=== PATIENT | female | born 1940 | race Caucasian/White ===

== ENCOUNTER 2017-08-14 10:15 | Inpatient (IN) | payer MEDICARE, OTHER, SELFPAY ==
[2017-08-14] VITALS (13 sets, daily range): BP systolic 101–130; BP diastolic 41–92; PULSE 70–120; RESP 16–20; TEMP 36.5–37.7; O2SAT 95–100; BMI 46.8; BMI 37.4
--- NOTE | 2017-08-14 10:25 | HMH.EDGENADL ---
ED Disposition Clinical Impression: Trimalleolar fracture of ankle, closed Qualifiers: Encounter type: initial encounter Laterality: right Qualified Code(s): S82.851A - Displaced trimalleolar fracture of right lower leg, initial encounter for closed fracture Dislocation of right ankle joint Qualifiers: Encounter type: initial encounter Qualified Code(s): S93.04XA - Dislocation of right ankle joint, initial encounter Disposition: Admitted As Inpatient Condition on Discharge: Good - Critical Care Critical Care Time: No Attestation: On 08/14/17, the high probability of a clinically significant, sudden or life threatening deterioration of the following system(s) required my full and direct attention, intervention and personal management. The time I documented below is in addition to time spent performing reported procedures but includes the following listed in this critical care notation. Medical Decision Making - Bandar Inquiry Pt receiving controlled substance: Yes Bandar was queried for this patient: No Reason not queried -: Emergent pt cond-no time Risks and benefits of using a controlled substance: were not discussed with pt by me Vital Signs: 08/14/17 10:17 08/14/17 11:17 08/14/17 11:20 Temperature 98.3 F Temperature Source Oral Pulse Rate Pulse Rate [Right Brachial] 94 H 80 78 Respiratory Rate 20 16 18 Blood Pressure Blood Pressure [Right Arm] 120/92 124/65 112/76 Blood Pressure Mean [Right Arm] 101 84 88 Blood Pressure Source Blood Pressure Source [Right Arm] Manual Cuff/ Doppler Automatic Cuff Blood Pressure Position Blood Pressure Position [Right Arm] Sitting Supine 02 Sat by Pulse Oximetry 98 Oxygen Delivery Method Room Air 08/14/17 11:30 08/14/17 11:58 08/14/17 14:01 Temperature 97.7 F Temperature Source Oral Pulse Rate 108 H Pulse Rate [Right Brachial] 88 Respiratory Rate 18 18 Blood Pressure 130/71 Blood Pressure [Right Arm] 112/76 Blood Pressure Mean [Right Arm] 88 Blood Pressure Source Automatic Cuff Blood Pressure Source [Right Arm] Automatic Cuff Blood Pressure Position Supine Blood Pressure Position [Right Arm] 02 Sat by Pulse Oximetry Oxygen Delivery Method Room Air - Lab Data Lab Results 08/14/17 12:00: WBC 9.5, RBC 4.75, Hgb 12.9, Hct 41.6, MCV 87.6, MCH 27.1, MCHC 31.0 L, RDW 14.1, Plt Count 264, MPV 9.1, Neut % (Auto) 81.8 H, Lymph % (Auto) 12.5, [place] % (Auto) 4.8, Eos % (Auto) 0.6, Baso % (Auto) 0.3, Neut # (Auto) 7.8, Lymph # (Auto) 1.2, [place] # (Auto) 0.5, Eos # (Auto) 0.1, Baso # (Auto) 0.0 08/14/17 12:00: Sodium 139, Potassium 4.3, Chloride 102, Carbon Dioxide 29, Anion Gap 12.3, BUN 24 H, Creatinine 1.14 H, Estimated Creat Clear 30, Estimated GFR 46 L, Est GFR ( Amer) 56 L, Glucose 163 H, Calcium 8.4 L, Total Bilirubin 0.4, AST 20, ALT 26, Alkaline Phosphatase 101, Total Protein 6.8, Albumin 3.3 L, Globulin 3.5 H, Albumin/Globulin Ratio 0.9 L Result diagrams: 08/14/17 12:00 08/14/17 12:00 Orders (Tests/Meds): ED MEDICATIONS Generic Name Dose Route Start Last Admin Trade Name Freq PRN Reason Stop Dose Admin Aspirin 81 mg 08/15/17 09:00 Aspirin 81mg Enteric Coated Tablet PO 09/14/17 08:59 DAILY [facility] Atorvastatin Calcium 40 mg 08/14/17 21:00 Lipitor 40mg Tablet PO 09/13/17 20:59 HS [facility] Blood Glucose Test Strips 1 each 08/14/17 16:30 08/14/17 17:13 Fsbs (Bedside Glucose), Results Only !! FS 09/13/17 16:29 1 each [facility] Administration Citalopram Hydrobromide 20 mg 08/15/17 09:00 Celexa 20mg Tablet PO 09/14/17 08:59 DAILY JENNIFER Diazepam 2 mg 08/14/17 17:20 Valium 2mg Tablet PO 09/13/17 17:19 Q6HP PRN muscle spasm or anxiety Enoxaparin Sodium 30 mg 08/14/17 17:30 08/14/17 17:57 Lovenox 30mg/0.3ml Syringe SQ 09/13/17 17:29 30 mg Q12H JENNIFER Administration Insulin Human Lispro 0 unit 08/14/17 16:30 08/14/17 17:14
--- NOTE | 2017-08-14 10:26 | XR_ITS ---
XR ankle RT min 3V HISTORY: Pain following injury ITS.REASON: fall ORDERING PHYSICIAN: Jeffry Norton MD PATIENT AGE: 76 years COMPARISON: None FINDINGS: Trauma malleolus fracture dislocation noted of the right ankle. Comminuted fracture involves the distal shaft of the fibula with lateral angulation of the distal fracture fragment. The ankle mortise is widened by nearly 2 cm. Displaced transverse fracture noted of the medial malleolus. Fracture fragment is displaced medially x 19 mm. There is also a displaced fracture involving the lateral aspect of the distal tibia and may actually be the posterior distal tibia. There is valgus angulation of the talus. IMPRESSION: Comminuted right ankle fracture/ dislocation with widening of the ankle mortise
--- NOTE | 2017-08-14 10:26 | XR_ITS ---
XR chest AP HISTORY: Fall with pain ITS.REASON: fx ankle, fall ORDERING PHYSICIAN: Jeffry Norton MD PATIENT AGE: 76 years COMPARISON: None available FINDINGS: Cardiomegaly without failure. Mediastinum is somewhat prominent but may be related to the AP portable supine technique. No lobar consolidation or collapse. No acute bony findings. IMPRESSION: Cardiomegaly with mild prominence of the mediastinum possibly related technique and may be confirmed with follow-up upright PA and lateral chest when the patient can tolerate.
--- NOTE | 2017-08-14 11:03 | XR_ITS ---
XR hip RT 2-3V w/pelvis HISTORY: ITS.REASON: HIP PAIN ORDERING PHYSICIAN: Jeffry Norton MD PATIENT AGE: 76 years COMPARISON: None FINDINGS: There are minimal osteoarthritic changes of the right hip. No fracture or dislocation. No lytic or blastic change. Coarse calcification is present in the right paracentral region of the pelvis measuring 2.7 cm consistent with a fibroid. Mathis catheter is present. IMPRESSION: Minimal osteoarthritic changes of the right hip
[2017-08-14 12:27] LABS: Basophils % 0.3 % (0.1-2.0); Eosinophils # 0.1 K/mm3 (0.0-0.4); Eosinophils % 0.6 % (0.1-12.0); Hematocrit 41.6 % (37.0-47.0); Hemoglobin 12.9 g/dL (12.2-16.2); Lymphocytes # 1.2 K/mm3 (0.7-4.5); Lymphocytes % 12.5 K/mm3 (10-50); Mean Corpuscular Hemoglobin 27.1 pg (27.0-31.2); Mean Corpuscular Volume 87.6 fl (81-99); Mean Platelet Volume 9.1 fl (7.4-10.4); Monocytes # 0.5 K/mm3 (0.1-1.0); Monocytes % 4.8 % (1.7-9.3); Neutrophils # 7.8 K/mm3 (1.8-7.8); Neutrophils % 81.8 % (37.0-80.0); Platelet Count 264 K/mm3 (142-424); Red Blood Count 4.75 M/mm3 (4.20-5.40); Red Cell Distribution Width 14.1 % (11.5-17.5); White Blood Count 9.5 K/mm3 (4.8-10.8)
--- NOTE | 2017-08-14 12:32 | XR_ITS ---
XR ankle RT 2V HISTORY: Closed Reduction trial malleolus fracture ITS.REASON: post reduction ORDERING PHYSICIAN: Jeffry Norton MD PATIENT AGE: 76 years COMPARISON: Prereduction exam FINDINGS: Study is obtained through a splint showing moderate improvement in the alignment of the ankle fracture. Comminuted distal fibular fracture once again noted with mild lateral angulation of the distal fracture fragment. The ankle mortise is still widened but is moderately improved from the previous exam displaced medial malleolus fracture once again noted displaced laterally x 7 mm compared to 19 mm. IMPRESSION: Status post closed reduction of the ankle fracture dislocation with moderate improvement in the lateral displacement of the talus and widened ankle mortise as described above
[2017-08-14 12:36] LABS: Alanine Aminotransferase 26 U/L (12-78); Albumin Level 3.3 gm/dL (3.4-5.0); Albumin/Globulin Ratio 0.9 (1.1-1.8); Alkaline Phosphatase 101 U/L (46-116); Aspartate Amino Transferase 20 U/L (15-37); Bilirubin,Total 0.4 mg/dL (0.2-1.0); Blood Urea Nitrogen 24 mg/dL (7-18); Calcium 8.4 mg/dL (8.5-10.1); Creatinine Clearance Estimated 30 mL/min (0-300); Creatinine,Serum 1.14 mg/dL (0.55-1.02); Estimated Glomerular Filt Rate 46 ml/min (>60); GFR (African American) 56 ML/MIN (>60); Globulin 3.5 gm/dl (1.3-3.2); Glucose 163 mg/dL (74-106); Total Protein,Serum 6.8 gm/dL (6.4-8.2)
--- NOTE | 2017-08-14 12:37 | PC.NURSE ---
DR STEARNS CONSULTED BY DR LAMAS
--- NOTE | 2017-08-14 12:53 | PC.NURSE ---
Pt prepped for reduction of Rt ankle. QUINTON Lima and Dr Norton at BS. 50mg of Ketamine IVP given at 1118. Sxn and Respiratory supplies at BS. 1121 Leg Long splint placed by Dr Norton. 1125 Pt is following commands and is alert. Family at BS at 1130. VSS.
[2017-08-14 12:57] LABS: Anion Gap 12.3 mEq/L (5-15); Carbon Dioxide 29 mmol/L (21.0-32.0); Chloride 102 mmol/L (98-107); Potassium 4.3 mmoL/L (3.5-5.1); Sodium 139 mmol/L (136-145)
--- NOTE | 2017-08-14 13:06 | PC.NURSE ---
Pt doing well. Pain is under control and family is at BS. Rt foot is elevated and toes are PW&D.
--- NOTE | 2017-08-14 13:34 | PC.NURSE ---
DR MTZ COVERING FOR DR PADILLA CALLED AND ADMISSION TO HOSPITAL DISCUSSED.
--- NOTE | 2017-08-14 13:36 | PC.NURSE ---
DR LAMAS DISCUSSING CASE WITH DR STEARNS. TO BE ADMITTED TO HOSPITAL
--- NOTE | 2017-08-14 13:43 | PC.NURSE ---
TO BE ADMITTED TO ROOM [address] MTZ COVERING FOR VALERIE
--- NOTE | 2017-08-14 13:53 | CT_ITS ---
CT ankle RT wo con CLINICAL INDICATION: Pain following injury, evaluate stent fracture or dislocation status post closed reduction ITS.REASON: S/P FALL FX TIB/FIB ORDERING PHYSICIAN: Rell Clark MD PATIENT AGE: 76 years COMPARISON: Radiographs of the same day FINDINGS: There is a trial malleolus fracture present. Distal fibular fracture comminuted in nature with minimal lateral angulation of the distal fracture fragment with no significant displacement. The fracture is 6 cm proximal to the tip of the fibula and there is comminution. An avulsion fracture present at the tip of the distal fibula. There is mild widening of the ankle mortise. There is 7 mm lateral displacement of the talus. Increased soft tissue density is present in the inner osseous ligament region consistent with tear of the interosseous ligament. There are some avulsion fracture fragments along the distal aspect of the lateral aspect of the tibia. There is a displaced transverse fracture involving the before meals the medial malleolus. The medial malleolus fracture fragment is displaced laterally x 3 mm. A mildly displaced vertical fracture involves the posterior aspect of the distal tibia displaced dorsally x 3 mm and superiorly x 2 mm. The talus appears intact. No obvious tarsal fractures. Soft tissue swelling is present along the distal leg and ankle. IMPRESSION: Trimalleolar ankle fracture as described above with widening of the ankle mortise and lateral displacement of the talus as described above. IMPRESSION:
--- NOTE | 2017-08-14 14:07 | PC.NURSE ---
TO RADIOLOGY PER STRETCHER FOR CT RIGHT ANKLE
--- NOTE | 2017-08-14 17:27 | HMH.HP ---
*Admission Date: 08/14/17 *Chief complaint: Fall with right ankle fracture *History of present illness: 76-year-old white female in poor general health at home, afflicted with insulin requiring diabetes, some recent memory issues and confusion and morbid obesity, whose had multiple recent falls starting in the fall of last year, who came to the emergency department after falling at home and having severe ankle pain. Her son was with her this morning, reported that she had gotten up out of bed and he was making sure that she had eaten breakfast and was checking her sugar when she felt faint and said that she felt she was going to fall down. She did indeed fall and had a severe ankle injury. She has fallen multiple times in similar patterns over the past several months. In the emergency department ankle fracture was diagnosed by x-ray, it was externally reduced and cast/splint was applied. Orthopedic consultation was done, anticipate ORIF, admitted to hospital to evaluate falls, syncope episode and ongoing need for orthopedic intervention. Of note in the emergency department atrial fibrillation was noted on EKG. The family notes this is never been part of her history, but they do note that several weeks ago a staff member at the primary office noticed an irregular heartbeat that was not heard on re-auscultation. Patient and family specifically deny increasing problems with edema, palpitations or chest pain over the past months. [facility] History Medical History: Reports:: Cerebrovascular Accident, Diabetes Mellitus Type 2 Denies:: Diabetes Mellitus Type 1, Internal Pacemaker Comment: History of a cerebral blood clot during her many years ago Other Surgeries: No: Pacemaker - *Social History Alcohol Intake: never - Psychiatric History Expresses thoughts of harming self/others: None Suicide Plan Description: No Plan Review of Systems - Review of Systems Review of systems:: unable to obtain Patient is somewhat disoriented. Is unable to fixate on any other problems except the cramping sensation that she has in her ankle and foot. Denies cardiac symptoms as noted in HPI, but again, is really difficult to focus on a meaningful review of systems. - *Neurologic Denies fainting Meds Home Medications Medication Instructions Recorded Confirmed Type Aspirin [Aspir 81] 81 mg PO DAILY 08/14/17 08/14/17 History Atorvastatin Calcium [Atorvastatin 40 mg PO HS 08/14/17 08/14/17 History 40mg Tab] Citalopram Hydrobromide [Celexa 20 mg PO DAILY 08/14/17 08/14/17 History 20mg Tablet] Cyanocobalamin (Vitamin B-12) 1,000 mcg PO DAILY 08/14/17 08/14/17 History [Vitamin B-12] Folic Acid 0.4 mg PO DAILY 08/14/17 08/14/17 History Glyburide,Micronized [Glyburide 6 mg PO DAILY 08/14/17 08/14/17 History Micronized] Losartan/Hydrochlorothiazide 12.5 - 100 mg PO DAILY 08/14/17 08/14/17 History [Losartan-Hctz 100-12.5 mg Tab] Memantine HCl [Namenda Xr] 28 mg PO DAILY 08/14/17 08/14/17 History Omeprazole [Omeprazole 40mg 40 mg PO DAILY 08/14/17 08/14/17 History Capsule] Pioglitazone HCl [Pioglitazone HCl] 15 mg PO DAILY 08/14/17 08/14/17 History Pyridoxine HCl (Vitamin B6) 100 mg PO DAILY 08/14/17 08/14/17 History [Vitamin B-6] Allergies Allergy/AdvReac Type Severity Reaction Status Date / Time No Known Allergies Allergy Verified 08/14/17 10:35 Exam Vital signs and Labs for Last 24 Hours: Temp Pulse Resp BP Pulse Ox 98.2 F 117 H 20 129/56 97 08/14/17 14:34 08/14/17 16:00 08/14/17 14:34 08/14/17 14:34 08/14/17 15:12 I & O for Last 24 hours: Intake & Output 08/12/17 08/13/17 08/14/17 08/15/17 11:59 11:59 11:59 11:59 Weight 225 lb 2 oz Narrative: Patient examined in bed on second floor. Morbid obesity noted, this limits her exam accuracy and complicates all aspects of her care. She is oriented ?2. Again very distractible and focused on her leg pain. Or
--- NOTE | 2017-08-14 17:30 | P.HP_ITS ---
*Admission Date: 08/14/17 *Chief complaint: Fall with right ankle fracture *History of present illness: 76-year-old white female in poor general health at home, afflicted with insulin requiring diabetes, some recent memory issues and confusion and morbid obesity, whose had multiple recent falls starting in the fall of last year, who came to the emergency department after falling at home and having severe ankle pain. Her son was with her this morning, reported that she had gotten up out of bed and he was making sure that she had eaten breakfast and was checking her sugar when she felt faint and said that she felt she was going to fall down. She did indeed fall and had a severe ankle injury. She has fallen multiple times in similar patterns over the past several months. In the emergency department ankle fracture was diagnosed by x-ray, it was externally reduced and cast/splint was applied. Orthopedic consultation was done, anticipate ORIF, admitted to hospital to evaluate falls, syncope episode and ongoing need for orthopedic intervention. Of note in the emergency department atrial fibrillation was noted on EKG. The family notes this is never been part of her history, but they do note that several weeks ago a staff member at the primary office noticed an irregular heartbeat that was not heard on re-auscultation. Patient and family specifically deny increasing problems with edema, palpitations or chest pain over the past months. [facility] History Medical History: Reports:: Cerebrovascular Accident, Diabetes Mellitus Type 2 Denies:: Diabetes Mellitus Type 1, Internal Pacemaker Comment: History of a cerebral blood clot during her many years ago Other Surgeries: No: Pacemaker - *Social History Alcohol Intake: never - Psychiatric History Expresses thoughts of harming self/others: None Suicide Plan Description: No Plan Review of Systems - Review of Systems Review of systems:: unable to obtain Patient is somewhat disoriented. Is unable to fixate on any other problems except the cramping sensation that she has in her ankle and foot. Denies cardiac symptoms as noted in HPI, but again, is really difficult to focus on a meaningful review of systems. - *Neurologic Denies fainting Meds Home Medications Medication Instructions Recorded Confirmed Type Aspirin [Aspir 81] 81 mg PO DAILY 08/14/17 08/14/17 History Atorvastatin Calcium [Atorvastatin 40 mg PO HS 08/14/17 08/14/17 History 40mg Tab] Citalopram Hydrobromide [Celexa 20 mg PO DAILY 08/14/17 08/14/17 History 20mg Tablet] Cyanocobalamin (Vitamin B-12) 1,000 mcg PO DAILY 08/14/17 08/14/17 History [Vitamin B-12] Folic Acid 0.4 mg PO DAILY 08/14/17 08/14/17 History Glyburide,Micronized [Glyburide 6 mg PO DAILY 08/14/17 08/14/17 History Micronized] Losartan/Hydrochlorothiazide 12.5 - 100 mg PO DAILY 08/14/17 08/14/17 History [Losartan-Hctz 100-12.5 mg Tab] Memantine HCl [Namenda Xr] 28 mg PO DAILY 08/14/17 08/14/17 History Omeprazole [Omeprazole 40mg 40 mg PO DAILY 08/14/17 08/14/17 History Capsule] Pioglitazone HCl [Pioglitazone HCl] 15 mg PO DAILY 08/14/17 08/14/17 History Pyridoxine HCl (Vitamin B6) 100 mg PO DAILY 08/14/17 08/14/17 History [Vitamin B-6] Allergies Allergy/AdvReac Type Severity Reaction Status Date / Time No Known Allergies Allergy Verified 08/14/17 10:35 Exam Vital signs and Labs for Last 24 Hours:
--- NOTE | 2017-08-14 18:23 | PC.NURSE ---
71 YEAR OLD FEMALE PRESENTED TO THE HOSPITAL WITH A DIAGNOSIS OF RIGHT ANKLE FRACTURE. SHE FELL AT HOME THIS AM. DURING HER ER VISIT THE FRACTURE WAS EXTERNALLY REDUCED AND CAST/SPLINT WAS APPLIED. DR. ARAUJO CONSULTED AND THE PLAN IS TO TAKE HER TO SURGERY TOMORROW FOR A POSSIBLE ORIF. SHE HAS COMPLAINED OF ALOT OF PAIN AND MEDICATION WAS GIVEN PER ORDER. SHE IS A DIABETIC AND SHE IS ON A SLIDING SCALE INSULIN AT THIS TIME. BLOOD SUGAR AT 1700 WAS 117. FAMILY IS AT BEDSIDE AND HAS ENCOURAGED HER TO EAT. SHE STATES SHE IS NOT HUNGRY. REINFORCED THAT WE WILL MONITOR HER BLOOD SUGARS AND PAIN LEVEL. SHE HAS A SHETH CATH TO STRAIGHT DRAIN WITH YELLOW URINE NOTED. A HEART MONITOR WAS IMPLEMENTED AND SHE HAS BEEN IN ATRIAL FIB, NEW MEDICATION HAS BEEN ORDERED FOR TONIGHT. SHE IS UNABLE TO TOLERATE THE RICH HOSE, LOVENOX WAS ORDERED AND ADMINISTERED. WE WILL CONTINUE TO MONITOR. DONI CHAVEZ, MSN, RN
[2017-08-14 18:40] LABS: POC Glucose,Bedside 117 mg/dL (70-110)
--- NOTE | 2017-08-14 19:13 | PC.NURSE ---
REPORT GIVEN TO Tom REILLY
--- NOTE | 2017-08-14 19:49 | HMH.ORTHOCON ---
*Admission Date: 08/14/17 *Chief complaint: Right ankle pain *History of present illness: The patient is a 76-year-old female admitted after falling at home and incurring an ankle fracture dislocation. At time of examination, she is reasonably oriented and, in contrast to her admission history, states that she DID NOT take insulin for her diabetes. She denies blacking out but states that she does not remember any of her recent falls. PHYSICAL EXAMINATION-- Patient is awake but slightly confused. She is morbidly obese. Head/neck--no evident trauma. C-spine is nontender. No range of motion restrictions. T/L/S spine shows no evident tenderness or step-off Upper extremity exam shows no crepitus or trauma induced range of motion issues. Grossly intact neurologically. Peripheral pulses intact upper extremities. Pelvis is stable to compression and distraction. Mild tenderness left hip over the greater trochanter. Hip and knee range of motion cannot be assessed secondary to her known right ankle fracture dislocation Lower extremity examination shows the right ankle to be immobilized in a splint. Pedal pulses are intact. An ice pack is in place. Elevation is only about 4 inches. X-rays are reviewed and show a very well reduced ankle fracture dislocation which appears to be trimalleolar. A CT scan is been performed and this helped define the fracture pattern greatly, very important in this patient with morbid obesity. A trimalleolar fracture is indeed present. The posterior malleolar fracture appears of sufficient size that it will not itself require fixation most likely. This is a comminuted Busch C fracture with syndesmosis disruption and widening of the ankle mortise. PLAN--ORIF tommorrow.....R/B explained in detail to patient and her networking specialist. clear liquids until 714 then NPO Review of Systems - *Neurologic Denies fainting [facility] History Medical History: Reports:: Cerebrovascular Accident, Diabetes Mellitus Type 2 Denies:: Diabetes Mellitus Type 1, Internal Pacemaker Other Surgeries: No: Pacemaker - *Social History Alcohol Intake: never - Psychiatric History Expresses thoughts of harming self/others: None Suicide Plan Description: No Plan Meds Home Medications Medication Instructions Recorded Confirmed Type Aspirin [Aspir 81] 81 mg PO DAILY 08/14/17 08/14/17 History Atorvastatin Calcium [Atorvastatin 40 mg PO HS 08/14/17 08/14/17 History 40mg Tab] Citalopram Hydrobromide [Celexa 20 mg PO DAILY 08/14/17 08/14/17 History 20mg Tablet] Cyanocobalamin (Vitamin B-12) 1,000 mcg PO DAILY 08/14/17 08/14/17 History [Vitamin B-12] Folic Acid 0.4 mg PO DAILY 08/14/17 08/14/17 History Glyburide,Micronized [Glyburide 6 mg PO DAILY 08/14/17 08/14/17 History Micronized] Losartan/Hydrochlorothiazide 12.5 - 100 mg PO DAILY 08/14/17 08/14/17 History [Losartan-Hctz 100-12.5 mg Tab] Memantine HCl [Namenda Xr] 28 mg PO DAILY 08/14/17 08/14/17 History Omeprazole [Omeprazole 40mg 40 mg PO DAILY 08/14/17 08/14/17 History Capsule] Pioglitazone HCl [Pioglitazone HCl] 15 mg PO DAILY 08/14/17 08/14/17 History Pyridoxine HCl (Vitamin B6) 100 mg PO DAILY 08/14/17 08/14/17 History [Vitamin B-6] Allergies Allergy/AdvReac Type Severity Reaction Status Date / Time No Known Allergies Allergy Verified 08/14/17 10:35 Exam Vital signs and Labs for Last 24 Hours: Temp Pulse Resp BP Pulse Ox 98.2 F 117 H 20 129/56 97 08/14/17 14:34 08/14/17 16:00 08/14/17 14:34 08/14/17 14:34 08/14/17 15:12 Laboratory Results - last 24 hr 08/14/17 17:10: POC Glucose 117 I & O for Last 24 hours: Intake & Output 08/12/17 08/13/17 08/14/17 08/15/17 11:59 11:59 11:59 11:59 Intake Total 120 / 120 Output Total 100 / 100 Balance 20 / 20 Weight 225 lb 2 oz Results - Labs Result Diagrams: 08/14/17 12:00 08/14/17 12:00 Labs: All other labs normal. Assessment
--- NOTE | 2017-08-14 19:58 | P.CONS_ITS ---
*Admission Date: 08/14/17 *Chief complaint: Right ankle pain *History of present illness: The patient is a 76-year-old female admitted after falling at home and incurring an ankle fracture dislocation. At time of examination, she is reasonably oriented and, in contrast to her admission history, states that she DID NOT take insulin for her diabetes. She denies blacking out but states that she does not remember any of her recent falls. PHYSICAL EXAMINATION-- Patient is awake but slightly confused. She is morbidly obese. Head/neck--no evident trauma. C-spine is nontender. No range of motion restrictions. T/L/S spine shows no evident tenderness or step-off Upper extremity exam shows no crepitus or trauma induced range of motion issues. Grossly intact neurologically. Peripheral pulses intact upper extremities. Pelvis is stable to compression and distraction. Mild tenderness left hip over the greater trochanter. Hip and knee range of motion cannot be assessed secondary to her known right ankle fracture dislocation Lower extremity examination shows the right ankle to be immobilized in a splint. Pedal pulses are intact. An ice pack is in place. Elevation is only about 4 inches. X-rays are reviewed and show a very well reduced ankle fracture dislocation which appears to be trimalleolar. A CT scan is been performed and this helped define the fracture pattern greatly, very important in this patient with morbid obesity. A trimalleolar fracture is indeed present. The posterior malleolar fracture appears of sufficient size that it will not itself require fixation most likely. This is a comminuted Busch C fracture with syndesmosis disruption and widening of the ankle mortise. PLAN--ORIF tommorrow.....R/B explained in detail to patient and her tong carrier. clear liquids until 714 then NPO Review of Systems - *Neurologic Denies fainting [facility] History Medical History: Reports:: Cerebrovascular Accident, Diabetes Mellitus Type 2 Denies:: Diabetes Mellitus Type 1, Internal Pacemaker Other Surgeries: No: Pacemaker - *Social History Alcohol Intake: never - Psychiatric History Expresses thoughts of harming self/others: None Suicide Plan Description: No Plan Meds Home Medications Medication Instructions Recorded Confirmed Type Aspirin [Aspir 81] 81 mg PO DAILY 08/14/17 08/14/17 History Atorvastatin Calcium [Atorvastatin 40 mg PO HS 08/14/17 08/14/17 History 40mg Tab] Citalopram Hydrobromide [Celexa 20 mg PO DAILY 08/14/17 08/14/17 History 20mg Tablet] Cyanocobalamin (Vitamin B-12) 1,000 mcg PO DAILY 08/14/17 08/14/17 History [Vitamin B-12] Folic Acid 0.4 mg PO DAILY 08/14/17 08/14/17 History Glyburide,Micronized [Glyburide 6 mg PO DAILY 08/14/17 08/14/17 History Micronized] Losartan/Hydrochlorothiazide 12.5 - 100 mg PO DAILY 08/14/17 08/14/17 History [Losartan-Hctz 100-12.5 mg Tab] Memantine HCl [Namenda Xr] 28 mg PO DAILY 08/14/17 08/14/17 History Omeprazole [Omeprazole 40mg 40 mg PO DAILY 08/14/17 08/14/17 History Capsule] Pioglitazone HCl [Pioglitazone HCl] 15 mg PO DAILY 08/14/17 08/14/17 History Pyridoxine HCl (Vitamin B6) 100 mg PO DAILY 08/14/17 08/14/17 History [Vitamin B-6] Allergies Allergy/AdvReac Type Severity Reaction Status Date / Time No Known Allergies Allergy Verified 08/14/17 10:35 Exam Vital signs and Labs for Last 24 Hours: Temp Pulse Resp BP
[2017-08-15] VITALS (33 sets, daily range): BP systolic 68–142; BP diastolic 36–98; PULSE 61–118; RESP 12–22; TEMP 36.4–43; O2SAT 94–100
--- NOTE | 2017-08-15 | XR_ITS ---
XR ankle RT 2V HISTORY: ORIF trimalleolar ankle fracture ORDERING PHYSICIAN: Rell Clark MD PATIENT AGE: 76 years COMPARISON: 08/14/2017 Fluoroscopy time: 1 minute. FINDINGS: A bone plate is been placed over the distal fibular fracture with good alignment. 2 screws stabilize the medial malleolus fracture with good alignment. An additional transverse screws placed through the distal bone plate of the fibula into the distal tibia with stabilization of the ankle mortise. IMPRESSION: Status post ORIF trimalleolar fracture with good alignment as described above.
[2017-08-15 01:16] LABS: POC Glucose,Bedside 146 mg/dL (70-110)
--- NOTE | 2017-08-15 03:51 | PC.NURSE ---
no changes noted from previous assessment, pt has rested only brief periods this shift, pt c/o pain several times in the right leg, foot, and ankle, pt given PRN medications per MAR which provide temporary relief, foot remains elevated and ice packs are applied intermittently for 20 minutes, pt able to move extremities distal to the affected area, extremity is warm and pallor, popliteal pulse obtained, cast in place and unable to obtain pedal pulse breath sounds are clear throughout, bowel sounds are active, pt 2100 glucose was 146 insulin was held because pt family states pt has had nothing to eat or drink since approximately 1730 08/13/17, staff encourages sips of water throughout shift, despite efforts only approximately 90 ml of PO intake, adams is patent draining minimal amounts of clear yellow urine, no acute distress noted at this time, call light in reach, bed alarm activated, family at bedside, will continue to monitor.
--- NOTE | 2017-08-15 06:11 | CA_ITS ---
PROCEDURE: 2-D M-mode and color Doppler study INDICATIONS FOR THE TEST: Chest pain COPD Heart Murmur Tobacco Smoking Palpitations Fatigue Syncope Edema Hypertension Diabetes Mellitus+ Rheumatic Fever SOB VALDES Obesity Hyperlipidemia Family History HD Additional History 3 FXS IN ANKLE, FLAT ON BACK, TDE PATIENT INFORMATION HEIGHT: 60 WEIGHT: GENDER: Female B/P:120/56 2-D/M-MODE INTERPRETATION: 2-D MEASUREMENTS OBSERVED VALUES IN CMS Right Ventricular Dimension (RVDd) 2.3 Interventricular Septum (Thickness)(IVsd) 1.6 Left Ventricular Internal Dimensions(LVIDd) 3.8 Left Ventricular Posterior Wall (Thickness)(LVPWd) 1.1 Aortic Root 3.3 Aortic Cusp Separation 1.9 Left Atrial Dimensions (LAD) 4.6 2D 1. Technically difficult study because of the patient's factor and poor acoustic windows 2. Left atrium is mildly enlarged, left ventricle is normal size, there is preserved left ventricular systolic function, visually estimated ejection fraction 55% with no obvious regional wall motion abnormality. Endocardial surfaces are poorly visualized. 3. Mildly enlarged right atrium and right ventricle, contractility of the right ventricle is normal. 4. The aortic valve is minimally thickened and fibrosed. 5. The mitral and tricuspid valve leaflets are minimally thickened. 6. No significant pericardial effusion noted. DOPPLER INTERROGATION: Doppler interrogation of the aortic, mitral and tricuspid valvular presence of mild mitral and tricuspid regurgitation, tricuspid and jet velocity is insufficient for calculation of the right ventricular systolic pressure, diastolic parameters are inconclusive. CONCLUSION: 1. Technically difficult study because of the patient's factor and poor acoustic windows 2. Mild biatrial enlargement, normal left ventricular size, preserved left ventricular systolic function, visually estimated ejection fraction 55% with no obvious regional wall motion abnormality, diastolic parameters are inconclusive. 3. Mild mitral and tricuspid regurgitation 4. No significant pericardial effusion noted.
[2017-08-15 06:56] LABS: Alanine Aminotransferase 26 U/L (12-78); Albumin Level 3.2 gm/dL (3.4-5.0); Albumin/Globulin Ratio 0.9 (1.1-1.8); Alkaline Phosphatase 97 U/L (46-116); Anion Gap 10.8 mEq/L (5-15); Aspartate Amino Transferase 17 U/L (15-37); Bilirubin,Total 0.6 mg/dL (0.2-1.0); Blood Urea Nitrogen 34 mg/dL (7-18); Calcium 8.5 mg/dL (8.5-10.1); Carbon Dioxide 31 mmol/L (21.0-32.0); Chloride 102 mmol/L (98-107); Creatinine Clearance Estimated 41 mL/min (0-300); Creatinine,Serum 1.86 mg/dL (0.55-1.02); Estimated Glomerular Filt Rate 26 ml/min (>60); GFR (African American) 32 ML/MIN (>60); Globulin 3.6 gm/dl (1.3-3.2); Glucose 112 mg/dL (74-106); Potassium 4.8 mmoL/L (3.5-5.1); Sodium 139 mmol/L (136-145); Total Protein,Serum 6.8 gm/dL (6.4-8.2)
[2017-08-15 07:04] LABS: POC Glucose,Bedside 102 mg/dL (70-110)
[2017-08-15 07:09] LABS: Basophils % 0.4 % (0.1-2.0); Eosinophils % 0.4 % (0.1-12.0); Hematocrit 38.7 % (37.0-47.0); Hemoglobin 11.7 g/dL (12.2-16.2); Lymphocytes # 1.7 K/mm3 (0.7-4.5); Lymphocytes % 21.7 K/mm3 (10-50); Mean Corpuscular HGB Conc 30.3 g/dL (31.8-35.4); Mean Corpuscular Hemoglobin 27.1 pg (27.0-31.2); Mean Corpuscular Volume 89.4 fl (81-99); Monocytes # 0.6 K/mm3 (0.1-1.0); Monocytes % 8.2 % (1.7-9.3); Neutrophils # 5.4 K/mm3 (1.8-7.8); Neutrophils % 69.4 % (37.0-80.0); Platelet Count 258 K/mm3 (142-424); Red Blood Count 4.33 M/mm3 (4.20-5.40); White Blood Count 7.8 K/mm3 (4.8-10.8)
--- NOTE | 2017-08-15 07:16 | P.PN_ITS ---
Internal Medicine - PN: Subj *Date: 08/15/17 *Time: 07:14 Interval history: Patient is complaining of quite a bit of pain in the back and hip and a burning pain in the right ankle. Nursing staff reports regular administration of morphine and Valium overnight. Patient has not slept very well. Family is at bedside. Patient has forgotten that she is scheduled for surgery this afternoon Exam Vital signs and Labs for Last 24 Hours: Temp Pulse Resp BP Pulse Ox 99.3 F 68 16 101/45 97 08/15/17 04:00 08/15/17 04:00 08/15/17 06:48 08/15/17 04:00 08/15/17 04:00 Laboratory Results - last 24 hr 08/14/17 17:10: POC Glucose 117 08/14/17 20:03: POC Glucose 146 08/15/17 06:30: WBC 7.8, RBC 4.33, Hgb 11.7 L, Hct 38.7, MCV 89.4, MCH 27.1, MCHC 30.3 L, RDW 14.0, Plt Count 258, MPV 9.0, Neut % (Auto) 69.4, Lymph % (Auto ) 21.7, [place] % (Auto) 8.2, Eos % (Auto) 0.4, Baso % (Auto) 0.4, Neut # (Auto) 5.4, Lymph # (Auto) 1.7, [place] # (Auto) 0.6, Eos # (Auto) 0.0, Baso # (Auto) 0.0 08/15/17 06:30: Sodium 139, Potassium 4.8, Chloride 102, Carbon Dioxide 31, Anion Gap 10.8, BUN 34 H D, Creatinine 1.86 H D, Estimated Creat Clear 41, Estimated GFR 26 L, Est GFR ( Amer) 32 L D, Glucose 112 H D, Calcium 8.5 , Total Bilirubin 0.6, AST 17, ALT 26, Alkaline Phosphatase 97, Total Protein 6.8, Albumin 3.2 L, Globulin 3.6 H, Albumin/Globulin Ratio 0.9 L 08/15/17 06:53: POC Glucose 102 I & O for Last 24 hours: Intake & Output 08/12/17 08/13/17 08/14/17 08/15/17 11:59 11:59 11:59 11:59 Intake Total 120 / 120 Output Total 225 / 225 Balance -105 / -105 Weight 226 lb 5 oz Narrative: Patient appears to be in mild to moderate amount of pain. She appears uncomfortable and is constantly trying to move in the bed. Oropharynx is dry. Neck is without lymphadenopathy. Heart rate is irregular. Abdomen is soft. Lungs are clear. Assessment and Plan (1) New onset atrial fibrillation Current visit: Yes Status: Acute Category: Medical Code(s): I48.91 - Unspecified atrial fibrillation (2) Frequent falls Current visit: Yes Status: Acute Category: Medical Code(s): R29.6 - Repeated falls (3) Dislocation of right ankle joint Current visit: Yes Status: Acute Qualifiers: Encounter type: initial encounter Qualified Code(s): S93.04XA - Dislocation of right ankle joint, initial encounter Category: Medical Code(s): S93.04XA - Dislocation of right ankle joint, initial encounter (4) Trimalleolar fracture of ankle, closed Current visit: Yes Status: Acute Qualifiers: Encounter type: initial encounter Laterality: right Qualified Code(s): S82.851A - Displaced trimalleolar fracture of right lower leg, initial encounter for closed fracture Category: Medical Code(s): S82.853A - Displaced trimalleolar fracture of unspecified lower leg, initial encounter for closed fracture - Assessment and plan all Dx Assessment and Plan for all problems:: 1. Echocardiogram this morning due to new diagnosis of A. fib. 2. Continue beta-blockers 3. ORIF of right ankle fracture this afternoon 4. Care management consult as patient will likely need placement for intermediate
--- NOTE | 2017-08-15 07:24 | HMH.PHAVTE ---
[facility] Pharmacy VTE Monitoring - Patient Demographics Admission date: 08/14/17 Report Date: 08/15/17 Time: 07:24 Allergies/Adverse Reactions: Patient Allergies No Known Allergies Allergy (Verified 08/14/17 10:35) Height: 1.65 m Weight: 102.654 kg Patient Problems: Current Active Problems Trimalleolar fracture of ankle, closed (Acute) Dislocation of right ankle joint (Acute) New onset atrial fibrillation (Acute) Frequent falls (Acute) - VTE Risk Labs: VTE Related Lab Results Hgb 11.7 g/dL (12.2-16.2) L 08/15/17 06:30 Hct 38.7 % (37.0-47.0) 08/15/17 06:30 Plt Count 258 K/mm3 (142-424) 08/15/17 06:30 BUN 34 mg/dL (7-18) H D 08/15/17 06:30 Creatinine 1.86 mg/dL (0.55-1.02) H D 08/15/17 06:30 Estimated Creat Clear 41 mL/min (0-300) 08/15/17 06:30 Was VTE Risk Assessment Performed: Yes - Prophylaxis VTE Prophylaxis Ordered?: Yes Types of VTE Prophylaxis: TEDS Knee High, Pharmacological Location of Applied Device: Bilateral Lower Extremeties Pharmacologic Type: Enoxaparin - VTE Diagnosis Confirmed Treatment or plan recommended: Continue Current Treatment
--- NOTE | 2017-08-15 11:55 | SW/DCPLANNER ---
WENT IN TO SEE PATIENT THIS MORNING, FAMILY WAS AT BEDSIDE AND SHE WAS IN SUCH PAIN SHE COULDN'T EVEN TALK WITH ME.. SHE IS SCHEDULED FOR SURGERY LATER TODAY AND I WANTED TO TALK WITH HER ABOUT HER DISCHARGE PLAN POST HOSPITAL STAY...I WILL SEE HER POST HER SURGERY AND SEE IF SHE THINKS SHE NEEDS TO GO SOMEWHERE FOR REHAB SERVICES IN ORDER TO GET BACK TO HER HOME SETTING.
[2017-08-15 12:07] LABS: POC Glucose,Bedside 137 mg/dL (70-110)
--- NOTE | 2017-08-15 12:11 | HMH.ANESCL ---
[facility] Anesthesia Checklist - Patient Identification Patient Identification: Arm Band - Structural Data Admitted From: Inpatient Planned Operative Procedure/s: orif left ankle Consent for Planned Operative Procedure(s) Verified: Yes Verified Documents: Surgical Consent, History and Physical - NPO Status Verified Time NPO: 00:00 - Additional verifications Anesthesia Reactions: No - Airway Assessment C-Spine Mobility Assessed: Yes (mp2) TMJ Mobility Assessed: Yes Dentition: Partials - Neurological Assessment Level of Consciousness: Awake, Alert - Anesthesia Plan Anesthesia Risk discussed: Yes Anesthesia Plan: Verified ASA Class: III Anesthesia Type: General [facility] Anesthesia HX I have reviewed the patient's past medical history: Yes Medical History: Reports:: Atrial Fibrillation, Cerebrovascular Accident, Diabetes Mellitus Type 2, Gastroesophageal Reflux Disease(GERD) Denies:: Diabetes Mellitus Type 1, Internal Pacemaker Laterality Cases: Bilateral: Tonsillectomy Other Surgeries: No: Pacemaker
--- NOTE | 2017-08-15 15:25 | HMH.ANESI ---
[facility] Anesthesia Record Part I Intake, IV Amount: 3,700 Estimated blood loss (mL): 10 Urine output (mL): 100 Blood Pressure: 138/98 SaO2: 100 Pulse Rate: 86 Respiratory Rate: 12 Temperature: 99 F Patient is:: Awake, Stable Stable to PACU at:: 15:25
--- NOTE | 2017-08-15 15:27 | HMH.ANESII ---
[facility] Anesthesia Record Part II Discharge Time: 15:55 Destination: floor PACU nurse assessment reviewed?: Yes Patient Condition:: Good Anesthesia Complications:: None
--- NOTE | 2017-08-15 16:35 | PC.NURSE ---
pt's lung sounds sonorous ss,rn
--- NOTE | 2017-08-15 16:52 | PC.NURSE ---
pt able to tell me where she is, but is unable to recollect the surgery, just that she is so tired sgrn
--- NOTE | 2017-08-15 17:03 | PC.NURSE ---
pt into PACU with no O2 applied, minutes later her saturation decreased <86%, simple mask at 10L applied, pt saturated between 97%-100% at this time, simple mask removed and NC replaced at 4L, minutes later pt's saturation decreased <90%, simple mask placed again at 4L, pt saturates at 100%, pt very drowsy and falls asleep very easily which also causes her O2 saturation to decrease quickly sg,rn
--- NOTE | 2017-08-15 17:32 | SW/DCPLANNER ---
RECEIVED REFERRAL FOR THIS PATIENT FOR SNF OPTIONS: I HAVE VISITED THIS PATIENT A COUPLE DIFFERENT TIMES TODAY AND ONCE SHE WAS IN SO MUCH PAIN AND DISCOMFORT SHE COULDN'T CARRY A CONVERSATION WITH ME... I WENT BACK AFTER HER SURGERY AND SHE WAS RESTING BUT HER SON AND FAMILY WAS PRESENT.. HE STATED HE LIVES WITH HIS MOTHER AND FATHER AND SHE HAS SOME MILD DEMENTIA NOTED AND HAS CONCERNS SHE WILL JUST GO HOME AND SIT DOWN.. I EXPLAINED SKILLED CARE TO HIM AND TOLD HIM [facility] HAVE BEDS AND [facility] IS JUST SHORT TERM BUT [facility] CAN KEEP HER LONGER IF THE NEED BE....HE DOES NOT WANT A PERMANENT PLACEMENT FOR HER BUT STATED SHE WILL HAVE TO GO FOR A SHORT AMOUNT OF TIME...SHE WILL NEED SOME THERAPY FOR TEACHING AND STRENGTHENING...THEY ARE GOING TO GO TO [facility] AND VISIT THEM. SHE IS NOW IN AN ACUTE STATUS AND WILL NEED TO STAY 3 COMPLETED MIDNIGHTS BEFORE SHE CAN USE HER MEDICARE BENEFIT...WILL SPEAK WITH FAMILY AFTER THEY VISIT [facility] AND WORK TOWARD A SAFE DISCHARGE PLAN FOR HER....
[2017-08-15 17:40] LABS: POC Glucose,Bedside 107 mg/dL (70-110)
--- NOTE | 2017-08-15 18:06 | XR_ITS ---
XR ankle RT 2V HISTORY: Follow-up surgery/ORIF ITS.REASON: after surgery xray ORDERING PHYSICIAN: Rell Clark MD PATIENT AGE: 76 years COMPARISON: 08/14/2017 FINDINGS: Study is obtained through cast. Bone plate is been placed over the distal fibular fracture with good alignment with a transverse screw through the distal aspect of the bone plate in the tibia stabilizing the ankle mortise which is no longer widened. 2 screws are present stabilizing the medial malleolus fracture which is good alignment. IMPRESSION: Status post ORIF distal fibular fracture with good alignment. Ankle mortise no longer widened.
--- NOTE | 2017-08-15 19:46 | PC.NURSE ---
BLOOD PRESSURE TAKEN MANUAL AT 0700 R 89/50 L 75/42, NOTIFIED, NEW ORDERS GIVEN.
--- NOTE | 2017-08-15 19:48 | PC.NURSE ---
REPORT GIVEN TO BRONSON ALCANTARA
--- NOTE | 2017-08-15 23:04 | PC.NURSE ---
at 2114 RN was notified by Dr. Clark to transfer pt to step down unit for norepinephrine drip to maintain systolic BP at or above 110, current BP range is 76/47, order was read back and verified with everton MADRID entered. Report given to Sammie Thibodeaux RN.
[2017-08-15 23:05] LABS: POC Glucose,Bedside 84 mg/dL (70-110)
[2017-08-16] VITALS (35 sets, daily range): BP systolic 92–132; BP diastolic 39–68; PULSE 68–130; RESP 16–24; TEMP 36.5–37.7; O2SAT 90–100; BMI 38.4
--- NOTE | 2017-08-16 02:27 | PC.NURSE ---
PT WAS ADMITTED TO STEP DOWN PER MD PADILLA. PT WAS PLACED ON LEVOPHED GTT @ 0.5 MCG/MIN @ 2250. GTT WAS TITRATED UP TO 1 MCG/MIN @ 2300, 2 MCG/MIN @ 2330 AND 3 MCG/MIN @ 0045 WHERE PT CURRENTLY IS AT THIS TIME. B/P IS 114/70. 0.9% NS IS INFUSING AT 100 ML/HR PER MD. PT IS CURRENTLY ON 2L NC WITH SATS IN MID TO UPPER 90S. LUNGS ARE CTA. +2 EDEMA NOTED TO BUE. RLE IS ELEVATED AND ICE PACK APPLIED PER MD ORDER. DSG TO RLE IS C/D/I. NO DRAINAGE NOTED. CAP REFILL LESS THAN 3. PT IS ABLE TO MOVE TOES. PT HAS BEEN RESTLESS AND HAS C/O PAIN TO RLE AND BACK T/O NIGHT. PAIN MEDICATION ADMIN PER AUG. HR HAS BEEN ELEVATED AT TIMES. PT REMAINS AFIB ON TELEMETRY. NO OTHER CONCERNS AT THIS TIME. WILL CONTINUE TO MONITOR.
[2017-08-16 05:49] LABS: POC Glucose,Bedside 149 mg/dL (70-110)
[2017-08-16 06:06] LABS: Basophils % 0.2 % (0.1-2.0); Eosinophils % 0.1 % (0.1-12.0); Hematocrit 32.5 % (37.0-47.0); Lymphocytes % 8.8 K/mm3 (10-50); Mean Corpuscular HGB Conc 31.5 g/dL (31.8-35.4); Mean Corpuscular Hemoglobin 27.6 pg (27.0-31.2); Mean Corpuscular Volume 87.6 fl (81-99); Mean Platelet Volume 8.9 fl (7.4-10.4); Monocytes # 0.7 K/mm3 (0.1-1.0); Monocytes % 6.5 % (1.7-9.3); Neutrophils # 9.5 K/mm3 (1.8-7.8); Neutrophils % 84.4 % (37.0-80.0); Platelet Count 197 K/mm3 (142-424); Red Blood Count 3.71 M/mm3 (4.20-5.40); Red Cell Distribution Width 14.4 % (11.5-17.5); White Blood Count 11.2 K/mm3 (4.8-10.8)
[2017-08-16 06:10] LABS: Anion Gap 12.1 mEq/L (5-15); Blood Urea Nitrogen 26 mg/dL (7-18); Carbon Dioxide 25 mmol/L (21.0-32.0); Chloride 102 mmol/L (98-107); Creatinine Clearance Estimated 63 mL/min (0-300); Creatinine,Serum 1.23 mg/dL (0.55-1.02); Estimated Glomerular Filt Rate 42 ml/min (>60); GFR (African American) 51 ML/MIN (>60); Glucose 153 mg/dL (74-106); Potassium 4.1 mmoL/L (3.5-5.1); Sodium 135 mmol/L (136-145)
[2017-08-16 06:38] LABS: Hemoglobin 10.2 g/dL (12.2-16.2)
--- NOTE | 2017-08-16 07:36 | PC.NURSE ---
PT THIS AM IS AFLUTTER ON TELEMTERY. EKG OBTAINED. NOTIFIED AM NURSE. WILL HAVE MD REVIEW THIS AM.
--- NOTE | 2017-08-16 07:39 | PC.NURSE ---
REPORT HAND OFF TO MAY DAY
--- NOTE | 2017-08-16 08:00 | HMH.ACPN2 ---
Internal Medicine - PN: Subj *Date: 08/16/17 *Time: 08:00 Interval history: Patient underwent successful ORIF of trimalleolar fracture of the right ankle yesterday. When she returned to the floor patient's blood pressure dropped and despite fluid boluses and increase in maintenance fluids her blood pressure remained in the 70s systolic. Patient was transferred to the stepdown unit and placed on Levophed with the goal of keeping her blood pressure around 110 systolic. Levophed is keeping her blood pressure up. Patient did not sleep very well overnight. She awakens this morning and does recall that she is in the hospital and had some type of surgery because she broke something but does not recall specifics about her broken ankle. Son is at bedside. Denies hunger. She denies pain in the right ankle at this time. Exam Vital signs and Labs for Last 24 Hours: Temp Pulse Resp BP Pulse Ox 98.2 F 104 H 18 116/51 100 08/16/17 06:15 08/16/17 06:45 08/16/17 06:45 08/16/17 06:45 08/16/17 06:45 Laboratory Results - last 24 hr 08/15/17 11:45: POC Glucose 137 08/15/17 16:35: POC Glucose 107 08/15/17 21:50: POC Glucose 84 08/16/17 05:35: WBC 11.2 H D, RBC 3.71 L, Hgb 10.2 L D, Hct 32.5 L, MCV 87.6, MCH 27.6, MCHC 31.5 L, RDW 14.4, Plt Count 197, MPV 8.9, Neut % (Auto) 84.4 H, Lymph % (Auto) 8.8 L, [place] % (Auto) 6.5, Eos % (Auto) 0.1, Baso % (Auto) 0.2, Neut # (Auto) 9.5 H, Lymph # (Auto) 1.0, [place] # (Auto) 0.7, Eos # (Auto) 0.0, Baso # (Auto) 0.0 08/16/17 05:35: Sodium 135 L, Potassium 4.1, Chloride 102, Carbon Dioxide 25, Anion Gap 12.1, BUN 26 H, Creatinine 1.23 H D, Estimated Creat Clear 63, Estimated GFR 42 L, Est GFR ( Amer) 51 L D, Glucose 153 H D 08/16/17 05:39: POC Glucose 149 I & O for Last 24 hours: Intake & Output 08/13/17 08/14/17 08/15/17 08/16/17 11:59 11:59 11:59 11:59 Intake Total 120 / 120 4255 / 4255 Output Total 225 / 225 400 / 400 Balance -105 / -105 3855 / 3855 Weight 226 lb 5 oz 230 lb 10.785 oz Narrative: Patient is awake. She is conversant. Oropharynx is moist. Lungs have diminished breath sounds at the bases but are otherwise clear. Heart has an irregular rate and rhythm. Right leg is elevated on a pillow with ice pack overlying splint Telemetry monitoring shows atrial fibrillation that is rate controlled Assessment and Plan (1) Trimalleolar fracture of ankle, closed Current visit: Yes Status: Acute Qualifiers: Encounter type: initial encounter Laterality: right Qualified Code(s): S82.851A - Displaced trimalleolar fracture of right lower leg, initial encounter for closed fracture Category: Medical Code(s): S82.853A - Displaced trimalleolar fracture of unspecified lower leg, initial encounter for closed fracture (2) New onset atrial fibrillation Current visit: Yes Status: Acute Category: Medical Code(s): I48.91 - Unspecified atrial fibrillation (3) Frequent falls Current visit: Yes Status: Acute Category: Medical Code(s): R29.6 - Repeated falls (4) Dislocation of right ankle joint Current visit: Yes Status: Acute Qualifiers: Encounter type: initial encounter Qualified Code(s): S93.04XA - Dislocation of right ankle joint, initial encounter Category: Medical Code(s): S93.04XA - Dislocation of right ankle joint, initial encounter - Assessment and plan all Dx Assessment and Plan for all problems:: 1. Attempt to wean Levophed as renal function has improved. 2. Start a diabetic diet 3. She is touchdown weightbearing status but considering she is requiring IV pressors at this time will likely be bed ridden today. PT evaluation when able 4. Continue beta-blockers for her atrial fib and flutter.
--- NOTE | 2017-08-16 09:13 | HMH.OPNOTE ---
Date of procedure: 08/15/17 Pre-op Diagnosis:: Right ankle trimalleolar fracture dislocation Morbid obesity Diabetes Atrial fibrillation Post-op Diagnosis:: Same Procedure performed:: Open reduction internal fixation trimalleolar ankle fracture. The patient has a high Busch C fracture dislocation with syndesmotic disruption. A titanium plate was applied to the fibular fracture, to partially threaded cancellus screws were used to secure the medial malleolus fragment, and a syndesmosis screw used to secure the mortise and syndesmosis. The posterior malleolar fracture was not surgically addressed. Surgeon:: Juan Francisco Bledsoe MD KENNEL KEEPER:: Other Anesthesia: GETA, regional Estimated blood loss (mL): 10 Operative findings:: See operative note Operative note:: The patient taken the operating room and placed in the supine position. A regional block been administered and this was followed by general anesthetic. The site was prepped and draped in usual sterile fashion with additional measures taken to protect the surgical sites. The toes were covered with a sterile glove after prepping. The heel and toes are wrapped with Covan. A calf tourniquet was utilized secondary to the extreme obesity the patient's thigh. Limb was exsanguinated and tourniquet inflated to 250 torr. Tourniquet time was less than 2 hours. Please see nurse's note for exact time. dry skin was debrided during the prep to maximize cleanliness/stability of the skin. C arm was utilized to help demarcate appropriate incision placement and a lateral incision made over the fracture site. We dissected carefully down using strict AO technique. The fracture site was exposed and as noted on CT and x-ray, was found to be quite comminuted. This left is very little points to keep the fracture in. We evacuated hematoma carefully with irrigation solution and reduce the fracture. We stabilized it using a Tucker titanium plate. We checked on the AP and lateral views to ensure an optimal reduction had been obtained. Once confirmed, we directed attention medially. We attempted to reduce and stabilize the medial malleolus percutaneously however were unable to do so. We then opened it formally, irrigated, reduced it, held it in position with the tenaculum and 2 guidewires, overdrilled the most anterior guidewire and placed a 50 mm partially threaded 4 mm in diameter titanium screw. We again checked reduction and placed a second screw more posteriorly using a similar technique. This is a 45 mm in length which just engage the posterior cortex. This reduced the mortise nicely. With the surgeon applying forces to help stabilize the mortise using his hands, and expanded function dental assistant placed a 50 mm long, 4.0 mm diameter screw through the distal hole of the fibula plate to act as a syndesmosis screw. We performed this in this manner due to the very soft nature of the bone and concerned that a clamp would penetrate the bone inadvertently. We confirmed an appropriate reduction had been obtained both with the lateral medial malleolus and that the mortise is been secured. With the ankle held in approximately neutral position, the posterior malleolar fragment reduced acceptably. Given its relatively small size, we elected not to secure this independently. We then irrigated and closed using 3-0 Vicryl for the deep closure and subcutaneous tissues and mary for the skin. Dressings were applied and the patient was placed in a very well-padded Hernan Alejandro type dressing. The patient then transported to the postanesthesia care unit in good condition. IMPLANTS.. Aj titanium fibular plate and screws, Aj 4.0 mm diameter fully threaded syndesmosis screw and Tucker 4.0 mm partially threaded medial malleolar screws. All components are titanium Condition: stable Disposition: PACU Complications:: None
--- NOTE | 2017-08-16 09:16 | P.OP_ITS ---
Date of procedure: 08/15/17 Pre-op Diagnosis:: Right ankle trimalleolar fracture dislocation Morbid obesity Diabetes Atrial fibrillation Post-op Diagnosis:: Same Procedure performed:: Open reduction internal fixation trimalleolar ankle fracture. The patient has a high Busch C fracture dislocation with syndesmotic disruption. A titanium plate was applied to the fibular fracture, to partially threaded cancellus screws were used to secure the medial malleolus fragment, and a syndesmosis screw used to secure the mortise and syndesmosis. The posterior malleolar fracture was not surgically addressed. Surgeon:: Juan Francisco Bledsoe MD ASSESSMENT SPECIALIST:: Other Anesthesia: GETA, regional Estimated blood loss (mL): 10 Operative findings:: See operative note Operative note:: The patient taken the operating room and placed in the supine position. A regional block been administered and this was followed by general anesthetic. The site was prepped and draped in usual sterile fashion with additional measures taken to protect the surgical sites. The toes were covered with a sterile glove after prepping. The heel and toes are wrapped with Covan. A calf tourniquet was utilized secondary to the extreme obesity the patient's thigh. Limb was exsanguinated and tourniquet inflated to 250 torr. Tourniquet time was less than 2 hours. Please see nurse's note for exact time. dry skin was debrided during the prep to maximize cleanliness/stability of the skin. C arm was utilized to help demarcate appropriate incision placement and a lateral incision made over the fracture site. We dissected carefully down using strict AO technique. The fracture site was exposed and as noted on CT and x-ray, was found to be quite comminuted. This left is very little points to keep the fracture in. We evacuated hematoma carefully with irrigation solution and reduce the fracture. We stabilized it using a Quinton titanium plate. We checked on the AP and lateral views to ensure an optimal reduction had been obtained. Once confirmed , we directed attention medially. We attempted to reduce and stabilize the medial malleolus percutaneously however were unable to do so. We then opened it formally, irrigated, reduced it, held it in position with the tenaculum and 2 guidewires, overdrilled the most anterior guidewire and placed a 50 mm partially threaded 4 mm in diameter titanium screw. We again checked reduction and placed a second screw more posteriorly using a similar technique. This is a 45 mm in length which just engage the posterior cortex. This reduced the mortise nicely. With the surgeon applying forces to help stabilize the mortise using his hands, and events administrative assistant placed a 50 mm long, 4.0 mm diameter screw through the distal hole of the fibula plate to act as a syndesmosis screw. We performed this in this manner due to the very soft nature of the bone and concerned that a clamp would penetrate the bone inadvertently. We confirmed an appropriate reduction had been obtained both with the lateral medial malleolus and that the mortise is been secured. With the ankle held in approximately neutral position, the posterior malleolar fragment reduced acceptably. Given its relatively small size, we elected not to secure this independently. We then irrigated and closed using 3-0 Vicryl for the deep closure and subcutaneous tissues and mary for the skin. Dressings were applied and the patient was placed in a very well-padded Hernan Alejandro type dressing. The patient then transported to the postanesthesia care unit in good condition. IMPLANTS.. Quinton titanium fibular plate and screws, Aj 4.0 mm diameter fully threaded syndesmosis
--- NOTE | 2017-08-16 09:45 | PC.NURSE ---
Levophen decreased to 3mcg/min r/t BP of 115/57. BP has maintained systolic above 110 for 1.5 hours. Will continue to monitor and adjust as needed. All other VVS. Call light within reach.
--- NOTE | 2017-08-16 10:06 | P.PN_ITS ---
Subjective Date: 08/16/17 Time: 10:03 Interval history: Patient is status post open reduction internal fixation right ankle fracture. At a postop visit yesterday afternoon, the patient was doing well. It appears however that she began having episodes where she could not support her blood pressure and was moved to the stepdown unit. She has been on pressors and appears to be responding well and the pressors are being slowly decreased. Nursing staff reports episodes of dementia and confusion last night as well. The patient is sleeping and I have not awakened her. Her toes are warm and capillary refill appears adequate. Postoperative x-rays show the hardware to be in good position and the fracture reduction to be appropriate. The mortise is well restored. Ankle is elevated and I ask her in position. ASSESSMENT-orthopedically stable status post ORIF right ankle trimalleolar fracture, she appears to be responding to vasopressors. RECOMMENDATIONS--from an orthopaedic standpoint, she may be touchdown weightbearing with physical therapy as soon as her hemodynamic status and her mentation will allow. She could also be transferred to a group home facility from an orthopaedic standpoint, this will obviously be dependent on her medical status. If the patient's mentation will allow, it is certainly appropriate to sit her at the bedside and have her use an incentive spirometer. She can also elevate the limb intermittently as needed for comfort. This is also as needed at this point. Typically we would not need Lovenox or another anticoagulant following uncomplicated ankle surgery however the patient's other medical issues may complicate her postoperative course and result in her being more bedridden than would typically be seen. As such, I will leave the selection of and duration of any anticoagulation to her attending physician. PN: Obj Ex Vital signs: Temp Pulse Resp BP Pulse Ox 97.7 F 84 20 114/63 97 08/16/17 08:00 08/16/17 09:00 08/16/17 09:00 08/16/17 09:00 08/16/17 09:01 - Urinary Catheter Management Mathis Cath placed during this visit: no Progress Note: A&P (1) Trimalleolar fracture of ankle, closed Status: Acute Current Visit: Yes (2) New onset atrial fibrillation Status: Acute Current Visit: Yes (3) Frequent falls Status: Acute Current Visit: Yes (4) Dislocation of right ankle joint Status: Acute Current Visit: Yes
--- NOTE | 2017-08-16 11:09 | SW/DCPLANNER ---
CALLED [facility] AND SPOKE WITH KENTON AND TOLD HER I WAS SENDING A REFERRAL FOR THIS PATIENT AND SHE WILL BE READY SOMETIME NEXT WEEK..SON IS GOING TO GO OVER AND SEE THE FACILITY AND SPEAK WITH KENTON LATER THIS AFTERNOON..PATIENT WILL REMAIN HERE IN THE ACUTE HOSPITAL UNTIL STABLE ENOUGH TO MAKE A MOVE...
--- NOTE | 2017-08-16 11:29 | HMH.PTEV ---
Physical Therapy Evaluation Rehab PT IP Evaluation Start: 08/15/17 17:38 Freq: ONCE Status: Active Protocol: Document 08/16/17 11:25 PHORNE (Rec: 08/16/17 11:29 PHORNE [id number]) Subjective/History History History 76 yof adm to [facility] S/P fall with right ankle fx, now S/P ORIF. Subjective Subjective Pt c/o pain in right LE Rehab PT IP Eval Objective Appearance Patient Behavior Cooperative Confused Patient Orientation Person Place Difficulty following instructions none Speech Pattern Clear Ambulation Patient Able to Ambulate No Balance Ability to Arise Unable Sitting Balance Steady, safe Standing Balance Unsteady Dynamic Sitting Balance Ability Good Dynamic Standing Balance Ability Poor Transfers Bed Transfer Ability Moderate x 1 (50% assist) Sit to Stand Bed Transfer Ability Maximum x 1 (75% assist) ROM All Extremities PT ROM Status WFL Abnormal ROM Comment right ankle NT MMT All Extremities PT MMT ABN Abnormal MMT Grade grossly 3/5 throughout except right ankle NT Rehab PT IP prob,goals,plan Problems Date of Evaluation: 08/16/17 PT IP Problems Bed Mobility Transfers Gait Rehab Potential Rehab Potential Good Equipment Needs Assistive Devices Rolling / Wheeled Walker Plan PT Intervention Plan Bed Mobility Transfers Gait Therapeutic Exercise PT Plan Frequency BID Duration LOS Discharge Goals Bed Transfer Ability Minimal x 1 (25% assist) Sit to Stand Chair Transfer Ability Moderate x 2 (50% assist) Ambulation Assistive Device Rolling Walker Ambulation Distance (feet) 3 Discharge Plan PT Discharge Plan Pt is most appropriate for rehab placement at this time. G -code Required Yes Eval Complexity Eval Charge Codes 20994 - High Complexity G Codes PT Current Status Mobility PT Current Status Modifier CL-At least 60% but less than 80% impaired, limited or restricted PT Goal Status Mobility PT Goal Status Modifer CL-At least 60% but less than 80% impaired, limited or
--- NOTE | 2017-08-16 13:06 | SW/DCPLANNER ---
Addendum entered by Natalia Hernandez 08/16/17 14:32: Yanelis is replacing Aletha at [facility] her cell # is [phone] Original Note: Addendum entered by Natalia Hernandez 08/16/17 14:22: Son is undecided at this time between [facility] and [facility]....patient information has been faxed to both facilities and I will follow up with son this afternoon if I hear back from either facility. Original Note: Patient information has been faxed to [facility] upon family request. I have spoke with Umm at [facility] to confirm that patient information has been received...she will follow up with me once information is reviewed.
[2017-08-16 17:02] LABS: POC Glucose,Bedside 138 mg/dL (70-110)
[2017-08-16 17:02] LABS: POC Glucose,Bedside 173 mg/dL (70-110)
--- NOTE | 2017-08-16 19:01 | PC.NURSE ---
PATIENT IS RESTING IN BED AT THIS TIME. LUNGS ARE CTA BUT DIMINISHED. SHE DENIES PAIN AT THIS TIME. LEVOPHED GTT IS OFF AND PATIENT IS MAINTAINING SYSTOLIC BP OVER 100. DR PADILLA IS AWARE. WILL PASS IN REPORT TO RESTART IF SUSTAINS BELOW 100. PATIENT IS CONFUSED AT TIMES. SHE HAS HAD A GREAT DAY TODAY AND THIS EVENING SHE IS VERY ALERT AND ORIENTED. PATIENT ATE MOST OF HER DINNER AND STATES SHE IS FEELING BETTER. SHE WORKED WITH PT 3 TIMES TODAY AND SAT IN THE CHAIR FROM 0930 - 1500. SHETH IS PATENT AND DRAINING. PATIENT DOES HAVE A YEASTY SMELL WITH REDNESS IN HER ABDOMINAL FOLDS AND UNDER HER BREASTS. VAGINAL AREA ALSO HAS A YEASTY ODOR AND A WHITISH DISCHARGE WHICH HAS BEEN REPORTED TO DR PADILLA. CALL LIGHT WITHIN REACH WILL CONTINUE TO MONITOR
--- NOTE | 2017-08-16 19:36 | PC.NURSE ---
report given to nadia
[2017-08-16 23:39] LABS: POC Glucose,Bedside 179 mg/dL (70-110)
[2017-08-17] VITALS (14 sets, daily range): BP systolic 95–129; BP diastolic 47–76; PULSE 70–110; RESP 17–22; TEMP 36.3–37.3; O2SAT 89–100
--- NOTE | 2017-08-17 04:35 | PC.NURSE ---
PT IS ALERT WITH CONFUSION AT TIMES. SHE WAS ABLE TO ANSWER QUESTIONS CORRECTLY BUT AWAKENED IN THE MIDDLE OF THE NIGHT NOT KNOWING WHERE SHE WAS AND THINKING HER NOSE IS BLEEDING. SHE USED HER INCENTIVE SPIROMETER INSTRUCTED. AFIB ON TELEMETRY. RLE ELEVATED. F/C IN PLACE WITH YELLOW, CLEAR URINE. VSS. SAFETY SET AND CALL LIGHT WITHIN REACH.
[2017-08-17 05:56] LABS: Basophils % 0.1 % (0.1-2.0); Eosinophils % 0.5 % (0.1-12.0); Hemoglobin 9.8 g/dL (12.2-16.2); Lymphocytes # 1.6 K/mm3 (0.7-4.5); Lymphocytes % 17.8 K/mm3 (10-50); Mean Corpuscular HGB Conc 31.7 g/dL (31.8-35.4); Mean Corpuscular Hemoglobin 27.7 pg (27.0-31.2); Mean Corpuscular Volume 87.4 fl (81-99); Mean Platelet Volume 9.4 fl (7.4-10.4); Monocytes # 0.6 K/mm3 (0.1-1.0); Monocytes % 6.3 % (1.7-9.3); Neutrophils # 6.9 K/mm3 (1.8-7.8); Neutrophils % 75.4 % (37.0-80.0); Platelet Count 197 K/mm3 (142-424); Red Blood Count 3.54 M/mm3 (4.20-5.40); Red Cell Distribution Width 14.4 % (11.5-17.5); White Blood Count 9.2 K/mm3 (4.8-10.8)
[2017-08-17 06:07] LABS: Sodium 138 mmol/L (136-145)
[2017-08-17 06:08] LABS: Anion Gap 14.3 mEq/L (5-15); Blood Urea Nitrogen 25 mg/dL (7-18); Carbon Dioxide 24 mmol/L (21.0-32.0); Chloride 104 mmol/L (98-107); Creatinine Clearance Estimated 35 mL/min (0-300); Creatinine,Serum 1.17 mg/dL (0.55-1.02); Estimated Glomerular Filt Rate 45 ml/min (>60); GFR (African American) 54 ML/MIN (>60); Potassium 4.3 mmoL/L (3.5-5.1)
[2017-08-17 06:13] LABS: Glucose 106 mg/dL (74-106)
[2017-08-17 06:29] LABS: POC Glucose,Bedside 100 mg/dL (70-110)
--- NOTE | 2017-08-17 07:26 | P.PN_ITS ---
Internal Medicine - PN: Subj *Date: 08/17/17 *Time: 07:24 Interval history: Patient is awake and alert this morning. Nursing staff reports she had an episode of pain overnight that caused her to cry out in pain but this was treated successfully with narcotics. Patient recalls this event overnight. She is pain-free at the moment. She did get out of bed yesterday and sit in the chair. Levophed drip has been off now for over 12 hours patient's blood pressure is maintained in the 110s-120 systolic. Exam Vital signs and Labs for Last 24 Hours: Temp Pulse Resp BP Pulse Ox 98.0 F 109 H 17 129/74 93 L 08/17/17 04:00 08/17/17 06:00 08/17/17 04:00 08/17/17 06:00 08/17/17 06:00 Laboratory Results - last 24 hr 08/16/17 11:30: POC Glucose 138 08/16/17 16:51: POC Glucose 173 08/16/17 20:23: POC Glucose 179 08/17/17 05:30: WBC 9.2, RBC 3.54 L, Hgb 9.8 L, Hct 31.0 L, MCV 87.4, MCH 27.7, MCHC 31.7 L, RDW 14.4, Plt Count 197, MPV 9.4, Neut % (Auto) 75.4, Lymph % (Auto ) 17.8, [place] % (Auto) 6.3, Eos % (Auto) 0.5, Baso % (Auto) 0.1, Neut # (Auto) 6.9, Lymph # (Auto) 1.6, [place] # (Auto) 0.6, Eos # (Auto) 0.0, Baso # (Auto) 0.0 08/17/17 05:30: Sodium 138, Potassium 4.3, Chloride 104, Carbon Dioxide 24, Anion Gap 14.3, BUN 25 H, Creatinine 1.17 H, Estimated Creat Clear 35, Estimated GFR 45 L, Est GFR ( Amer) 54 L, Glucose 106 D 08/17/17 06:01: POC Glucose 100 I & O for Last 24 hours: Intake & Output 08/14/17 08/15/17 08/16/17 08/17/17 11:59 11:59 11:59 11:59 Intake Total 120 / 120 4308.017 / 4308.017 1700.874 / 1700.874 Output Total 225 / 225 400 / 400 1400 / 1400 Balance -105 / -105 3908.017 / 3908.017 300.874 / 300.874 Weight 226 lb 5 oz 230 lb 10.785 oz 248 lb Narrative: She is awake and alert. Lungs are clear. Heart rate is irregular. Abdomen is soft. Right ankle is splinted Assessment and Plan (1) Trimalleolar fracture of ankle, closed Current visit: Yes Status: Acute Qualifiers: Encounter type: initial encounter Laterality: right Qualified Code(s): S82.851A - Displaced trimalleolar fracture of right lower leg, initial encounter for closed fracture Category: Medical Code(s): S82.853A - Displaced trimalleolar fracture of unspecified lower leg, initial encounter for closed fracture (2) New onset atrial fibrillation Current visit: Yes Status: Acute Category: Medical Code(s): I48.91 - Unspecified atrial fibrillation (3) Frequent falls Current visit: Yes Status: Acute Category: Medical Code(s): R29.6 - Repeated falls (4) Dislocation of right ankle joint Current visit: Yes Status: Acute Qualifiers: Encounter type: initial encounter Qualified Code(s): S93.04XA - Dislocation of right ankle joint, initial encounter Category: Medical Code(s): S93.04XA - Dislocation of right ankle joint, initial encounter - Assessment and plan all Dx Assessment and Plan for all problems:: 1. Transfer patient out of stepdown to regular telemetry bed 2. Increase metoprolol to 50 twice daily 3. Out of bed to chair again today 4. Assess patient's mobility this morning and if she is doing well we will discontinue her Mathis catheter later this afternoon.
--- NOTE | 2017-08-17 07:36 | PC.NURSE ---
REPORT GIVEN TO Suad KUHN W/C
--- NOTE | 2017-08-17 07:48 | PC.NURSE ---
md took patient out of stepdown at this time. md placed this under a nursing order. will keep patient on telemetry and monitor vitals q4. will also assess mobility through out the day
[2017-08-17 17:06] LABS: POC Glucose,Bedside 107 mg/dL (70-110)
[2017-08-17 17:06] LABS: POC Glucose,Bedside 141 mg/dL (70-110)
--- NOTE | 2017-08-17 19:30 | PC.NURSE ---
PT FULL CODE, REPORT FROM JACINTO
--- NOTE | 2017-08-17 19:35 | HMH.ORTHPN ---
Subjective Date: 08/17/17 Time: 18:00 Principal diagnosis: Status post ORIF right ankle Interval history: 76-year-old female status post ORIF right ankle, postop day 2. Patient is lying down in bed and is sleepy. Nursing staff reports that she is doing better today; she is off pressors and is hemodynamically stable. She is on as needed oral pain medication. No history of any fevers, chills or rigors. PN: Obj Ex Vital signs: Temp Pulse Resp BP Pulse Ox 98.0 F 87 20 95/58 92 L 08/17/17 16:00 08/17/17 16:00 08/17/17 16:00 08/17/17 16:00 08/17/17 16:00 Narrative: Laboratory Results - last 24 hr 08/16/17 20:23: POC Glucose 179 08/17/17 05:30: WBC 9.2, RBC 3.54 L, Hgb 9.8 L, Hct 31.0 L, MCV 87.4, MCH 27.7, MCHC 31.7 L, RDW 14.4, Plt Count 197, MPV 9.4, Neut % (Auto) 75.4, Lymph % (Auto) 17.8, [place] % (Auto) 6.3, Eos % (Auto) 0.5, Baso % (Auto) 0.1, Neut # (Auto) 6.9, Lymph # (Auto) 1.6, [place] # (Auto) 0.6, Eos # (Auto) 0.0, Baso # (Auto) 0.0 08/17/17 05:30: Sodium 138, Potassium 4.3, Chloride 104, Carbon Dioxide 24, Anion Gap 14.3, BUN 25 H, Creatinine 1.17 H, Estimated Creat Clear 35, Estimated GFR 45 L, Est GFR ( Amer) 54 L, Glucose 106 D 08/17/17 06:01: POC Glucose 100 08/17/17 12:23: POC Glucose 107 08/17/17 16:48: POC Glucose 141 Intake & Output 08/17/17 08/17/17 08/17/17 03:59 11:59 19:59 Intake Total 1077 / 1077 1794 / 1794 Output Total 500 / 500 Balance 577 / 577 4 / 1794 Weight 248 lb Intake: Intake, Oral Amount 450 / 450 Intake, Other Amount 1077 / 1077 Intake, Total IV Amount 1344 / 1344 0.9 % Sodium Chloride 1,000 ml 1344 / 1344 @ 100 mls/hr IV .Q10H [facility] Rx#: [id number] Output: Output, Urine Amount (Catheter) 500 / 500 Mathis 500 / 500 Other: Intake, Other Source Saline Solution - Constitutional no acute distress - Routine Respiratory Exam Present: CTA bilaterally - Routine Cardiovascular Exam Present: Normal S1, Normal S2, irregular rhythm - Routine Abdominal Exam Present: soft - Routine Extremities Exam Comments: Right ankle is in a short leg splint. She is able to move the toes; capillary refill less than 2 seconds. No swelling noted and no signs of compartment syndrome noted. - Routine Skin Exam Present: intact - Routine Neurological Exam Present: alert - Urinary Catheter Management Mathis Cath placed during this visit: no Progress Note: A&P (1) Trimalleolar fracture of ankle, closed Status: Acute Assessment and plan: Continue elevation of right ankle and encourage active toe movements. Continue as needed pain medication. Mobilize touch down weightbearing if medically stable and appropriate. From an orthopedic standpoint patient can be discharged when appropriate from a medical point of view. Follow-up with Dr. Bledsoe in 12-14 days time. Medical management as per Dr. Clark. Current Visit: Yes (2) New onset atrial fibrillation Status: Acute Current Visit: Yes (3) Frequent falls Status: Acute Current Visit: Yes (4) Dislocation of right ankle joint Status: Acute Current Visit: Yes
--- NOTE | 2017-08-17 19:46 | P.PN_ITS ---
Subjective Date: 08/17/17 Time: 18:00 Principal diagnosis: Status post ORIF right ankle Interval history: 76-year-old female status post ORIF right ankle, postop day 2. Patient is lying down in bed and is sleepy. Nursing staff reports that she is doing better today; she is off pressors and is hemodynamically stable. She is on as needed oral pain medication. No history of any fevers, chills or rigors. PN: Obj Ex Vital signs: Temp Pulse Resp BP Pulse Ox 98.0 F 87 20 95/58 92 L 08/17/17 16:00 08/17/17 16:00 08/17/17 16:00 08/17/17 16:00 08/17/17 16:00 Narrative: Laboratory Results - last 24 hr 08/16/17 20:23: POC Glucose 179 08/17/17 05:30: WBC 9.2, RBC 3.54 L, Hgb 9.8 L, Hct 31.0 L, MCV 87.4, MCH 27.7, MCHC 31.7 L, RDW 14.4, Plt Count 197, MPV 9.4, Neut % (Auto) 75.4, Lymph % (Auto ) 17.8, [place] % (Auto) 6.3, Eos % (Auto) 0.5, Baso % (Auto) 0.1, Neut # (Auto) 6.9, Lymph # (Auto) 1.6, [place] # (Auto) 0.6, Eos # (Auto) 0.0, Baso # (Auto) 0.0 08/17/17 05:30: Sodium 138, Potassium 4.3, Chloride 104, Carbon Dioxide 24, Anion Gap 14.3, BUN 25 H, Creatinine 1.17 H, Estimated Creat Clear 35, Estimated GFR 45 L, Est GFR ( Amer) 54 L, Glucose 106 D 08/17/17 06:01: POC Glucose 100 08/17/17 12:23: POC Glucose 107 08/17/17 16:48: POC Glucose 141 Intake & Output 08/17/17 08/17/17 08/17/17 03:59 11:59 19:59 Intake Total 1077 / 1077 1794 / 1794 Output Total 500 / 500 Balance 577 / 577 4 / 1794 Weight 248 lb Intake: Intake, Oral Amount 450 / 450 Intake, Other Amount 1077 / 1077 Intake, Total IV Amount 1344 / 1344 0.9 % Sodium Chloride 1,000 ml 1344 / 1344 @ 100 mls/hr IV .Q10H [facility] Rx#: [id number] Output: Output, Urine Amount (Catheter) 500 / 500 Mathis 500 / 500 Other: Intake, Other Source Saline Solution - Constitutional no acute distress - Routine Respiratory Exam Present: CTA bilaterally - Routine Cardiovascular Exam Present: Normal S1, Normal S2, irregular rhythm - Routine Abdominal Exam Present: soft - Routine Extremities Exam Comments: Right ankle is in a short leg splint. She is able to move the toes; capillary refill less than 2 seconds. No swelling noted and no signs of compartment syndrome noted. - Routine Skin Exam Present: intact - Routine Neurological Exam Present: alert - Urinary Catheter Management Mathis Cath placed during this visit: no Progress Note: A&P (1) Trimalleolar fracture of ankle, closed Status: Acute Assessment and plan: Continue elevation of right ankle and encourage active toe movements. Continue as needed pain medication. Mobilize touch down weightbearing if medically stable and appropriate. From an orthopedic standpoint patient can be discharged when appropriate from a medical point of view. Follow-up with Dr. Bledsoe in 12-14 days time. Medical management as per Dr. Clark. Current Visit: Yes (2) New onset atrial fibrillation Status: Acute Current Visit: Yes (3) Frequent falls Status: Acute Current Visit: Yes (4) Dislocation of right ankle joint Status: Acute Current Visit: Yes
[2017-08-18] VITALS (9 sets, daily range): BP systolic 93–125; BP diastolic 50–70; PULSE 70–106; RESP 18–24; TEMP 36.3–38.1; O2SAT 94–97
[2017-08-18 02:13] LABS: POC Glucose,Bedside 74 mg/dL (70-110)
--- NOTE | 2017-08-18 06:09 | PC.NURSE ---
PT VERY SLEEPING FIRST FEW HOURS OF THE SHIFT, BUT WAS STILL EASY TO AWAKEN AND ANSWER QUESTIONS. ALERT AND ORIENTED X2. SLEPT COMFORTABLY THROUGHOUT THE NIGHT, MORE ALERT AND AWAKE WHEN I DID LICENSE CHECKS. NO C/O PAIN OR SOA. BREATH SOUNDS REMAIN CLEAR. NO COUGH HEARD. FINGER STICK @ HS WAS 74, JUICE GIVEN. FAMILY WAS AT BEDSIDE START OF SHIFT. VERY CONCERNED ABOUT PT I FEEL THOUGH I ANSWERED ALL THEIR QUESTIONS SATISFACTORILY THEY WENT HOME TO SLEEP. CONTINUES ON NS@100/HR. PT STABLE. WILL CONTINUE TO MONITOR. REPORT TO BE GIVEN TO ONCOMING NURSE.
[2017-08-18 06:27] LABS: Basophils % 0.4 % (0.1-2.0); Eosinophils # 0.2 K/mm3 (0.0-0.4); Eosinophils % 1.8 % (0.1-12.0); Hematocrit 33.3 % (37.0-47.0); Hemoglobin 10.3 g/dL (12.2-16.2); Lymphocytes # 2.2 K/mm3 (0.7-4.5); Lymphocytes % 23.5 K/mm3 (10-50); Mean Corpuscular HGB Conc 30.8 g/dL (31.8-35.4); Mean Corpuscular Hemoglobin 27.5 pg (27.0-31.2); Mean Corpuscular Volume 89.1 fl (81-99); Monocytes # 0.9 K/mm3 (0.1-1.0); Monocytes % 9.2 % (1.7-9.3); Neutrophils % 65.1 % (37.0-80.0); Platelet Count 221 K/mm3 (142-424); Red Blood Count 3.74 M/mm3 (4.20-5.40); Red Cell Distribution Width 14.5 % (11.5-17.5); White Blood Count 9.2 K/mm3 (4.8-10.8)
[2017-08-18 06:40] LABS: Anion Gap 13.5 mEq/L (5-15); Blood Urea Nitrogen 30 mg/dL (7-18); Carbon Dioxide 25 mmol/L (21.0-32.0); Chloride 105 mmol/L (98-107); Creatinine Clearance Estimated 36 mL/min (0-300); Creatinine,Serum 1.13 mg/dL (0.55-1.02); Estimated Glomerular Filt Rate 47 ml/min (>60); GFR (African American) 56 ML/MIN (>60); Glucose 77 mg/dL (74-106); Potassium 4.5 mmoL/L (3.5-5.1); Sodium 139 mmol/L (136-145)
[2017-08-18 07:08] LABS: POC Glucose,Bedside 62 mg/dL (70-110)
--- NOTE | 2017-08-18 07:21 | PC.NURSE ---
REPORT GIVEN TO Suad KUHN W/C
--- NOTE | 2017-08-18 08:51 | HMH.ACPN2 ---
Internal Medicine - PN: Subj *Date: 08/18/17 *Time: 08:51 Interval history: Patient does not recall much of the events of yesterday. Son is at bedside and reports patient did seem to be very low energy yesterday and at times seemed dazed. Blood pressure is remaining between 101 25 systolic. Patient's appetite remains poor. She did sit in the chair yesterday for 4 hours. Exam Vital signs and Labs for Last 24 Hours: Temp Pulse Resp BP Pulse Ox 98.8 F 80 24 125/65 97 08/18/17 04:00 08/18/17 04:00 08/18/17 04:00 08/18/17 04:00 08/18/17 04:00 Laboratory Results - last 24 hr 08/17/17 12:23: POC Glucose 107 08/17/17 16:48: POC Glucose 141 08/17/17 21:15: POC Glucose 74 08/18/17 05:40: WBC 9.2, RBC 3.74 L, Hgb 10.3 L, Hct 33.3 L, MCV 89.1, MCH 27.5, MCHC 30.8 L, RDW 14.5, Plt Count 221, MPV 10.0, Neut % (Auto) 65.1, Lymph % (Auto) 23.5, [place] % (Auto) 9.2, Eos % (Auto) 1.8, Baso % (Auto) 0.4, Neut # (Auto) 6.0, Lymph # (Auto) 2.2, [place] # (Auto) 0.9, Eos # (Auto) 0.2, Baso # (Auto) 0.0 08/18/17 05:40: Sodium 139, Potassium 4.5, Chloride 105, Carbon Dioxide 25, Anion Gap 13.5, BUN 30 H, Creatinine 1.13 H, Estimated Creat Clear 36, Estimated GFR 47 L, Est GFR ( Amer) 56 L, Glucose 77 08/18/17 06:41: POC Glucose 62 I & O for Last 24 hours: Intake & Output 08/15/17 08/16/17 08/17/17 08/18/17 11:59 11:59 11:59 11:59 Intake Total 120 / 120 4308.017 / 4308.017 1700.874 / 7594.532 4777 / 2874 Output Total 225 / 225 400 / 400 1400 / 1400 200 / 200 Balance -105 / -105 3908.017 / 3908.017 300.874 / 731.272 3427 / 2674 Weight 226 lb 5 oz 230 lb 10.785 oz 248 lb Narrative: Patient is awake and alert this morning. She admits she has no memory of yesterday. Oropharynx is moist. Neck is without lymphadenopathy. Lungs are clear. Heart is irregularly irregular. Abdomen is soft. Patient is neurovascularly intact in the right foot. Splint is intact on the right ankle and foot. Assessment and Plan (1) Trimalleolar fracture of ankle, closed Current visit: Yes Status: Acute Qualifiers: Encounter type: initial encounter Laterality: right Qualified Code(s): S82.851A - Displaced trimalleolar fracture of right lower leg, initial encounter for closed fracture Category: Medical Code(s): S82.853A - Displaced trimalleolar fracture of unspecified lower leg, initial encounter for closed fracture (2) New onset atrial fibrillation Current visit: Yes Status: Acute Category: Medical Code(s): I48.91 - Unspecified atrial fibrillation (3) Frequent falls Current visit: Yes Status: Acute Category: Medical Code(s): R29.6 - Repeated falls (4) Dislocation of right ankle joint Current visit: Yes Status: Acute Qualifiers: Encounter type: initial encounter Qualified Code(s): S93.04XA - Dislocation of right ankle joint, initial encounter Category: Medical Code(s): S93.04XA - Dislocation of right ankle joint, initial encounter (5) Memory loss Current visit: Yes Status: Chronic Category: Medical Code(s): R41.3 - Other amnesia (6) Diabetes mellitus with hypoglycemia Current visit: Yes Status: Acute Category: Medical Code(s): E11.649 - Type 2 diabetes mellitus with hypoglycemia without coma - Assessment and plan all Dx Assessment and Plan for all problems:: 1. DC telemetry, Mathis catheter, IV fluids today to allow the patient little bit more freedom. 2. Discussed with patient and family need for intermediate at discharge which will be within the next day or 2 should patient continue to recover at her current rate. 3. Hold losartan and HCTZ combination for hypertension. Patient is on metoprolol for her atrial arrhythmia. Start Xarelto
--- NOTE | 2017-08-18 08:54 | P.PN_ITS ---
Internal Medicine - PN: Subj *Date: 08/18/17 *Time: 08:51 Interval history: Patient does not recall much of the events of yesterday. Son is at bedside and reports patient did seem to be very low energy yesterday and at times seemed dazed. Blood pressure is remaining between 101 25 systolic. Patient's appetite remains poor. She did sit in the chair yesterday for 4 hours. Exam Vital signs and Labs for Last 24 Hours: Temp Pulse Resp BP Pulse Ox 98.8 F 80 24 125/65 97 08/18/17 04:00 08/18/17 04:00 08/18/17 04:00 08/18/17 04:00 08/18/17 04:00 Laboratory Results - last 24 hr 08/17/17 12:23: POC Glucose 107 08/17/17 16:48: POC Glucose 141 08/17/17 21:15: POC Glucose 74 08/18/17 05:40: WBC 9.2, RBC 3.74 L, Hgb 10.3 L, Hct 33.3 L, MCV 89.1, MCH 27.5 , MCHC 30.8 L, RDW 14.5, Plt Count 221, MPV 10.0, Neut % (Auto) 65.1, Lymph % ( Auto) 23.5, [place] % (Auto) 9.2, Eos % (Auto) 1.8, Baso % (Auto) 0.4, Neut # (Auto ) 6.0, Lymph # (Auto) 2.2, [place] # (Auto) 0.9, Eos # (Auto) 0.2, Baso # (Auto) 0.0 08/18/17 05:40: Sodium 139, Potassium 4.5, Chloride 105, Carbon Dioxide 25, Anion Gap 13.5, BUN 30 H, Creatinine 1.13 H, Estimated Creat Clear 36, Estimated GFR 47 L, Est GFR ( Amer) 56 L, Glucose 77 08/18/17 06:41: POC Glucose 62 I & O for Last 24 hours: Intake & Output 08/15/17 08/16/17 08/17/17 08/18/17 11:59 11:59 11:59 11:59 Intake Total 120 / 120 4308.017 / 4308.017 1700.874 / 6064.756 4477 / 2874 Output Total 225 / 225 400 / 400 1400 / 1400 200 / 200 Balance -105 / -105 3908.017 / 3908.017 300.874 / 712.442 3190 / 2674 Weight 226 lb 5 oz 230 lb 10.785 oz 248 lb Narrative: Patient is awake and alert this morning. She admits she has no memory of yesterday. Oropharynx is moist. Neck is without lymphadenopathy. Lungs are clear. Heart is irregularly irregular. Abdomen is soft. Patient is neurovascularly intact in the right foot. Splint is intact on the right ankle and foot. Assessment and Plan (1) Trimalleolar fracture of ankle, closed Current visit: Yes Status: Acute Qualifiers: Encounter type: initial encounter Laterality: right Qualified Code(s): S82.851A - Displaced trimalleolar fracture of right lower leg, initial encounter for closed fracture Category: Medical Code(s): S82.853A - Displaced trimalleolar fracture of unspecified lower leg, initial encounter for closed fracture (2) New onset atrial fibrillation Current visit: Yes Status: Acute Category: Medical Code(s): I48.91 - Unspecified atrial fibrillation (3) Frequent falls Current visit: Yes Status: Acute Category: Medical Code(s): R29.6 - Repeated falls (4) Dislocation of right ankle joint Current visit: Yes Status: Acute Qualifiers: Encounter type: initial encounter Qualified Code(s): S93.04XA - Dislocation of right ankle joint, initial encounter Category: Medical Code(s): S93.04XA - Dislocation of right ankle joint, initial encounter (5) Memory loss Current visit: Yes Status: Chronic Category: Medical Code(s): R41.3 - Other amnesia (6) Diabetes mellitus with hypoglycemia Current visit: Yes Status: Acute Category: Medical Code(s): E11.649 - Type 2 diabetes mellitus with hypoglycemia without coma - Assessment and plan all Dx Assessment and Plan for all problems:: 1. DC telemetry, Mathis catheter, IV fluids today to allow the patient little bit more freedom. 2. Discussed with patient and family need for senior care a
[2017-08-18 11:29] LABS: POC Glucose,Bedside 145 mg/dL (70-110)
[2017-08-18 17:25] LABS: POC Glucose,Bedside 135 mg/dL (70-110)
--- NOTE | 2017-08-18 17:42 | HMH.ORTHPN ---
Subjective Date: 08/18/17 Time: 17:42 Principal diagnosis: Status post ORIF right ankle Interval history: Awake alert NAD...denies pain. right foot sensate to LT with Cap refill WNL. instructed on IS use. Imp...stable Orthopaedically. Plan....OK to continue TDWB R LE. could be discharged to SNF when approved by Dr. Clark. Will see her back at around 14 day post op point. PN: Obj Ex Vital signs: Temp Pulse Resp BP Pulse Ox 97.3 F L 82 18 105/62 95 08/18/17 15:48 08/18/17 15:48 08/18/17 15:48 08/18/17 15:48 08/18/17 15:48 - Urinary Catheter Management Mathis Cath placed during this visit: no Progress Note: A&P (1) Trimalleolar fracture of ankle, closed Status: Acute Current Visit: Yes (2) New onset atrial fibrillation Status: Acute Current Visit: Yes (3) Frequent falls Status: Acute Current Visit: Yes (4) Dislocation of right ankle joint Status: Acute Current Visit: Yes (5) Memory loss Status: Chronic Current Visit: Yes (6) Diabetes mellitus with hypoglycemia Status: Acute Current Visit: Yes
--- NOTE | 2017-08-18 18:19 | PC.NURSE ---
pt lungs are clear. heart sounds s1s2, bowels are active. pt has been up to chair this shift. Mathis was d/c and still has not urinated since. pt has generalized edema. pt has stated pain in right ankle and prn med given per mar this shift with relief. incentive spirometer used this shift and reaches 750. call light in reach. will continue to monitor pt condition.
--- NOTE | 2017-08-18 19:30 | PC.NURSE ---
PT FULL CODE, REPORT FROM ROSE
--- NOTE | 2017-08-18 19:34 | PC.NURSE ---
report given to brittni chris rn. told about adams d/c and monitoring for pt to urinate. tech also reported a small void of approx 50 ml at this time
[2017-08-18 21:44] LABS: POC Glucose,Bedside 178 mg/dL (70-110)
--- NOTE | 2017-08-18 22:55 | PC.NURSE ---
WHILE NEXT DOOR IN ANOTHER PT'S ROOM, I HEARD THIS PT CALL OUT FOR HELP. I ENTERED ROOM. BED EMPTY, PT STANDING IN DOORWAY OF BATHROOM, ATTACHED TO SCUD ON L LEG, CORD FROM IT STRETCHED FAR IT WOULD REACH, PT VOIDED IN FLOOR, GOWN WET. PT STATES SHE HAD TURNED TV OFF AND FELL ASLEEP, WHEN SHE WOKE UP, SHE NEEDED TO GO TO BATHROOM SO SHE FORGOT WHERE SHE WAS AND THAT SHE HAD SURGERY ON RT ANKLE, SHE DIDN'T REMEMBER TO RING OUT FOR HELP, EVEN THOUGH CALL LIGHT WAS STILL WHERE I LEFT IT ATTACHED TO WHERE SHE COULD EASILY REACH IT. I HAD REMINDED HER TO CALL OUT FOR ASSIST. PT WAS VERY ALERT, ORIENTED AND TALKATIVE EARLIER. VERY APPROPRIATE. STATES SHE WAS CONFUSED WHEN SHE WOKE UP. PT ASSISTED TO BATHROOM, CLEANED UP. NEW GOWN ON PT AND ASSISTED BACK TO BED. BED ALARM TURNED ON. REMINDED PT ONCE AGAIN TO PLEASE CALL OUT FOR ASSISTANCE, CALL LIGHT ON TOP OF COVERS BESIDE PT'S HAND.
[2017-08-19 04:00] VITALS: BP 128/58; PULSE 84; RESP 22; TEMP 37.2; O2SAT 93
--- NOTE | 2017-08-19 04:59 | PC.NURSE ---
PT SLEPT LONG INTERVALS THIS SHIFT. CONTINUES TO DENY ANY PAIN OR DISCOMFORT OF THIS TIME. IV SECURE AND PATENT TO SALINE LOCK. X2. PT HAS A.M. LABS TODAY. BREATH SOUNDS EVEN AND UNLABORED AT THIS TIME, CONTINUES ON ROOM AIR. STILL VERY EXCORIATED UNDER BOTH BREAST. WASHED AND DRIED THEN NYSTATIN PLACED ON THEM ORDERED. PT STABLE. WILL CONTINUE TO MONITOR. REPORT TO BE GIVEN TO ONCOMING NURSE.
[2017-08-19 05:46] LABS: Anion Gap 13.2 mEq/L (5-15); Blood Urea Nitrogen 32 mg/dL (7-18); Carbon Dioxide 23 mmol/L (21.0-32.0); Chloride 106 mmol/L (98-107); Creatinine Clearance Estimated 35 mL/min (0-300); Creatinine,Serum 1.15 mg/dL (0.55-1.02); Estimated Glomerular Filt Rate 46 ml/min (>60); GFR (African American) 55 ML/MIN (>60); Potassium 4.2 mmoL/L (3.5-5.1); Sodium 138 mmol/L (136-145)
[2017-08-19 05:47] LABS: Glucose 103 mg/dL (74-106)
[2017-08-19 06:26] LABS: POC Glucose,Bedside 87 mg/dL (70-110)
--- NOTE | 2017-08-19 07:23 | PC.NURSE ---
REPORT GIVEN TO Vamsi CLEMENTS W/C
[2017-08-19 07:40] VITALS: BP 133/76; PULSE 105; RESP 20; TEMP 36.9; O2SAT 94
--- NOTE | 2017-08-19 08:01 | HMH.DCSUM ---
General - General Admission date: 08/14/17 Discharge date: 08/19/17 HPI HPI: The patient is a 76-year-old female admitted after falling at home and incurring an ankle fracture dislocation. At time of examination, she is reasonably oriented and, in contrast to her admission history, states that she DID NOT take insulin for her diabetes. She denies blacking out but states that she does not remember any of her recent falls. PHYSICAL EXAMINATION-- Patient is awake but slightly confused. She is morbidly obese. Head/neck--no evident trauma. C-spine is nontender. No range of motion restrictions. T/L/S spine shows no evident tenderness or step-off Upper extremity exam shows no crepitus or trauma induced range of motion issues. Grossly intact neurologically. Peripheral pulses intact upper extremities. Pelvis is stable to compression and distraction. Mild tenderness left hip over the greater trochanter. Hip and knee range of motion cannot be assessed secondary to her known right ankle fracture dislocation Lower extremity examination shows the right ankle to be immobilized in a splint. Pedal pulses are intact. An ice pack is in place. Elevation is only about 4 inches. X-rays are reviewed and show a very well reduced ankle fracture dislocation which appears to be trimalleolar. A CT scan is been performed and this helped define the fracture pattern greatly, very important in this patient with morbid obesity. A trimalleolar fracture is indeed present. The posterior malleolar fracture appears of sufficient size that it will not itself require fixation most likely. This is a comminuted Busch C fracture with syndesmosis disruption and widening of the ankle mortise. PLAN--ORIF tommorrow.....R/B explained in detail to patient and her receiver setter. clear liquids until 714 then NPO Hospital Course Hospital Course: She was admitted on the after syncopal event resulted in a trimalleolar flexure of the right ankle. On the after echocardiogram revealed normal ejection fraction patient underwent repair of her trimalleolar fracture by Dr. Salgado. Postoperatively there were no orthopedic problems. However postoperatively patient became hypotensive and despite large fluid boluses patient's blood pressure did not respond so she was placed on a Levophed drip which she required for approximately 24 hours to maintain her pressure above 100 systolic. After patient was weaned from the Levophed drip her blood pressure remained between 101 25 systolic the remainder of hospitalization. Once improvement in blood pressure card improvement in mentation occurred although patient's baseline memory problems persisted. Patient frequently forgot she was in the hospital as well as that she had had surgery on her right ankle. Patient was diagnosed with atrial fibrillation and flutter which was a new diagnosis. Echocardiogram revealed normal EF and no valvular disease. Patient was started on Lovenox initially and transitioned to Xarelto at discharge. Due to lack of 24 hour care at home and the patient's ambulatory problems from her broken ankle it was felt she would be best served with residential placement. Facility was contacted and the patient was accepted by [facility] Vital signs: Temp Pulse Resp BP Pulse Ox 98.4 F 105 H 20 133/76 94 L 08/19/17 07:40 08/19/17 07:40 08/19/17 07:40 08/19/17 07:40 08/19/17 07:40 Results Labs on day of discharge: Labs from last 24 hours 08/19/17 08/19/17 08/18/17 06:16 05:07 20:36 Sodium 138 Potassium 4.2 Chloride 106 Carbon Dioxide 23 Anion Gap 13.2 BUN 32 H Creatinine 1.15 H Estimated Creat Clear 35 Estimated GFR 46 L Est GFR ( Amer) 55 L Glucose 103 D POC Glucose 87 178 08/18/17 08/18/17 17:11 11:21 Sodium Potassium Chloride Carbon Dioxide Anion Gap BUN Creatinine Estimated Creat Clear Estimated GFR
--- NOTE | 2017-08-19 08:04 | P.DS_ITS ---
General - General Admission date: 08/14/17 Discharge date: 08/19/17 HPI HPI: The patient is a 76-year-old female admitted after falling at home and incurring an ankle fracture dislocation. At time of examination, she is reasonably oriented and, in contrast to her admission history, states that she DID NOT take insulin for her diabetes. She denies blacking out but states that she does not remember any of her recent falls. PHYSICAL EXAMINATION-- Patient is awake but slightly confused. She is morbidly obese. Head/neck--no evident trauma. C-spine is nontender. No range of motion restrictions. T/L/S spine shows no evident tenderness or step-off Upper extremity exam shows no crepitus or trauma induced range of motion issues. Grossly intact neurologically. Peripheral pulses intact upper extremities. Pelvis is stable to compression and distraction. Mild tenderness left hip over the greater trochanter. Hip and knee range of motion cannot be assessed secondary to her known right ankle fracture dislocation Lower extremity examination shows the right ankle to be immobilized in a splint. Pedal pulses are intact. An ice pack is in place. Elevation is only about 4 inches. X-rays are reviewed and show a very well reduced ankle fracture dislocation which appears to be trimalleolar. A CT scan is been performed and this helped define the fracture pattern greatly, very important in this patient with morbid obesity. A trimalleolar fracture is indeed present. The posterior malleolar fracture appears of sufficient size that it will not itself require fixation most likely. This is a comminuted Busch C fracture with syndesmosis disruption and widening of the ankle mortise. PLAN--ORIF tommorrow.....R/B explained in detail to patient and her network controller. clear liquids until 714 then NPO Hospital Course Hospital Course: She was admitted on the after syncopal event resulted in a trimalleolar flexure of the right ankle. On the after echocardiogram revealed normal ejection fraction patient underwent repair of her trimalleolar fracture by Dr. Salgado. Postoperatively there were no orthopedic problems. However postoperatively patient became hypotensive and despite large fluid boluses patient's blood pressure did not respond so she was placed on a Levophed drip which she required for approximately 24 hours to maintain her pressure above 100 systolic. After patient was weaned from the Levophed drip her blood pressure remained between 101 25 systolic the remainder of hospitalization. Once improvement in blood pressure card improvement in mentation occurred although patient's baseline memory problems persisted. Patient frequently forgot she was in the hospital as well as that she had had surgery on her right ankle. Patient was diagnosed with atrial fibrillation and flutter which was a new diagnosis. Echocardiogram revealed normal EF and no valvular disease. Patient was started on Lovenox initially and transitioned to Xarelto at discharge. Due to lack of 24 hour care at home and the patient's ambulatory problems from her broken ankle it was felt she would be best served with fpc placement. Facility was contacted and the patient was accepted by [facility] Vital signs: Temp Pulse Resp BP Pulse Ox 98.4 F 105 H 20 133/76 94 L 08/19/17 07:40 08/19/17 07:40 08/19/17 07:40 08/19/17 07:40 08/19/17 07:40 Results Labs on day of discharge: Labs from last 24 hours 08/19/17 08/19/17 08/18/17 06:16 05:07 20:36 Sodium 138 Pota
--- NOTE | 2017-08-19 10:11 | SW/DCPLANNER ---
PATIENTS SON DECIDED HE WOULD RATHER HIS MOTHER GO TO [facility]...I EXPLAINED TO THE BOTH OF THEM THEY CAN ONLY KEEP HER FOR 20 DAYS SINCE SHE IS GOING TO A SHORT TERM SKILLED BED...THEY BOTH AGREED OF THE THE PLAN TO GO THERE KNOWING SHE CAN ONLY STAY THAT AMOUNT OF TIME AND SHE IS DISCHARGING THERE TODAY...THE PLAN IS FOR HER TO RETURN BACK HOME AFTER HER STAY THERE IS MET...
== END 2017-08-19 10:25 | DRG 493 ==
LOC: ER 12:26 → 2ND 14:28
PROVIDERS: Orthopaedic Surgery; Admitting Provider Internal Medicine Adolescent Medicine; Emergency Provider Emergency Medicine; PCP Family Medicine; Visit Provider Family Medicine
PROC: 0QSJ04Z Reposition Right Fibula with Internal Fixation Device, Open Approach (ICD-10-PCS; CPT 27822; principal; 2017-08-15 11:45)
DX: S82.854A Nondisplaced trimalleolar fracture of right lower leg, initial encounter for closed fracture (principal); Z68.41 Body mass index [BMI] 40.0-44.9, adult; E11.649 Type 2 diabetes mellitus with hypoglycemia without coma; I48.91 Unspecified atrial fibrillation; I48.92 Unspecified atrial flutter; E66.01 Morbid (severe) obesity due to excess calories; R55 Syncope and collapse; Z71.3 Dietary counseling and surveillance; R41.3 Other amnesia; Z79.4 Long term (current) use of insulin; S82.851A Displaced trimalleolar fracture of right lower leg, initial encounter for closed fracture; W18.30XA Fall on same level, unspecified, initial encounter; Z91.81 History of falling; Y92.019 Unspecified place in single-family (private) house as the place of occurrence of the external cause; Z86.73 Personal history of transient ischemic attack (TIA), and cerebral infarction without residual deficits
CPT/HCPCS: 27822; 36415; 71045; 73502; 73600; 73700; 76000; 80048; 80053; 82962; 85025; 93005; 93041; 93306; 94761; 96365; 96375; 97116; 97163; 97530; 99285; C1713; C1776; J2405

== ENCOUNTER → 2017-08-29 13:54 | Outpatient (CLI) | payer MEDICARE, OTHER, SELFPAY ==
--- NOTE | 2017-08-29 14:01 | XR_ITS ---
XR ankle RT min 3V HISTORY: Follow-up ORIF ITS.REASON: Post op RT ankle fx ORDERING PHYSICIAN: Juan Francisco Bledsoe MD PATIENT AGE: 77 years COMPARISON: 08/15/2017 FINDINGS: Study is obtained through a splint. Bone plate is present over the distal fibula with multiple screws including 1's transverse screw which also goes to the medial aspect of the distal tibia. 2 screws are present in the medial malleolus. Good alignment. Fracture line of the distal fibula somewhat more prominent and could be due to bone resorption from early healing. IMPRESSION: Good alignment status post ORIF distal tibial fracture as described above
== END ==
PROVIDERS: PCP Family Medicine; Visit Provider Orthopaedic Surgery
DX: S82.851A Displaced trimalleolar fracture of right lower leg, initial encounter for closed fracture (principal)
CPT/HCPCS: 73610

== ENCOUNTER → 2017-09-26 09:59 | Outpatient (CLI) | payer MEDICARE, OTHER, SELFPAY ==
--- NOTE | 2017-09-26 10:01 | XR_ITS ---
XR ankle RT min 3V HISTORY: ITS.REASON: ORIF RT ankle XRAY IN SPLINT ORDERING PHYSICIAN: Juan Francisco Bledsoe MD PATIENT AGE: 77 years COMPARISON: 08/29/2017 FINDINGS: The study is obtained through a splint. Status post ORIF distal fibula and medial malleolus fractures with lateral fibular bone plate along with a long transverse screw through the distal fibula into the distal tibia and 2 screws within the medial malleolus region. Fracture lines are still visible with no significant callus formation apparent. There is good alignment. IMPRESSION: Overall no change in good alignment status post ORIF distal fibular and medial malleolus fracture.
== END ==
PROVIDERS: PCP Family Medicine; Visit Provider Orthopaedic Surgery
DX: S82.853A Displaced trimalleolar fracture of unspecified lower leg, initial encounter for closed fracture (principal)
CPT/HCPCS: 73610; 97760

== ENCOUNTER 2017-09-26 11:23 | Outpatient (RCR) | payer MEDICARE, OTHER, SELFPAY | END 2017-09-26 11:24 | disposition home or self-care (01) | LOC: PT 11:23 | PROVIDERS: PCP Family Medicine; Visit Provider Orthopaedic Surgery | DX: S82.853A Displaced trimalleolar fracture of unspecified lower leg, initial encounter for closed fracture (principal) | CPT/HCPCS: 97760 ==

== ENCOUNTER → 2017-10-24 09:27 | Outpatient (CLI) | payer MEDICARE, OTHER, SELFPAY ==
--- NOTE | 2017-10-24 09:33 | XR_ITS ---
XR ankle RT min 3V HISTORY: Follow-up fracture ITS.REASON: S/P ORIF RT ANKLE ORDERING PHYSICIAN: Juan Francisco Bledsoe MD PATIENT AGE: 77 years COMPARISON: 09/26/2017 FINDINGS: The cast is been removed. There remains good alignment of the oblique distal fibular fracture and medial malleolus fracture with decreased prominence of the fracture fragments consistent with healing. There is a mildly displaced fragment along major aspect of the distal tibia. IMPRESSION: Status post ORIF tibia and fibular fracture as described above with good alignment
== END ==
PROVIDERS: PCP Family Medicine; Visit Provider Orthopaedic Surgery
DX: Z96.7 Presence of other bone and tendon implants (principal); Z87.81 Personal history of (healed) traumatic fracture
CPT/HCPCS: 73610

== ENCOUNTER → 2017-12-12 09:24 | Outpatient (CLI) | payer MEDICARE, OTHER, SELFPAY ==
--- NOTE | 2017-12-12 09:27 | XR_ITS ---
XR ankle RT min 3V HISTORY: Follow-up fracture/ORIF ITS.REASON: S/P RT ANKLE ORIF ORDERING PHYSICIAN: Juan Francisco Bledsoe MD PATIENT AGE: 77 years Comparison: 10/24/2017 FINDINGS: No change status post ORIF of the distal tib-fib with a fibular bone plate present and 2 screws within the medial malleolus. Fracture line remains visible at the medial malleolus region. There is a subtle zone of lucency around the inferior screw within the lateral plate which also traverses into the distal tibia. This is of questionable clinical significance and probably not significantly changed. There is good alignment. IMPRESSION: Overall no change status post ORIF distal tib-fib fracture with good alignment as described above
--- NOTE | 2017-12-12 10:35 | CT_ITS ---
CT ankle RT wo con INDICATION: Right ankle pain, fracture follow-up, possible nonunion. Prior ORIF ITS.REASON: possible non union ORDERING PHYSICIAN: Juan Francisco Bledsoe MD PATIENT AGE: 77 years COMPARISON: 08/14/2017 TECHNIQUE: Axial images are obtained without contrast. Sagittal and coronal reformatted images are reviewed as well. All CT scans at the facility use one or more dose reduction, viz: automated exposure control; ma/kV adjustment per patient size (including targeted exams where dose is matched to indication; i.e. head); or iterative reconstruction technique. FINDINGS: Status post ORIF of the trimalleolar ankle fracture/ subluxation. There is a bone plate present over the distal fibula with multiple screws stabilizing the comminuted distal shaft fibular fracture. Is in good alignment. There is a healing fracture noted with the fracture line barely visible. One longer screw within the distal fibular bone plate also traverses into the distal tibia securing the tibial fibular syndesmosis. No evidence of widening of the tibiofibular joint space. On radiograph there is a question area of lucency around the screw which is reproduced on the CT scan but not as apparent and of questionable clinical significance There are 2 screws within the lateral malleolus fracture. There is a well-corticated fracture line noted at the base of the medial malleolus with sclerotic margins consistent with nonbony union. This is nondisplaced. A small fragment is present along the injury distal tibia as well which is not healed. There has been healing of the posterior distal tibial fracture. There is generalized osteopenia IMPRESSION: Status post ORIF trimalleolar fracture. There is good alignment. There is healing/healed fractures of the distal fibula and posterior distal tibia. The medial malleolus fracture line is still visible with osteosclerosis of bones at the fracture site consistent with nonbony union
== END ==
PROVIDERS: PCP Family Medicine; Visit Provider Orthopaedic Surgery
DX: S82.853A Displaced trimalleolar fracture of unspecified lower leg, initial encounter for closed fracture (principal); Z47.89 Encounter for other orthopedic aftercare; Z96.7 Presence of other bone and tendon implants; Z87.81 Personal history of (healed) traumatic fracture
CPT/HCPCS: 73610; 73700

== ENCOUNTER → 2018-02-13 09:47 | Outpatient (CLI) | payer MEDICARE, OTHER, SELFPAY ==
--- NOTE | 2018-02-13 09:51 | XR_ITS ---
XR ankle RT min 3V HISTORY: Follow-up fracture/ORIF ITS.REASON: S/P ORIF RIGHT ANKLE ORDERING PHYSICIAN: Juan Francisco Bledsoe MD PATIENT AGE: 77 years Comparison: 12/12/2017 FINDINGS: There is lateral bone plate present at the distal aspect of the fibula. The most distal screw traverses into the distal tibia. 2 screws are present stabilizing the medial malleolus fracture. Fracture lines are somewhat less apparent at the medial malleolus region. A subtle zone of lucency once again noted around the inferior screw not significant changed. IMPRESSION: Status post ORIF tib-fib with healing medial malleolus fracture. Zone of lucency around the most inferior fibular screw not significant changed
[2018-02-13 12:07] LABS: Basophils % 0.2 % (0.1-2.0); Eosinophils # 0.1 K/mm3 (0.0-0.4); Eosinophils % 0.9 % (0.1-12.0); Hematocrit 41.9 % (37.0-47.0); Hemoglobin 12.9 g/dL (12.2-16.2); Lymphocytes # 2.3 K/mm3 (0.7-4.5); Lymphocytes % 24.3 K/mm3 (10-50); Mean Corpuscular HGB Conc 30.8 g/dL (31.8-35.4); Mean Corpuscular Volume 84.3 fl (81-99); Mean Platelet Volume 8.6 fl (7.4-10.4); Monocytes # 0.4 K/mm3 (0.1-1.0); Monocytes % 4.5 % (1.7-9.3); Neutrophils # 6.7 K/mm3 (1.8-7.8); Neutrophils % 70.1 % (37.0-80.0); Platelet Count 271 K/mm3 (142-424); Red Blood Count 4.97 M/mm3 (4.20-5.40); Red Cell Distribution Width 16.1 % (11.5-17.5); White Blood Count 9.6 K/mm3 (4.8-10.8)
[2018-02-13 13:10] LABS: Erythrocyte Sedimentation Rate 10 mm/hr (0-30)
[2018-02-13 13:30] LABS: T4 (Thyroxine) 8.3 ug/dl (4.7-13.3); Thyroid Stimulating Hormone 1.23 uIU/ml (0.358-3.740); Triiodothryronine (T3) Uptake 36 % (31-39)
[2018-02-17 05:21] LABS: Vitamin D 25 Hydroxy 72.9 ng/mL (30.0-100.0)
== END ==
PROVIDERS: PCP Nurse Practitioner; Visit Provider Orthopaedic Surgery
DX: Z47.89 Encounter for other orthopedic aftercare (principal); E11.9 Type 2 diabetes mellitus without complications; S82.853A Displaced trimalleolar fracture of unspecified lower leg, initial encounter for closed fracture; S82.899K Other fracture of unspecified lower leg, subsequent encounter for closed fracture with nonunion
CPT/HCPCS: 36415; 73610; 82652; 84436; 84443; 84479; 85025; 85651; 86140

== ENCOUNTER → 2018-02-13 10:57 | Outpatient (CLI) | payer MEDICARE, OTHER, SELFPAY | PROVIDERS: PCP Nurse Practitioner; Visit Provider Orthopaedic Surgery | DX: S82.899K Other fracture of unspecified lower leg, subsequent encounter for closed fracture with nonunion (principal) ==

== ENCOUNTER → 2018-03-27 09:32 | Outpatient (CLI) | payer MEDICARE, OTHER, SELFPAY ==
--- NOTE | 2018-03-27 09:36 | XR_ITS ---
XR ankle RT min 3V HISTORY: Follow-up surgery/ORIF ITS.REASON: follow up. ORDERING PHYSICIAN: Wale Schultz MD PATIENT AGE: 77 years Comparison: 02/13/2018 FINDINGS: There is lateral bone plate present at the distal aspect of the fibula. The most distal screw traverses into the distal tibia. 2 screws are present stabilizing the medial malleolus fracture. Fracture line is somewhat less apparent at the medial malleolus region. A subtle zone of lucency once again noted around the inferior screw not significantly changed. IMPRESSION: Status post ORIF tib-fib with healing medial malleolus fracture. Zone of lucency around the most inferior fibular screw not significantly changed
== END ==
PROVIDERS: PCP Family Medicine; Visit Provider Orthopaedic Surgery
DX: S82.853A Displaced trimalleolar fracture of unspecified lower leg, initial encounter for closed fracture (principal)
CPT/HCPCS: 73610

== ENCOUNTER → 2018-05-02 13:33 | Outpatient (CLI) | payer MEDICARE, OTHER, SELFPAY ==
--- NOTE | 2018-05-02 13:37 | CT_ITS ---
CT head/brain wo con HISTORY: Headache, hand swelling base of skull following injury with bruising in the left temporal area ITS.REASON: FALL, MEMORY CHANGES ORDERING PHYSICIAN: Dominique Esteves PATIENT AGE: 77 years COMPARISON: None TECHNIQUE: Axial images obtained without contrast. Brain and bone windows reviewed. All CT scans at the facility use one or more dose reduction, viz: automated exposure control, ma/kV adjustment per patient size (including targeted exams where dose is matched to indication, i.e. head), or iterative reconstruction technique. FINDINGS: No midline shift, mass effect, intracranial hemorrhage, hydrocephalus, or extra-axial fluid collection is evident. There is mild generalized atrophy The calvarium has an unremarkable appearance. No mastoid effusion. No sinus air-fluid levels.. IMPRESSION: No acute intracranial findings
== END ==
PROVIDERS: PCP Nurse Practitioner; Visit Provider Nurse Practitioner
DX: R41.3 Other amnesia (principal); W19.XXXA Unspecified fall, initial encounter
CPT/HCPCS: 70450

== ENCOUNTER → 2018-07-09 10:44 | Outpatient (CLI) | payer MEDICARE, BC, SELFPAY | PROVIDERS: PCP Nurse Practitioner; Visit Provider Nurse Practitioner | DX: F99 Mental disorder, not otherwise specified (principal); R29.6 Repeated falls; R41.3 Other amnesia; I48.91 Unspecified atrial fibrillation | CPT/HCPCS: 93270 ==

== ENCOUNTER → 2018-08-11 07:08 | Outpatient (CLI) | payer MEDICARE, BC, SELFPAY ==
--- NOTE | 2018-08-11 07:09 | CA_ITS ---
PROCEDURE: 2-D M-mode and color Doppler study INDICATIONS FOR THE TEST: Chest pain COPD Heart Murmur Tobacco Smoking Palpitations Fatigue Syncope Edema Hypertension+Diabetes Mellitus+ Rheumatic Fever SOB VALDES Obesity Hyperlipidemia+ Family History HD Additional History a-fib,abn ekg TDS-pt body habitus PATIENT INFORMATION HEIGHT: 60 WEIGHT:205 GENDER: Female B/P:132/69 2-D/M-MODE INTERPRETATION: 2-D MEASUREMENTS OBSERVED VALUES IN CMS Right Ventricular Dimension (RVDd) 1.1 Interventricular Septum (Thickness)(IVsd) 1.2 Left Ventricular Internal Dimensions(LVIDd) 5.3 Left Ventricular Posterior Wall (Thickness)(LVPWd) 1.0 Aortic Root 3.2 Aortic Cusp Separation 1.9 Left Atrial Dimensions (LAD) 5.0 2D 1. Left atrium is moderately enlarged, left ventricle is normal size, mild concentric left ventricular hypertrophy, visually estimated ejection fraction of 50% with no regional wall motion abnormality. 2. The right atrium is moderately enlarged, right ventricle is mildly enlarged with normal contractility. 3. The aortic valve is thickened and gastritis leaflet continue to display good mobility. 4. The mitral valve leaflets are minimally thickened. 5. The tricuspid valve is grossly normal. 6. Pulmonic valve is poorly visualized. 7. No significant pericardial effusion noted. DOPPLER INTERROGATION: Doppler interrogation of the aortic, mitral and tricuspid valvular presence of mild mitral and tricuspid regurgitation, tricuspid regurgitation jet velocity is inadequate for calculation of the right ventricular systolic pressure, diastolic parameters are inconclusive. CONCLUSION: 1. Moderate biatrial enlargement, normal left ventricular size, mild concentric left ventricular hypertrophy, visually estimated ejection fraction of 50% with no regional wall motion abnormality, diastolic parameters are inconclusive. 2. Mildly enlarged right ventricle with normal contractility. 3. Mild mitral and tricuspid regurgitation 4. No significant pericardial effusion noted.
--- NOTE | 2018-08-11 07:09 | NM_ITS ---
History and Indications: Hypertension, diabetes, abnormal EKG, fatigue Procedure: Patient received a 0.4 mg of intravenous Lexiscan, resting heart rate was 85 bpm resting blood pressure 160/69, with Lexiscan maximum heart achieved was 1 35 bpm which is less than 85% of the maximum predicted heart rate and a blood pressure was 119/51. With Lexiscan no symptoms reported. Electrocardiogram: Resting electrocardiogram showed atrial fibrillation, controlled ventricular response, rightward axis, normal QRS complexes, with Lexiscan there is less than 1.[address] segment depression noted from the baseline EKG. The EKG portion of the Lexiscan Myoview is nondiagnostic. Cardiac stress and resting SPECT images: Cardiac stress and resting SPECT images were obtained using technetium 99 Myoview 31.9 mCi at stress and 10.6 mCi at rest. Gated SPECT further analysis of segmental wall motion and calculation of the ejection fraction also done. Cardiac stress and resting SPECT images show uniform myocardial activity without segmental perfusion abnormality, computer derived ejection fraction is over 65% with no regional wall motion abnormality, right ventricle is normal size and contractility. Conclusion: 1. The EKG portion of the Lexiscan Myoview is nondiagnostic. 2. No scintigraphic evidence of reversible ischemia seen, greater derived ejection fraction is over 65% with no regional wall motion abnormality, right ventricle is normal size and contractility. 3. Normal Lexiscan Myoview study.
--- NOTE | 2018-08-11 07:25 | HMH.ITSHM ---
Current Home Medications as stated by this patient Luisa Stanley or public health representative. []ASA CITALOPRAM B12 FOLIC ACID MEMANTINE OMEPRAZOLE PIOGLITAZONE XARELTO ATORVASTATIN METOPROLOL
== END ==
PROVIDERS: PCP Nurse Practitioner; Visit Provider Physician Assistant
DX: E11.8 Type 2 diabetes mellitus with unspecified complications (principal); E78.5 Hyperlipidemia, unspecified; I10 Essential (primary) hypertension; I48.91 Unspecified atrial fibrillation; K21.9 Gastro-esophageal reflux disease without esophagitis; R29.6 Repeated falls; R94.31 Abnormal electrocardiogram [ECG] [EKG]
CPT/HCPCS: 78452; 93017; 93306; A9502; J2785; Q9967

== ENCOUNTER 2020-06-26 11:23 | Emergency (ER) | payer MEDICARE, BC, SELFPAY ==
[2020-06-26 11:30] VITALS: BP 157/73; PULSE 78; RESP 18; TEMP 36.4; O2SAT 99; BMI 33.2
--- NOTE | 2020-06-26 11:41 | CT_ITS ---
PROCEDURE: CT HEAD/BRAIN WO CON CLINICAL INDICATION: fall, on blood thinners Head injury with headache/pain, contusion, abrasion or hematoma COMPARISON: CT HEADWO CT head/brain wo con from 05/02/2018 TECHNIQUE: Axial images obtained. All CT scans at the facility use one or more dose reduction, viz: automated exposure control, ma/kV adjustment per patient size (including targeted exams where dose is matched to indication, i.e. head), or iterative reconstruction technique. FINDINGS: No midline shift, mass effect, intracranial hemorrhage, hydrocephalus, or extra-axial fluid collection is evident. There is generalized atrophy with hypoattenuation of the periventricular white matter consistent with microangiopathic changes. 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 No mastoid effusion. No sinus air-fluid level. There is cerumen in the right external auditory canal with faint calcification within the cerumen and along the external auditory canal region. Please correlate with physical exam. Soft tissue swelling is present in the right periorbital region. IMPRESSION: 1. No acute intracranial findings. 2. Right periorbital hematoma 3. 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 Please correlate with direct visualization. Dictated by: Francisco Crockett MD 06/27/2020 11:01 Francisco Crockett MD in [facility] 06/27/2020 11:01
--- NOTE | 2020-06-26 11:53 | HMH.EDWNDL ---
ED Disposition Clinical Impression: Laceration Head injury due to trauma Qualifiers: Encounter type: initial encounter Qualified Code(s): S09.90XA - Unspecified injury of head, initial encounter Disposition: Home, Self-Care Condition on Discharge: Good Instructions: DI for Laceration Repair Referrals: Dominique Esteves APRN [Primary Care Provider] - - Critical Care Critical Care Time: No Attestation: On 06/26/20, the high probability of a clinically significant, sudden or life threatening deterioration of the following system(s) required my full and direct attention, intervention and personal management. The time I documented below is in addition to time spent performing reported procedures but includes the following listed in this critical care notation. Medical Decision Making - Medical Records Medical records reviewed: Yes: I reviewed the patient's medical records. - Bandar Inquiry Pt receiving controlled substance: No Vital Signs: 06/26/20 11:30 06/26/20 11:55 06/26/20 12:42 Temperature 97.6 F Temperature Source Oral Pulse Rate [Left Radial] 78 67 Respiratory Rate 18 Blood Pressure [Left Arm] 157/73 H 121/51 L 132/52 L Blood Pressure Mean [Left Arm] 101 74 78 Blood Pressure Source [Left Arm] Automatic Cuff Automatic Cuff Automatic Cuff Blood Pressure Position [Left Arm] Sitting Sitting Sitting 02 Sat by Pulse Oximetry 99 99 Oxygen Delivery Method Room Air Room Air Orders (Tests/Meds): ED MEDICATIONS Discontinued Medications Generic Name Dose Route Start Last Admin Trade Name Freq PRN Reason Stop Dose Admin Lidocaine HCl 15 ml 06/26/20 11:42 06/26/20 11:42 Lidocaine 1% 20ml Mdv SQ 06/26/20 11:43 15 ml ONCE ONE Administration ORDERS Category Date Time Status CT head/brain wo con Stat Cat Scan 06/26/20 11:41 Taken - CT Data CT Scan: Head Time Received: 13:[address] Reviewed: Yes: I have reviewed the patient's CT results, I have viewed the radiologist's interpretation Preliminary Findings: Normal/NAD Wound/Laceration HPI - General Chief Complaint: Wound/Laceration Stated Complaint: AO [id number] FELL,LAC TO HEAD Time Seen by Provider: 06/26/20 11:35 Mode of Arrival: Wheelchair Limitations: No Limitations Description of Symptoms (Recalled from ER Triage Doc. by RN): Laceration noted to pt R eyebrow area. Pt states she tripped causing her to fall earlier today. Pt denies LOC, states she hit her head on the floor. - History of Present Illness HPI narrative: This is 79-year-old female who presents by private auto after having mechanical fall at home and causing laceration to her right eyebrow/orbit. Bleeding controlled prior to arrival. No loss of consciousness. No nausea or vomiting. No trouble with ambulation or focal neurologic deficit. Patient does endorse use of novel anticoagulant. - Related Data Home Medications Medication Instructions Recorded Confirmed Aspirin [Aspir 81] 81 mg PO DAILY 08/14/17 04/27/19 Atorvastatin Calcium [Lipitor 40mg 40 mg PO HS 08/14/17 04/27/19 Tab] Citalopram Hydrobromide 20 mg PO DAILY 08/14/17 04/27/19 [Citalopram 20mg Tablet] Cyanocobalamin (Vitamin B-12) 1,000 mcg PO DAILY 08/14/17 04/27/19 [Vitamin B-12] Folic Acid 0.4 mg PO DAILY 08/14/17 04/27/19 Memantine HCl [Namenda XR 28MG] 28 mg PO DAILY 08/14/17 04/27/19 Omeprazole [Omeprazole 40mg 40 mg PO DAILY 08/14/17 04/27/19 Capsule] Pyridoxine HCl (Vitamin B6) 100 mg PO DAILY 08/14/17 04/27/19 [Vitamin B-6] Rivaroxaban [Xarelto] 20 mg PO DAILY 01/27/19 04/27/19 metoprolol tartrate 50 mg tablet 50 mg PO BID PRN 04/27/19 04/27/19 pioglitazone 15 mg tablet 15 mg PO DAILY 04/27/19 04/27/19 Previous Rx's Medication Instructions Recorded digoxin 125 mcg (0.125 mg) tablet 125 mcg PO DAILY #30 tab 11/26/19 Allergies Allergy/AdvReac Type Severity Reaction Status Date / Time No Known Allergies Allergy Verified
[2020-06-26 11:55] VITALS: BP 121/51; PULSE 67; O2SAT 99
--- NOTE | 2020-06-26 11:58 | PC.NURSE ---
Pt to rad
--- NOTE | 2020-06-26 12:13 | PC.NURSE ---
pt return from CT
[2020-06-26 12:42] VITALS: BP 132/52
[2020-06-26 14:36] VITALS: BP 142/55; PULSE 64; RESP 20; TEMP 36.4; O2SAT 99
== END 2020-06-26 14:38 | disposition home or self-care (01) ==
PROVIDERS: Emergency Provider Emergency Medicine; PCP Nurse Practitioner
DX: S01.111A Laceration without foreign body of right eyelid and periocular area, initial encounter (principal); W01.0XXA Fall on same level from slipping, tripping and stumbling without subsequent striking against object, initial encounter; Y92.019 Unspecified place in single-family (private) house as the place of occurrence of the external cause; E11.9 Type 2 diabetes mellitus without complications; K21.9 Gastro-esophageal reflux disease without esophagitis; I48.20 Chronic atrial fibrillation, unspecified; F03.90 Unspecified dementia, unspecified severity, without behavioral disturbance, psychotic disturbance, mood disturbance, and anxiety; I10 Essential (primary) hypertension; E78.5 Hyperlipidemia, unspecified; Z79.899 Other long term (current) drug therapy
CPT/HCPCS: 12013; 70450; 99282

== ENCOUNTER → 2021-04-10 14:08 | Outpatient (CLI) | payer MEDICARE, BC, SELFPAY ==
--- NOTE | 2021-04-10 14:12 | CA_ITS ---
APPROVED REPORT EXAM: Comprehensive 2D, Doppler, and color-flow Echocardiogram Forestry Engineer: Chasity Oliveira RVT Ht: 5 ft 0 in Wt: 185lbs BSA: 1.81 BP: 141/65 mmHg Indications: A-FIB,DM,HTN,HLD,GERD,DEMENTIA TDS 2D Dimensions LVOT 1.92 cm (M/F) 1.5-2.5 LA Volume 75.40 mL LA Volume Index 41.88 mL/m2 (M/F) 16-34 M-Mode Dimensions RVDd 2.68 cm (0.9-2.6) LA Diam 4.93 cm (1.9-4.0) LVDd 4.08 cm (3.5-5.7) Ao Diam 3.50 cm (2.0-3.7) LVDs 2.50 cm (3.5-5.7) IVSd 1.32 cm (0.6-1.1) PWd 0.72 cm (0.6-1.1) EF (Teich) 69.60% FS 38.70% EDV (Teich) 73.40 mL ESV (Teich) 22.30 mL Pulmonary Valve PV Peak Velocity 80.00 (50-150 cm/s) Left Ventricle Left atrium is moderately enlarged, left ventricle is normal size, mild concentric left ventricular hypertrophy, visually estimated ejection fraction 55% with no obvious regional wall motion abnormality, endocardial surfaces are poorly visualized. Diastolic parameters are inconclusive. Doppler evidence of raise left ventricular end-diastolic pressure. Right Ventricle Right atrium and right ventricle mildly enlarged with normal contractility. Aortic Valve Aortic valve is thickened and calcified without aortic stenosis or aortic insufficiency. Mitral Valve Mitral valve leaflets are minimally thickened, there is mild mitral regurgitation. Tricuspid Valve Tricuspid valve is poorly visualized, there is mild tricuspid regurgitation, tricuspid regurgitation jet velocity is inadequate for calculation of the right ventricular systolic pressure. Pulmonic Valve Pulmonic valve is poorly visualized. Great Vessels Aortic root is normal size. Inferior vena cava is mildly enlarged with normal inspiratory collapse. Pericardium No significant pericardial effusion noted. Conclusion 1. Technically difficult study, biatrial enlargement, normal left ventricular size, mild concentric left ventricular hypertrophy, visually estimated ejection fraction 55% with no regional wall motion abnormality, Doppler evidence of raise left ventricular end-diastolic pressure seen, diastolic parameters are inconclusive. 2. Mildly enlarged right ventricle with normal contractility. 3. Mild mitral and tricuspid regurgitation. 4. No significant pericardial effusion noted. 5. Inferior vena cava is mildly dilated with normal inspiratory collapse. Electronically signed by : Jhonny Hdz MD 04/11/2021 06:43:24
== END ==
PROVIDERS: PCP Family Medicine; Visit Provider Internal Medicine
DX: I48.91 Unspecified atrial fibrillation (principal); R94.31 Abnormal electrocardiogram [ECG] [EKG]
CPT/HCPCS: 93306

== ENCOUNTER 2022-02-20 22:13 | Emergency (ER) | payer MEDICARE, BC, SELFPAY ==
[2022-02-20 22:13] VITALS: BP 157/82; PULSE 87; RESP 18; TEMP 36.7; O2SAT 98; BMI 36.1
[2022-02-20 22:51] VITALS: BMI 36.1
--- NOTE | 2022-02-20 22:52 | XR_ITS ---
PROCEDURE INFORMATION: Exam: XR Pelvis Exam date and time: 02/20/2022 11:06 PM Age: 81 years old Clinical indication: Injury or trauma; Fall; Blunt trauma (contusions or hematomas); Does not apply; Pelvic region; Additional info: Fall, hit face, no loc TECHNIQUE: Imaging protocol: Radiologic exam of the pelvis. Views: 1 or 2 view. COMPARISON: CR HIPCMRT XR hip RT 2-3V w/pelvis 08/14/2017 11:04 AM FINDINGS: Bones/joints: Severe subjective bony demineralization limits sensitivity for nondisplaced fractures. Pelvic ring appears intact although the sacrum is barely visible. Proximal femora appear normal in contour. Advanced lower lumbar degenerative change noted. Soft tissues: Unremarkable. Organs: Central pelvic calcification may be involuted uterine fibroid. IMPRESSION: No displaced fracture. There is limited plain film sensitivity for nondisplaced fractures in the setting of bony demineralization. In particular, the sacrum is not well seen. If clinical scenario is unresolved, MR may be helpful.
--- NOTE | 2022-02-20 22:52 | CT_ITS ---
PROCEDURE INFORMATION: Exam: CT Maxillofacial Without Contrast Exam date and time: 02/20/2022 11:01 PM Age: 81 years old Clinical indication: Injury or trauma; Fall; Additional info: Fall, hit face, no loc TECHNIQUE: Imaging protocol: Computed tomography of the of the face without contrast. Total images: 556 Radiation optimization: All CT scans at this facility use at least one of these dose optimization techniques: automated exposure control; mA and/or kV adjustment per patient size (includes targeted exams where dose is matched to clinical indication); or iterative reconstruction. COMPARISON: CT HEAD/BRAIN WO CON 02/20/2022 10:58 PM FINDINGS: Orbital cavities: Orbits are normal. Globes are unremarkable. Bones/joints: Subtle lucency of the left nasal bone adjacent to its articulation with the frontal process of the left maxilla. This could be an acute nondisplaced fracture. Paranasal sinuses: Normal. No air-fluid levels. Soft tissues: Unremarkable. Dental: Odontogenic disease, including right mandibular periapical lucency, which could indicate infection-related periapical cyst or periapical abscess formation. Other findings: Benign appearing dural calcifications are present. IMPRESSION: 1. Subtle lucency of the left nasal bone adjacent to its articulation with the frontal process of the left maxilla. This could be an acute nondisplaced fracture. Recommend correlation for focal tenderness. 2. Odontogenic disease, including right mandibular periapical lucency, which could indicate infection-related periapical cyst or periapical abscess formation. Recommend referral for dentist evaluation.
--- NOTE | 2022-02-20 22:52 | CT_ITS ---
PROCEDURE INFORMATION: Exam: CT Cervical Spine Without Contrast Exam date and time: 02/20/2022 10:58 PM Age: 81 years old Clinical indication: Injury or trauma; Fall; Additional info: Fall, hit face, no loc TECHNIQUE: Imaging protocol: Computed tomography of the cervical spine without contrast. Total images: 283 Radiation optimization: All CT scans at this facility use at least one of these dose optimization techniques: automated exposure control; mA and/or kV adjustment per patient size (includes targeted exams where dose is matched to clinical indication); or iterative reconstruction. COMPARISON: CT HEAD/BRAIN WO CON 06/26/2020 12:02 PM FINDINGS: Bones/joints: Degeneration related grade 1 anterolisthesis is present at C3-C5. Facet joint degenerative changes are present. Multifocal neural foraminal stenosis, due to degeneration. Auditory system: External auditory canal density likely cerumen, presumably incidental. Lungs: Lung apices are normal. Thyroid: Diffusely enlarged thyroid, a nonspecific finding. Soft tissues: Unremarkable. Other findings: Head rotated to the left. IMPRESSION: 1. Degenerative changes are present without acute osseous injury. 2. Diffusely enlarged thyroid, a nonspecific finding. Recommend correlation with thyroid function tests.
--- NOTE | 2022-02-20 22:52 | CT_ITS ---
PROCEDURE INFORMATION: Exam: CT Head Without Contrast Exam date and time: 02/20/2022 10:58 PM Age: 81 years old Clinical indication: Injury or trauma; Fall; Blunt trauma (contusions or hematomas); Additional info: Fall, hit face, no loc TECHNIQUE: Imaging protocol: Computed tomography of the head without contrast. Total images: 1 Radiation optimization: All CT scans at this facility use at least one of these dose optimization techniques: automated exposure control; mA and/or kV adjustment per patient size (includes targeted exams where dose is matched to clinical indication); or iterative reconstruction. COMPARISON: CT HEAD/BRAIN WO CON 06/26/2020 12:02 PM FINDINGS: Brain: Global brain atrophy and chronic white matter ischemic changes are present. Cerebral ventricles: No ventriculomegaly. Paranasal sinuses: Visualized sinuses are unremarkable. No fluid levels. Mastoid air cells: Visualized mastoid air cells are well aerated. Bones/joints: Unremarkable. No acute fracture. Soft tissues: Unremarkable. Other findings: Benign appearing dural calcifications are present. IMPRESSION: Global brain atrophy and chronic white matter ischemic changes are present. No acute intracranial abnormality.
--- NOTE | 2022-02-20 22:52 | XR_ITS ---
PROCEDURE INFORMATION: Exam: XR Chest Exam date and time: 02/20/2022 11:07 PM Age: 81 years old Clinical indication: Injury or trauma; Fall; Blunt trauma (contusions or hematomas); Additional info: Fall, hit face, no loc TECHNIQUE: Imaging protocol: Radiologic exam of the chest. Views: 1 view. COMPARISON: CR CXR2 XR chest AP 08/14/2017 11:10 AM FINDINGS: Lungs: No pulmonary venous distension. Pleural spaces: Unremarkable. No pleural effusion. No pneumothorax. Heart/Mediastinum: Mild stable cardiomegaly. Bones/joints: Thoracolumbar junction dextroscoliosis. Right greater than left shoulder arthropathy. IMPRESSION: Mild stable cardiomegaly. No acute cardiopulmonary abnormality.
--- NOTE | 2022-02-20 23:39 | HMH.EDFALL ---
Discharge Plan Disposition Patient Disposition: Home, Self-Care Chief Complaint: Fall Prescriptions Prescriptions: No Action pioglitazone [Actos] 15 mg tablet 30 mg PO DAILY cholecalciferol (vitamin D3) 25 mcg (1,000 unit) capsule 25 mcg PO DAILY digoxin 125 mcg (0.125 mg) tablet 125 mcg PO DAILY Qty: 30 5RF atorvastatin 40 MG tablet 40 mg PO HS folic acid 0.4 MG tablet 0.4 mg PO DAILY aspirin 81 MG tablet,delayed release (DR/EC) 81 mg PO DAILY citalopram 20 MG tablet 20 mg PO DAILY Label Comments: pyridoxine (vitamin B6) 100 MG tablet 100 mg PO DAILY memantine 28 MG capsule,sprinkle,ER 24hr 28 mg PO DAILY Label Comments: cyanocobalamin (vitamin B-12) 1,000 MCG capsule 1,000 mcg PO DAILY omeprazole 40 mg capsule,delayed release(DR/EC) 20 mg PO DAILY Label Comments: rivaroxaban 20 MG tablet 20 mg PO DAILY Referrals Follow up/Referrals: Rell Clark MD [Primary Care Provider] - See instructions Clinical Impressions Clinical Impression: Fall, Laceration of lip Instructions Patient Instructions: How to Prevent Falls Discharge ED Provider: Augie Srinivasan Fall HPI General Chief Complaint: Fall Stated Complaint: fall Time Seen by Provider: 02/20/22 22:30 Mode of Arrival: EMS Source of Information: Patient, Relative and EMS Limitations: Altered Mental Status Description of Symptoms (Recalled from ER Triage Doc. by RN): Pt c/o falling this evening after tripping over my feet . Pt denies any LOC. Her was at home during this and reported the same to EMS. Pt has a lip laceration, slow bleed from this site, and large slots in mouth. Mouth cleaned and MD evaluated at bedside. Top & bottom partials removed & cleaned. Mouth cleaned and clots removed. Pt denies any injury to any other body part. Pt was able to stand and walk to EMS stretcher. History of Present Illness HPI Narrative: trip fall with facial injury with bleeding w/o loc - pt at baseline MD complaint: fall Onset (ago): hour(s) Fall from: walking Fall witnessed: no Place fall occurred: home Loss of consciousness: none Prolonged down time: no Symptoms prior to fall: none Context: tripped/slipped Location of injury: face and mouth Severity: moderate Associated symptoms (after fall): denies Related Data Home Medications Medication Instructions Recorded Confirmed aspirin 81 mg tablet,delayed 81 mg PO DAILY HEART/CIRCULATION 08/14/17 10/03/21 release atorvastatin 40 mg tablet 40 mg PO HS Cholesterol 08/14/17 10/03/21 citalopram 20 mg tablet 20 mg PO DAILY Depression 08/14/17 10/03/21 cyanocobalamin (vitamin B-12) 1,000 mcg PO DAILY Supplement 08/14/17 10/03/21 1,000 mcg capsule folic acid 400 mcg tablet 0.4 mg PO DAILY SUPLEMENT 08/14/17 10/03/21 memantine 28 mg capsule 28 mg PO DAILY DEMENTIA 08/14/17 10/03/21 sprinkle,extended release 24hr pyridoxine (vitamin B6) 100 mg 100 mg PO DAILY Supplement 08/14/17 10/03/21 tablet rivaroxaban 20 mg tablet 20 mg PO DAILY Blood thinner 01/27/19 10/03/21 cholecalciferol (vitamin D3) 25 25 mcg PO DAILY 08/23/20 10/03/21 mcg (1,000 unit) capsule pioglitazone 15 mg tablet (Actos) 30 mg PO DAILY 04/05/21 10/03/21 omeprazole 40 mg capsule,delayed 20 mg PO DAILY GERD 10/03/21 10/03/21 release Previous Rx's Medication Instructions Recorded digoxin 125 mcg (0.125 mg) tablet 125 mcg PO DAILY HEART #30 tabs 11/26/19 Allergies Allergy/AdvReac Type Severity Reaction Status Date / Time No Known Allergies Allergy Verified 10/03/21 11:15 PFSH PFSH Social History Smoking Status: Never smoker alcohol intake: never substance use type: denies use current occupational status: retired and disabled Travel in the last 8 weeks: Inside the [place] household members: spouse and children housing: house caffeine: Yes ROS Obtained: Yes All systems revi
[2022-02-20 23:54] LABS: Basophils # 0.4 K/mm3 (0-0.2); Basophils % 3.5 % (0.1-2.0); Eosinophils # 0.1 K/mm3 (0.0-0.4); Eosinophils % 0.5 % (0.1-12.0); Hematocrit 41.6 % (37.0-47.0); Hemoglobin 12.7 g/dL (12.2-16.2); Lymphocytes # 1.1 K/mm3 (0.7-4.5); Lymphocytes % 10.8 % (10-50); Mean Corpuscular HGB Conc 30.5 g/dL (31.8-35.4); Mean Corpuscular Hemoglobin 28.6 pg (27.0-31.2); Mean Corpuscular Volume 93.7 fl (81-99); Mean Platelet Volume 8.8 fl (7.4-10.4); Monocytes # 0.6 K/mm3 (0.1-1.0); Monocytes % 5.3 % (1.7-9.3); Neutrophils # 8.4 K/mm3 (1.8-7.8); Neutrophils % 79.7 % (37.0-80.0); Platelet Count 240 K/mm3 (142-424); Red Blood Count 4.44 M/mm3 (4.20-5.40); Red Cell Distribution Width 15.1 % (11.5-17.5); White Blood Count 10.5 K/mm3 (4.8-10.8)
[2022-02-21 00:31] LABS: Blood Urea Nitrogen 34 mg/dl (7-17); Calcium 8.6 mg/dl (8.4-10.2); Carbon Dioxide 27 mmol/L (22.0-30.0); Chloride 96 mmol/L (98-107); Creatinine Clearance Estimated 57 mL/min (50-200); Estimated Glomerular Filt Rate 53 ml/min (>60); GFR (African American) 64 ML/MIN (>60); Glucose 181 mg/dl (74-100); Sodium 136 mmol/L (136-145)
--- NOTE | 2022-02-21 01:31 | PC.NURSE ---
mouth and oral cavity cleaned of clots and some blood. New gauze placed under her lip and pressure applied.
[2022-02-21 02:05] VITALS: BP 147/84; PULSE 85; RESP 16; TEMP 36.6; O2SAT 97
== END 2022-02-21 02:05 | disposition home or self-care (01) ==
PROVIDERS: Emergency Provider Emergency Medicine; PCP Family Medicine
DX: S01.511A Laceration without foreign body of lip, initial encounter (principal); W19.XXXA Unspecified fall, initial encounter; Y92.009 Unspecified place in unspecified non-institutional (private) residence as the place of occurrence of the external cause; Z91.81 History of falling; I10 Essential (primary) hypertension; E78.5 Hyperlipidemia, unspecified
CPT/HCPCS: 12011; 70450; 70486; 71045; 72125; 72170; 80048; 80162; 85025; 99285

== ENCOUNTER 2022-02-21 14:01 | Emergency (ER) | payer MEDICARE, BC, SELFPAY ==
[2022-02-21 14:45] VITALS: BP 119/53; PULSE 88; RESP 18; TEMP 36.9; O2SAT 99; BMI 36.1
[2022-02-21 15:00] VITALS: BP 119/53; PULSE 88; RESP 18; TEMP 36.9; O2SAT 99; BMI 36.3
--- NOTE | 2022-02-21 15:20 | EXP.UTC ---
Discharge Plan Disposition Patient Disposition: Home, Self-Care Condition: Good Prescriptions Prescriptions: No Action pioglitazone [Actos] 15 mg tablet 30 mg PO DAILY cholecalciferol (vitamin D3) 25 mcg (1,000 unit) capsule 25 mcg PO DAILY digoxin 125 mcg (0.125 mg) tablet 125 mcg PO DAILY Qty: 30 5RF atorvastatin 40 MG tablet 40 mg PO HS folic acid 0.4 MG tablet 0.4 mg PO DAILY aspirin 81 MG tablet,delayed release (DR/EC) 81 mg PO DAILY citalopram 20 MG tablet 20 mg PO DAILY Label Comments: pyridoxine (vitamin B6) 100 MG tablet 100 mg PO DAILY memantine 28 MG capsule,sprinkle,ER 24hr 28 mg PO DAILY Label Comments: cyanocobalamin (vitamin B-12) 1,000 MCG capsule 1,000 mcg PO DAILY omeprazole 40 mg capsule,delayed release(DR/EC) 20 mg PO DAILY Label Comments: rivaroxaban 20 MG tablet 20 mg PO DAILY Referrals Follow up/Referrals: Shawn Gillespie MD [Physician] - 02/28/22 10:00 am Rell Clark MD [Primary Care Provider] - See instructions Activity Restrictions/Add. Instructions Additional Instructions/Restrictions: Ice to upper lip may help with bleeding, swelling and bruising make sure to put something between the ice pack and skin to prevent injury Soft foods like mashed potatoes baked potatoes soup jello pudding and broth may be easier and less painful to eat while lip is healing Shakes for diabetics like Glucerna may help with nutrition Return if needed Follow up with your Family Doctor if needed Follow up with ENT if bleeding continues Do not pick at the lip Straight to ER if any life threatening symptoms Clinical Impressions Clinical Impression: Injury of lip Instructions Patient Instructions: Soft Diet Discharge ED Provider: Charisma Ivy [facility] HPI General Stated complaint: cut in mouth, disoriented Mode of Arrival: Ambulatory Source of Information: Patient Limitations: No Limitations Time Seen by Provider: 02/21/22 15:20 Description of Symptoms (Recalled from Triage Doc. by RN): Pt son reports pt seen in ER lastnight r/t fall and recieved stitches on her top lip. Reports area of lip has still been having some bleeding but states pt keeps picking at her lip. Pt son also reports pt has not eating since 5pm yesterday, reports he is concerened about pt not eating r/t pt is diabetic, states pt is non-insulin dependent. Reports pt was supposed to follow up with PCP today but states pt was saying she didn't feel well enough to go. Pt son also reports pt has dementia. Pt is alert, able to answer all questions during triage. HEENT Symptoms (Recalled from RN notes): Yes Resp Symptoms (Recalled from RN notes): No Skin Symptoms (Recalled from RN notes): No MS Symptoms (Recalled from RN notes): No Functional Status (Recalled from RN notes): WNL History of Present Illness Provider Complaint: Patient son states that patient fell last night and busted her upper lip States that she was seen in the ED and got stitches States that she has had some bleeding on and off in the lip but she keeps licking/picking at it State that he is having a hard time getting her to eat anything due to her lip hurting and swollen States that she tried to eat a cheese burger but it made her lip hurt States that he was worried and wanted to get her FSBS done to make sure it hadnt dropped because she hasnt eat much States that also he wanted to try to figure out what to give her to eat where her lip is like that States that she was suppose to see PCP today but he couldnt get her to go so he brought her back here FBSB done in triage and 206 Related Data Home Medications Medication Instructions Recorded Confirmed aspirin 81 mg tablet,delayed 81 mg PO DAILY HEART/CIRCULATION 08/14/17 10/03/21 release atorvastatin 40 mg tablet 40 mg PO HS Cholesterol 08/14/17 10/03/21 citalopram 20 mg tablet 20 mg PO DAILY Depression 08/14/17
[2022-02-21 15:27] VITALS: BP 119/53; PULSE 88; RESP 18; TEMP 36.9; O2SAT 99
== END 2022-02-21 15:43 | disposition home or self-care (01) ==
PROVIDERS: Emergency Provider Nurse Practitioner; PCP Family Medicine
DX: S09.93XD Unspecified injury of face, subsequent encounter (principal); E11.9 Type 2 diabetes mellitus without complications
CPT/HCPCS: 99212; G0463

== ENCOUNTER → 2023-01-10 13:15 | Outpatient (CLI) | payer MEDICARE, BC, SELFPAY ==
--- NOTE | 2023-01-10 13:31 | XR_ITS ---
FINAL REPORT CLINICAL HISTORY: HIP PAIN, fall COMPARISON: None FINDINGS: LEFT HIP: Three views of the left hip demonstrate no acute fracture or dislocation. There is moderate degenerative change in the left hip. Vascular calcifications are present. There is a lobular calcification in the pelvis that may represent a calcified uterine fibroid. The visualized bony structures are well aligned. IMPRESSION: Moderate degenerative change left hip. Lobular calcification in the pelvis may represent a calcified uterine fibroid. Reviewed, Interpreted and Dictated by Grant Pham III, MD Transcribed by Audrey Maria Authenticated and . [facility]
--- NOTE | 2023-01-10 13:31 | XR_ITS ---
FINAL REPORT TECHNIQUE: 3 views CLINICAL HISTORY: HIP PAIN, fall, low back pain COMPARISON: None FINDINGS: There is no fracture present. There are severe degenerative changes present in the lumbar spine with dextroscoliosis and multilevel osteophytes. There is prominent vascular calcification identified. IMPRESSION: No acute process. Severe lumbar degenerative changes with dextroscoliosis and multilevel osteophytes. Reviewed, Interpreted and Dictated by Grant Pham III, MD Transcribed by Audrey Maria Authenticated and [facility]
== END ==
PROVIDERS: PCP Family Medicine; Visit Provider Family Medicine
DX: M54.50 Low back pain, unspecified (principal); M25.552 Pain in left hip
CPT/HCPCS: 72100; 73502

== ENCOUNTER → 2023-02-13 10:51 | Outpatient (POV) | payer MEDICARE, BC, SELFPAY ==
[2023-02-13 11:19] VITALS: BP 141/72; PULSE 77; RESP 18; O2SAT 97; BMI 35.2
--- NOTE | 2023-02-13 11:41 | EXP.PAIN.OV ---
HPI Data of Consult Patient: new to practice Consult date: 02/13/23 Requesting Physician: Janelle Crowder APRN Primary Care Provider: Rell Clark MD Consult Narrative Reason for consult: Low back pain, left hip pain History of present illness: Ms. Stanley is a 82 year old female who presents today as a new patient. She is a referral from [facility]. Today she rates her pain a 5 out of 10. Patient states her pain is all in her left hip but does have a history of low back pain as well. Patient states this has been going on the last 2 months and progressively worsened over time. Patient does describe this as a aching sensation with occasional sharp stabbing sensations that is worse with increased activity. Patient denies any specific trauma or injury that initially led to her symptoms. Patient has tried [id number] medications including extra strength Tylenol and heat and ice and topicals with no additional relief. Patient states that it does affect her ability perform activities of daily living such as cooking or cleaning or even simple ambulation. Patient does present today with a walker for help with ambulation. Patient is not currently on any scheduled medications. Her Bandar is [id number]. Its been reviewed and appropriate. CC: Janelle Crowder APRN [facility] Disclaimer: The information contained in this section may have been updated after the patient was seen, as this information can be updated by other users. Medical History (Updated 02/13/23 @ 11:44 by Janelle Crowder APRN) Arrhythmia Atrial fibrillation Depression Diabetes mellitus, type 2 GERD (gastroesophageal reflux disease) HLD (hyperlipidemia) Social History (Updated 02/13/23 @ 11:29 by Lexie Doll RN) Smoking Status: Never smoker alcohol intake: never substance use type: denies use current occupational status: retired Travel in the last 8 weeks: None household members: spouse and children housing: house caffeine: Yes Review of Systems Review of Systems Review of systems:: pertinent systems reviewed and negative unless documented below Review of systems (narrative): Review of Systems: General: No recent weight changes, no fever, no sleep disturbances Respiratory: No cough, no shortness of air, no recurring pulmonary infections Cardiovascular/peripheral vascular: No chest pain, no palpitations, no edema, no shortness of breath Gastrointestinal: No new onset incontinence, normal bowel movements reported Genitourinary: No new onset incontinence Musculoskeletal: Low back pain, left hip pain Psychiatric: [Normal mood/affect] Neurological: [Denies weakness in extremities], [denies balance issues] Meds Home Medications and Allergies Home Medications Medication Instructions Recorded Confirmed Type aspirin 81 mg tablet,delayed 81 mg PO DAILY HEART/CIRCULATION 08/14/17 12/31/22 History release atorvastatin 40 mg tablet 40 mg PO HS Cholesterol 08/14/17 12/31/22 History citalopram 20 mg tablet 20 mg PO DAILY Depression 08/14/17 12/31/22 History cyanocobalamin (vitamin B-12) 1,000 mcg PO DAILY Supplement 08/14/17 12/31/22 History 1,000 mcg capsule folic acid 400 mcg tablet 0.4 mg PO DAILY SUPLEMENT 08/14/17 12/31/22 History memantine 28 mg capsule 28 mg PO DAILY DEMENTIA 08/14/17 12/31/22 History sprinkle,extended release 24hr pyridoxine (vitamin B6) 100 mg 100 mg PO DAILY Supplement 08/14/17 12/31/22 History tablet cholecalciferol (vitamin D3) 25 25 mcg PO DAILY 08/23/20 12/31/22 History mcg (1,000 unit) capsule omeprazole 40 mg capsule,delayed 20 mg PO DAILY GERD 10/03/21 12/31/22 History release digoxin 125 mcg (0.125 mg) tablet 125 mcg PO DAILY HEART #90 tabs 04/13/22 12/31/22 Rx pioglitazone 15 mg tablet 15 mg PO DAILY 10/25/22 12/31/22 History sitagliptin phosphate 50 mg tablet 50 mg PO DAILY 10/25/22 12/31/22 History (Januvia) rivaroxaban 15 mg tablet (Xarelto) 15 mg PO DAILY Blood Thinn
== END ==
PROVIDERS: PCP Family Medicine; Visit Provider Nurse Practitioner Family
DX: M51.36 Other intervertebral disc degeneration, lumbar region (principal); M25.552 Pain in left hip; M54.50 Low back pain, unspecified; G89.29 Other chronic pain; M16.12 Unilateral primary osteoarthritis, left hip
CPT/HCPCS: 99202; G0463

== ENCOUNTER 2023-02-26 13:35 | Day surgery (SDC) | payer MEDICARE, BC, SELFPAY ==
[2023-02-26 14:08] VITALS: BP 155/69; PULSE 95; RESP 16; TEMP 36.3; O2SAT 96; BMI 35.2
[2023-02-26 14:13] VITALS: BP 125/72; PULSE 77; RESP 18; O2SAT 95
[2023-02-26 14:17] VITALS: BP 127/65; PULSE 78; RESP 16; O2SAT 96
--- NOTE | 2023-02-26 14:17 | EXP.PAIN.PRO ---
Procedure Date: 02/26/23 Time: 14:15 Anesthesiologist:: Eder Eason CRNA Complications:: None Pre-procedure Diagnosis:: Osteoarthritis left hip. Chronic left hip pain. Post-procedure Diagnosis:: Same. Indications for Procedure:: Patient is a very pleasant 82-year-old female comes our clinic today for left intra-articular hip injection. Prior to the injection I discussed in detail with her and her son regarding the risk versus benefits. Answered their questions. They wish to proceed. She rates her pain in the left hip 7/10. Procedure Details:: Details of the procedure were explained to the patient. The patient was taken to procedure room placed in the supine position. The area over the left hip was cleaned using chlorhexidine as a cleansing solution. Using fluoroscopy guidance a 3 and half inch 22-gauge spinal needle was used to access the left hip joint without difficulty. After negative aspiration 3 cc of 1% lidocaine +3 cc of 0.25% Marcaine and 40 mg of Depo-Medrol was injected. Needle was withdrawn. Band-Aid applied. Patient tolerated procedure without difficulty. There are no complications. Plan and Disposition:: Patient was discharged without incident.
[2023-02-26 14:22] VITALS: BP 125/72; PULSE 77; RESP 18; O2SAT 98
== END 2023-02-26 14:17 | disposition home or self-care (01) ==
PROVIDERS: PCP Family Medicine; Visit Provider Nurse Anesthetist, Certified Registered
DX: M16.12 Unilateral primary osteoarthritis, left hip (principal); M25.552 Pain in left hip; G89.29 Other chronic pain
CPT/HCPCS: 20610; 77002; J1040

== ENCOUNTER → 2023-03-20 11:22 | Outpatient (POV) | payer MEDICARE, BC, SELFPAY ==
--- NOTE | 2023-03-20 11:38 | EXP.PAIN.SOA ---
[facility] Pain Management SOAP Note Subjective:: Patient is a pleasant 82-year-old female who presents today for follow-up. We are currently treating the patient for low back pain, left hip pain. Today she rates her pain a 0 out of 10. Patient states that the injection that we did back in the end of February continues to provide relief. She states that she has been able to increase her activity with decreased pain sensations. Patient denies any new trauma or injury. She does state that she has some low back pain however she believes this is related to her posture and it is still very manageable at this point. Her Bandar is [id number]. Its been reviewed and appropriate. Review of Systems: General: No recent weight changes, no fever, no sleep disturbances Respiratory: No cough, no shortness of air, no recurring pulmonary infections Cardiovascular/peripheral vascular: No chest pain, no palpitations, no edema, no shortness of breath Gastrointestinal: No new onset incontinence, normal bowel movements reported Genitourinary: No new onset incontinence Musculoskeletal: Left hip pain Psychiatric: [Normal mood/affect] Neurological: [Denies weakness in extremities], [denies balance issues] Objective:: Physical Exam: General: Alert and oriented x3, no acute distress, pleasant and cooperative Lungs: Respirations even and unlabored, symmetrical chest expansion Eyes: PERRL Musculoskeletal: Flexion and extension of left hip somewhat guarded secondary to pain Neurological: Speech clear, no gross sensory deficit Assessment:: Low back pain, left hip pain, left hip osteoarthritis Plan:: Patient continues to do well following her hip injection and does not require any additional injective therapy. I have counseled the patient that we can always do injections for her low back pain however at this time she states it is manageable and does not need anything currently. Patient will return to clinic in 3 months for reevaluation of symptoms and plan of care. Patient has been instructed to contact the clinic with any concerns before the next appointment. Dr. García has reviewed this note and agrees with this plan of care. This note was dictated using voice recognition software and make contain errors or omissions. [facility] Disclaimer: The information contained in this section may have been updated after the patient was seen, as this information can be updated by other users. Medical History Arrhythmia Atrial fibrillation Depression Diabetes mellitus, type 2 GERD (gastroesophageal reflux disease) HLD (hyperlipidemia) Social History Smoking Status: Never smoker alcohol intake: never substance use type: denies use current occupational status: retired Travel in the last 8 weeks: None household members: spouse and children housing: house caffeine: Yes
[2023-03-20 12:57] VITALS: BP 151/79; PULSE 92; RESP 18; O2SAT 97; BMI 34.9
== END ==
PROVIDERS: PCP Family Medicine; Visit Provider Nurse Practitioner Family
DX: M54.50 Low back pain, unspecified (principal); M16.12 Unilateral primary osteoarthritis, left hip; M25.552 Pain in left hip
CPT/HCPCS: 99212; G0463

== ENCOUNTER → 2023-06-27 13:40 | Outpatient (POV) | payer MEDICARE, BC, SELFPAY ==
--- NOTE | 2023-06-27 14:05 | EXP.PAIN.SOA ---
[facility] Pain Management SOAP Note Subjective:: Patient is a pleasant 82-year-old female who presents today for 3-month follow-up. We are currently treating the patient for low back pain, left hip pain. Today she rates her pain a 0 out of 10. Patient states that she still is doing well overall. Patient did have a left hip injection back in February that did provide significant relief and is still currently helping. Patient does state from time to time she will feel like her back or her hip pain is that they are but it is not enough that she feels like she needs an injection. She states the pain will subside. Her Bandar has been reviewed and is appropriate. Review of Systems: General: No recent weight changes, no fever, no sleep disturbances Respiratory: No cough, no shortness of air, no recurring pulmonary infections Cardiovascular/peripheral vascular: No chest pain, no palpitations, no edema, no shortness of breath Gastrointestinal: No new onset incontinence, normal bowel movements reported Genitourinary: No new onset incontinence Musculoskeletal: Low back pain Psychiatric: [Normal mood/affect] Neurological: [Denies weakness in extremities], [denies balance issues] Objective:: Physical Exam: General: Alert and oriented x3, no acute distress, pleasant and cooperative Lungs: Respirations even and unlabored, symmetrical chest expansion Eyes: PERRL Musculoskeletal: Flexion and extension of lumbar [spine] somewhat guarded secondary to pain, [antalgic gait noted] Neurological: Speech clear, no gross sensory deficit Assessment:: Low back pain, left hip pain Plan:: Patient continues to do well following her left hip intra-articular injection back in February and does not require any additional injection therapy at this time. Patient will return to clinic in 3 months for reevaluation of symptoms and plan of care. Patient has been instructed to contact the clinic with any concerns before the next appointment. Dr. García has reviewed this note and agrees with this plan of care. This note was dictated using voice recognition software and make contain errors or omissions. [facility] Disclaimer: The information contained in this section may have been updated after the patient was seen, as this information can be updated by other users. Medical History (Updated 06/20/23 @ 10:07 by Marcella Sin RN) Arrhythmia Atrial fibrillation Deep vein thrombosis (DVT) Depression Diabetes mellitus, type 2 GERD (gastroesophageal reflux disease) History of transient ischemic attack (TIA) HLD (hyperlipidemia) Surgical History (Updated 06/20/23 @ 10:06 by Marcella Sin, RN) Hx of tonsillectomy S/P ankle ligament repair Family History (Updated 06/20/23 @ 10:06 by Marcella Sin, RN) Other Family history of diabetes mellitus type II Family history of myocardial infarction Social History Smoking Status: Never smoker alcohol intake: never substance use type: denies use current occupational status: retired Travel in the last 8 weeks: None household members: spouse and children housing: house caffeine: Yes
[2023-06-27 14:40] VITALS: BP 151/66; PULSE 79; RESP 19; O2SAT 94; BMI 29.2
== END ==
LOC: SC.PAIN 13:41
PROVIDERS: PCP Family Medicine; Visit Provider Nurse Practitioner Family
DX: M54.50 Low back pain, unspecified (principal); M25.552 Pain in left hip
CPT/HCPCS: 99212; G0463

== ENCOUNTER 2023-11-12 14:35 | Outpatient (CLI) | payer MEDICARE, BC, SELFPAY ==
[2023-11-12 15:15] LABS: Basophils # 0.1 K/mm3 (0-0.2); Basophils % 0.5 % (0.1-2.0); Eosinophils # 0.1 K/mm3 (0.0-0.4); Eosinophils % 0.7 % (0.1-12.0); Hematocrit 41.3 % (37.0-47.0); Hemoglobin 12.9 g/dL (12.2-16.2); Lymphocytes # 2.3 K/mm3 (0.7-4.5); Lymphocytes % 22.1 % (10-50); Mean Corpuscular HGB Conc 31.3 g/dL (31.8-35.4); Mean Corpuscular Hemoglobin 27.3 pg (27.0-31.2); Mean Platelet Volume 9.2 fl (7.4-10.4); Monocytes # 0.6 K/mm3 (0.1-1.0); Monocytes % 5.2 % (1.7-9.3); Neutrophils # 7.5 K/mm3 (1.8-7.8); Neutrophils % 71.5 % (37.0-80.0); Platelet Count 291 K/mm3 (142-424); Red Blood Count 4.74 M/mm3 (4.20-5.40); Red Cell Distribution Width 15.2 % (11.5-17.5); White Blood Count 10.5 K/mm3 (4.8-10.8)
[2023-11-12 16:20] LABS: Alanine Aminotransferase 28 U/L (12-78); Albumin Level 4.2 g/dl (3.5-5.0); Alkaline Phosphatase 91 U/L (38-126); Anion Gap 14.6 mEq/L (5-15); Aspartate Amino Transferase 34 U/L (14-36); Bilirubin,Indirect 0.8 mg/dL (0.0-0.9); Bilirubin,Total 0.8 mg/dl (0.2-1.3); Bilirubin,Unconjugated 0.8 mg/dL (0.0-1.1); Blood Urea Nitrogen 23 mg/dl (7-17); Calcium 9.5 mg/dl (8.4-10.2); Carbon Dioxide 29 mmol/L (22.0-30.0); Chloride 99 mmol/L (98-107); Chol/HDL Ratio 2.2 (1-3.5); Cholesterol 109 mg/dl (140-200); Estimated Glomerular Filt Rate 47 ml/min (>60); GFR (African American) 57 ML/MIN (>60); Glucose 204 mg/dl (74-100); HDL Cholesterol 50 mg/dl (40-60); Potassium 4.6 mmoL/L (3.5-5.1); Sodium 138 mmol/L (136-145); Total Protein,Serum 6.8 g/dl (6.3-8.2); Triglycerides 98 mg/dl (30-150); VLDL Cholesterol 20 mg/dL (0-40)
[2023-11-12 16:35] LABS: Direct LDL Cholesterol 42.11 mg/dL (100-129); Free T4 (Free Thyroxine) 1.07 ng/dl (0.78-2.19)
[2023-11-12 16:55] LABS: Thyroid Stimulating Hormone 2.71 uIU/mL (0.465-4.68)
== END 2023-11-12 23:59 | disposition home or self-care (01) ==
LOC: LAB 15:12
PROVIDERS: PCP Family Medicine; Visit Provider Nurse Practitioner
DX: I11.9 Hypertensive heart disease without heart failure (principal); I48.91 Unspecified atrial fibrillation; E78.2 Mixed hyperlipidemia; R06.00 Dyspnea, unspecified; K21.9 Gastro-esophageal reflux disease without esophagitis; E11.9 Type 2 diabetes mellitus without complications; Z79.84 Long term (current) use of oral hypoglycemic drugs; Z79.01 Long term (current) use of anticoagulants
CPT/HCPCS: 80048; 80061; 80076; 84439; 84443; 85025

== ENCOUNTER 2023-11-13 12:25 | Emergency (ER) | payer MEDICARE, BC, SELFPAY ==
[2023-11-13 12:30] VITALS: BP 145/84; PULSE 77; RESP 20; TEMP 36.8; O2SAT 97; BMI 35.5
--- NOTE | 2023-11-13 12:39 | ED_ITS ---
Discharge Plan Disposition Patient Disposition: Home, Self-Care Condition: Good Prescriptions Prescriptions: No Action pioglitazone 15 mg tablet 15 mg PO DAILY Patient Comments: TAKE 1 TABLET BY MOUTH DAILY cholecalciferol (vitamin D3) 25 mcg (1,000 unit) capsule 25 mcg PO DAILY Januvia 25 mg tablet 25 mg PO DAILY digoxin 125 mcg (0.125 mg) tablet 125 mcg PO DAILY Qty: 90 3RF atorvastatin 40 MG tablet 40 mg PO HS folic acid 0.4 MG tablet 0.4 mg PO DAILY aspirin 81 MG tablet,delayed release (DR/EC) 81 mg PO DAILY citalopram 20 MG tablet 20 mg PO DAILY Patient Comments: pyridoxine (vitamin B6) 100 MG tablet 100 mg PO DAILY memantine 28 MG capsule,sprinkle,ER 24hr 28 mg PO DAILY Patient Comments: cyanocobalamin (vitamin B-12) 1,000 MCG capsule 1,000 mcg PO DAILY omeprazole 40 mg capsule,delayed release(DR/EC) 20 mg PO DAILY Patient Comments: Xarelto 15 mg tablet 15 mg PO DAILY Rx Instructions: must administer with evening meal Referrals Follow up/Referrals: Rell Clark MD [Primary Care Provider] - See instructions Clinical Impressions Clinical Impression: Bilateral impacted cerumen Instructions Patient Instructions: DI for Cerumen Impaction Discharge ED Provider: [facility] General Stated complaint: Pain in R ear x 3 weeks Time Seen by Provider: 11/13/23 12:38 History of Present Illness Provider Complaint: Son reports that pt has been complaining of bilateral ear pain off and on for about 3 weeks. Related Data Home Medications Medication Instructions Recorded Confirmed aspirin 81 mg tablet,delayed 81 mg PO DAILY HEART/CIRCULATION 08/14/17 11/13/23 release atorvastatin 40 mg tablet 40 mg PO HS Cholesterol 08/14/17 11/13/23 citalopram 20 mg tablet 20 mg PO DAILY Depression 08/14/17 11/13/23 cyanocobalamin (vitamin B-12) 1,000 mcg PO DAILY Supplement 08/14/17 11/13/23 1,000 mcg capsule folic acid 400 mcg tablet 0.4 mg PO DAILY SUPLEMENT 08/14/17 11/13/23 memantine 28 mg capsule 28 mg PO DAILY DEMENTIA 08/14/17 11/13/23 sprinkle,extended release 24hr pyridoxine (vitamin B6) 100 mg 100 mg PO DAILY Supplement 08/14/17 11/13/23 tablet cholecalciferol (vitamin D3) 25 25 mcg PO DAILY SUPPLIMENT 08/23/20 11/13/23 mcg (1,000 unit) capsule omeprazole 40 mg capsule,delayed 20 mg PO DAILY GERD 10/03/21 11/13/23 release pioglitazone 15 mg tablet 15 mg PO DAILY Diabetes 10/25/22 11/13/23 rivaroxaban 15 mg tablet (Xarelto) 15 mg PO DAILY Blood Thinner 02/13/23 11/13/23 sitagliptin phosphate 25 mg tablet 25 mg PO DAILY 08/28/23 11/13/23 (Januvia) Previous Rx's Medication Instructions Recorded digoxin 125 mcg (0.125 mg) tablet 125 mcg PO DAILY HEART #90 tabs 04/13/22 Allergies Allergy/AdvReac Type Severity Reaction Status Date / Time Penicillins Allergy Verified 11/12/23 13:44 [facility] Disclaimer: The information contained in this section may have been updated after the patient was seen, as this information can be updated by other users. Medical History History of transient ischemic attack (TIA) Deep vein thrombosis (DVT) HLD (hyperlipidemia) Depression Arrhythmia GERD (gastroesophageal reflux disease) Diabetes mellitus, type 2 Atrial fibrillation Surgical History Hx of tonsillectomy S/P ankle ligament repair Family History Other Family history of diabetes mellitus type II Family history of myocardial infarction Social History Smoking Status: Never smoker alcohol intake: never substance use type: denies use current occupational status: retired Travel in the last 8 weeks: None household members: spouse and children housing: house caffeine: Yes ROS Obtained: Yes All systems reviewed & no additional complaints except as documented Constitutional Constitutional: Reports system reviewed and no additional complaints, except as documented Eyes Eyes: Reports system reviewed and no additional complaints, except as documented ENT Ears, Nose, Mouth, and Throat: Reports system reviewed and no additional complaints, except as documented and Reports otalgia Cardiovascular Cardiovascular: Reports system reviewed and no additional complaints, except as documented Respiratory Respiratory: Reports system reviewed and no additional complaints, except as documented Gastrointestinal Gastrointestingal: Reports system reviewed and no additional complaints, except as documented Genitourinary Female Genitourinary: Reports system reviewed and no additional complaints, except as documented Musculoskeletal Musculoskeletal: Reports system reviewed and no additional complaints, except as documented Integumentary/Breasts Skin/Breast: Reports system reviewed and no additional complaints, except as documented Neurologic Neurologic: Reports system reviewed and no additional complaints, except as documented Endocrine Endocrine: Reports system reviewed and no additional complaints, except as documented Hematologic/Lymphatic Henatologic/Lymphatic: Reports system reviewed and no additional complaints, except as documented Allergic/Immunologic Allergic/Immunologic: Reports system reviewed and no additional complaints, except as documented Physical Exam General General appearance: alert and in no apparent distress Head Head exam: atraumatic and normocephalic Eye Eye exam: Present normal appearance ENT ENT exam: Present other Expanded ENT Exam External ear exam: Present normal external inspection and pain with movement TM/Canal exam: Bilateral TM: cerumen impaction Nasal speculum exam: Bilateral: normal Mouth exam: Present normal external inspection Teeth exam: Present normal inspection Throat exam: Present normal inspection Neck Neck exam: Present normal inspection Chest Chest inspection: Present normal inspection and symmetric chest wall rise Respiratory Respiratory exam: Present normal lung sounds bilaterally Cardiovascular Cardiovascular exam: Present regular rate and normal rhythm Abdominal Exam Abdominal exam: Present soft and normal bowel sounds Extremities Exam Extremities exam: Present normal inspection Back Exam Back exam: Present normal inspection Neurological Exam Neurological exam: Present alert and oriented X3 Psychiatric Psychiatric exam: Present normal affect and normal mood Skin Skin exam: Present warm, dry and intact Lymphatic Lymphatic Findings: no adenopathy Medical Decision Making [place] Inquiry Pt receiving controlled substance: No Procedures Ear Wax Removal Both Ears: Cerumenolytic Used: other (warm water and baby shampoo) Results: Re-examined: cerumen removed completely TM Examination: TM(s) intact, normal appearance Ear Canal Exam: atraumatic Patient Tolerated Procedure: well and no complications Complications: no problems Technique: ear canal irrigated and ear canal curetted
[2023-11-13 13:19] VITALS: BP 145/84; PULSE 77; RESP 20; TEMP 36.8; O2SAT 97
== END 2023-11-13 13:21 | disposition home or self-care (01) ==
PROVIDERS: Emergency Provider Nurse Practitioner Family; PCP Family Medicine
DX: H92.03 Otalgia, bilateral (principal); H61.23 Impacted cerumen, bilateral
CPT/HCPCS: 69210; 69209; 99213; 99214; G0463

== ENCOUNTER 2024-07-06 13:07 | Outpatient (CLI) | payer MEDICARE, BC, SELFPAY ==
--- NOTE | 2024-07-06 13:11 | CA_ITS ---
FINAL REPORT TECHNIQUE: Ultrasound images of the deep venous system were obtained from the left groin to the calf veins. CLINICAL HISTORY: EDEMA LLE,REDNESS LT CALF,PT ON XARELTO FINDINGS: The deep venous system is normally compressible. Normal flow is identified. IMPRESSION: No evidence of left lower extremity DVT. Reviewed, Interpreted and Dictated by Sj Arellano MD Transcribed by Hannah Ortega Authenticated and [facility]
== END 2024-07-06 23:59 | disposition home or self-care (01) ==
LOC: RT 13:10
PROVIDERS: PCP Family Medicine; Visit Provider Physician Assistant
DX: R60.0 Localized edema (principal); I48.91 Unspecified atrial fibrillation; I11.9 Hypertensive heart disease without heart failure; E78.2 Mixed hyperlipidemia; Z79.01 Long term (current) use of anticoagulants
CPT/HCPCS: 93971

== ENCOUNTER 2024-07-13 11:43 | Outpatient (CLI) | payer MEDICARE, BC, SELFPAY ==
[2024-07-13 12:39] LABS: Chloride 96 mmol/L (98-107)
[2024-07-13 12:40] LABS: Potassium 4.4 mmoL/L (3.5-5.1); Sodium 136 mmol/L (136-145)
[2024-07-13 12:43] LABS: Anion Gap 11.4 mEq/L (5-15); Blood Urea Nitrogen 27 mg/dl (7-17); Calcium 8.9 mg/dl (8.4-10.2); Carbon Dioxide 33 mmol/L (22.0-30.0); Estimated Glomerular Filt Rate 68 ml/min (>60); GFR (African American) 83 ML/MIN (>60); Glucose 170 mg/dl (74-100)
[2024-07-13 15:34] LABS: Hemoglobin A1C 7.8 % (4.0-6.0)
== END 2024-07-13 23:59 | disposition home or self-care (01) ==
LOC: LAB 11:44
PROVIDERS: PCP Family Medicine; Visit Provider Physician Assistant
DX: E78.2 Mixed hyperlipidemia (principal); I11.9 Hypertensive heart disease without heart failure; E11.65 Type 2 diabetes mellitus with hyperglycemia
CPT/HCPCS: 36415; 80048; 83036

== ENCOUNTER 2024-08-08 15:12 | Emergency (ER) | payer MEDICARE, BC, SELFPAY ==
[2024-08-08] VITALS (8 sets, daily range): BP systolic 120–173; BP diastolic 52–150; PULSE 61–84; RESP 15–20; TEMP 36.9–37.2; O2SAT 94–98; BMI 27.4
--- NOTE | 2024-08-08 15:17 | PC.NURSE ---
Aric Alvarado APRN at bedside
--- NOTE | 2024-08-08 15:19 | XR_ITS ---
PROCEDURE INFORMATION: Exam: XR Chest Exam date and time: 08/08/2024 3:24 PM Age: 83 years old Clinical indication: Wheezing TECHNIQUE: Imaging protocol: Radiologic exam of the chest. Views: 2 views. COMPARISON: CR XR CHEST AP 02/20/2022 11:07 PM FINDINGS: Lungs: Unremarkable. No consolidation. Pleural spaces: Unremarkable. No pleural effusion. No pneumothorax. Heart/Mediastinum: Cardiomegaly Bones/joints: Degenerative changes in the glenohumeral joint IMPRESSION: No acute findings.
--- NOTE | 2024-08-08 15:21 | HMH.EDGENADL ---
Discharge Plan Disposition Patient Disposition: Home, Self-Care Condition: Good Prescriptions Prescriptions: New cephalexin 500 mg tablet 500 mg PO BID 10 Days Qty: 20 0RF No Action pioglitazone 15 mg tablet 15 mg PO DAILY Patient Comments: TAKE 1 TABLET BY MOUTH DAILY cholecalciferol (vitamin D3) 25 mcg (1,000 unit) capsule 25 mcg PO DAILY saxagliptin 2.5 mg tablet 2.5 mg PO DAILY Patient Comments: TAKE 1 TABLET BY MOUTH DAILY furosemide [Lasix] 40 mg tablet 40 mg PO DAILY PRN (Reason: edema) Qty: 30 2RF potassium chloride 20 mEq tablet extended release 20 meq PO DAILY Qty: 30 2RF Rx Instructions: take with lasix digoxin 125 mcg (0.125 mg) tablet 125 mcg PO DAILY Qty: 90 3RF atorvastatin 40 MG tablet 40 mg PO HS folic acid 0.4 MG tablet 0.4 mg PO DAILY aspirin 81 MG tablet,delayed release (DR/EC) 81 mg PO DAILY citalopram 20 MG tablet 20 mg PO DAILY Patient Comments: pyridoxine (vitamin B6) 100 MG tablet 100 mg PO DAILY memantine 28 MG capsule,sprinkle,ER 24hr 28 mg PO DAILY Patient Comments: cyanocobalamin (vitamin B-12) 1,000 MCG capsule 1,000 mcg PO DAILY omeprazole 40 mg capsule,delayed release(DR/EC) 20 mg PO DAILY Patient Comments: Xarelto 15 mg tablet 15 mg PO DAILY Rx Instructions: must administer with evening meal Referrals Follow up/Referrals: Rell Clark MD [Primary Care Provider] - See instructions Activity Restrictions/Add. Instructions Additional Instructions/Restrictions: Nasal saline and bulb syringe or nose Treasure to remove nasal drainage to help with nasal congestion. Hard to eat, drink, sleep with nasal congestion so important to keep this cleaned out. Monitor temp. Tylenol or Motrin as needed for pain or fever Encourage fluids, water, Gatorade, Powerade, Pedialyte if /toddler/child Warm salt water gargles Warm fluids Sore throat lozenges Sleep elevated Humidifier/vaporizer Follow-up immediately for new or worsening symptoms or no noticeable improvement over the next 48-72 hours. Clinical Impressions Clinical Impression: Acute UTI, Cellulitis, Influenza A Instructions Patient Instructions: Cellulitis, DI for Urinary Tract Infection (UTI), DI for Influenza -- Adult Print Language Print Language: Citizen Of [place] Discharge ED Provider: Prasad So General Adult HPI <Shonna Alvarado ([facility]), VACCINE CUSTOMER REPRESENTATIVE - Last Filed: 08/08/24 18:40> General Chief complaint: Weakness Stated complaint: weakness Time Seen by Provider: 08/08/24 15:15 Mode of Arrival: Ambulatory Source of Information: Patient Limitations: No Limitations History of Present Illness HPI narrative: 83-year-old female presents for overall not feeling well. Patient states multiple family members in her home with the flu. Related Data Home Medications ?Medication ?Instructions ?Recorded ?Confirmed aspirin 81 mg tablet,delayed 81 mg PO DAILY HEART/CIRCULATION 08/14/17 08/08/24 release atorvastatin 40 mg tablet 40 mg PO HS Cholesterol 08/14/17 08/08/24 citalopram 20 mg tablet 20 mg PO DAILY Depression 08/14/17 08/08/24 cyanocobalamin (vitamin B-12) 1,000 mcg PO DAILY Supplement 08/14/17 08/08/24 1,000 mcg capsule folic acid 400 mcg tablet 0.4 mg PO DAILY SUPLEMENT 08/14/17 08/08/24 memantine 28 mg capsule 28 mg PO DAILY DEMENTIA 08/14/17 08/08/24 sprinkle,extended release 24hr pyridoxine (vitamin B6) 100 mg 100 mg PO DAILY Supplement 08/14/17 08/08/24 tablet cholecalciferol (vitamin D3) 25 25 mcg PO DAILY SUPPLIMENT 08/23/20 08/08/24 mcg (1,000 unit) capsule omeprazole 40 mg capsule,delayed 20 mg PO DAILY GERD 10/03/21 08/08/24 release pioglitazone 15 mg tablet 15 mg PO DAILY Diabetes 10/25/22 08/08/24 rivaroxaban 15 mg tablet (Xarelto) 15 mg PO DAILY Blood Thinner 02/13/23 08/08/24 saxagliptin 2.5 mg tablet 2.5 mg PO DAILY 07/06/24 08/08/24 Previous Rx's ?Medication ?Instructions ?Recorded digoxin 125 mcg (0.125 mg) tablet 125 mcg PO DAILY HEART #90 tabs 04/13/22 furosemide 40 mg tablet (Lasix) 40 mg PO DAILY PRN edema #30 tabs 07/06/24 potassium chloride 20 mEq 20 meq PO DAILY #30 tabs 07/06/24 tablet,extended release cephalexin 500 mg tablet 500 mg PO BID 10 days #20 tabs 08/08/24 Allergies Allergy/AdvReac Type Severity Reaction Status Date / Time Penicillins Allergy Unknown Unknown Verified 08/08/24 15:21 allergy reaction PFS <Shonna Alvarado ([facility]), VACCINE CUSTOMER REPRESENTATIVE - Last Filed: 08/08/24 18:40> [facility] Disclaimer: The information contained in this section may have been updated after the patient was seen, as this information can be updated by other users. Medical History , VACCINE CUSTOMER REPRESENTATIVE) History of transient ischemic attack (TIA) Deep vein thrombosis (DVT) HLD (hyperlipidemia) Depression Arrhythmia GERD (gastroesophageal reflux disease) Diabetes mellitus, type 2 Atrial fibrillation Surgical History , VACCINE CUSTOMER REPRESENTATIVE) Hx of tonsillectomy S/P ankle ligament repair Family History , VACCINE CUSTOMER REPRESENTATIVE) Family history of diabetes mellitus type II Family history of myocardial infarction Social History , VACCINE CUSTOMER REPRESENTATIVE) Smoking Status: Never smoker alcohol intake: never substance use type: denies use current occupational status: retired Travel in the last 8 weeks: None household members: spouse and children housing: house caffeine: Yes Have you lived/traveled outside US in past 30 days?: No Contact w/someone who lives/traveled outside US past 30 days?: No Exposure to someone with infectious disease in past 14 days?: No Do you have a fever (greater than 100.4 F or 38 C)?: No Have you tested positive for COVID-19: No Exposed to someone with COVID-19 in past 14 days?: No Do you have a sore throat?: No Do you have a cough?: No Do you have any weakness?: Yes Do you have any diarrhea?: No Are you experiencing any unusual bleeding?: No Do you have any muscle aches/pain?: No Do you have any abdominal pain?: No Are you experiencing loss of taste or smell?: No Other Medical History Have you received the Flu Vaccine for this season: Yes Have you received the Pneumonia Vaccine: No <Shonna Alvarado ([facility]), VACCINE CUSTOMER REPRESENTATIVE - Last Filed: 08/08/24 18:40> ROS Obtained: Yes Systems reviewed as appropriate & no additional complaints except as documented Constitutional Constitutional: Reports system reviewed and no additional complaints, except as documented, Reports as per HPI, Reports body ache, Reports chills and Reports fatigue Endocrine Endocrine: Reports fatigue Physical Exam <Shonna Alvarado ([facility]), VACCINE CUSTOMER REPRESENTATIVE - Last Filed: 08/08/24 18:40> General General appearance: alert and in no apparent distress Eye Eye exam: Present normal appearance and PERRL ENT ENT exam: Present normal exam, normal oropharynx and mucous membranes moist Respiratory Respiratory exam: Present wheezes Cardiovascular Cardiovascular exam: Present irregular rhythm Abdominal Exam Abdominal exam: Present soft and normal bowel sounds; Absent tenderness Expanded Lower Extremity Exam Left: Leg image: 1. redness Neurological Exam Neurological exam: Present alert Skin Skin exam: Present warm, intact and other Medical Decision Making <Shonna Hernándezmayito ([facility]), VACCINE CUSTOMER REPRESENTATIVE - Last Filed: 08/08/24 18:40> Medical Records Medical records reviewed: Yes I reviewed the patient's medical records. Screening: Per USPSTF and CDC recommendations, given the prevalence of disease in our region, it is our hospital?s policy to screen for HIV and viral Hepatitis for all patients aged 18 and over and those with ongoing risk factors. [place]ar Inquiry Pt receiving controlled substance: No Vital Signs: 08/08/24 15:02 08/08/24 16:00 08/08/24 16:30 Temperature 98.5 F Temperature Source Oral Pulse Rate 69 79 Pulse Rate [Left] 72 Respiratory Rate 15 Blood Pressure 149/83 H 148/78 H Blood Pressure [Right Arm] 125/82 Blood Pressure Mean Blood Pressure Mean [Right Arm] 96 Blood Pressure Source [Right Arm] Automatic Cuff 02 Sat by Pulse Oximetry 96 98 97 Oxygen Delivery Method Room Air Room Air Room Air 08/08/24 17:00 08/08/24 17:30 08/08/24 18:01 Temperature Temperature Source Pulse Rate 61 84 79 Pulse Rate [Left] Respiratory Rate Blood Pressure 160/77 H 173/150 H 168/70 H Blood Pressure [Right Arm] Blood Pressure Mean 102 Blood Pressure Mean [Right Arm] Blood Pressure Source [Right Arm] 02 Sat by Pulse Oximetry 95 94 L 97 Oxygen Delivery Method Room Air Room Air Room Air Lab Data Lab results reviewed: Yes I reviewed the patient's lab results. Lab Results 08/08/24 14:51: WBC 4.2 L, RBC 4.39, Hgb 11.5 L, Hct 36.8 L, MCV 83.8, MCH 26.2 L, MCHC 31.3 L, RDW 15.4, Plt Count 227, MPV 11.1 H, Neut % (Auto) 59.4, Lymph % (Auto) 20.4, [place] % (Auto) 19.5 H, Eos % (Auto) 0.0 L, Baso % (Auto) 0.5, Neut # (Auto) 2.5, Lymph # (Auto) 0.9, [place] # (Auto) 0.8, Eos # (Auto) 0.0, Baso # (Auto) 0.0, Sodium 132 L, Potassium 4.2, Chloride 96 L, Carbon Dioxide 32 H, Anion Gap 8.2, BUN 31 H, Creatinine 0.90, Estimated Creat Clear 45, Estimated GFR 60, Est GFR ( Amer) 72, Glucose 84, Calcium 9.1, Total Bilirubin 0.5, AST 46 H, ALT 33, Alkaline Phosphatase 121, NT-Pro-B Natriuret Pep 2610 H, Total Protein 7.1, Albumin 4.1, Globulin 3.0, Albumin/Globulin Ratio 1.4 08/08/24 15:10: SARS-CoV-2 (PCR) Not detected, Influenza A Untype (PCR) Detected A, Influenza Type B (PCR) Not detected 08/08/24 15:50: Urine Color Yellow, Urine Appearance Clear, Urine pH 5.5, Ur Specific [place] >= 1.030, Urine Protein Trace, Urine Glucose (UA) Negative, Urine Ketones Trace, Urine Blood Trace-i, Urine Nitrate Negative, Urine Bilirubin 1+ A, Urine Urobilinogen 0.2, Ur Leukocyte Esterase Negative, Urine RBC Occasional, Urine WBC 5-10, Ur Squamous Epith Cells 3-5, Urine Bacteria 4+ 08/08/24 14:51 08/08/24 14:51 Orders (Tests/Meds): ED MEDICATIONS Generic Name Dose Route Start Last Admin Trade Name Freq PRN Reason Stop Dose Admin Acetaminophen 325 mg 08/08/24 18:37 08/08/24 18:40 Acetaminophen 325mg Tab PO 08/08/24 18:38 325 mg ONCE ONE Administration Cephalexin HCl 500 mg 08/08/24 18:36 08/08/24 18:40 Cephalexin 500mg Capsule PO 08/08/24 18:37 500 mg ONCE ONE Administration Discontinued Medications Generic Name Dose Route Start Last Admin Trade Name [place] PRN Reason Stop Dose Admin Furosemide 80 mg 08/08/24 16:06 08/08/24 16:19 Furosemide 40mg/4ml Vial IV 08/08/24 16:07 80 mg ONCE ONE Administration Ondansetron HCl 4 mg 08/08/24 16:12 08/08/24 16:19 Ondansetron 4mg/2ml Vial IV 08/08/24 16:13 4 mg ONCE ONE Administration ORDERS Category Date Time Status Chest XR 2 view (NOT portable) [XR chest 2V] Stat Exams 08/08/24 15:19 Completed BNP [NT Pro Brain Natriuretic Pep.] Stat Lab 08/08/24 14:51 Completed CBC [Complete Blood Count Auto Diff] Stat Lab 08/08/24 14:51 Completed CMP [Comprehensive Metabolic Panel] Stat Lab 08/08/24 14:51 Completed Rapid PCR Covid and Flu A/B Stat Lab 08/08/24 15:10 Completed Urinalysis and Microscopic Stat Lab 08/08/24 15:50 Completed Urine Culture Stat Micro 08/08/24 15:50 Received Medical Decision Narrative: In summary patient is a 83-year-old female who presents to the emergency department for evaluation of fatigue, wheezing, body aches, and overall not feeling well. Patient lives with her son and his . Patient is hemodynamically stable upon arrival, afebrile. Upon physical exam left lower extremity is red and swollen with multiple scabbed areas. Differential diagnosis includes congestive heart failure, flu, UTI, pneumonia and cellulitis. Initial workup will be conducted with labs, chest x-ray, UA, swab flu swab. Initial inventions include Lasix 80 mg IV x 1 was given a meal tray and ate 25% and drank around 220 mL. Initial workup reviewed by ar x-ray no acute findings, flu swab positive for flu A, urinalysis positive. Upon repeat evaluation patient was able to tolerate p.o. fluids and food. Given this patient appropriate for discharge will be discharged home with prescription for Keflex for the UTI and cellulitis. Patient has a prescription for Tamiflu at home just has not started it yet advised to start this. Follow-up with primary care this week. If symptoms worsen or do not improve return I informally interpreted patient's chest x-ray no acute findings <Prasad So MD - Last Filed: 08/08/24 18:49> Vital Signs: 08/08/24 15:02 08/08/24 16:00 08/08/24 16:30 Temperature 98.5 F Temperature Source Oral Pulse Rate 69 79 Pulse Rate [Left] 72 Respiratory Rate 15 Blood Pressure 149/83 H 148/78 H Blood Pressure [Right Arm] 125/82 Blood Pressure Mean Blood Pressure Mean [Right Arm] 96 Blood Pressure Source [Right Arm] Automatic Cuff 02 Sat by Pulse Oximetry 96 98 97 Oxygen Delivery Method Room Air Room Air Room Air 08/08/24 17:00 08/08/24 17:30 08/08/24 18:01 Temperature Temperature Source Pulse Rate 61 84 79 Pulse Rate [Left] Respiratory Rate Blood Pressure 160/77 H 173/150 H 168/70 H Blood Pressure [Right Arm] Blood Pressure Mean 102 Blood Pressure Mean [Right Arm] Blood Pressure Source [Right Arm] 02 Sat by Pulse Oximetry 95 94 L 97 Oxygen Delivery Method Room Air Room Air Room Air Lab Data Lab Results 08/08/24 14:51: WBC 4.2 L, RBC 4.39, Hgb 11.5 L, Hct 36.8 L, MCV 83.8, MCH 26.2 L, MCHC 31.3 L, RDW 15.4, Plt Count 227, MPV 11.1 H, Neut % (Auto) 59.4, Lymph % (Auto) 20.4, [place] % (Auto) 19.5 H, Eos % (Auto) 0.0 L, Baso % (Auto) 0.5, Neut # (Auto) 2.5, Lymph # (Auto) 0.9, [place] # (Auto) 0.8, Eos # (Auto) 0.0, Baso # (Auto) 0.0, Sodium 132 L, Potassium 4.2, Chloride 96 L, Carbon Dioxide 32 H, Anion Gap 8.2, BUN 31 H, Creatinine 0.90, Estimated Creat Clear 45, Estimated GFR 60, Est GFR ( Amer) 72, Glucose 84, Calcium 9.1, Total Bilirubin 0.5, AST 46 H, ALT 33, Alkaline Phosphatase 121, NT-Pro-B Natriuret Pep 2610 H, Total Protein 7.1, Albumin 4.1, Globulin 3.0, Albumin/Globulin Ratio 1.4 08/08/24 15:10: SARS-CoV-2 (PCR) Not detected, Influenza A Untype (PCR) Detected A, Influenza Type B (PCR) Not detected 08/08/24 15:50: Urine Color Yellow, Urine Appearance Clear, Urine pH 5.5, Ur Specific [place] >= 1.030, Urine Protein Trace, Urine Glucose (UA) Negative, Urine Ketones Trace, Urine Blood Trace-i, Urine Nitrate Negative, Urine Bilirubin 1+ A, Urine Urobilinogen 0.2, Ur Leukocyte Esterase Negative, Urine RBC Occasional, Urine WBC 5-10, Ur Squamous Epith Cells 3-5, Urine Bacteria 4+ Orders (Tests/Meds): ED MEDICATIONS Generic Name Dose Route Start Last Admin Trade Name Freq PRN Reason Stop Dose Admin Acetaminophen 325 mg 08/08/24 18:37 08/08/24 18:40 Acetaminophen 325mg Tab PO 08/08/24 18:38 325 mg ONCE ONE Administration Cephalexin HCl 500 mg 08/08/24 18:36 08/08/24 18:40 Cephalexin 500mg Capsule PO 08/08/24 18:37 500 mg ONCE ONE Administration Discontinued Medications Generic Name Dose Route Start Last Admin Trade Name Freq PRN Reason Stop Dose Admin Furosemide 80 mg 08/08/24 16:06 08/08/24 16:19 Furosemide 40mg/4ml Vial IV 08/08/24 16:07 80 mg ONCE ONE Administration Ondansetron HCl 4 mg 08/08/24 16:12 08/08/24 16:19 Ondansetron 4mg/2ml Vial IV 08/08/24 16:13 4 mg ONCE ONE Administration ORDERS Category Date Time Status Chest XR 2 view (NOT portable) [XR chest 2V] Stat Exams 08/08/24 15:19 Completed BNP [NT Pro Brain Natriuretic Pep.] Stat Lab 08/08/24 14:51 Completed CBC [Complete Blood Count Auto Diff] Stat Lab 08/08/24 14:51 Completed CMP [Comprehensive Metabolic Panel] Stat Lab 03/08/25 14:51 Completed Rapid PCR Covid and Flu A/B Stat Lab 08/08/24 15:10 Completed Urinalysis and Microscopic Stat Lab 08/08/24 15:50 Completed Urine Culture Stat Micro 08/08/24 15:50 Received Medical Decision Narrative: In summary patient is a 83-year-old female who presents to the emergency department for evaluation of fatigue, wheezing, body aches, and overall not feeling well. Patient lives with her son and his . Patient is hemodynamically stable upon arrival, afebrile. Upon physical exam left lower extremity is red and swollen with multiple scabbed areas. Differential diagnosis includes congestive heart failure, flu, UTI, pneumonia and cellulitis. Initial workup will be conducted with labs, chest x-ray, UA, swab flu swab. Initial inventions include Lasix 80 mg IV x 1 was given a meal tray and ate 25% and drank around 220 mL. Initial workup reviewed by ar x-ray no acute findings, flu swab positive for flu A, urinalysis positive. Upon repeat evaluation patient was able to tolerate p.o. fluids and food. Given this patient appropriate for discharge will be discharged home with prescription for Keflex for the UTI and cellulitis. Patient has a prescription for Tamiflu at home just has not started it yet advised to start this. Follow-up with primary care this week. If symptoms worsen or do not improve return I informally interpreted patient's chest x-ray no acute findings DANILO attestation I was consulted by the DANILO, and we discussed the complexity of problems being addressed. I approved the treatment and management plan for this patient's care in the emergency department, thus performing a substantial portion of the medical decision making. This was an 83-year-old female with a history of CHF who presented with generalized weakness, wheezing, myalgias in the setting of influenza. She had no history of COPD. Remote history of smoking. Suspected her wheezing with is not in the setting of CHF. BNP was significantly elevated and she was administered 80 mg of IV Lasix with improvement. She tested positive for influenza. High risk patient and already prescribed Tamiflu which she has not started yet. Instructed to take the Tamiflu which she was previously prescribed given her high risk status. Also had a cellulitis of her left lower extremity which she was sent with Keflex for. Will also cover for UTI which UA suggested. She was tolerating oral intake and in no acute distress with no oxygen requirement. No evidence of decompensated CHF or pneumonia. Appropriate for discharge at this time with close follow-up. Prasad So MD Critical Care <Shonna Alvarado ([facility]), VACCINE CUSTOMER REPRESENTATIVE - Last Filed: 08/08/24 18:40> Critical Care Time Critical Care Time: No
[2024-08-08 15:24] LABS: Coronavirus 19, PCR Not Detected (NotDetected); Influenza B, PCR Not Detected (NotDetected)
[2024-08-08 15:28] LABS: Basophils % 0.5 % (0.1-2.0); Hematocrit 36.8 % (37.0-47.0); Hemoglobin 11.5 g/dL (12.2-16.2); Lymphocytes # 0.9 K/mm3 (0.7-4.5); Lymphocytes % 20.4 % (10-50); Mean Corpuscular HGB Conc 31.3 g/dL (31.8-35.4); Mean Corpuscular Hemoglobin 26.2 pg (27.0-31.2); Mean Corpuscular Volume 83.8 fl (81-99); Mean Platelet Volume 11.1 fl (7.4-10.4); Monocytes # 0.8 K/mm3 (0.1-1.0); Monocytes % 19.5 % (1.7-9.3); Neutrophils # 2.5 K/mm3 (1.8-7.8); Neutrophils % 59.4 % (37.0-80.0); Platelet Count 227 K/mm3 (142-424); Red Blood Count 4.39 M/mm3 (4.20-5.40); Red Cell Distribution Width 15.4 % (11.5-17.5); White Blood Count 4.2 K/mm3 (4.8-10.8)
[2024-08-08 15:31] LABS: Albumin Level 4.1 g/dl (3.5-5.0); Chloride 96 mmol/L (98-107)
[2024-08-08 15:32] LABS: Potassium 4.2 mmoL/L (3.5-5.1); Sodium 132 mmol/L (136-145)
[2024-08-08 15:34] LABS: Blood Urea Nitrogen 31 mg/dl (7-17); Creatinine Clearance Estimated 45 mL/min (50-200); Estimated Glomerular Filt Rate 60 ml/min (>60); GFR (African American) 72 ML/MIN (>60)
[2024-08-08 15:35] LABS: Alanine Aminotransferase 33 U/L (12-78); Albumin/Globulin Ratio 1.4 (1.1-1.8); Alkaline Phosphatase 121 U/L (38-126); Anion Gap 8.2 mEq/L (5-15); Aspartate Amino Transferase 46 U/L (14-36); Bilirubin,Total 0.5 mg/dl (0.2-1.3); Calcium 9.1 mg/dl (8.4-10.2); Carbon Dioxide 32 mmol/L (22.0-30.0); Glucose 84 mg/dl (74-100); Total Protein,Serum 7.1 g/dl (6.3-8.2)
[2024-08-08 15:44] LABS: NT Pro Brain Natriuretic Pep. 2610 pg/mL (0-450)
[2024-08-08 15:58] LABS: Influenza A, PCR Detected (NotDetected)
[2024-08-08 16:03] LABS: Microscopic, Urine URINE MICROSCOPIC (MICROSCOPIC)
[2024-08-08] MEDS: FUROSEMIDE 40MG/4ML VIAL 80 MG IV (16:19)
[2024-08-08] MEDS: ONDANSETRON 4MG/2ML VIAL 4 MG IV (16:19)
--- NOTE | 2024-08-08 16:30 | PC.NURSE ---
Placed pt with Purwick device to collect urine as she received IV LAsix
[2024-08-08 16:38] LABS: Appearance,Urine CLEAR (Clear); Blood, Urine TRACE-I (Negative); Color,Urine YELLOW (Yellow); Glucose,Urine (UA) Negative (Negative); Ketones,Urine TRACE (Negative); Leukocyte Esterase,Urine Negative (Negative); Nitrate,Urine Negative (Negative); PH,Urine 5.5 (5.0-8.5); Protein,Urine TRACE (Negative); Specific Gravity, Urine >= 1.030 (1.005-1.030); Urobilinogen,Urine 0.2 EU/dl (0.2)
--- NOTE | 2024-08-08 16:49 | PC.NURSE ---
Called lab to check on status of UA results. Ermelinda states she is still testing it at this time. DANILO aware of delayed results.
[2024-08-08 17:00] LABS: Bilirubin,Urine 1+ (Negative)
--- NOTE | 2024-08-08 17:30 | PC.NURSE ---
pt given meal tray and set up in bed
[2024-08-08 18:02] LABS: Bacteria,Urine 4+ /lpf; RBC,Urine Occasional #/hpf (0-3)
[2024-08-08] MEDS: cephALEXin 500MG CAPSULE 500 MG PO (18:40)
[2024-08-08] MEDS: ACETAMINOPHEN 325MG TAB 325 MG PO (18:40)
== END 2024-08-08 19:02 | disposition home or self-care (01) ==
PROVIDERS: Nurse Practitioner Family; Emergency Provider Student in an Organized Health Care Education/Training Program; PCP Family Medicine
DX: J10.1 Influenza due to other identified influenza virus with other respiratory manifestations (principal); N39.0 Urinary tract infection, site not specified; L03.90 Cellulitis, unspecified; R53.1 Weakness; R53.83 Other fatigue; R06.2 Wheezing; M79.10 Myalgia, unspecified site; Z20.828 Contact with and (suspected) exposure to other viral communicable diseases
CPT/HCPCS: 71046; 80053; 81001; 83880; 85025; 87086; 87636; 96374; 96375; 99283; J1940; J2405

== ENCOUNTER 2024-08-12 19:10 | Observation (INO) | payer MEDICARE, BC, SELFPAY ==
[2024-08-12] VITALS (9 sets, daily range): BP systolic 137–165; BP diastolic 63–77; PULSE 59–87; RESP 13–20; TEMP 36.7–36.9; O2SAT 81–99; BMI 35.2; BMI 35.7
--- NOTE | 2024-08-12 19:29 | XR_ITS ---
FINAL REPORT CLINICAL HISTORY: Shortness of breath COMPARISON: 02/20/2022 FINDINGS: A single view of the chest was obtained. The patient is in lordotic positioning. Mild cardiomegaly is noted. The mediastinum is normal. The lungs are underinflated. There is no focal infiltrate or edema. There are no pleural effusions. There is no pneumothorax. There is no osseous abnormality. IMPRESSION: No acute cardiopulmonary process Reviewed, Interpreted and Dictated by Sj Arellano MD Transcribed by Sherri Sargent Authenticated and [facility]
--- NOTE | 2024-08-12 19:30 | CT_ITS ---
PROCEDURE INFORMATION: Exam: CT Head Without Contrast Exam date and time: 08/12/2024 7:50 PM Age: 83 years old Clinical indication: Altered mental status/memory loss; Additional info: AMS TECHNIQUE: Imaging protocol: Computed tomography of the head without contrast. Radiation optimization: All CT scans at this facility use at least one of these dose optimization techniques: automated exposure control; mA and/or kV adjustment per patient size (includes targeted exams where dose is matched to clinical indication); or iterative reconstruction. COMPARISON: CT HEAD/BRAIN WO CON 02/20/2022 10:58 PM FINDINGS: Brain: There is generalized cerebral atrophy. No intracranial mass, hemorrhage or evidence of acute ischemia. Cerebral ventricles: No ventriculomegaly. Paranasal sinuses: Visualized sinuses are unremarkable. No fluid levels. Mastoid air cells: Visualized mastoid air cells are well aerated. Bones: Unremarkable. No acute fracture. Soft tissues: Unremarkable. IMPRESSION: No acute intracranial abnormality
--- NOTE | 2024-08-12 19:31 | ED_ITS ---
<Statement entered by Janelle Cruz DO - 08/12/24 22:46> I was consulted by the DANILO, and we discussed the complexity of the problems being addressed. I approved the treatment and management plan for this patient's care in the emergency department, thus performing a substantive portion of the medical decision making. Janelle Cruz DO Discharge Plan Disposition Patient Disposition: Admitted Condition: Good Clinical Impressions Clinical Impression: Dyspnea, Influenza A, Altered mental status Cellulitis Qualifiers: Site of cellulitis: extremity Site of cellulitis of extremity: lower extremity Laterality: left Qualified Code(s): L03.116 - Cellulitis of left lower limb Discharge ED Provider: Janelle Cruz General Adult HPI General Chief complaint: Upper Respiratory Infection Stated complaint: flu+ SOA Time Seen by Provider: 08/12/24 19:17 Mode of Arrival: Wheelchair Source of Information: Patient Description of Symptoms (Recalled from ER Triage Doc. by RN): Pt states she has been unable to breath well at night History of Present Illness HPI narrative: 83-year-old female presents to the emergency department accompanied by her son for a 3-day history of shortness of air, worse at night and when laying flat, patient was recently seen in the emergency department for similar complaint on 08/08/2024, was diagnosed with influenza A, acute UTI and cellulitis of the left lower extremity, was sent home on Keflex, for both UTI and cellulitis. She has been taking this medication as prescribed, originally was supposed to get Tamiflu , but is unable to take this medication due to side effect and poor p.o. intake, son at the bedside also endorses generalized weakness, and some confusion that is somewhat worsened outside of her baseline, currently my exam she is GCS of 14, alert to person and place disoriented to time. She admits to subjective fever chills, productive cough, shortness of air, denies any real chest pain, denies abdominal pain constipation diarrhea, denies any nausea or vomiting, denies any urinary type symptomatology, denies any melena, hematochezia, or hemoptysis. Patient is a former smoker, denies any alcohol or drug use, history consistent with type 2 diabetes, hyperlipidemia, hypertension, atrial fibrillation on anticoagulation therapy with Xarelto, degenerative disc disease of lumbar spine, anxiety/depression, GERD. Initial triage vitals are unremarkable. Of note, patient tells me that I just do not feel right I feel like something is bad wrong . Onset (ago): day(s) Related Data Home Medications ?Medication ?Instructions ?Recorded ?Confirmed aspirin 81 mg tablet,delayed 81 mg PO DAILY HEART/CIRCULATION 08/14/17 08/12/24 release atorvastatin 40 mg tablet 40 mg PO HS Cholesterol 08/14/17 08/12/24 citalopram 20 mg tablet 20 mg PO DAILY Depression 08/14/17 08/12/24 cyanocobalamin (vitamin B-12) 1,000 mcg PO DAILY Supplement 08/14/17 08/12/24 1,000 mcg capsule folic acid 400 mcg tablet 0.4 mg PO DAILY SUPLEMENT 08/14/17 08/12/24 memantine 28 mg capsule 28 mg PO DAILY DEMENTIA 08/14/17 08/12/24 sprinkle,extended release 24hr pyridoxine (vitamin B6) 100 mg 100 mg PO DAILY Supplement 08/14/17 08/12/24 tablet cholecalciferol (vitamin D3) 25 25 mcg PO DAILY SUPPLIMENT 08/23/20 08/12/24 mcg (1,000 unit) capsule omeprazole 40 mg capsule,delayed 20 mg PO DAILY GERD 10/03/21 08/12/24 release pioglitazone 15 mg tablet 15 mg PO DAILY Diabetes 10/25/22 08/12/24 rivaroxaban 15 mg tablet (Xarelto) 15 mg PO DAILY Blood Thinner 02/13/23 08/12/24 saxagliptin 2.5 mg tablet 2.5 mg PO DAILY 07/06/24 08/12/24 Previous Rx's ?Medication ?Instructions ?Recorded digoxin 125 mcg (0.125 mg) tablet 125 mcg PO DAILY HEART #90 tabs 04/13/22 furosemide 40 mg tablet (Lasix) 40 mg PO DAILY PRN edema #30 tabs 07/06/24 potassium chloride 20 mEq 20 meq PO DAILY #30 tabs 07/06/24 tablet,extended release cephalexin 500 mg tablet 500 mg PO BID 10 days #20 tabs 08/08/24 Allergies Allergy/AdvReac Type Severity Reaction Status Date / Time Penicillins Allergy Unknown Unknown Verified 08/08/24 15:21 allergy reaction PFSH PFS Disclaimer: The information contained in this section may have been updated after the patient was seen, as this information can be updated by other users. Medical History , [employer]) History of transient ischemic attack (TIA) Deep vein thrombosis (DVT) HLD (hyperlipidemia) Depression Arrhythmia GERD (gastroesophageal reflux disease) Diabetes mellitus, type 2 Atrial fibrillation Surgical History , [employer]) Hx of tonsillectomy S/P ankle ligament repair Family History , [employer]) Family history of diabetes mellitus type II Family history of myocardial infarction Social History , [employer]) Smoking Status: Never smoker alcohol intake: never substance use type: denies use current occupational status: retired Travel in the last 8 weeks: None household members: spouse and children housing: house caffeine: Yes Have you lived/traveled outside [place] in past 30 days?: No Contact w/someone who lives/traveled outside [place] past 30 days?: No Exposure to someone with infectious disease in past 14 days?: No Do you have a fever (greater than 100.4 F or 38 C)?: No Have you tested positive for COVID-19: No Exposed to someone with COVID-19 in past 14 days?: No Do you have a sore throat?: No Do you have a cough?: No Do you have any weakness?: No Do you have any diarrhea?: No Are you experiencing any unusual bleeding?: No Do you have any muscle aches/pain?: No Do you have any abdominal pain?: No Are you experiencing loss of taste or smell?: No Other Medical History Have you received the Flu Vaccine for this season: Yes Have you received the Pneumonia Vaccine: No ROS Obtained: Yes All systems reviewed & no additional complaints except as documented Physical Exam General General appearance: alert and in no apparent distress Head Head exam: atraumatic and normocephalic Eye Eye exam: Present PERRL and EOMI ENT ENT exam: Present mucous membranes moist Neck Neck exam: Present normal inspection Chest Chest inspection: Present normal inspection and symmetric chest wall rise Respiratory Respiratory exam: Present wheezes and other (Mild to moderate wheezes noted throughout bilateral lung parra as well as mild to moderate crackles throughout bilateral lung parra, no tachypnea at this time, no increased oxygenation or increased effort,); Absent respiratory distress Cardiovascular Cardiovascular exam: Present regular rate and irregular rhythm Abdominal Exam Abdominal exam: Present soft; Absent tenderness, guarding, rebound, rigidity, hyperactive bowel sounds or hypoactive bowel sounds Extremities Exam Extremities exam: Present normal inspection Neurological Exam Neurological exam: Present alert and other (Patient is disoriented to time, oriented to person and place, unsure of baseline) Psychiatric Psychiatric exam: Present normal affect Skin Skin exam: Present warm, dry, erythema and other (Obvious area of erythema,/ongoing cellulitis of the left pretibial region, with some mild nonpitting edema bilateral lower extremities, left worse than right, some areas of chronic venous trophic skin changes/chronic venous stasis dermatitis are present) Medical Decision Making Medical Records Medical records reviewed: Yes I reviewed the patient's medical records. Screening: Per USPSTF and CDC recommendations, given the prevalence of disease in our region, it is our hospital?s policy to screen for HIV and viral Hepatitis for all patients aged 18 and over and those with ongoing risk factors. Bandar Inquiry Pt receiving controlled substance: No Bandar was queried for this patient: No Vital Signs: 08/12/24 19:21 08/12/24 21:00 08/12/24 21:30 Temperature 98.3 F Temperature Source Oral Pulse Rate 61 66 Pulse Rate [Right Brachial] 63 Respiratory Rate 20 13 15 Blood Pressure 154/63 H Blood Pressure Mean Blood Pressure Source [Right Arm] Automatic Cuff Blood Pressure Position [Right Arm] Supine 02 Sat by Pulse Oximetry 81 L 99 98 Oxygen Delivery Method Room Air Room Air 08/12/24 21:31 08/12/24 21:31 08/12/24 22:00 Temperature Temperature Source Pulse Rate 59 L 64 Pulse Rate [Right Brachial] Respiratory Rate 18 15 Blood Pressure 158/67 H Blood Pressure Mean 83 Blood Pressure Source [Right Arm] Blood Pressure Position [Right Arm] 02 Sat by Pulse Oximetry 99 97 Oxygen Delivery Method 08/12/24 22:02 08/12/24 22:02 Temperature Temperature Source Pulse Rate 87 Pulse Rate [Right Brachial] Respiratory Rate 16 Blood Pressure 165/71 H Blood Pressure Mean 86 Blood Pressure Source [Right Arm] Blood Pressure Position [Right Arm] 02 Sat by Pulse Oximetry 97 Oxygen Delivery Method Lab Data Lab Results 08/12/24 19:20: WBC 5.8, RBC 4.58, Hgb 12.0 L, Hct 38.4, MCV 83.8, MCH 26.2 L, M CHC 31.3 L, RDW 15.2, Plt Count 264, MPV 10.6 H, Neut % (Auto) 51.0, Lymph % (Auto) 37.4, [place] % (Auto) 9.4 H, Eos % (Auto) 1.2, Baso % (Auto) 0.7, Neut # (Auto) 2.9, Lymph # (Auto) 2.2, [place] # (Auto) 0.5, Eos # (Auto) 0.1, Baso # (Auto) 0.0, PT 13.7 H, INR 1.25 H, Sodium 134 L, Potassium 4.3, Chloride 98, C arbon Dioxide 32 H, Anion Gap 8.3, BUN 28 H, Creatinine 1.00, Estimated Creat Clear 54, Estimated GFR 53 L, Est GFR ( Amer) 64, Glucose 258 H, Calcium 9.3, Magnesium 1.8, Total Bilirubin 0.4, AST 41 H, ALT 29, Alkaline Phosphatase 103, Troponin I 0.01, NT-Pro-B Natriuret Pep 2150 H, Total Protein 6.8, Albumin 4.2, Globulin 2.6, Albumin/Globulin Ratio 1.6, Lipase 85, HCV Ab BERONICA w/Rflx PCR Qn Negative 08/12/24 19:33: VBG pH 7.40, VBG pCO2 50.3, VBG pO2 42.7 H, VBG HCO3 30.1 H, VBG Total CO2 31.7 H, VBG O2 Saturation 78.2 H, VBG Base Excess 5.2 H, VBG Lactic Acid 1.1 08/12/24 20:53: Lactate 1.2 08/12/24 19:20 08/12/24 19:20 Orders (Tests/Meds): ED MEDICATIONS Generic Name Dose Route Start Last Admin Trade Name Freq PRN Reason Stop Dose Admin Acetaminophen 650 mg 08/12/24 22:21 Acetaminophen 325mg Tab PO 09/11/24 22:20 Q4HP PRN Fever or Mild Pain (1-3) Hydrocodone Bitart/Acetaminophen 1 tab 08/12/24 22:21 Hydrocodone/Apap 5/325 Mg Tablet PO 09/11/24 22:20 Q4HP PRN Mild to Moderate Pain (1-6) Azithromycin 250 mg 08/13/24 09:00 Azithromycin 250mg Tablet PO 08/23/24 08:59 DAILY JENNIFER Enoxaparin Sodium 40 mg 08/13/24 09:00 Enoxaparin 40mg/0.4ml Syringe SUBCUT 09/12/24 08:59 DAILY JENNIFER Furosemide 60 mg 08/13/24 09:00 Furosemide 40mg/4ml Vial IV 08/13/24 09:01 ONCE ONE Azithromycin 500 mg/ Sodium 250 mls @ 250 mls/hr 08/12/24 20:00 08/12/24 20:49 Chloride IV 08/22/24 19:59 250 mls/hr Q24H JENNIFER Administration Ceftriaxone Sodium 1 gm/ 50 mls @ 100 mls/hr 08/13/24 09:00 Sodium Chloride IV 08/23/24 08:59 Q24H JENNIFER Insulin Human Lispro 0 unit 08/13/24 06:00 Humalog 100 Units/Ml 10ml Vial (Ssi) SUBCUT 09/12/24 05:59 ACHS JENNIFER Protocol Ondansetron HCl 4 mg 08/12/24 22:21 Ondansetron 4mg/2ml Vial IV 09/11/24 22:20 Q8HP PRN Nausea Sodium Chloride 10 ml 08/12/24 22:21 Sodium Chloride 0.9% 10ml Flush Syringe IV 09/11/24 22:20 NEEDED PRN Maintain IV Site Discontinued Medications Generic Name Dose Route Start Last Admin Trade Name Freq PRN Reason Stop Dose Admin Ceftriaxone Sodium 1 gm/ 50 mls @ 100 mls/hr 08/12/24 19:52 08/12/24 20:00 Sodium Chloride IV 08/12/24 20:21 100 mls/hr ONCE ONE Administration ORDERS Category Date Time Status CT head/brain wo con Stat Cat Scan 08/12/24 19:30 Completed XR chest portable Stat Exams 08/12/24 19:29 Taken Complete Blood Count Auto Diff Stat Lab 08/12/24 19:20 Completed Comprehensive Metabolic Panel Stat Lab 08/12/24 19:20 Completed HIV Combo Routine Lab 08/12/24 19:24 Received Hepatitis C Ab Qual. W/ RFX Routine Lab 08/12/24 19:20 Completed Lactic Acid Stat Lab 08/12/24 20:53 Completed Lipase Stat Lab 08/12/24 19:20 Completed Magnesium Stat Lab 08/12/24 19:20 Completed NT Pro Brain Natriuretic Pep. Stat Lab 08/12/24 19:20 Completed PT INR [Prothrombin Time INR] Stat Lab 08/12/24 19:20 Completed Troponin I Q3H Lab 08/12/24 22:45 Ordered Troponin I Q3H Lab 08/13/24 01:45 Ordered Troponin I Stat Lab 08/12/24 19:20 Completed Urinalysis and Microscopic Stat Lab 08/12/24 19:31 Ordered VBG [Venous Blood Gas] Stat RT 08/12/24 19:33 Completed Medical Decision Narrative: 83-year-old female presents emergency room with shortness of air, differential diagnose include but not limited to pneumonia, acute on chronic respiratory failure, acute URI, acute bronchitis, ACS, other acid-base disturbance, cardiac arrhythmia, electrolyte disturbance, CHF exacerbation, COPD exacerbation, encephalopathy, uremic encephalopathy, metabolic encephalopathy, cellulitis, pulmonary edema. Discussed patient case with attending physician Dr. Cruz Obtain basic laboratory studies, lactic acid level lipase, magnesium proBNP PT/INR troponin urinalysis, VBG, CT head without contrast, and chest x-ray for shortness of air. CBC is unremarkable PT is minimally elevated at 13.7, INR is 1.25 which minimally elevated. I personally along with the attending physician reviewed the patient's chest x- ray, there is some consolidation on the right lobe, concerning for pneumonia was not present on previous chest x-ray 6 days ago, will treat patient prophylactically due to lung sounds, with complaint of shortness of air, and history of influenza and chest x-ray interpretation with ceftriaxone IV 1 g as well as 500 mg IV azithromycin for community acquired pneumonia. CMP noted for minimal hyponatremia at 134, mild BUN elevation 28, AST is minimally elevated at 41, ProBNP is elevated at 2150 I reviewed the patient's EKG at 2010, atrial fibrillation at 58 bpm, QT interval is 436/433, there is no STEMI. VBG is notable for normal pH, PO2 is minimally elevated at 42.7, bicarb is minimally elevated at 30.1, CO2 levels minimally elevated at 31.7, I reviewed the patient's CT head without contrast on the corresponding radiologic report no acute intracranial abnormality. I discussed this patient's case with the on-call hospitalist Jose [employer] at approximately 8 PM, he is agreeable with the current admission plan/treatment for most likely pneumonia/and worsening consolidation with severe failure to thrive generalized weakness, CHF exacerbation/fluid retention curb-65 score of 3. Discussed need for admission with the patient family bedside both patient and family agree with current admission plan/treatment plan. Critical Care Critical Care Time Critical Care Time: No
[2024-08-12 19:35] LABS: Basophils % 0.7 % (0.1-2.0); Eosinophils # 0.1 K/mm3 (0.0-0.4); Eosinophils % 1.2 % (0.1-12.0); Hematocrit 38.4 % (37.0-47.0); Lymphocytes # 2.2 K/mm3 (0.7-4.5); Lymphocytes % 37.4 % (10-50); Mean Corpuscular HGB Conc 31.3 g/dL (31.8-35.4); Mean Corpuscular Hemoglobin 26.2 pg (27.0-31.2); Mean Corpuscular Volume 83.8 fl (81-99); Mean Platelet Volume 10.6 fl (7.4-10.4); Monocytes # 0.5 K/mm3 (0.1-1.0); Monocytes % 9.4 % (1.7-9.3); Neutrophils # 2.9 K/mm3 (1.8-7.8); Platelet Count 264 K/mm3 (142-424); Red Blood Count 4.58 M/mm3 (4.20-5.40); Red Cell Distribution Width 15.2 % (11.5-17.5); White Blood Count 5.8 K/mm3 (4.8-10.8)
[2024-08-12 19:40] LABS: Albumin Level 4.2 g/dl (3.5-5.0); Chloride 98 mmol/L (98-107); Potassium 4.3 mmoL/L (3.5-5.1); Sodium 134 mmol/L (136-145)
[2024-08-12 19:43] LABS: Alanine Aminotransferase 29 U/L (12-78); Albumin/Globulin Ratio 1.6 (1.1-1.8); Alkaline Phosphatase 103 U/L (38-126); Anion Gap 8.3 mEq/L (5-15); Aspartate Amino Transferase 41 U/L (14-36); Bilirubin,Total 0.4 mg/dl (0.2-1.3); Blood Urea Nitrogen 28 mg/dl (7-17); Calcium 9.3 mg/dl (8.4-10.2); Carbon Dioxide 32 mmol/L (22.0-30.0); Creatinine Clearance Estimated 54 mL/min (50-200); Estimated Glomerular Filt Rate 53 ml/min (>60); GFR (African American) 64 ML/MIN (>60); Globulin 2.6 g/dL (1.3-3.2); Glucose 258 mg/dl (74-100); INR 1.25 (0.9-1.1); Lipase 85 U/L (23-300); Prothrombin Time 13.7 seconds (10.1-12.5); Total Protein,Serum 6.8 g/dl (6.3-8.2)
[2024-08-12 19:44] LABS: Magnesium 1.8 mg/dl (1.6-2.3)
[2024-08-12 19:54] LABS: NT Pro Brain Natriuretic Pep. 2150 pg/mL (0-450)
[2024-08-12] MEDS: CEFTRIAXONE SODIUM 1 GM in 0.9 % SODIUM CHLORIDE 50 ML IV (20:00)
[2024-08-12 20:02] LABS: Troponin I 0.01 ng/ml (0.00-0.034)
[2024-08-12 20:07] LABS: Lactate Venous 1.1 mmol/L (0.4-2.0); VBG Base Excess 5.2 mmol/L (-2.4-2.3); VBG HCO3 30.1 mmol/L (23-30); VBG Oxygen Saturation 78.2 % (50-70); VBG PO2 42.7 mmol/L (28-40); VBG Total CO2 31.7 mmol/L (23-27)
[2024-08-12 20:10] LABS: VBG PCO2 50.3 mmol/L (35-51)
--- NOTE | 2024-08-12 20:10 | ECG_ITS ---
APPROVED REPORT Exam: Resting ECG HR:58 bpm ECG Measurements Heart Rate 58 AXES QRSd 92 QRS 47 QT 436 T -5 QTc 433 Conclusion ATRIAL FIBRILLATION WITH SLOW VENTRICULAR RESPONSE LOW QRS VOLTAGE IN PRECORDIAL LEADS [QRS DEFLECTION < 1.0 mV IN CHEST LEADS] INCOMPLETE RIGHT BUNDLE BRANCH BLOCK [90+ ms QRS DURATION, TERMINAL R IN V1/V2, 40+ ms S IN I/aVL/V4/V5/V6] ABNORMAL RHYTHM ECG Electronically signed by : PER HOWARD, 08/12/2024 23:12:33
[2024-08-12] MEDS: AZITHROMYCIN 500 MG in 0.9 % SODIUM CHLORIDE 250 ML 250 MG IV (20:49)
[2024-08-12 21:14] LABS: Lactic Acid 1.2 mmol/L (0.7-2.1)
[2024-08-12 22:20] LABS: Hepatitis C Ab Qual. W/ RFX NEGATIVE (Negative)
--- NOTE | 2024-08-12 22:27 | P.HP_ITS ---
<Statement entered by Wilbert Cosme MD - 08/17/24 19:49> Personally evaluated patient and agree with plan of care as outlined by the [employer]. History of Present Illness *Admission Date: 08/12/24 *Reason for visit:: Shortness of breath *History of present illness: This is an 83-year-old female who has a past medical history significant for TIA, DVT hyperlipidemia, depression, arrhythmia, diabetes, atrial fibrillation (currently prescribed Xarelto and digoxin), and dementia who presents with a chief complaint of shortness of breath. Due to patient's symptoms, she presented to the emergency room for evaluation. While in the emergency room, CT scan of the head was negative for any acute intracranial process. Chest x-ray per my read, shows some vascular congestion and probable left lower lobe pneumonia-is pending final read by the radiologist. Due to these findings, patient is being admitted for further management. During my evaluation of the patient, the majority of information was obtained from son due to patient's dementia. According to son, patient presented to the emergency room was Saturday due to not feeling well and was diagnosed with influenza A, urinary tract infection, and cellulitis to the left lower extremity. Son also reports increased confusion from baseline. She was prescribed Keflex and Tamiflu and management of her diagnosis. Patient was compliant with the Keflex however she was unable to take the Tamiflu due to decreased p.o. intake. Over the past 3 days, patient has had shortness of breath that was worse at night. Son states that mom would come and wake him and tell him that she was having difficulty breathing she felt as if she was smothering while she was laying down. He also endorses mom having a subjective fever, chills, and nonproductive cough. Review of patient's prior 2D echo obtained in 04/22/2021 shows an EF of 55% and left ventricular heart failure. When asked, son states he does not know if patient having any prior medical history of heart failure; however, patient is currently prescribed Lasix daily. Patient is currently denying any chest pain, lightheadedness, dizziness, fever, rigors, nausea, vomiting, or diarrhea. Additional pertinent vitals obtained include a hemoglobin of 12 INR 1.25,, sodium of 134, bicarb of 32, BUN of 28, GFR 53, blood glucose of 258, AST of 41, BNP of 2151, and review of urinalysis obtained on the eighth shows no growth on urine culture (patient has no UTI). [facility] Disclaimer: The information contained in this section may have been updated after the patient was seen, as this information can be updated by other users. Medical History , [employer]) History of transient ischemic attack (TIA) Deep vein thrombosis (DVT) HLD (hyperlipidemia) Depression Arrhythmia GERD (gastroesophageal reflux disease) Diabetes mellitus, type 2 Atrial fibrillation Surgical History , [employer]) Hx of tonsillectomy S/P ankle ligament repair Family History , [employer]ILD[employer]) Family history of diabetes mellitus type II Family history of myocardial infarction Social History , [employer]) Smoking Status: Never smoker alcohol intake: never substance use type: denies use current occupational status: retired Travel in the last 8 weeks: None household members: spouse and children housing: house caffeine: Yes Have you lived/traveled outside [place] in past 30 days?: No Contact w/someone who lives/traveled outside [place] past 30 days?: No Exposure to someone with infectious disease in past 14 days?: No Do you have a fever (greater than 100.4 F or 38 C)?: No Have you tested positive for COVID-19: No Exposed to someone with COVID-19 in past 14 days?: No Do you have a sore throat?: No Do you have a cough?: No Do you have any weakness?: No Do you have any diarrhea?: No Are you experiencing any unusual bleeding?: No Do you have any muscle aches/pain?: No Do you have any abdominal pain?: No Are you experiencing loss of taste or smell?: No Other Medical History Have you received the Flu Vaccine for this season: Yes Have you received the Pneumonia Vaccine: No Review of Systems Review of Systems Review of systems:: pertinent systems reviewed and negative unless documented below Constitutional Constitutional: Reports system reviewed and no additional complaints, except as documented Eyes Eyes: Reports system reviewed and no additional complaints, except as documented ENT Ears, Nose, Mouth, and Throat: Reports system reviewed and no additional complaints, except as documented *Cardiovascular Cardiovascular: Reports dyspnea, Reports dyspnea on exertion, Reports leg edema and Reports orthopnea *Respiratory Respiratory: Reports dyspnea and Reports dyspnea on exertion *Gastrointestinal Gastrointestinal: Reports system reviewed and no additional complaints, except as documented *Genitourinary Genitourinary: Reports system reviewed and no additional complaints, except as documented *Musculoskeletal Musculoskeletal: Reports system reviewed and no additional complaints, except as documented Integumentary/Breasts Skin/Breast: Reports change in pigmentation *Neurologic Comments: Has dementia Psychiatric Comments: Has dementia Endocrine Endocrine: Reports system reviewed and no additional complaints, except as documented Hematologic/Lymphatic Hematologic/Lymphatic: Reports system reviewed and no additional complaints, except as documented Allergic/Immunologic Allergic/Immunologic: Reports system reviewed and no additional complaints, except as documented Meds Home Medications and Allergies Home Medications ?Medication ?Instructions ?Recorded ?Confirmed ?Type aspirin 81 mg tablet,delayed 81 mg PO DAILY HEART/CIRCULATION 08/14/17 08/12/24 History release atorvastatin 40 mg tablet 40 mg PO HS Cholesterol 08/14/17 08/12/24 History citalopram 20 mg tablet 20 mg PO DAILY Depression 08/14/17 08/12/24 History cyanocobalamin (vitamin B-12) 1,000 mcg PO DAILY Supplement 08/14/17 08/12/24 History 1,000 mcg capsule folic acid 400 mcg tablet 0.4 mg PO DAILY SUPLEMENT 08/14/17 08/12/24 History memantine 28 mg capsule 28 mg PO DAILY DEMENTIA 08/14/17 08/12/24 History sprinkle,extended release 24hr pyridoxine (vitamin B6) 100 mg 100 mg PO DAILY Supplement 08/14/17 08/12/24 History tablet cholecalciferol (vitamin D3) 25 25 mcg PO DAILY SUPPLIMENT 08/23/20 08/12/24 History mcg (1,000 unit) capsule omeprazole 40 mg capsule,delayed 20 mg PO DAILY GERD 10/03/21 08/12/24 History release digoxin 125 mcg (0.125 mg) tablet 125 mcg PO DAILY HEART #90 tabs 04/13/22 08/12/24 Rx pioglitazone 15 mg tablet 15 mg PO DAILY Diabetes 10/25/22 08/12/24 History rivaroxaban 15 mg tablet (Xarelto) 15 mg PO DAILY Blood Thinner 02/13/23 08/12/24 History furosemide 40 mg tablet (Lasix) 40 mg PO DAILY PRN edema #30 tabs 07/06/24 08/12/24 Rx potassium chloride 20 mEq 20 meq PO DAILY #30 tabs 07/06/24 08/12/24 Rx tablet,extended release saxagliptin 2.5 mg tablet 2.5 mg PO DAILY 07/06/24 08/12/24 History cephalexin 500 mg tablet 500 mg PO BID 10 days #20 tabs 08/08/24 08/12/24 Rx New Prescriptions to Start Prescriptions: Allergies Allergy/AdvReac Type Severity Reaction Status Date / Time Penicillins Allergy Unknown Unknown Verified 08/08/24 15:21 allergy reaction Exam Data for Last 24 hours Vital signs and Labs for Last 24 Hours: Temp Pulse Resp BP Pulse Ox O2 Del Method 98.3 F 87 16 165/71 H 97 Room Air 08/12/24 19:21 08/12/24 22:02 08/12/24 22:02 08/12/24 22:02 08/12/24 22:02 08/12/24 21:00 Laboratory Results - last 24 hr 08/12/24 19:20: WBC 5.8, RBC 4.58, Hgb 12.0 L, Hct 38.4, MCV 83.8, MCH 26.2 L, MCHC 31.3 L, RDW 15.2, Plt Count 264, MPV 10.6 H, Neut % (Auto) 51.0, Lymph % (Auto) 37.4, [place] % (Auto) 9.4 H, Eos % (Auto) 1.2, Baso % (Auto) 0.7, Neut # (Auto) 2.9, Lymph # (Auto) 2.2, [place] # (Auto) 0.5, Eos # (Auto) 0.1, Baso # (Auto) 0.0, PT 13.7 H, INR 1.25 H, Sodium 134 L, Potassium 4.3, Chloride 98, Carbon Dioxide 32 H, Anion Gap 8.3, BUN 28 H, Creatinine 1.00, Estimated Creat Clear 54, Estimated GFR 53 L, Est GFR ( Amer) 64, Glucose 258 H, Calcium 9.3, Magnesium 1.8, Total Bilirubin 0.4, AST 41 H, ALT 29, Alkaline Phosphatase 103, Troponin I 0.01, NT-Pro-B Natriuret Pep 2150 H, Total Protein 6.8, Albumin 4.2, Globulin 2.6, Albumin/Globulin Ratio 1.6, Lipase 85, HCV Ab BERONICA w/Rflx PCR Qn Negative 08/12/24 19:33: VBG pH 7.40, VBG pCO2 50.3, VBG pO2 42.7 H, VBG HCO3 30.1 H, VBG Total CO2 31.7 H, VBG O2 Saturation 78.2 H, VBG Base Excess 5.2 H, VBG Lactic Acid 1.1 08/12/24 20:53: Lactate 1.2 I & O for Last 24 hours: Intake & Output 08/10/24 08/10/24 08/11/24 08/12/24 00:59 23:59 23:59 23:59 Weight 81.647 kg Constitutional Constitutional: no acute distress and obese *Routine HEENT Exam Head: Present normocephalic and atraumatic Eye: Present EOMI and PERRL ENT: Present mucous membranes moist *Routine Neck Exam Neck: Present supple, full ROM and trachea midline *Routine Respiratory Exam Respiratory: Present decreased breath sounds and rhonchi *Routine Cardiovascular Exam Cardiovascular: Present Normal S1, Normal S2 and irregular rhythm *Routine Abdominal Exam Abdominal: Present soft, normoactive bowel sounds and obese *Routine Rectal Exam Rectal:: deferred *Routine Genitalia Exam Genitalia:: deferred *Routine Extremities Exam Extremities: Present edema, full ROM, pulses intact and normal capillary refill Comments: 1+ pitting edema noted to bilateral lower extremities Routine Back/Spine/Pelvis Exam Back/Spine: Present full ROM *Routine Skin Exam Skin: Present erythema, dry and warm Comments: Erythema is noted to left lower extremity *Routine Neurological Exam Neurological: Present alert, CN II-XII intact, moving all extremities and normal speech Routine Psychiatric Exam Psychiatric: Present normal thought process and cooperative H&P: Result Impressions 83-year-old female who presents to the emergency room after being diagnosed with flu a and cellulitis on Saturday ring presents with worsening shortness of breath and probable left lower lobe pneumonia with pulmonary edema. Assessment and Plan *Assessment and plan (1) Altered mental status: Status: Acute Qualifiers: Altered mental status type: unspecified Qualified Code(s): R41.82 - Altered mental status, unspecified Category: Medical Code(s): R41.82 - Altered mental status, unspecified (2) Pneumonia: Status: Acute Qualifiers: Pneumonia type: due to unspecified organism Laterality: left Lung location: lower lobe of lung Qualified Code(s): J18.9 - Pneumonia, unspecified organism Category: Medical Code(s): J18.9 - Pneumonia, unspecified organism (3) Influenza A: Status: Acute Category: Medical Code(s): J10.1 - Influenza due to other identified influenza virus with other respiratory manifestations (4) Pulmonary edema: Status: Acute Qualifiers: Chronicity: acute Qualified Code(s): J81.0 - Acute pulmonary edema Category: Medical Code(s): J81.1 - Chronic pulmonary edema (5) Hyponatremia: Status: Acute Category: Medical Code(s): E87.1 - Hypo-osmolality and hyponatremia (6) Hyperglycemia: Status: Acute Category: Medical Code(s): R73.9 - Hyperglycemia, unspecified Plan Assessment: Altered mental status -Most likely in the setting of metabolic encephalopathy with underlying dementia -CT scan of the head was negative for any acute intracranial process -If patient does not return back to her baseline mental status will consider MRI of the brain without contrast -Patient currently has no focal deficits Pulmonary edema -Will give 60 mg of Lasix IV now -40 mg of Lasix IV twice daily -Will obtain 2D echo -Will monitor intake and output -Daily weight Recent influenza A diagnosis -Patient was unable to tolerate Tamiflu -Has been greater than 48 hours -Will hold Tamiflu Possible left lower lobe pneumonia -Awaiting final read from radiologist -Will consider vancomycin due to recent viral illness -1 g Rocephin IV daily -250 mg azithromycin p.o. daily -Patient's white blood cell count is currently normal -Will obtain blood cultures x 2 and procalcitonin Hyponatremia -Will monitor BMP daily -If worsening we will obtain urine sodium Hyperglycemia -Most likely in the setting of type 2 diabetes -Will start sliding scale insulin before meals and at bedtime with mild scale coverage Plan: Admit patient to the MedSurg unit on telemetry Up to chair Daily weight Saline lock Cardiac/1800 ADA diet CBC/BMP daily 40 mg Lovenox subcu daily for DVT prophylax 4 mg Zofran IV push to 8 hours. Nausea Full code I will discuss this case with attending physician Dr. Cosme and a look forwar d to more input
--- NOTE | 2024-08-12 22:30 | PC.NURSE ---
Report called to Razia ALCANTARA Pt transported to floor via wheelchair by GRAIN [employer]
[2024-08-12 22:50] LABS: Microscopic, Urine URINE MICROSCOPIC (MICROSCOPIC)
[2024-08-12 22:54] LABS: Appearance,Urine Clear (Clear); Blood, Urine Negative (Negative); Color,Urine Yellow (Yellow); Glucose,Urine (UA) 250 (Negative); Ketones,Urine Negative (Negative); Nitrate,Urine Negative (Negative); Protein,Urine Negative (Negative); Specific Gravity, Urine 1.025 (1.005-1.030)
[2024-08-12 22:55] LABS: Bilirubin,Urine Negative (Negative); Leukocyte Esterase,Urine Negative (Negative)
[2024-08-12 23:19] LABS: Bacteria,Urine 1+ /lpf; WBC,Urine Occasional #/hpf (0-3)
[2024-08-12 23:19] LABS: HIV Combo NEGATIVE (Negative)
--- NOTE | 2024-08-12 23:20 | PC.NURSE ---
med rec complete per patient list and external pharm
[2024-08-12 23:26] LABS: Troponin I 0.02 ng/ml (0.00-0.034)
[2024-08-13] VITALS (8 sets, daily range): BP systolic 121–168; BP diastolic 55–89; PULSE 56–110; RESP 15–16; TEMP 36.5–36.8; O2SAT 94–98; BMI 35.4
[2024-08-13 02:34] LABS: Troponin I 0.02 ng/ml (0.00-0.034)
--- NOTE | 2024-08-13 05:23 | PC.NURSE ---
pt pulled out IV - confused - new IV placed
[2024-08-13 05:30] LABS: POC Glucose,Bedside 133 (70-110)
[2024-08-13 06:46] LABS: Basophils % 0.3 % (0.1-2.0); Eosinophils # 0.1 K/mm3 (0.0-0.4); Eosinophils % 1.3 % (0.1-12.0); Hemoglobin 11.5 g/dL (12.2-16.2); Lymphocytes # 2.1 K/mm3 (0.7-4.5); Lymphocytes % 32.9 % (10-50); Mean Corpuscular HGB Conc 31.1 g/dL (31.8-35.4); Mean Corpuscular Hemoglobin 26.2 pg (27.0-31.2); Mean Corpuscular Volume 84.3 fl (81-99); Mean Platelet Volume 10.9 fl (7.4-10.4); Monocytes # 0.5 K/mm3 (0.1-1.0); Monocytes % 8.3 % (1.7-9.3); Neutrophils # 3.6 K/mm3 (1.8-7.8); Neutrophils % 56.9 % (37.0-80.0); Platelet Count 253 K/mm3 (142-424); Red Blood Count 4.39 M/mm3 (4.20-5.40); Red Cell Distribution Width 15.2 % (11.5-17.5); White Blood Count 6.4 K/mm3 (4.8-10.8)
[2024-08-13 07:40] LABS: Procalcitonin 0.048 ng/mL (0.0-2.0)
[2024-08-13 08:18] LABS: Anion Gap 7.8 mEq/L (5-15); Blood Urea Nitrogen 21 mg/dl (7-17); Calcium 8.5 mg/dl (8.4-10.2); Carbon Dioxide 32 mmol/L (22.0-30.0); Chloride 102 mmol/L (98-107); Creatinine Clearance Estimated 54 mL/min (50-200); Estimated Glomerular Filt Rate 68 ml/min (>60); GFR (African American) 83 ML/MIN (>60); Glucose 110 mg/dl (74-100); Potassium 3.8 mmoL/L (3.5-5.1); Sodium 138 mmol/L (136-145)
[2024-08-13] MEDS: CEFTRIAXONE SODIUM 1 GM in 0.9 % SODIUM CHLORIDE 50 ML IV (08:31)
[2024-08-13] MEDS: ENOXAPARIN 40MG/0.4ML SYRINGE 40 MG SUBCUT (08:31)
[2024-08-13] MEDS: FUROSEMIDE 40MG/4ML VIAL 60 MG IV (08:36)
--- NOTE | 2024-08-13 09:24 | HMH.PHAINT1 ---
Pharmacy Intervention Comments: HOME MEDICATION LIST VERIFIED USING LIST FROM OUTPATIENT PHARMACY AND PCP OFFICE
[2024-08-13] MEDS: humaLOG 100 UNITS/ML 10ML VIAL (SSI) SUBCUT ×3 (11:24→20:40)
[2024-08-13] MEDS: FUROSEMIDE 40MG/4ML VIAL 40 MG IV (11:25)
[2024-08-13 11:37] LABS: POC Glucose,Bedside 161 (70-110)
[2024-08-13] MEDS: AZITHROMYCIN 250MG TABLET 250 MG PO (12:39)
--- NOTE | 2024-08-13 13:00 | P.DS_ITS ---
General Admission date:: 08/12/24 HPI HPI HPI: This is an 83-year-old female who has a past medical history significant for TIA, DVT hyperlipidemia, depression, arrhythmia, diabetes, atrial fibrillation (currently prescribed Xarelto and digoxin), and dementia who presents with a chief complaint of shortness of breath. Due to patient's symptoms, she presented to the emergency room for evaluation. While in the emergency room, CT scan of the head was negative for any acute intracranial process. Chest x-ray per my read, shows some vascular congestion and probable left lower lobe pneumonia-is pending final read by the radiologist. Due to these findings, patient is being admitted for further management. During my evaluation of the patient, the majority of information was obtained from son due to patient's dementia. According to son, patient presented to the emergency room was Saturday due to not feeling well and was diagnosed with influenza A, urinary tract infection, and cellulitis to the left lower extremity. Son also reports increased confusion from baseline. She was prescribed Keflex and Tamiflu and management of her diagnosis. Patient was compliant with the Keflex however she was unable to take the Tamiflu due to decreased p.o. intake. Over the past 3 days, patient has had shortness of breath that was worse at night. Son states that mom would come and wake him and tell him that she was having difficulty breathing she felt as if she was smothering while she was laying down. He also endorses mom having a subjective fever, chills, and nonproductive cough. Review of patient's prior 2D echo ob tained in 04/22/2021 shows an EF of 55% and left ventricular heart failure. When asked, son states he does not know if patient having any prior medical history of heart failure; however, patient is currently prescribed Lasix daily. Patient is currently denying any chest pain, lightheadedness, dizziness, fever, rigors, nausea, vomiting, or diarrhea. Additional pertinent vitals obtained include a hemoglobin of 12 INR 1.25,, sodium of 134, bicarb of 32, BUN of 28, GFR 53, blood glucose of 258, AST of 41, BNP of 2151, and review of urinalysis obtained on the eighth shows no growth on urine culture (patient has no UTI). Hospital Course Hospital Course Hospital Course: Feeling much better today, no shortness of breath. Does have some wheezing, will be discharged on prednisone and Augmentin for cellulitis. Exam Data for Last 24 hours Vital signs and Labs for Last 24 Hours: Temp Pulse Resp BP Pulse Ox O2 Del Method 97.7 F 67 15 121/55 L 96 Room Air 08/13/24 11:24 08/13/24 11:24 08/13/24 11:24 08/13/24 11:24 08/13/24 11:24 08/13/24 11:24 Laboratory Results - last 24 hr 08/12/24 19:20: WBC 5.8, RBC 4.58, Hgb 12.0 L, Hct 38.4, MCV 83.8, MCH 26.2 L, MCHC 31.3 L, RDW 15.2, Plt Count 264, MPV 10.6 H, Neut % (Auto) 51.0, Lymph % (Auto) 37.4, [place] % (Auto) 9.4 H, Eos % (Auto) 1.2, Baso % (Auto) 0.7, Neut # (Auto) 2.9, Lymph # (Auto) 2.2, [place] # (Auto) 0.5, Eos # (Auto) 0.1, Baso # (Auto) 0.0, PT 13.7 H, INR 1.25 H, Sodium 134 L, Potassium 4.3, Chloride 98, Carbon Dioxide 32 H, Anion Gap 8.3, BUN 28 H, Creatinine 1.00, Estimated Creat Clear 54, Estimated GFR 53 L, Est GFR ( Amer) 64, Glucose 258 H, Calcium 9.3, Magnesium 1.8, Total Bilirubin 0.4, AST 41 H, ALT 29, Alkaline Phosphatase 103, Troponin I 0.01, NT-Pro-B Natriuret Pep 2150 H, Total Protein 6.8, Albumin 4.2, Globulin 2.6, Albumin/Globulin Ratio 1.6, Lipase 85, HCV Ab B[place]ICA w/Rflx PCR Qn Negative 08/12/24 19:24: HIV Ag/Ab Combo Qual Negative 08/12/24 19:33: VBG pH 7.40, VBG pCO2 50.3, VBG pO2 42.7 H, VBG HCO3 30.1 H, VBG Total CO2 31.7 H, VBG O2 Saturation 78.2 H, VBG Base Excess 5.2 H, VBG Lactic Acid 1.1 03/12/25 20:53: Lactate 1.2 08/12/24 22:15: Urine Color Yellow, Urine Appearance Clear, Urine pH 7.0, Ur Specific [place] 1.025, Urine Protein Negative, Urine Glucose (UA) 250, Urine Ketones Negative, Urine Blood Negative, Urine Nitrate Negative, Urine Bilirubin Negative, Urine Urobilinogen 1.0, Ur Leukocyte Esterase Negative, Urine RBC 5- 10, Urine WBC Occasional, Ur Squamous Epith Cells 10-20, Urine Bacteria 1+ 08/12/24 22:45: Troponin I 0.02 08/13/24 01:47: Troponin I 0.02 08/13/24 05:15: POC Glucose 133 H 08/13/24 05:45: WBC 6.4, RBC 4.39, Hgb 11.5 L, Hct 37.0, MCV 84.3, MCH 26.2 L, MCHC 31.1 L, RDW 15.2, Plt Count 253, MPV 10.9 H, Neut % (Auto) 56.9, Lymph % (Auto) 32.9, [place] % (Auto) 8.3, Eos % (Auto) 1.3, Baso % (Auto) 0.3, Neut # (Auto) 3.6, Lymph # (Auto) 2.1, [place] # (Auto) 0.5, Eos # (Auto) 0.1, Baso # (Auto) 0.0, Sodium 138, Potassium 3.8, Chloride 102, Carbon Dioxide 32 H, Anion Gap 7.8, BUN 21 H, Creatinine 0.80, Estimated Creat Clear 54, Estimated GFR 68, Est GFR ( Amer) 83 D, Glucose 110 H D, Calcium 8.5, Procalcitonin 0.048 08/13/24 11:21: POC Glucose 161 H I & O for Last 24 hours: Intake & Output 08/10/24 08/11/24 08/12/24 08/13/24 23:59 23:59 23:59 23:59 Intake Total 60 / 60 Output Total 1425 / 1425 Balance -1365 / -1365 Weight 82.554 kg 81.783 kg Results Data Completed and Pending Labs on day of discharge: Labs from last 24 hours 08/13/24 08/13/24 08/13/24 11:21 05:45 05:15 WBC 6.4 RBC 4.39 Hgb 11.5 L Hct 37.0 MCV 84.3 MCH 26.2 L MCHC 31.1 L RDW 15.2 Plt Count 253 MPV 10.9 H Neut % (Auto) 56.9 Lymph % (Auto) 32.9 [place] % (Auto) 8.3 Eos % (Auto) 1.3 Baso % (Auto) 0.3 Neut # (Auto) 3.6 Lymph # (Auto) 2.1 [place] # (Auto) 0.5 Eos # (Auto) 0.1 Baso # (Auto) 0.0 PT INR VBG pH VBG pCO2 VBG pO2 VBG HCO3 VBG Total CO2 VBG O2 Saturation VBG Base Excess VBG Lactic Acid Sodium 138 Potassium 3.8 Chloride 102 Carbon Dioxide 32 H Anion Gap 7.8 BUN 21 H Creatinine 0.80 Estimated Creat Clear 54 Estimated GFR 68 Est GFR ( Amer) 83 D Glucose 110 H D POC Glucose 161 H 133 H Lactate Calcium 8.5 Magnesium Total Bilirubin AST ALT Alkaline Phosphatase Troponin I NT-Pro-B Natriuret Pep Total Protein Albumin Globulin Albumin/Globulin Ratio Lipase Procalcitonin 0.048 Urine Color Urine Appearance Urine pH Ur Specific [place] Urine Protein Urine Glucose (UA) Urine Ketones Urine Blood Urine Nitrate Urine Bilirubin Urine Urobilinogen Ur Leukocyte Esterase Urine RBC Urine WBC Ur Squamous Epith Cells Urine Bacteria HCV Ab [place] w/Rflx PCR Qn HIV Ag/Ab Combo Qual 08/13/24 08/12/24 08/12/24 01:47 22:45 22:15 WBC RBC Hgb Hct MCV MCH MCHC RDW Plt Count MPV Neut % (Auto) Lymph % (Auto) [place] % (Auto) Eos % (Auto) Baso % (Auto) Neut # (Auto) Lymph # (Auto) [place] # (Auto) Eos # (Auto) Baso # (Auto) PT INR VBG pH VBG pCO2 VBG pO2 VBG HCO3 VBG Total CO2 VBG O2 Saturation VBG Base Excess VBG Lactic Acid Sodium Potassium Chloride Carbon Dioxide Anion Gap BUN Creatinine Estimated Creat Clear Estimated GFR Est GFR ( Amer) Glucose POC Glucose Lactate Calcium Magnesium Total Bilirubin AST ALT Alkaline Phosphatase Troponin I 0.02 0.02 NT-Pro-B Natriuret Pep Total Protein Albumin Globulin Albumin/Globulin Ratio Lipase Procalcitonin Urine Color Yellow Urine Appearance Clear Urine pH 7.0 Ur Specific [place] 1.025 Urine Protein Negative Urine Glucose (UA) 250 Urine Ketones Negative Urine Blood Negative Urine Nitrate Negative Urine Bilirubin Negative Urine Urobilinogen 1.0 Ur Leukocyte Esterase Negative Urine RBC 5-10 Urine WBC Occasional Ur Squamous Epith Cells 10-20 Urine Bacteria 1+ HCV Ab [place] w/Rflx PCR Qn HIV Ag/Ab Combo Qual 08/12/24 08/12/24 08/12/24 20:53 19:33 19:24 WBC RBC Hgb Hct MCV MCH MCHC RDW Plt Count MPV Neut % (Auto) Lymph % (Auto) [place] % (Auto) Eos % (Auto) Baso % (Auto) Neut # (Auto) Lymph # (Auto) [place] # (Auto) Eos # (Auto) Baso # (Auto) PT INR VBG pH 7.40 VBG pCO2 50.3 VBG pO2 42.7 H VBG HCO3 30.1 H VBG Total CO2 31.7 H VBG O2 Saturation 78.2 H VBG Base Excess 5.2 H VBG Lactic Acid 1.1 Sodium Potassium Chloride Carbon Dioxide Anion Gap BUN Creatinine Estimated Creat Clear Estimated GFR Est GFR ( Amer) Glucose POC Glucose Lactate 1.2 Calcium Magnesium Total Bilirubin AST ALT Alkaline Phosphatase Troponin I NT-Pro-B Natriuret Pep Total Protein Albumin Globulin Albumin/Globulin Ratio Lipase Procalcitonin Urine Color Urine Appearance Urine pH Ur Specific [place] Urine Protein Urine Glucose (UA) Urine Ketones Urine Blood Urine Nitrate Urine Bilirubin Urine Urobilinogen Ur Leukocyte Esterase Urine RBC Urine WBC Ur Squamous Epith Cells Urine Bacteria HCV Ab [place] w/Rflx PCR Qn HIV Ag/Ab Combo Qual Negative 08/12/24 19:20 WBC 5.8 RBC 4.58 Hgb 12.0 L Hct 38.4 MCV 83.8 MCH 26.2 L MCHC 31.3 L RDW 15.2 Plt Count 264 MPV 10.6 H Neut % (Auto) 51.0 Lymph % (Auto) 37.4 [place] % (Auto) 9.4 H Eos % (Auto) 1.2 Baso % (Auto) 0.7 Neut # (Auto) 2.9 Lymph # (Auto) 2.2 [place] # (Auto) 0.5 Eos # (Auto) 0.1 Baso # (Auto) 0.0 PT 13.7 H INR 1.25 H VBG pH VBG pCO2 VBG pO2 VBG HCO3 VBG Total CO2 VBG O2 Saturation VBG Base Excess VBG Lactic Acid Sodium 134 L Potassium 4.3 Chloride 98 Carbon Dioxide 32 H Anion Gap 8.3 BUN 28 H Creatinine 1.00 Estimated Creat Clear 54 Estimated GFR 53 L Est GFR ( Amer) 64 Glucose 258 H POC Glucose Lactate Calcium 9.3 Magnesium 1.8 Total Bilirubin 0.4 AST 41 H ALT 29 Alkaline Phosphatase 103 Troponin I 0.01 NT-Pro-B Natriuret Pep 2150 H Total Protein 6.8 Albumin 4.2 Globulin 2.6 Albumin/Globulin Ratio 1.6 Lipase 85 Procalcitonin Urine Color Urine Appearance Urine pH Ur Specific [place] Urine Protein Urine Glucose (UA) Urine Ketones Urine Blood Urine Nitrate Urine Bilirubin Urine Urobilinogen Ur Leukocyte Esterase Urine RBC Urine WBC Ur Squamous Epith Cells Urine Bacteria HCV Ab [place] w/Rflx PCR Qn Negative HIV Ag/Ab Combo Qual DS: Diagnosis Discharge Diagnosis (1) Altered mental status: Status: Acute Code(s): R41.82 - Altered mental status, unspecified Qualifiers: Altered mental status type: unspecified Qualified Code(s): R41.82 - Altered mental status, unspecified (2) Pneumonia: Status: Acute Code(s): J18.9 - Pneumonia, unspecified organism Qualifiers: Laterality: left Lung location: lower lobe of lung Pneumonia type: due to unspecified organism Qualified Code(s): J18.9 - Pneumonia, unspecified organism (3) Influenza A: Status: Acute Code(s): J10.1 - Influenza due to other identified influenza virus with other respiratory manifestations (4) Pulmonary edema: Status: Acute Code(s): J81.1 - Chronic pulmonary edema Qualifiers: Chronicity: acute Qualified Code(s): J81.0 - Acute pulmonary edema (5) Hyponatremia: Status: Acute Code(s): E87.1 - Hypo-osmolality and hyponatremia (6) Hyperglycemia: Status: Acute Code(s): R73.9 - Hyperglycemia, unspecified Meds Home Medications and Allergies Home Medications ?Medication ?Instructions ?Recorded ?Confirmed ?Type aspirin 81 mg tablet,delayed 81 mg PO DAILY 08/14/17 08/12/24 History release atorvastatin 40 mg tablet 40 mg PO HS Cholesterol 08/14/17 08/12/24 History citalopram 20 mg tablet 20 mg PO DAILY 08/14/17 08/12/24 History cyanocobalamin (vitamin B-12) 1,000 mcg PO DAILY Supplement 08/14/17 08/12/24 History 1,000 mcg capsule folic acid 400 mcg tablet 0.4 mg PO DAILY SUPLEMENT 08/14/17 08/12/24 History memantine 28 mg capsule 28 mg PO DAILY 08/14/17 08/12/24 History sprinkle,extended release 24hr pyridoxine (vitamin B6) 100 mg 100 mg PO DAILY Supplement 08/14/17 08/12/24 History tablet cholecalciferol (vitamin D3) 25 25 mcg PO DAILY SUPPLIMENT 08/23/20 08/12/24 History mcg (1,000 unit) capsule omeprazole 40 mg capsule,delayed 20 mg PO DAILY GERD 10/03/21 08/12/24 History release rivaroxaban 15 mg tablet (Xarelto) 15 mg PO QPMWITHMEAL 02/13/23 08/13/24 History furosemide 40 mg tablet (Lasix) 40 mg PO DAILY PRN edema #30 tabs 07/06/24 08/12/24 Rx saxagliptin 2.5 mg tablet (Onglyza) 2.5 mg PO DAILY 07/06/24 08/12/24 History glipizide 2.5 mg tablet, extended 2.5 mg PO DAILY 08/12/24 08/12/24 History release 24 hr amoxicillin 500 mg-potassium 1 tab PO TID 7 days #21 tabs 08/13/24 Rx clavulanate 125 mg tablet (Augmentin) digoxin 125 mcg (0.125 mg) tablet 125 mcg PO DAILY 08/13/24 08/12/24 History potassium chloride 20 mEq 20 meq PO DAILY 08/13/24 08/13/24 History tablet,extended release prednisone 20 mg tablet 20 mg PO DAILY 3 days #3 tabs 08/13/24 Rx New Prescriptions to Start Prescriptions: amoxicillin-pot clavulanate [Augmentin] Wilbert Cosme prednisone Wilbert Cosme Allergies Allergy/AdvReac Type Severity Reaction Status Date / Time Penicillins Allergy Unknown Unknown Verified 08/08/24 15:21 allergy reaction Discharge Plan Disposition Patient Disposition: Home, Self-Care Condition: Fair Follow up Plan Follow up with: Rell Clark MD [Primary Care Provider] - 08/18/24 11:15 am Prescriptions/Medication Reconciliation: New amoxicillin-pot clavulanate [Augmentin] 500-125 mg tablet 1 tab PO TID 7 Days Qty: 21 0RF prednisone 20 mg Tablet 20 mg PO DAILY 3 Days Qty: 3 0RF Continued cholecalciferol (vitamin D3) 25 mcg (1,000 unit) capsule 25 mcg PO DAILY saxagliptin [Onglyza] 2.5 mg tablet 2.5 mg PO DAILY Patient Comments: TAKE 1 TABLET BY MOUTH DAILY furosemide [Lasix] 40 mg tablet 40 mg PO DAILY PRN (Reason: edema) Qty: 30 2RF atorvastatin 40 MG tablet 40 mg PO HS folic acid 0.4 MG tablet 0.4 mg PO DAILY aspirin 81 MG tablet,delayed release (DR/EC) 81 mg PO DAILY citalopram 20 MG tablet 20 mg PO DAILY Patient Comments: pyridoxine (vitamin B6) 100 MG tablet 100 mg PO DAILY memantine 28 MG capsule,sprinkle,ER 24hr 28 mg PO DAILY Patient Comments: cyanocobalamin (vitamin B-12) 1,000 MCG capsule 1,000 mcg PO DAILY omeprazole 40 mg capsule,delayed release(DR/EC) 20 mg PO DAILY Patient Comments: glipizide 2.5 mg tablet extended release 24hr 2.5 mg PO DAILY Patient Comments: TAKE 1 TABLET BY MOUTH DAILY potassium chloride 20 mEq tablet extended release 20 meq PO DAILY digoxin 125 mcg (0.125 mg) tablet 125 mcg PO DAILY Xarelto 15 mg tablet 15 mg PO QPMWITHMEAL Rx Instructions: must administer with evening meal Discontinued cephalexin 500 mg tablet 500 mg PO BID 10 Days Qty: 20 0RF Problem Reconciliation Problems Reviewed?: Yes Patient Discharge Instructions Patient Instructions: DI for Pneumonia -- Adult, DI for Altered Mental Status Print Language: Citizen Of [place] Providers Primary Care Provider: Rell Clark Admit Provider: Wilbert Cosme Attending Provider: Wilbert Cosme
--- NOTE | 2024-08-13 13:22 | CA_ITS ---
APPROVED REPORT EXAM: Comprehensive 2D, Doppler, and color-flow Echocardiogram Detector Car Operator: BLANCA Mccollum, RVS Ht: 4 ft 11 in Wt: 180lbs BSA: 1.76 BP: 130/80 mmHg Rhythm: Atrial Fibrillation Indications: SOA, Pneumonia, UTI, Dementia, Ex-smoker Echo Enhancing Agent Comments: Scanned in chair upright 2D Dimensions Left Atrium 4.51 cm F: 2.7 - 3.8 LA Volume 105.10 mL LA Volume Index 59.025078 mL/m2 (M/F) 16-34 M-Mode Dimensions RVDd 2.78 cm (0.9-2.6) LA Diam 5.64 cm (1.9-4.0) LVDd 4.72 cm (3.5-5.7) LVDs 3.42 cm (3.5-5.7) IVSd 0.74 cm (0.6-1.1) PWd 0.70 cm (0.6-1.1) EF (Teich) 53.50% EPSs 0.30 cm FS 27.50% EDV (Teich) 103.40 mL TAPSE 1.87 (<1.7) ESV (Teich) 48.10 mL LV Diastology E Decel Time 267 (160-240 msec) E/A Ratio 5.05 MED A' 2.30 cm/s LAT A' 7.20 cm/s Aortic Valve JACI Index 0.99 cm2/m2 AoV Peak Chuy. 151.0 (50-130 cm/s) AO Peak GR. 9.20 mmHg AO Mean GR. 4.50 (<5 mmHg) AO VTI 25.4 (18-25 cm) JACI (VTI) 1.80 (2.5-4.5 cm2) Mitral Valve MV A Velocity 22.0 (40-130 cm/s) E/A Ratio 5.05 Pulmonary Valve PV Peak Velocity 79.0 (50-150 cm/s) Tricuspid Valve TR P. Velocity 200.00 cm/s RAP Estimate 10.00 mmHg RVSP 26.00 mmHg Left Ventricle The left ventricle is normal size. The left ventricular systolic function is normal. The left ventricular ejection fraction is within the normal range. There is increased LV wall thickness. There is normal LV segmental wall motion. Diastolic function is indeterminate. LVEF is 55%. Right Ventricle Right ventricle is mildly dilated. The right ventricular systolic function is normal. Atria The left atrium is severely dilated. The right atrium is severely dilated. Aortic Valve The aortic valve is mildly thickened. There is no aortic valvular stenosis. No aortic regurgitation is present. Mitral Valve The mitral valve is normal in structure. No evidence of mitral valve stenosis. Mild mitral regurgitation. Tricuspid Valve Tricuspid valve is grossly normal in structure and function. Mild tricuspid regurgitation. RVSP is 20/25 mmHg. Pulmonic Valve The pulmonary valve is normal in structure. Trace pulmonic regurgitation. Great Vessels The aortic root is normal in size. IVC is normal in size and collapses >50% with inspiration. Pericardium There is no pericardial effusion. Other Information Study Quality: Fair Conclusion Normal LV systolic function. Mild RV dilation with normal RV function. Biatrial dilation. Mild MR, mild TR. Electronically signed by : Margareth Roa MD 08/14/2024 10:45:24
[2024-08-13] MEDS: SODIUM CHLORIDE 3% 15ML NEB 3 ML IH (14:54)
[2024-08-13] MEDS: predniSONE 20MG TAB 20 MG PO (15:33)
--- NOTE | 2024-08-13 16:28 | CT_ITS ---
PROCEDURE INFORMATION: Exam: CT Chest Without Contrast; Diagnostic Exam date and time: 08/13/2024 5:03 PM Age: 83 years old Clinical indication: Shortness of breath; Additional info: Intermittent shortness of breath TECHNIQUE: Imaging protocol: Diagnostic computed tomography of the chest without contrast. Radiation optimization: All CT scans at this facility use at least one of these dose optimization techniques: automated exposure control; mA and/or kV adjustment per patient size (includes targeted exams where dose is matched to clinical indication); or iterative reconstruction. COMPARISON: CR XR CHEST PORTABLE 08/12/2024 7:45 PM FINDINGS: Lungs: No focal consolidation. . 6 mm nodule lateral left lower lobe series 3, image 144 -142. Pleural spaces: Unremarkable. No pneumothorax. No pleural effusion. Heart: Cardiomegaly. There is calcification of the aortic valve annulus. There is calcification of the mitral valve annulus. Coronary arteries: Coronary artery calcifications may indicate coronary artery disease. Lymph nodes: Unremarkable. No enlarged lymph nodes. Vasculature: Unremarkable. No aortic aneurysm. Pancreas: Pancreatic atrophy Bones/joints: Degenerative changes in the glenohumeral joints Soft tissues: Unremarkable. IMPRESSION: 1. No focal consolidation. . 2. 6 mm nodule lateral left lower lobe series 3, image 144 -142.For patients at low risk (minimal or absent history of smoking and of other known risk factors), recommend CT Chest at 6-12 months, then consider CT Chest at 18-24 months. For patients at high risk (history of smoking or of other known risk factors), recommend CT Chest at 6-12 months, then [address] Chest at 18-24 months. (Reference: Caesar) References: Caesar Cardona et al. Guidelines for Management of Incidental Pulmonary Nodules Detected on CT Images: From the Fleischner Society 2017. Radiology. 2017;284(1):228-243.
[2024-08-13 16:55] LABS: POC Glucose,Bedside 184 (70-110)
--- NOTE | 2024-08-13 17:06 | PC.NURSE ---
Addendum entered by Ermelinda Hunt RN 08/13/24 17:12: BED AND CHAIR SAFETY IN PLACE AT ALL TIMES. Original Note: PATIENT IS ALERT AND ORIENTED TO ALL QUESTIONS I HAVE ASKED HER TODAY, HOWEVER HAS ISSUES WITH SHORT TERM MEMORY. WILL REPEAT HERSELF, AND AT TIMES HER WORDS DO NOT MAKE SENSE. PATIENT HAS RESTED IN BED THIS SHIFT, AND HAS SPENT TIME UP IN THE CHAIR WELL. PURE WICK REMOVED, PATIENT DOING VERY WELL AMBULATING TO BATHROOM WITH WALKER AND STANDBY ASSIST TO VOID. HAS HAD NO NEEDS OR C/O. MORE THAN ADEQUATE URINE OUTPUT NOTED. FAMILY AT BEDSIDE MAJORITY OF THE SHIFT. VSS.
[2024-08-13 20:34] LABS: POC Glucose,Bedside 201 (70-110)
[2024-08-13] MEDS: ATORVASTATIN 40MG TABLET 40 MG PO (20:40)
--- NOTE | 2024-08-13 22:29 | P.PN_ITS ---
Subjective *Date: 08/13/24 *Time: 22:29 Interval history: Patient symptoms significantly improved today, no shortness of breath or orthopnea. No leg edema. Will continue diuresis, pending echo, cardiology consulted. Exam Data for Last 24 hours Vital signs and Labs for Last 24 Hours: Temp Pulse Resp BP Pulse Ox O2 Del Method 98.2 F 72 16 161/81 H 94 L Room Air 08/13/24 20:00 08/13/24 20:00 08/13/24 20:00 08/13/24 20:00 08/13/24 20:00 08/13/24 21:00 Laboratory Results - last 24 hr 08/12/24 19:24: HIV Ag/Ab Combo Qual Negative 08/12/24 22:15: Urine Color Yellow, Urine Appearance Clear, Urine pH 7.0, Ur Specific [place] 1.025, Urine Protein Negative, Urine Glucose (UA) 250, Urine K etones Negative, Urine Blood Negative, Urine Nitrate Negative, Urine Bilirubin Negative, Urine Urobilinogen 1.0, Ur Leukocyte Esterase Negative, Urine RBC 5- 10, Urine WBC Occasional, Ur Squamous Epith Cells 10-20, Urine Bacteria 1+ 08/12/24 22:45: Troponin I 0.02 08/13/24 01:47: Troponin I 0.02 08/13/24 05:15: POC Glucose 133 H 08/13/24 05:45: WBC 6.4, RBC 4.39, Hgb 11.5 L, Hct 37.0, MCV 84.3, MCH 26.2 L, MCHC 31.1 L, RDW 15.2, Plt Count 253, MPV 10.9 H, Neut % (Auto) 56.9, Lymph % (Auto) 32.9, [place] % (Auto) 8.3, Eos % (Auto) 1.3, Baso % (Auto) 0.3, Neut # (Auto) 3.6, Lymph # (Auto) 2.1, [place] # (Auto) 0.5, Eos # (Auto) 0.1, Baso # (Auto) 0.0, Sodium 138, Potassium 3.8, Chloride 102, Carbon Dioxide 32 H, Anion Gap 7.8, BUN 21 H, Creatinine 0.80, Estimated Creat Clear 54, Estimated GFR 68, Est GFR ( Amer) 83 D, Glucose 110 H D, Calcium 8.5, Procalcitonin 0.048 08/13/24 11:21: POC Glucose 161 H 08/13/24 16:29: POC Glucose 184 H 08/13/24 20:23: POC Glucose 201 H I & O for Last 24 hours: Intake & Output 08/10/24 08/11/24 08/12/24 08/13/24 23:59 23:59 23:59 23:59 Intake Total 540 / 540 Output Total 1425 / 1425 Balance -885 / -885 Weight 82.554 kg 81.783 kg Constitutional Constitutional: no acute distress *Routine HEENT Exam Head: Present normocephalic Eye: Present EOMI and PERRL ENT: Present mucous membranes moist *Routine Neck Exam Neck: Present supple; Absent lymphadenopathy *Routine Respiratory Exam Respiratory: Present CTA bilaterally *Routine Cardiovascular Exam Cardiovascular: Present RRR *Routine Abdominal Exam Abdominal: Present soft and normoactive bowel sounds; Absent tenderness *Routine Extremities Exam Extremities: Absent cyanosis, clubbing or edema *Routine Skin Exam Skin: Present warm; Absent rash *Routine Neurological Exam Neurological: Present alert Assessment and Plan *Assessment and plan (1) Shortness of breath: Status: Acute Category: Medical Code(s): R06.02 - Shortness of breath Plan Luisa Stanley is a 83-year-old female who presented for progressive shortness of breath, orthopnea and was admitted for suspected new onset heart failure. #Suspected heart failure, new onset, unknown type #Shortness of breath, orthopnea ? Presented with progressive shortness of breath and orthopnea, found to have elevated BNP. ? Symptoms improved after diuresis. ? ECHO pending. ? Continue IV Lasix 40 mg daily. Started spironolactone 25 mg. ? Cardiology consulted, pending further recommendations. #A-fib ? Currently rate controlled. ? Continue home digoxin, Xarelto. #Left lower extremity cellulitis ? Continue ceftriaxone. #Bronchitis ? Continue prednisone 20 mg daily for now. Full code DVT prophylaxis: Xarelto
[2024-08-14] VITALS: BP 148/93; PULSE 59; PULSE 70; RESP 18; TEMP 36.6; O2SAT 97
[2024-08-14 04:00] VITALS: BP 134/64; PULSE 68; PULSE 70; RESP 18; TEMP 36.7; O2SAT 97; BMI 34.5
--- NOTE | 2024-08-14 04:15 | PC.NURSE ---
Patient is pleasantly alert and oriented; however, impaired short-term memory + occasional confusion was noted from the patient. She was up to the chair yesterday evening and was assisted back into her bed at bedtime. Patient was observed to have eyes closed, respirations even and unlabored on room air, and no apparent distress for the majority of the night. Patient reported having a dry, nonproductive cough; a sputum sample remains uncollected due to ongoing lack of sputum production. Upon auscultation of her lungs, bilateral fine crackles could be heard; heart and bowel sounds were within normal findings. Patient stated that she was unsure of when her last bowel movement occurred (no BM this shift). Swelling was observed in each of her extremities. Redness and bruising was noted on her left anterior nick. Patient has been ambulating with a walker in her room/to the bathroom with standby assistance from staff (x1 assistance from sitting to standing) without any difficulties. Scheduled medications were administered as appropriately per MAR. ACHS glucose checks performed. Blood pressures have been elevated this shift. Patient has expressed a concern for her safety + falling this shift; education was provided to her about the implemented and ongoing safety precautions in place: using bed alarms and chair alarms, performing regular rounds/check-ins, providing nonskid-footwear, providing a walker to assist with ambulation, expressing the significance of call light usage). At this time, the patient is resting in bed without any further complaints. No acute changes noted thus far. Bed alarm on. Call light within reach. Home medications locked away in drawer.
[2024-08-14 05:49] LABS: POC Glucose,Bedside 133 (70-110)
[2024-08-14 06:31] LABS: Basophils % 0.3 % (0.1-2.0); Hemoglobin 11.5 g/dL (12.2-16.2); Lymphocytes # 1.7 K/mm3 (0.7-4.5); Lymphocytes % 23.8 % (10-50); Mean Corpuscular HGB Conc 31.1 g/dL (31.8-35.4); Mean Corpuscular Hemoglobin 25.5 pg (27.0-31.2); Mean Platelet Volume 11.1 fl (7.4-10.4); Monocytes # 0.5 K/mm3 (0.1-1.0); Monocytes % 6.6 % (1.7-9.3); Neutrophils # 4.9 K/mm3 (1.8-7.8); Platelet Count 298 K/mm3 (142-424); Red Blood Count 4.51 M/mm3 (4.20-5.40); White Blood Count 7.1 K/mm3 (4.8-10.8)
[2024-08-14 06:51] LABS: Anion Gap 9.9 mEq/L (5-15); Blood Urea Nitrogen 29 mg/dl (7-17); Calcium 8.6 mg/dl (8.4-10.2); Carbon Dioxide 32 mmol/L (22.0-30.0); Chloride 98 mmol/L (98-107); Creatinine Clearance Estimated 48 mL/min (50-200); Estimated Glomerular Filt Rate 47 ml/min (>60); GFR (African American) 57 ML/MIN (>60); Glucose 135 mg/dl (74-100); Potassium 3.9 mmoL/L (3.5-5.1); Sodium 136 mmol/L (136-145)
[2024-08-14 08:00] VITALS: BP 135/60; PULSE 50; PULSE 74; RESP 16; TEMP 36.6; O2SAT 96
[2024-08-14] MEDS: ASPIRIN EC 81MG TABLET 81 MG PO (08:51)
[2024-08-14] MEDS: MEMANTINE 10MG TABLET 10 MG PO (08:52)
[2024-08-14] MEDS: CITALOPRAM 20MG TABLET 20 MG PO (08:52)
[2024-08-14] MEDS: FUROSEMIDE 40MG/4ML VIAL 40 MG IV (08:52)
[2024-08-14] MEDS: CEFTRIAXONE SODIUM 1 GM in 0.9 % SODIUM CHLORIDE 50 ML IV (08:52)
[2024-08-14] MEDS: SPIRONOLACTONE 25MG TABLET 25 MG PO (08:52)
[2024-08-14 08:57] VITALS: PULSE 74
[2024-08-14] MEDS: DIGOXIN 0.125MG TABLET 125 MCG PO (08:57)
[2024-08-14] MEDS: predniSONE 20MG TAB 20 MG PO (08:57)
--- NOTE | 2024-08-14 10:31 | P.CONCA_ITS ---
History of Present Illness History of Present Illness Consult date: 08/14/24 Requesting physician: Wilbert Cosme Consult reason: shortness of breath Chief complaint: soa History of present illness: This is an 83-year-old white female with past medical history of TIA, DVT, hyperlipidemia, depression, atrial fibrillation on digoxin and Xarelto and diabetes who presented to emergency department with complaints of shortness of breath. Per son patient was diagnosed with influenza A, urinary tract infection and cellulitis to the left lower extremity on Saturday in the emergency room. Patient was prescribed Keflex and Tamiflu for management and had been compliant with keflex but unable to take the Tamiflu due to decreased p.o. intake. Son reports over the past 3 days patient developed shortness of breath and o rthopnea. Initial EKG upon presentation to emergency department shows atrial fibrillation at a rate of 58 with an incomplete right bundle branch block. Labs were as follow: WBC 7.1, hemoglobin 11.5, platelets 298, sodium 136, potassium 3.9, BUN 29, creatinine 1.1 and serial troponins negative. Chest x-ray shows no acute cardiopulmonary process. CT head shows no acute intracranial abnormality. Chest CT is pending. Patient was given IV Lasix 60 mg x 1 in the emergency department and started on Lasix 40 mg IV daily. This morning patient reports her symptoms are improving and denies shortness of breath orthopnea. No lower extremity edema is noted and patient is diuresing well. Echocardiogram is pending. [facility] Disclaimer: The information contained in this section may have been updated after the patient was seen, as this information can be updated by other users. 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) Family history of diabetes mellitus type II Family history of myocardial infarction Social History (Updated 08/12/24 @ 23:17 by Eulalia Cesar RN) Smoking Status: Former smoker alcohol intake: never substance use type: denies use current occupational status: retired Travel in the last 8 weeks: None household members: spouse and children housing: house caffeine: Yes Review of Systems Review of Systems Review of systems:: pertinent systems reviewed and negative unless documented below *Cardiovascular Cardiovascular: Denies chest pain and Reports dyspnea *Respiratory Respiratory: Reports dyspnea Exam Data for Last 24 hours Vital signs and Labs for Last 24 Hours: Temp Pulse Resp BP Pulse Ox O2 Del Method 98 F 74 16 135/60 96 Room Air 08/14/24 08:00 08/14/24 08:57 08/14/24 08:00 08/14/24 08:00 08/14/24 08:00 08/14/24 09:00 Laboratory Results - last 24 hr 08/13/24 11:21: POC Glucose 161 H 08/13/24 16:29: POC Glucose 184 H 08/13/24 20:23: POC Glucose 201 H 08/14/24 05:32: WBC 7.1, RBC 4.51, Hgb 11.5 L, Hct 37.0, MCV 82.0, MCH 25.5 L, MCHC 31.1 L, RDW 15.0, Plt Count 298, MPV 11.1 H, Neut % (Auto) 69.0, Lymph % (Auto) 23.8, [place] % (Auto) 6.6, Eos % (Auto) 0.0 L, Baso % (Auto) 0.3, Neut # (Auto) 4.9, Lymph # (Auto) 1.7, [place] # (Auto) 0.5, Eos # (Auto) 0.0, Baso # (Auto) 0.0, Sodium 136, Potassium 3.9, Chloride 98, Carbon Dioxide 32 H, Anion Gap 9.9, BUN 29 H D, Creatinine 1.10 H D, Estimated Creat Clear 48, Estimated GFR 47 L, Est GFR ( Amer) 57 L D, Glucose 135 H D, Calcium 8.6 08/14/24 05:42: POC Glucose 133 H I & O for Last 24 hours: Intake & Output 08/11/24 08/12/24 08/13/24 08/14/24 23:59 23:59 23:59 23:59 Intake Total 540 / 770 230 / 230 Output Total 1425 / 1425 0 / 0 Balance -885 / -655 230 / 230 Weight 182 lb 180 lb 4.8 oz 176 lb Constitutional Constitutional: no acute distress *Routine Respiratory Exam Respiratory: Present CTA bilaterally and symmetric chest movement *Routine Cardiovascular Exam Cardiovascular: Present RRR, Normal S1 and Normal S2 *Routine Abdominal Exam Abdominal: Present soft and normoactive bowel sounds; Absent tenderness *Routine Extremities Exam Extremities: Present full ROM and normal capillary refill; Absent edema *Routine Skin Exam Skin: Present intact, dry and warm Detailed Neck Exam: Thyroids Thyroid: Absent bruit Meds Home Medications and Allergies Home Medications ?Medication ?Instructions ?Recorded ?Confirmed ?Type aspirin 81 mg tablet,delayed 81 mg PO DAILY 08/14/17 08/12/24 History release atorvastatin 40 mg tablet 40 mg PO HS Cholesterol 08/14/17 08/12/24 History citalopram 20 mg tablet 20 mg PO DAILY 08/14/17 08/12/24 History cyanocobalamin (vitamin B-12) 1,000 mcg PO DAILY Supplement 08/14/17 08/12/24 History 1,000 mcg capsule folic acid 400 mcg tablet 0.4 mg PO DAILY SUPLEMENT 08/14/17 08/12/24 History memantine 28 mg capsule 28 mg PO DAILY 08/14/17 08/12/24 History sprinkle,extended release 24hr pyridoxine (vitamin B6) 100 mg 100 mg PO DAILY Supplement 08/14/17 08/12/24 History tablet cholecalciferol (vitamin D3) 25 25 mcg PO DAILY SUPPLIMENT 08/23/20 08/12/24 History mcg (1,000 unit) capsule omeprazole 40 mg capsule,delayed 20 mg PO DAILY GERD 10/03/21 08/12/24 History release rivaroxaban 15 mg tablet (Xarelto) 15 mg PO QPMWITHMEAL 02/13/23 08/13/24 History furosemide 40 mg tablet (Lasix) 40 mg PO DAILY PRN edema #30 tabs 07/06/24 08/12/24 Rx saxagliptin 2.5 mg tablet (Onglyza) 2.5 mg PO DAILY 07/06/24 08/12/24 History glipizide 2.5 mg tablet, extended 2.5 mg PO DAILY 08/12/24 08/12/24 History release 24 hr amoxicillin 500 mg-potassium 1 tab PO TID 7 days #21 tabs 08/13/24 Rx clavulanate 125 mg tablet (Augmentin) digoxin 125 mcg (0.125 mg) tablet 125 mcg PO DAILY 08/13/24 08/12/24 History potassium chloride 20 mEq 20 meq PO DAILY 08/13/24 08/13/24 History tablet,extended release prednisone 20 mg tablet 20 mg PO DAILY 3 days #3 tabs 08/13/24 Rx New Prescriptions to Start Prescriptions: amoxicillin-pot clavulanate [Augmentin] Wilbert Cosme prednisone Wilbert Cosme Allergies Allergy/AdvReac Type Severity Reaction Status Date / Time Penicillins Allergy Unknown Unknown Verified 08/08/24 15:21 allergy reaction Assessment and Plan *Assessment and plan (1) Shortness of breath: Status: Acute Category: Medical Code(s): R06.02 - Shortness of breath (2) Influenza A: Status: Acute Category: Medical Code(s): J10.1 - Influenza due to other identified influenza virus with other respiratory manifestations (3) Cellulitis: Status: Acute Qualifiers: Laterality: left Site of cellulitis: extremity Site of cellulitis of extremity: lower extremity Qualified Code(s): L03.116 - Cellulitis of left lower limb Category: Medical Code(s): L03.90 - Cellulitis, unspecified (4) Acute UTI: Status: Acute Category: Medical Code(s): N39.0 - Urinary tract infection, site not specified (5) Atrial fibrillation: Status: Chronic Qualifiers: Atrial fibrillation type: unspecified Qualified Code(s): I48.91 - Unspecified atrial fibrillation Category: Medical Code(s): I48.91 - Unspecified atrial fibrillation Plan Acute HFpEF Mild RV dilation with normal function CT chest pending Shortness of breath and orthopnea present on admission and resolving with diuretics Continue Lasix 40 mg IV daily Add Aldactone 25 mg p.o. daily Consider patient of Jardiance 10 mg p.o. daily once diuresed Troponin negative A-fib, Chadsvasc > 2 A-fib rate controlled Continue digoxin and Xarelto CV summary 08/14/2024: CT chest is pending. Echocardiogram shows a normal left ventricular systolic function with mild RV dilation. Continue to diurese patient with Lasix 40 mg IV daily and Aldactone 25 mg p.o. daily. Once patient is fully diuresed can transition to oral medications and add Jardiance 10 mg p.o. daily for HFpEF. CV meds: Lasix 40 mg IV daily Aldactone 25 mg p.o. daily Digoxin 0.125 mg p.o. daily Xarelto 15 mg p.o. daily
--- NOTE | 2024-08-14 10:41 | CA_ITS ---
FINAL REPORT TECHNIQUE: Ultrasound images of the deep venous system were obtained from the left groin to the calf veins. CLINICAL HISTORY: EDEMA,REDNESS LT CALF FINDINGS: The deep venous system is normally compressible. Normal flow is identified. IMPRESSION: No evidence of left lower extremity DVT. Reviewed, Interpreted and Dictated by Sj Arellano MD Transcribed by Priscilla De La Cruz Authenticated and [facility]
[2024-08-14] MEDS: DOXYCYCLINE HYCLATE 100 MG in 0.9 % SODIUM CHLORIDE 250 ML 166.667 MG IV (11:25)
[2024-08-14 11:34] LABS: POC Glucose,Bedside 116 (70-110)
[2024-08-14 12:00] VITALS: BP 129/55; PULSE 63; RESP 16; TEMP 36.7; O2SAT 96
--- NOTE | 2024-08-14 13:43 | SW/DCPLANNER ---
Addendum entered by Leslie Kearney 08/14/24 14:59: Humberto called and stated that patient is agreeable to do outpatient rehab. Dalton Christine Original Note: Spoke with patient's son on the phone about home health services for his mother. Patient's son stated that if it was left up to him he would have them come in. Patient's son is going to talk to his mom and call me back due to his mom does not like having people in her home. Dalton Christine
--- NOTE | 2024-08-14 13:50 | HMH.PTEV ---
Physical Therapy Evaluation Rehab PT IP Evaluation Start: 08/14/24 10:42 Freq: ONCE Status: Active Protocol: Document 08/14/24 13:43 MAGEN (Rec: 08/14/24 13:50 MAGEN [id number]) Subjective/History History History 83-year-old female who has a past medical history significant for TIA, DVT hyperlipidemia, depression, arrhythmia, diabetes, atrial fibrillation (currently prescribed Xarelto and digoxin ), and dementia who presents with a chief complaint of shortness of breath. Due to patient's symptoms, she presented to the emergency room for evaluation. While in the emergency room, CT scan of the head was negative for any acute intracranial process . Chest x-ray per my read, shows some vascular congestion and probable left lower lobe pneumonia-is pending final read by the radiologist. Due to these findings, patient is being admitted for further management. She reports she lives with her ( I believe it is actually her son ), no KYLE the home, and she is generally independent with all household mobility at baseline. Subjective Subjective Currently pt reports no c/o, she is pleasantly confused, but very agreeable to OOB mobility assessment. [facility] How much help from another person do you currently need... Turning from your back to your side None while in a flat bed without using bedrails? Moving from lying on back to sitting on None the side of a flat bed without using bedrails? Moving to and from a bed to a chair ( None including a wheelchair)? Standing up from a chair using your arms None ? (e.g., wheelchair, bedside chair) Walking in hospital room? None Climbing 3-5 steps with a railing? A little Mobility Score 23 Mobility Level [facility] Mobility Calculator Mobility 7 Walk 25 feet or more Rehab PT IP Eval Objective Appearance Patient Behavior Appropriate Patient Orientation Person,Place Difficulty following instructions none Speech Pattern Clear Ambulation Patient Able to Ambulate Yes Ambulation Observation IP General Gait Pattern Observation Antalgic Gait Ambulation Distance (feet) 30 Ambulation Assistive Device Rolling Walker Ambulation Ability Supervision/Stand by Balance Ability to Arise Able, uses arms to help Sitting Balance Steady, safe Standing Balance Steady, wide stance Dynamic Sitting Balance Ability Good Dynamic Standing Balance Ability Good Transfers Bed Transfer Ability Supervision/Stand by Chair Transfer Ability Supervision/Stand by Sit to Stand Bed Transfer Ability Supervision/Stand by Sit to Stand Chair Transfer Ability Supervision/Stand by Rehab PT IP prob,goals,plan Problems Date of Evaluation: 08/14/24 Discharge Plan PT Discharge Plan Pt currently has no inpatient acute rehab needs and is appropriate to return home once medically stable for d/c. Recommend home health therapy after d/c as needed. Eval Complexity Eval Charge Codes 39964 - High Complexity PHYSICIAN CERTIFICATION: I certify the specified therapy services for Luisa Stanley are required, authorized, and reviewed every 30 days.
--- NOTE | 2024-08-14 15:14 | EXP.DC.SUM ---
General Admission date:: 08/12/24 Hospital Course Hospital Course Hospital Course: Luisa Stanley is a 83-year-old female who presented for progressive shortness of breath, orthopnea and was admitted for suspected new onset heart failure. #HFpEF exacerbation, new onset #Shortness of breath, orthopnea ? Presented with progressive shortness of breath and orthopnea, found to have elevated BNP 2150. ? Normal biventricular function, biatrial dilation. ? Clinically improved with IV Lasix diuresis. Appropriate saturations on room air. ? Cardiology consulted, transitioned to oral Lasix 40 mg daily, spironolactone 25 mg, Jardiance 10 mg. ? Will follow-up with cardiology within 2 weeks. #A-fib ? Currently rate controlled. ? Continue home digoxin, Xarelto. #Left lower extremity cellulitis ?Discharged with cefdinir for 4 more days. #Bronchitis ? Improved with DuoNebs, prednisone. Total time spent on discharge: 31 minutes on chart review, counseling, documentation, and direct care with patient. Exam Data for Last 24 hours Vital signs and Labs for Last 24 Hours: Temp Pulse Resp BP Pulse Ox O2 Del Method 98.1 F 63 16 129/55 L 96 Room Air 08/14/24 12:00 08/14/24 12:00 08/14/24 12:00 08/14/24 12:00 08/14/24 12:00 08/14/24 13:00 Laboratory Results - last 24 hr 08/13/24 16:29: POC Glucose 184 H 08/13/24 20:23: POC Glucose 201 H 08/14/24 05:32: WBC 7.1, RBC 4.51, Hgb 11.5 L, Hct 37.0, MCV 82.0, MCH 25.5 L, MCHC 31.1 L, RDW 15.0, Plt Count 298, MPV 11.1 H, Neut % (Auto) 69.0, Lymph % (Auto) 23.8, [place] % (Auto) 6.6, Eos % (Auto) 0.0 L, Baso % (Auto) 0.3, Neut # (Auto) 4.9, Lymph # (Auto) 1.7, [place] # (Auto) 0.5, Eos # (Auto) 0.0, Baso # (Auto) 0.0, Sodium 136, Potassium 3.9, Chloride 98, Carbon Dioxide 32 H, Anion Gap 9.9, BUN 29 H D, Creatinine 1.10 H D, Estimated Creat Clear 48, Estimated GFR 47 L, Est GFR ( Amer) 57 L D, Glucose 135 H D, Calcium 8.6 08/14/24 05:42: POC Glucose 133 H 08/14/24 11:24: POC Glucose 116 H I & O for Last 24 hours: Intake & Output 08/11/24 08/12/24 08/13/24 08/14/24 23:59 23:59 23:59 23:59 Intake Total 540 / 770 710 / 710 Output Total 1425 / 1425 600 / 600 Balance -885 / -655 110 / 110 Weight 82.554 kg 81.783 kg 79.832 kg Constitutional Constitutional: no acute distress *Routine HEENT Exam Head: Present normocephalic Eye: Present EOMI and PERRL ENT: Present mucous membranes moist *Routine Neck Exam Neck: Present supple; Absent lymphadenopathy *Routine Respiratory Exam Respiratory: Present CTA bilaterally *Routine Cardiovascular Exam Cardiovascular: Present RRR *Routine Abdominal Exam Abdominal: Present soft and normoactive bowel sounds; Absent tenderness *Routine Extremities Exam Extremities: Absent cyanosis, clubbing or edema *Routine Skin Exam Skin: Present warm; Absent rash *Routine Neurological Exam Neurological: Present alert Results Data Completed and Pending Labs on day of discharge: Labs from last 24 hours 08/14/24 08/14/24 08/14/24 11:24 05:42 05:32 WBC 7.1 RBC 4.51 Hgb 11.5 L Hct 37.0 MCV 82.0 MCH 25.5 L MCHC 31.1 L RDW 15.0 Plt Count 298 MPV 11.1 H Neut % (Auto) 69.0 Lymph % (Auto) 23.8 [place] % (Auto) 6.6 Eos % (Auto) 0.0 L Baso % (Auto) 0.3 Neut # (Auto) 4.9 Lymph # (Auto) 1.7 [place] # (Auto) 0.5 Eos # (Auto) 0.0 Baso # (Auto) 0.0 Sodium 136 Potassium 3.9 Chloride 98 Carbon Dioxide 32 H Anion Gap 9.9 BUN 29 H D Creatinine 1.10 H D Estimated Creat Clear 48 Estimated GFR 47 L Est GFR ( Amer) 57 L D Glucose 135 H D POC Glucose 116 H 133 H Calcium 8.6 08/13/24 08/13/24 20:23 16:29 WBC RBC Hgb Hct MCV MCH MCHC RDW Plt Count MPV Neut % (Auto) Lymph % (Auto) [place] % (Auto) Eos % (Auto) Baso % (Auto) Neut # (Auto) Lymph # (Auto) [place] # (Auto) Eos # (Auto) Baso # (Auto) Sodium Potassium Chloride Carbon Dioxide Anion Gap BUN Creatinine Estimated Creat Clear Estimated GFR Est GFR ( Amer) Glucose POC Glucose 201 H 184 H Calcium DS: Diagnosis Discharge Diagnosis (1) Shortness of breath: Status: Acute Code(s): R06.02 - Shortness of breath (2) Influenza A: Status: Acute Code(s): J10.1 - Influenza due to other identified influenza virus with other respiratory manifestations (3) Cellulitis: Status: Acute Code(s): L03.90 - Cellulitis, unspecified Qualifiers: Laterality: left Site of cellulitis: extremity Site of cellulitis of extremity: lower extremity Qualified Code(s): L03.116 - Cellulitis of left lower limb (4) Acute UTI: Status: Acute Code(s): N39.0 - Urinary tract infection, site not specified (5) Atrial fibrillation: Status: Chronic Code(s): I48.91 - Unspecified atrial fibrillation Qualifiers: Atrial fibrillation type: unspecified Qualified Code(s): I48.91 - Unspecified atrial fibrillation Meds Home Medications and Allergies Home Medications ?Medication ?Instructions ?Recorded ?Confirmed ?Type aspirin 81 mg tablet,delayed 81 mg PO DAILY 08/14/17 08/31/24 History release atorvastatin 40 mg tablet 40 mg PO HS Cholesterol 08/14/17 08/31/24 History citalopram 20 mg tablet 20 mg PO DAILY 08/14/17 08/31/24 History cyanocobalamin (vitamin B-12) 1,000 mcg PO DAILY Supplement 08/14/17 08/31/24 History 1,000 mcg capsule folic acid 400 mcg tablet 0.4 mg PO DAILY SUPLEMENT 08/14/17 08/31/24 History memantine 28 mg capsule 28 mg PO DAILY 08/14/17 08/31/24 History sprinkle,extended release 24hr pyridoxine (vitamin B6) 100 mg 100 mg PO DAILY Supplement 08/14/17 08/31/24 History tablet cholecalciferol (vitamin D3) 25 25 mcg PO DAILY SUPPLIMENT 08/23/20 08/31/24 History mcg (1,000 unit) capsule omeprazole 40 mg capsule,delayed 20 mg PO DAILY GERD 10/03/21 08/31/24 History release rivaroxaban 15 mg tablet (Xarelto) 15 mg PO QPMWITHMEAL 02/13/23 08/31/24 History furosemide 40 mg tablet (Lasix) 40 mg PO DAILY PRN edema #30 tabs 07/06/24 08/31/24 Rx glipizide 2.5 mg tablet, extended 2.5 mg PO DAILY 08/12/24 08/31/24 History release 24 hr digoxin 125 mcg (0.125 mg) tablet 125 mcg PO DAILY 08/13/24 08/31/24 History empagliflozin 10 mg tablet 10 mg PO DAILY #30 tabs 08/14/24 08/31/24 Rx (Jardiance) furosemide 40 mg tablet (Lasix) 40 mg PO DAILY #30 tabs 08/14/24 08/31/24 Rx spironolactone 25 mg tablet 25 mg PO DAILY #30 tabs 08/14/24 08/31/24 Rx New Prescriptions to Start Prescriptions: empagliflozin [Jardiance] Wilbert Cosme furosemide [Lasix] Wilbert Cosme spironolactone Wilbert Cosme Allergies Allergy/AdvReac Type Severity Reaction Status Date / Time Penicillins Allergy Unknown Unknown Verified 08/31/24 10:49 allergy reaction Discharge Plan Disposition Patient Disposition: Home, Self-Care Condition: Fair Follow up Plan Follow up with: Sandra Sexton APRN [Nurse Practitioner] - 08/24/24 9:15 am (Please call office for follow up appointment in 1 week for results of your echo.) Rell Clark MD [Primary Care Provider] - 08/18/24 11:15 am Prescriptions/Medication Reconciliation: New furosemide [Lasix] 40 mg tablet 40 mg PO DAILY Qty: 30 0RF spironolactone 25 mg tablet 25 mg PO DAILY Qty: 30 0RF Jardiance 10 mg tablet 10 mg PO DAILY Qty: 30 0RF Continued cholecalciferol (vitamin D3) 25 mcg (1,000 unit) capsule 25 mcg PO DAILY furosemide [Lasix] 40 mg tablet 40 mg PO DAILY PRN (Reason: edema) Qty: 30 2RF atorvastatin 40 MG tablet 40 mg PO HS folic acid 0.4 MG tablet 0.4 mg PO DAILY aspirin 81 MG tablet,delayed release (DR/EC) 81 mg PO DAILY citalopram 20 MG tablet 20 mg PO DAILY Patient Comments: pyridoxine (vitamin B6) 100 MG tablet 100 mg PO DAILY memantine 28 MG capsule,sprinkle,ER 24hr 28 mg PO DAILY Patient Comments: cyanocobalamin (vitamin B-12) 1,000 MCG capsule 1,000 mcg PO DAILY omeprazole 40 mg capsule,delayed release(DR/EC) 20 mg PO DAILY Patient Comments: glipizide 2.5 mg tablet extended release 24hr 2.5 mg PO DAILY Patient Comments: TAKE 1 TABLET BY MOUTH DAILY digoxin 125 mcg (0.125 mg) tablet 125 mcg PO DAILY Xarelto 15 mg tablet 15 mg PO QPMWITHMEAL Rx Instructions: must administer with evening meal Discontinued cephalexin 500 mg tablet 500 mg PO BID 10 Days Qty: 20 0RF Other Ambulatory Orders: Rehab Eval, OP (Routine) Timeframe: 2 Weeks Facility: [facility] - Location: Physical Therapy Ordered By: Wilbert Cosme Problem Reconciliation Problems Reviewed?: Yes Patient Discharge Instructions Patient Instructions: DI for Pneumonia -- Adult, DI for Altered Mental Status Print Language: Welsh Providers Primary Care Provider: Rell Clark Admit Provider: Wilbert Cosme Attending Provider: Wilbert Cosme
--- NOTE | 2024-08-17 11:49 | SW/DCPLANNER ---
Spoke with patient's son on the phone. Patients son stated that his mom is still having some issues. Patients son seems to think his mothers issues is from her dementia and shortness of breath. Patients son stated that they are aware of his moms upcoming appointments. Patients son stated that they start out patient therapy September 01. Patients son stated that they were able to bulk picker her medicine from clinic pharmacy. Patients son stated that he has no concerns or questions at this time. Dalton Christine
== END 2024-08-14 16:04 | disposition home or self-care (01) ==
LOC: ER 21:59 → 2ND 08-13 06:24
PROVIDERS: Nurse Practitioner Family; Physician Assistant; Admitting Provider Student in an Organized Health Care Education/Training Program; Emergency Provider Emergency Medicine; PCP Family Medicine; Visit Provider Student in an Organized Health Care Education/Training Program
DX: I50.31 Acute diastolic (congestive) heart failure (principal); J10.00 Influenza due to other identified influenza virus with unspecified type of pneumonia; J18.9 Pneumonia, unspecified organism; R06.02 Shortness of breath; R53.81 Other malaise; L03.116 Cellulitis of left lower limb; N39.0 Urinary tract infection, site not specified; I48.91 Unspecified atrial fibrillation; R41.82 Altered mental status, unspecified; J81.0 Acute pulmonary edema; E87.1 Hypo-osmolality and hyponatremia; R73.9 Hyperglycemia, unspecified; Z87.891 Personal history of nicotine dependence; Z79.01 Long term (current) use of anticoagulants; Z79.84 Long term (current) use of oral hypoglycemic drugs; E11.9 Type 2 diabetes mellitus without complications; Z86.718 Personal history of other venous thrombosis and embolism; K21.9 Gastro-esophageal reflux disease without esophagitis; E78.5 Hyperlipidemia, unspecified; Z79.82 Long term (current) use of aspirin; Z88.0 Allergy status to penicillin
CPT/HCPCS: 36415; 70450; 71045; 71250; 80048; 80053; 81001; 82803; 82962; 83605; 83690; 83735; 83880; 84145; 84484; 85025; 85610; 86803; 87389; 93005; 93306; 93971; 97163; 99285; G0378; J0456; J0696; J1650; J1940; J7050

== ENCOUNTER 2024-08-31 11:26 | Outpatient (CLI) | payer MEDICARE, BC, SELFPAY ==
[2024-08-31 12:14] LABS: Basophils % 0.4 % (0.1-2.0); Eosinophils # 0.1 K/mm3 (0.0-0.4); Eosinophils % 0.8 % (0.1-12.0); Hematocrit 43.7 % (37.0-47.0); Lymphocytes # 1.4 K/mm3 (0.7-4.5); Mean Corpuscular Hemoglobin 26.9 pg (27.0-31.2); Mean Corpuscular Volume 83.9 fl (81-99); Mean Platelet Volume 11.8 fl (7.4-10.4); Monocytes # 0.9 K/mm3 (0.1-1.0); Monocytes % 9.8 % (1.7-9.3); Neutrophils # 6.7 K/mm3 (1.8-7.8); Platelet Count 279 K/mm3 (142-424); Red Blood Count 5.21 M/mm3 (4.20-5.40); Red Cell Distribution Width 16.4 % (11.5-17.5); White Blood Count 9.1 K/mm3 (4.8-10.8)
[2024-08-31 12:46] LABS: Albumin Level 4.5 g/dl (3.5-5.0); Chloride 95 mmol/L (98-107); Sodium 137 mmol/L (136-145)
[2024-08-31 12:47] LABS: Potassium 4.1 mmoL/L (3.5-5.1)
[2024-08-31 12:49] LABS: Alanine Aminotransferase 38 U/L (12-78); Alkaline Phosphatase 115 U/L (38-126); Anion Gap 15.1 mEq/L (5-15); Aspartate Amino Transferase 39 U/L (14-36); Bilirubin,Direct 0.1 mg/dl (0.0-0.4); Bilirubin,Total 1.1 mg/dl (0.2-1.3); Bilirubin,Unconjugated 0.9 mg/dL (0.0-1.1); Blood Urea Nitrogen 30 mg/dl (7-17); Carbon Dioxide 31 mmol/L (22.0-30.0); Estimated Glomerular Filt Rate 43 ml/min (>60); GFR (African American) 52 ML/MIN (>60); Total Protein,Serum 6.9 g/dl (6.3-8.2); Triglycerides 152 mg/dl (30-150); VLDL Cholesterol 30 mg/dL (0-40)
[2024-08-31 12:50] LABS: Calcium 9.5 mg/dl (8.4-10.2); Chol/HDL Ratio 2.3 (1-3.5); Cholesterol 115 mg/dl (140-200); Glucose 177 mg/dl (74-100); HDL Cholesterol 51 mg/dl (40-60)
[2024-08-31 13:01] LABS: Direct LDL Cholesterol 36.49 mg/dL (100-129)
[2024-08-31 13:50] LABS: Free T4 (Free Thyroxine) 1.41 ng/dl (0.78-2.19)
[2024-08-31 14:04] LABS: Thyroid Stimulating Hormone 3.28 uIU/mL (0.465-4.68)
== END 2024-08-31 23:59 | disposition home or self-care (01) ==
LOC: LAB 11:27
PROVIDERS: PCP Family Medicine; Visit Provider Nurse Practitioner
DX: E78.2 Mixed hyperlipidemia (principal); I11.9 Hypertensive heart disease without heart failure; E11.649 Type 2 diabetes mellitus with hypoglycemia without coma
CPT/HCPCS: 36415; 80048; 80061; 80076; 84439; 84443; 85025

== ENCOUNTER 2024-09-29 11:00 | Outpatient (RCR) | payer MEDICARE, BC, SELFPAY ==
--- NOTE | 2024-09-01 17:36 | HMH.PTOPEV ---
PT Outpatient Evaluation Rehab PT Outpatient Evaluation Start: 09/01/24 12:48 Freq: Status: Active Protocol: Document 09/01/24 16:51 DARA (Rec: 09/01/24 17:36 DARA [id number]) E-signed By Andres Rolle, PT Outpatient Therapy Subjective History Subjective History Pt is an 84 yof who is referred to [facility] outpatient PT to general deconditioning following a hospital stay. Pt suffers from dementia so she was unable to provide full history. Pt's son provided majority of subjective history . Pt was admitted to [facility] on due to SOB and stayed for 2 days. Pt lives at home with her and son. Son does all of the cooking/ cleaning. Reports that she uses a cane for most mobility but will also use a FWW when she has to go longer distances . Pt has had one fall in the past 6 months. Son reports that she spends almost all of her time that she is awake sitting in her recliner. Pt reports that she is not in any pain. PMH: History of transient ischemic attack (TIA) Deep vein thrombosis (DVT) HLD (hyperlipidemia) Depression Arrhythmia GERD (gastroesophageal reflux disease) Diabetes mellitus, type 2 Atrial fibrillation New diagnosis of cancer in past 12 No months? Chief Complaint Weakness Current Functional Limitations Standing,Walking,Stairs, Balance Level of pain today (0-10) 0 Pain scale - at its best (0-10) 0 Pain scale - at its worst (0-10) 0 Balance Eval Hx of Falls Hx Falls Yes Number in last 6 months 1 Gait/Posture Asssessment General Gait Observation Shuffling Step Assistive Devices Rolling / Wheeled Walker Level of Transfer Assist Standby Assistance Hip Observation in Gait Swing Decreased Flexion Ankle/Foot Observation in Gait Swing Decreased Foot Clearance Ankle/Foot Observation in Gait Stance No Deviation Body Alignment Posture Thoracic Kyphosis Timed Up and Go Test 1. Is the Timed Up and Go test result > yes or = to 12 seconds? Dynamic Gait Index Test Protocol Gait Level Surface Moderate Impairement Query Text: Instructions: Walk at your normal speed from here to the next becky (20'). Grading: Becky the lowest category that applies. Change in Gait Speed Moderate Impairment Query Text: Instructions: Begin walking at your normal pace (for 5'), when I tell you go , walk as fast as you can (for 5'). When I tell you slow , walk as slowly as you can (for 5'). Grading: Becky the lowest category that applies. Gait with Horizontal Head Turns Moderate Impairment Query Text: Instructions: Begin walking at your normal pace. When I tell you to look right , keep walking straight, but turn you head to the right. Keep looking to the right unit I tell you look left , then keep walking straight and turn your head to the left. Keep your head to the left until I tell you look straight , then keep walking straight, but return you head to the center. Grading: Becky the lowest category that applies. Gait with Vertical Head Turns Moderate Impairment Query Text: Instructions: Begin walking at your normal pace. When I tell you to look up , keep walking staight, but tip your head up. Keep looking up until I tell you to look down , then keep walking straight and tip your head down. Keep your head down until I tell you look straight , then keep walking straight, but return your head to the center. Grading: Becky the lowest category that applies. Gait and Pivot Turn Moderate Impairment Query Text: Instructions: Begin walking at your normal pace. When I tell you turn and stop , turn as quickly as you can to face the opposite direction and stop. Grading: Becky the lowest category that applies. Step Over Obstacle Moderate Impairment Query Text: Instructions: Begin walking at your normal speed. When you come to the shoebox, step over it, not around it and keep walking. Grading: Becky the lowest category that applies. Step Around Obstacles Moderate Impairment Query Text: Instructions: Begin walking at normal speed. When you come to the first cone (about 6' away), walk around the right side of it. When you come to the second cone (6' past first cone), walk around it to the left. Grading: Becky the lowest category that applies. Steps Severe Impairment Query Text: Instructions: Walk up these stairs as you would at home. At the top, turn around and walk down. Grading: Ebcky the lowest category that applies. Scoring Dynamic Gait Index Score 7 Miscellaneous Dx PT Eval Objective Objective LE Strength: - Hip Flexion: 2/5 B - Hip ABD: 2/5 B - Hip ADD: 2/5 B - Knee Ext: 2+/5 B - Knee Flexion: 3/5 B - Ankle PF: 3/5 TUs with Quad Cane Outpatient Therapy Assessment Impairments Problems/Impairmments Impaired Strength,Impaired Endurance,Impaired Gait Pattern,Impaired Walking, Impaired Standing,Impaired Household Care,Impaired Stair Climbing,Impaired Balance, Impaired DGI Score,Impaired TUG Time Prognosis Rehab Potential Fair Clinical Impression Consistent with Diagnosis Yes Consistent with General Weakness and Balance Short Term Goals Number of Weeks 4 Increase Strength Yes: 3/5 to B LEs Increase Ability to Stand Yes: 5' without a LOB Increase DGI Score Yes: to 10 Decrease TUG Time Yes: 25s with AAD Patient to be Ind w/ HEP Yes Skilled Nursing Goals Number of Weeks 8 Increase Strength Yes: 4/5 to B LEs Improve Gait Pattern with Assistive Yes: Increased step length and Device foot clearance with AAD Increase Ability to Stand Yes: 10' without LOB Improve Ability to Climb Stairs Yes: Navigate one stair to demonstrate independence with home mobility Improve Balance Yes: Tandem Stance 30s B Increase DGI Score Yes: to 15 Decrease TUG Time Yes: 21s with AAD Patient to be Ind w/ Advanced HEP Yes Outpatient Therapy Plan of Care Treatment Plan May Include Therapeutic Exercise Including Home Yes Exercise Program Manual Therapy Techniques Yes Neuromuscular Re-education Yes Therapeutic Activities to Return to Yes Previous Functional/Work Level Gait Training Yes ADL/Self Care Education Yes Thermal Modalities Yes Electrical Stimulation Yes Manual Lymphatic Drainage Yes Eval/Re-Eval Yes Frequency Times per week 1-2 Duration Number of Weeks 8 Addendums This patient is a candidate for social No or vocational rehab? Patient/Guardian verbally acknowledges Yes understanding of treatment program and consents to further treatment? Patient/Guardian verbally acknowledges Yes understanding of diagnosis, prognosis and goals for treatment? Eval Complexity PT Charges 00399 - High Complexity Shoulder/Elbow Eval Shoulder Objective Measurements Elbow Objective Measurements PHYSICIAN CERTIFICATION: I certify the specified therapy services for Luisa Stanley are required, authorized, and reviewed every 30 days.
== END 2024-09-29 23:59 | disposition home or self-care (01) ==
LOC: PT 11:00
PROVIDERS: PCP Family Medicine; Visit Provider Student in an Organized Health Care Education/Training Program
DX: R53.81 Other malaise (principal)
CPT/HCPCS: 97110; 97112; 97163; 97530

== ENCOUNTER 2024-10-13 13:00 | Outpatient (RCR) | payer MEDICARE, BC, SELFPAY ==
--- NOTE | 2024-10-06 12:41 | HMH.RHREAS ---
Rehab Reassessment Rehab OP Re-assessment Start: 10/06/24 11:08 Freq: Status: Active Protocol: Document 10/06/24 11:09 DARA (Rec: 10/06/24 12:41 DARA [id number]) E-signed By Andres Rolle PT Dynamic Gait Index Test Protocol Gait Level Surface Mild Impairment Query Text: Instructions: Walk at your normal speed from here to the next becky (20'). Grading: Becky the lowest category that applies. Change in Gait Speed Mild Impairment Query Text: Instructions: Begin walking at your normal pace (for 5'), when I tell you go , walk as fast as you can (for 5'). When I tell you slow , walk as slowly as you can (for 5'). Grading: Becky the lowest category that applies. Gait with Horizontal Head Turns Moderate Impairment Query Text: Instructions: Begin walking at your normal pace. When I tell you to look right , keep walking straight, but turn you head to the right. Keep looking to the right unit I tell you look left , then keep walking straight and turn your head to the left. Keep your head to the left until I tell you look straight , then keep walking straight, but return you head to the center. Grading: Becky the lowest category that applies. Gait with Vertical Head Turns Moderate Impairment Query Text: Instructions: Begin walking at your normal pace. When I tell you to look up , keep walking staight, but tip your head up. Keep looking up until I tell you to look down , then keep walking straight and tip your head down. Keep your head down until I tell you look straight , then keep walking straight, but return your head to the center. Grading: Becky the lowest category that applies. Gait and Pivot Turn Moderate Impairment Query Text: Instructions: Begin walking at your normal pace. When I tell you turn and stop , turn as quickly as you can to face the opposite direction and stop. Grading: Becky the lowest category that applies. Step Over Obstacle Moderate Impairment Query Text: Instructions: Begin walking at your normal speed. When you come to the shoebox, step over it, not around it and keep walking. Grading: Becky the lowest category that applies. Step Around Obstacles Mild Impairment Query Text: Instructions: Begin walking at normal speed. When you come to the first cone (about 6' away), walk around the right side of it. When you come to the second cone (6' past first cone), walk around it to the left. Grading: Becky the lowest category that applies. Steps Moderate Impairment Query Text: Instructions: Walk up these stairs as you would at home. At the top, turn around and walk down. Grading: Becky the lowest category that applies. Scoring Dynamic Gait Index Score 11 Rehab Re-assessment Subjective Subjective Pt's grandson provided majority of subjective history due pt's dementia. Reports that she has improved her walking significantly and reports that she seems to much steadier on her feet. Reports that she is more willing to do the exercises at home but it can still be difficult to convince her. He reports that she is using a cane when walking in the house much more . He reports that he thinks PT has been beneficial for her and would like to continue. He reports that she is able to go up/down the stair into the home independently. Objective Objective Notes TUs with FWW DGI: 11 (6 on IE) MMT: - Hip flexion 3/5 B - Hip ABD 3/5 B - Hip ADD 3/5 B - Knee Extension 3+/5 B - Knee flexion 4/5 B TS: 14s R 20s L on even surface Gait: Ambulated with quad cane for 100 ft with SBA. Pt demonstrated no apparent LOB during ambulation. Assessment Progress Assessment Progressing as Expected Assessment Notes Pt has undergone one month of Physical Therapy thus far, consisting of gait training, balance training and lower extremity strengthening. The pt has demonstrated improvements in these areas, thus far. She ambulates without apparent balance deficits and has demonstrated improved endurance. Skilled PT remains indicated for this pt at this time. Patient goals met ST/5 LT/8 Plan Plan Continue as per initial POC Frequency of Therapy 1/week Duration of therapy 4 weeks Time and Billing Re-Eval Time 8 Re-Eval Billing Units 0 Charge for PT reassessment? No PHYSICIAN CERTIFICATION: I certify the specified therapy services for Luisa Renaker Stanley are required, authorized, and reviewed every 30 days.
== END 2024-10-13 23:59 | disposition home or self-care (01) ==
LOC: PT 13:00
PROVIDERS: PCP Family Medicine; Visit Provider Student in an Organized Health Care Education/Training Program
DX: M25.552 Pain in left hip (principal); M54.50 Low back pain, unspecified; G89.29 Other chronic pain; R06.02 Shortness of breath; R53.81 Other malaise
CPT/HCPCS: 97110; 97530

== ENCOUNTER 2024-11-03 11:15 | Outpatient (RCR) | payer MEDICARE, BC, SELFPAY | END 2024-11-03 23:59 | disposition home or self-care (01) | LOC: PT 11:15 | PROVIDERS: PCP Family Medicine; Visit Provider Student in an Organized Health Care Education/Training Program | DX: R53.81 Other malaise (principal) | CPT/HCPCS: 97110; 97530 ==

== ENCOUNTER 2024-11-28 16:14 | Inpatient (IN) | payer MEDICARE, BC, SELFPAY ==
[2024-11-28] VITALS (12 sets, daily range): BP systolic 115–133; BP diastolic 50–64; PULSE 41–71; RESP 12–20; TEMP 36.4–36.8; O2SAT 96–100; BMI 33.3; BMI 25.1
--- NOTE | 2024-11-28 16:27 | ECG_ITS ---
APPROVED REPORT Exam: Resting ECG HR:58 bpm ECG Measurements Heart Rate 58 AXES QRSd 97 QRS 98 QT 420 T -6 QTc 417 Conclusion A-fib Slow response Right axis deviation Incomplete right bundle branch block ST depressions and T wave inversions stable from previous EKGs Electronically signed by : RUBINA BUCHANAN, 11/28/2024 22:40:27
--- NOTE | 2024-11-28 16:27 | XR_ITS ---
PROCEDURE INFORMATION: Exam: XR Chest Exam date and time: 11/28/2024 4:33 PM Age: 84 years old Clinical indication: Shortness of breath; Additional info: Shortness of air TECHNIQUE: Imaging protocol: Radiologic exam of the chest. Views: 1 view. COMPARISON: CT CHEST WO CON 08/13/2024 5:03 PM FINDINGS: Lungs: Unremarkable. No consolidation. Pleural spaces: Unremarkable. No pleural effusion. No pneumothorax. Heart/Mediastinum: Unremarkable. No cardiomegaly. Bones/joints: Unremarkable. IMPRESSION: No acute findings.
--- NOTE | 2024-11-28 16:30 | XR_ITS ---
PROCEDURE INFORMATION: Exam: XR Pelvis Exam date and time: 11/28/2024 4:36 PM Age: 84 years old Clinical indication: Hip pain; Right hip; Additional info: Right hip pain TECHNIQUE: Imaging protocol: Radiologic exam of the pelvis. Views: 1 or 2 view. COMPARISON: CR XR HIP LT 2-3V W/PELVIS 01/10/2023 1:34 PM FINDINGS: Bones/joints: No acute fracture. No dislocation. Severe degenerative changes of the left hip. Moderately severe degenerative changes of right hip. Osteopenia. Soft tissues: Unremarkable. IMPRESSION: No acute findings. Degenerative changes.
--- NOTE | 2024-11-28 16:30 | CT_ITS ---
PROCEDURE INFORMATION: Exam: CT Head Without Contrast Exam date and time: 11/28/2024 5:30 PM Age: 84 years old Clinical indication: Altered mental status/memory loss TECHNIQUE: Imaging protocol: Computed tomography of the head without contrast. Radiation optimization: All CT scans at this facility use at least one of these dose optimization techniques: automated exposure control; mA and/or kV adjustment per patient size (includes targeted exams where dose is matched to clinical indication); or iterative reconstruction. COMPARISON: CT HEAD/BRAIN WO CON 08/12/2024 7:50 PM FINDINGS: Brain: No hemorrhage. Underlying periventricular white matter changes and parenchymal cortical volume loss. No mass effect. Empty sella. Cerebral ventricles: No ventriculomegaly. Paranasal sinuses: Visualized sinuses are unremarkable. No fluid levels. Mastoid air cells: Visualized mastoid air cells are well aerated. Bones: Unremarkable. No acute fracture. Soft tissues: Unremarkable. IMPRESSION: No acute intracranial abnormality.
--- NOTE | 2024-11-28 16:31 | ED_ITS ---
Discharge Plan Disposition Patient Disposition: Admitted Condition: Fair Clinical Impressions Clinical Impression: Acute kidney injury, Failure to thrive, Generalized weakness Atrial fibrillation Qualifiers: Atrial fibrillation type: unspecified Qualified Code(s): I48.91 - Unspecified atrial fibrillation Discharge ED Provider: César Barragan General Adult HPI <TYLER Rowland - Last Filed: 11/28/24 20:51> General Chief complaint: Weakness Stated complaint: Heat Exhaustion Time Seen by Provider: 11/28/24 16:18 Mode of Arrival: EMS Source of Information: Patient Limitations: No Limitations History of Present Illness HPI narrative: 84-year-old female presents to the emergency department via EMS for concerns of heat exhaustion , patient is GCS of 14 pleasantly confused, unsure of baseline is there is no family present at the bedside, per EMS report/history, patient had been living at home alone, without air conditioning , for the last 5 days, and high temperature conditions, family today went to perform a well check on the patient, found that she was quite confused and had generalized weakness and difficulty ambulating, unknown time of symptomatology, as the patient was ambulating out of the house with family, she was unable to ambulate any further, thus EMS was called for transport/lift assist. Per my assessment at the bedside, patient is pleasantly confused, covered in feces and urine, denies any acute symptomatology to include fever chills chest pain shortness of breath pain, denies fall, denies abdominal pain nausea vomiting constipation diarrhea no urinary type symptomatology. Initial triage vitals are unremarkable, unknown history of substance use/abuse, however upon chart review past medical history consistent with degenerative disc disease, hyperlipidemia, hypertension, atrial fibrillation, on anticoagulant therapy with Xarelto, dementia, T2DM. Of note, patient did receive IV fluid bolus of normal saline and route via EMS. Onset (ago): day(s) Related Data Home Medications ?Medication ?Instructions ?Recorded ?Confirmed aspirin 81 mg tablet,delayed 81 mg PO DAILY 08/14/17 0 11/29/24 release atorvastatin 40 mg tablet 40 mg PO HS Cholesterol 08/0111/29/24 citalopram 20 mg tablet 20 mg PO DAILY 08/14/1711/02 folic acid 400 mcg tablet 0.4 mg PO DAILY 08/14/17 memantine 28 mg capsule 28 mg PO DAILY 08/14/1711/02 sprinkle,extended release 24hr pyridoxine (vitamin B6) 100 mg 100 mg PO DAILY Supplem ent 08/14/17 11/29/24 tablet rivaroxaban 15 mg tablet (Xarelto) 15 mg PO QPMWITHMEA L 02/13/23 11/29/24 digoxin 125 mcg (0.125 mg) tablet 125 mcg PO DAILY 11/29/24 glipizide 5 mg tablet, extended 5 mg PO DAILY 09/23/24 11/29/24 release 24 hr cholecalciferol (vitamin D3) 125 125 mcg PO DAILY 11/0211/29/24 mcg (5,000 unit) capsule cyanocobalamin (vitamin B-12) 1,000 mcg PO DAILY 11/2911/29/24 1,000 mcg tablet,extended release furosemide 40 mg tablet (Lasix) 40 mg PO DAILYP PRN Ed bouchra 11/29/24 11/29/24 omeprazole 20 mg tablet,delayed 20 mg PO DAILY 5 11/29/24 release Previous Rx's ?Medication ?Instructions ?Recorded empagliflozin 10 mg tablet 10 mg PO DAILY #30 tabs (Jardiance) spironolactone 25 mg tablet 25 mg PO DAILY #30 tabs Allergies Allergy/AdvReac Type Severity Reaction Status Date / Time Penicillins Allergy Unknown Unknown Verified 11/28/24 17:06 allergy reaction [facility] <TYLER Rowland - Last Filed: 11/28/24 20:51> [facility] Disclaimer: The information contained in this section may have been updated after the patient was seen, as this information can be updated by other users. Medical History Dementia Diabetes History of transient ischemic attack (TIA) Deep vein thrombosis (DVT) HLD (hyperlipidemia) Depression Arrhythmia GERD (gastroesophageal reflux disease) Diabetes mellitus, type 2 Atrial fibrillation Surgical History Hx of tonsillectomy S/P ankle ligament repair Family History Other Family history of diabetes mellitus type II Family history of myocardial infarction Social History (Updated 11/28/24 @ 21:03 by Mary Cavazos RN) Smoking Status: Never smoker alcohol intake: never substance use type: denies use current occupational status: retired Travel in the last 8 weeks?: None household members: spouse and children housing: house caffeine: Yes Have you lived/traveled outside [place] in past 30 days?: No Contact w/someone who lives/traveled outside US past 30 days?: No Exposure to someone with infectious disease in past 14 days?: No Do you have a fever (greater than 100.4 F or 38 C)?: No Have you tested positive for COVID-19?: No Exposed to someone with COVID-19 in past 14 days?: No Do you have a sore throat?: No Do you have a cough?: No Do you have any weakness?: No Are you experiencing any nausea/vomitting?: No Do you have any diarrhea?: No Are you experiencing any unusual bleeding?: No Do you have any muscle aches/pain?: No Do you have any abdominal pain?: No Are you experiencing loss of taste or smell?: No Other Medical History Have you received the Flu Vaccine for this season: No Have you received the Pneumonia Vaccine: No <TYLER Rowland - Last Filed: 11/28/24 20:51> ROS Obtained: Yes All systems reviewed & no additional complaints except as documented Physical Exam <TYLER Rowland - Last Filed: 11/28/24 20:51> General General appearance: alert and in no apparent distress Comment: Pleasantly confused with GCS of 14, oriented to person and place, disoriented to time and date Head Head exam: atraumatic and normocephalic Eye Eye exam: Present PERRL and EOMI ENT ENT exam: Present mucous membranes moist Neck Neck exam: Present normal inspection Chest Chest inspection: Present normal inspection and symmetric chest wall rise Respiratory Respiratory exam: Present normal lung sounds bilaterally; Absent respiratory distress Cardiovascular Cardiovascular exam: Present regular rate and normal rhythm Abdominal Exam Abdominal exam: Present soft; Absent tenderness, guarding or rebound Extremities Exam Extremities exam: Present normal inspection, tenderness and other (Mild tenderness to palpation of the right hip joint, no internal limb rotation or shortening, no obvious deformity, otherwise neurovascular intact.) Neurological Exam Neurological exam: Present alert and other (This is a 14, pleasantly confused, unsure of baseline, oriented to person and place, disoriented to time and date); Absent oriented X3 Psychiatric Psychiatric exam: Present normal affect Skin Skin exam: Present warm, dry and other (Some areas of skin breakdown noted on the bilateral legs, most notable on the heels,) Medical Decision Making <TYLER Rowland - Last Filed: 11/28/24 20:51> Medical Records Medical records reviewed: Yes I reviewed the patient's medical records. Screening: Per USPSTF and CDC recommendations, given the prevalence of disease in our region, it is our hospital?s policy to screen for HIV and viral Hepatitis for all patients aged 18 and over and those with ongoing risk factors. Bnadar Inquiry Pt receiving controlled substance: No Bandar was queried for this patient: No Vital Signs: 11/28/24 16:32 11/28/24 16:34 11/28/24 17:00 Temperature 98.2 F Temperature Source Oral Pulse Rate 61 56 L Pulse Rate [Left Radial] 71 Respiratory Rate 20 18 Blood Pressure 133/52 L 124/64 Blood Pressure [Right Arm] 133/52 L Blood Pressure Mean [Right Arm] 79 Blood Pressure Source Blood Pressure Source [Right Arm] Blood Pressure Position 02 Sat by Pulse Oximetry 96 99 96 Oxygen Delivery Method Room Air Room Air Room Air Oxygen Flow Rate (LPM) 11/28/24 17:53 11/28/24 18:00 11/28/24 18:30 Temperature Temperature Source Pulse Rate 50 L 49 L 47 L Pulse Rate [Left Radial] Respiratory Rate 17 15 17 Blood Pressure 123/55 L 115/61 122/56 L Blood Pressure [Right Arm] Blood Pressure Mean [Right Arm] Blood Pressure Source Blood Pressure Source [Right Arm] Blood Pressure Position 02 Sat by Pulse Oximetry 97 96 100 Oxygen Delivery Method Oxygen Flow Rate (LPM) 11/28/24 18:32 11/28/24 18:45 11/28/24 19:00 Temperature Temperature Source Pulse Rate 41 L 48 L 41 L Pulse Rate [Left Radial] Respiratory Rate 17 15 18 Blood Pressure 121/50 L 121/57 L Blood Pressure [Right Arm] Blood Pressure Mean [Right Arm] Blood Pressure Source Blood Pressure Source [Right Arm] Blood Pressure Position 02 Sat by Pulse Oximetry 99 100 100 Oxygen Delivery Method Oxygen Flow Rate (LPM) 11/28/24 19:30 11/28/24 19:57 11/28/24 19:59 Temperature 98.3 F Temperature Source Oral Pulse Rate 44 L 42 L Pulse Rate [Left Radial] Respiratory Rate 12 16 Blood Pressure 121/59 L 121/59 L Blood Pressure [Right Arm] Blood Pressure Mean [Right Arm] Blood Pressure Source Automatic Cuff Blood Pressure Source [Right Arm] Blood Pressure Position Supine 02 Sat by Pulse Oximetry 100 Oxygen Delivery Method Nasal Cannula Nasal Cannula Oxygen Flow Rate (LPM) 2 3 11/28/24 20:00 11/28/24 20:00 Temperature 97.6 F Temperature Source Oral Pulse Rate 50 L Pulse Rate [Left Radial] 46 L Respiratory Rate 18 Blood Pressure Blood Pressure [Right Arm] 121/64 Blood Pressure Mean [Right Arm] 83 Blood Pressure Source Blood Pressure Source [Right Arm] Automatic Cuff Blood Pressure Position 02 Sat by Pulse Oximetry 100 Oxygen Delivery Method Nasal Cannula Oxygen Flow Rate (LPM) 3 Lab Data Lab results reviewed: Yes I reviewed the patient's lab results. Lab Results 11/28/24 14:30: Urine Color Yellow, Urine Appearance Clear, Urine pH 6.0, Ur Specific Bliss 1.010, Urine Protein Negative, Urine Glucose (UA) Negative, Urine Ketones Trace, Urine Blood Negative, Urine Nitrate Negative, Urine Bilirubin Negative, Urine Urobilinogen 0.2, Ur Leukocyte Esterase Negative, Urine RBC 5-10, Urine WBC 3-5, Ur Squamous Epith Cells 5-10, Urine Bacteria 2+, Hyaline Casts 3-5, Urine Mucus 2+ 11/28/24 15:50: WBC 16.1 H, RBC 5.20, Hgb 14.4, Hct 43.2, MCV 83.1, MCH 27.7, MCHC 33.3, RDW 15.5, Plt Count 290, MPV 11.3 H, Neut % (Auto) 74.3, Lymph % (Auto) 14.8, [place] % (Auto) 9.2, Eos % (Auto) 0.9, Baso % (Auto) 0.3, Neut # (Auto) 11.9 H, Lymph # (Auto) 2.4, [place] # (Auto) 1.5 H, Eos # (Auto) 0.2, Baso # (Auto) 0.1, Sodium 128 L, Potassium 4.1, Chloride 91 L, Carbon Dioxide 24, Anion Gap 17.1 H, BUN 34 H, Creatinine 1.50 H, Estimated GFR 33 L, Est GFR ( Amer) 40 L, Glucose 174 H, Uric Acid 8.0 H, Calcium 9.4, Magnesium 2.1, Total Bilirubin 1.3, AST 47 H, ALT 23, Alkaline Phosphatase 93, Total Creatine Kinase 115, Troponin I 0.04 H, NT-Pro-B Natriuret Pep 2190 H, Total Protein 7.5, Albumin 4.3, Globulin 3.2, Albumin/Globulin Ratio 1.3, Lipase 98, Digoxin 2.20 H* 11/28/24 16:33: VBG pH 7.45 H, VBG pCO2 38.6, VBG pO2 86.0 H, VBG HCO3 26.4, VBG Total CO2 27.6 H, VBG O2 Saturation 96.8 H, VBG Base Excess 2.5 H, VBG Lactic Acid 1.6 11/28/24 19:52: Troponin I 0.04 H 11/29/24 05:55 11/29/24 05:55 Orders (Tests/Meds): ED MEDICATIONS Generic Name Dose Route Start Last Admin Trade Name Freq PRN Reason Stop Dose Admin Acetaminophen 650 mg 11/28/24 19:23 Acetaminophen 325mg Tab PO 12/28/24 19:22 Q4HP PRN Fever or Mild Pain (1-3) Al Hydrox/Mg Hydrox/Simethicone 30 ml 11/28/24 19:23 Aluminum/Magnesium/Simethicone 30ml Udc PO 12/28/24 19:22 QIDP PRN Dyspepsia Dextrose 50 ml 11/29/24 06:30 Dextrose 50% 50ml Syringe (Crash Cart) IVP 12/29/24 06:29 NEEDED PRN Blood Sugar <60 MCG/DL Lactated Ringer's 1,000 mls @ 100 mls/hr 11/28/24 19:30 11/29/24 09:16 Lactated Ringer's 1000 Ml Bag IV 12/28/24 19:29 100 mls/hr .Q10H JENNIFER Administration Insulin Human Lispro 0 unit 11/28/24 21:00 11/29/24 11:35 Humalog 100 Units/Ml 10ml Vial (Ssi) SUBCUT 12/28/24 20:59 2 unit ACHS JENNIFER Administration Protocol Pt Own Med * 1 each 11/29/24 10:45 11/29/24 11:35 Cyanocobalamin 1,000 PO 12/29/24 10:44 1 each Mcg Cap* DAILY JENNIFER Administration Pt Own Med * 1 each 11/29/24 10:45 11/29/24 11:35 Cholecalciferol 125 PO 12/29/24 10:44 1 each Mcg Cap* DAILY JENNIFER Administration Pt Own Med * 1 each 11/29/24 10:45 11/29/24 11:35 Pyridoxine 100 Mg PO 12/29/24 10:44 1 each Tab* DAILY JENNIFER Administration Pt Own Med *Aspirin 1 each 11/29/24 11:00 11/29/24 11:35 81 Mg Ec Tab* PO 12/29/24 10:59 1 each DAILY JENNIFER Administration Pt Own Med * 1 each 11/29/24 11:00 11/29/24 11:35 Citalopram 20 Mg Tab PO 12/29/24 10:59 1 each * DAILY JENNIFER Administration Pt Own Med * 1 each 11/29/24 11:00 11/29/24 11:33 Jardiance 10 Mg Tab* PO 12/29/24 10:59 1 each DAILY JENNIFER Administration Pt Own Med *Folic 1 each 11/29/24 11:00 11/29/24 11:33 Acid 400 Mcg Tab* PO 12/29/24 10:59 1 each DAILY JENNIFER Administration Pt Own Med * 1 each 11/29/24 21:00 Atorvastatin 40 Mg PO 12/29/24 20:59 Tab* HS JENNIFER Pt Own Med *Xarelto 1 each 11/29/24 17:30 15 Mg Tab* PO 12/29/24 17:29 QPMWITHMEAL JENNIFER Pt Own Med * 1 each 11/29/24 11:00 11/29/24 11:34 Memantine Er 28 Mg PO 12/29/24 10:59 1 each Cap* DAILY JENNIFER Administration Ondansetron HCl 4 mg 11/28/24 19:23 Ondansetron 4mg/2ml Vial IV 12/28/24 19:22 Q8HP PRN Nausea Pantoprazole Sodium 40 mg 11/29/24 21:00 Pantoprazole 40mg Tablet PO 12/29/24 20:59 HS JENNIFER Discontinued Medications Generic Name Dose Route Start Last Admin Trade Name Freq PRN Reason Stop Dose Admin Aspirin 81 mg 11/29/24 09:00 11/29/24 13:17 Aspirin Ec 81mg Tablet PO 12/29/24 08:59 Not Given DAILY JENNIFER Atorvastatin Calcium 40 mg 11/29/24 21:00 Atorvastatin 40mg Tablet PO 12/29/24 20:59 HS JENNIFER Citalopram Hydrobromide 20 mg 11/29/24 09:00 11/29/24 13:17 Citalopram 20mg Tablet PO 12/29/24 08:59 Not Given DAILY JENNIFER Dextrose 50 ml 11/29/24 06:15 11/29/24 06:21 Dextrose 50% 50ml Syringe (Crash Cart) IVP 11/29/24 06:16 50 ml ONCE ONE Administration Empagliflozin 10 mg 11/29/24 09:00 11/29/24 13:17 Empagliflozin 10mg Tablet PO 12/29/24 08:59 Not Given DAILY [facility] Folic Acid 0.5 mg 11/29/24 09:00 11/29/24 13:18 Folic Acid 1mg Tablet PO 12/29/24 08:59 Not Given DAILY [facility] Memantine 10 mg 11/29/24 09:00 11/29/24 13:18 Memantine 10mg Tablet PO 12/29/24 08:59 Not Given BID [facility] Pyridoxine HCl 100 mg 11/29/24 09:00 11/29/24 13:18 Pyridoxine (Vitamin B6) 50mg Tablet PO 12/29/24 08:59 Not Given DAILY [facility] Rivaroxaban 15 mg 11/29/24 17:30 Rivaroxaban 15mg Tablet PO 12/29/24 17:29 QPMWITHMEAL [facility] Vitamin D 25 mcg 11/29/24 09:00 11/29/24 13:17 Cholecalciferol 1,000 Units (25mcg) Tablet PO 12/29/24 08:59 Not Given DAILY [facility] ORDERS Category Date Time Status CT abdomen pelvis wo con Stat Cat Scan 11/28/24 16:[address] head/brain wo con Stat Cat Scan 11/28/24 16:30 Completed Pelvis XR 1-2 views [XR pelvis 1-2V] Stat Exams 11/28/24 16:30 Completed XR chest portable Stat Exams 11/28/24 16:27 Completed Basic Metabolic Panel AMLAB Lab 11/29/24 05:55 Completed CK [Creatine Kinase] Stat Lab 11/28/24 15:50 Completed Complete Blood Count Auto Diff AMLAB Lab 11/29/24 05:55 Completed Complete Blood Count Auto Diff Stat Lab 11/28/24 15:50 Completed Comprehensive Metabolic Panel Stat Lab 11/28/24 15:50 Completed Digoxin Stat Lab 11/28/24 15:50 Completed Lipase Stat Lab 11/28/24 15:50 Completed Magnesium Stat Lab 11/28/24 15:50 Completed NT Pro Brain Natriuretic Pep. Stat Lab 11/28/24 15:50 Completed Troponin I Q3H Lab 11/28/24 19:52 Completed Troponin I Q3H Lab 11/28/24 22:35 Completed Troponin I Stat Lab 11/28/24 15:50 Completed Uric Acid Stat Lab 11/28/24 15:50 Completed Urinalysis and Microscopic Stat Lab 11/28/24 14:30 Completed Urine Culture Stat Micro 11/28/24 14:30 Received VBG [Venous Blood Gas] Stat RT 11/28/24 16:33 Completed Medical Decision Narrative: 84-year-old female presents the emergency department with failure to thrive, generalized weakness and altered mental status, differential diagnose include but not limited to, rhabdomyolysis, cardiac arrhythmia, acute hypovolemia, electrolyte disturbance, sepsis, pneumonia, acute UTI, acute pyelonephritis, metabolic encephalopathy, uremic encephalopathy, encephalopathy among others. I discussed patient case with attending physician Dr. Barragan Will obtain basic laboratory studies, CT head without contrast, CXR, pelvic x- ray, CK level, lactic acid level lipase level magnesium level proBNP troponin uric acid, UA, CT abdomen pelvis with contrast, CBC notable for mild leukocytosis 16.1 UA is negative CMP is notable for mild hyponatremia at 128, anion gap of 17.1, BUN is elevated 34, creatinine is up at 1.5, GFR 33, gas level is 8, total CK level is within normal limits, AST is minimally elevated at 47, proBNP is elevated at 2190, I had a long discussion with the patient's son (Constantino) at the bedside, he is not the power of olericulturist, and they are still in the process of establishing power of olericulturist, patient lives with her son as stated previously as well as her who was not present at the bedside, patient's son tells me that failure to thrive and generalized weakness have been ongoing for the last several weeks, refusal to eat for the last 3 to 4 days, patient has been essentially chair bound , for the last week. Will change CT abdomen pelvis with contrast to CT abdomen pelvis noncontrast due to the patient's GFR and acute kidney injury. Troponin is mildly elevated at 0.04. VBG is notable for pH of 7.45, PO2 is minimally elevated at 86, otherwise unremarkable VBG I reviewed the patient's chest x-ray, and pelvic x-ray along with corresponding radiologic reports, there are no acute findings except for degenerative changes on the patient's bilateral hips. No acute findings in the chest x-ray. I reviewed the patient's CT and pelvis without contrast, the corresponding radiologic report, fluid-filled small bowel loops with mucosal prominence correlate for viral enteritis symptoms, cholelithiasis. I reviewed the patient's CT head without contrast on the corresponding radiologic report, no acute intracranial abnormality. I called the hospitalist physician at 7:15 PM, they will call me back as they are currently undergoing handoff at this time. Discussed this patient's case with the hospitalist provider Gena Simeon APRN at approximately 7:23 PM, she is agree with current admission plan/treatment plan. Discussed need for admission with the patient at the bedside patient family agreed with current treatment plan/admission plan. Patient had an episode of bradycardia in the emergency department, obtain repeat EKG, patient has sinus bradycardia with a first-degree AV block with occasional PVCs at 47 bpm, HI interval is mildly increased at 317, QT interval is 448/412, I along with the attending physician for this patient's EKG at 1930, patient is otherwise hemodynamically stable, currently on 2 L nasal cannula for comfort, will obtain digoxin level. Discussed this with hospitalist provider Gena Simeon APRN hospitalist provider at approximately 7:45 PM to close the loop. She voiced understanding and was made aware of bradycardic episode. <César Barragan MD - Last Filed: 11/29/24 15:14> Vital Signs: 11/28/24 16:32 11/28/24 16:34 11/28/24 17:00 Temperature 98.2 F Temperature Source Oral Pulse Rate 61 56 L Pulse Rate [Left Radial] 71 Respiratory Rate 20 18 Blood Pressure 133/52 L 124/64 Blood Pressure [Right Arm] 133/52 L Blood Pressure Mean [Right Arm] 79 Blood Pressure Source Blood Pressure Source [Right Arm] Blood Pressure Position 02 Sat by Pulse Oximetry 96 99 96 Oxygen Delivery Method Room Air Room Air Room Air Oxygen Flow Rate (LPM) 11/28/24 17:53 11/28/24 18:00 11/28/24 18:30 Temperature Temperature Source Pulse Rate 50 L 49 L 47 L Pulse Rate [Left Radial] Respiratory Rate 17 15 17 Blood Pressure 123/55 L 115/61 122/56 L Blood Pressure [Right Arm] Blood Pressure Mean [Right Arm] Blood Pressure Source Blood Pressure Source [Right Arm] Blood Pressure Position 02 Sat by Pulse Oximetry 97 96 100 Oxygen Delivery Method Oxygen Flow Rate (LPM) 11/28/24 18:32 11/28/24 18:45 11/28/24 19:00 Temperature Temperature Source Pulse Rate 41 L 48 L 41 L Pulse Rate [Left Radial] Respiratory Rate 17 15 18 Blood Pressure 121/50 L 121/57 L Blood Pressure [Right Arm] Blood Pressure Mean [Right Arm] Blood Pressure Source Blood Pressure Source [Right Arm] Blood Pressure Position 02 Sat by Pulse Oximetry 99 100 100 Oxygen Delivery Method Oxygen Flow Rate (LPM) 11/28/24 19:30 11/28/24 19:57 11/28/24 19:59 Temperature 98.3 F Temperature Source Oral Pulse Rate 44 L 42 L Pulse Rate [Left Radial] Respiratory Rate 12 16 Blood Pressure 121/59 L 121/59 L Blood Pressure [Right Arm] Blood Pressure Mean [Right Arm] Blood Pressure Source Automatic Cuff Blood Pressure Source [Right Arm] Blood Pressure Position Supine 02 Sat by Pulse Oximetry 100 Oxygen Delivery Method Nasal Cannula Nasal Cannula Oxygen Flow Rate (LPM) 2 3 11/28/24 20:00 11/28/24 20:00 Temperature 97.6 F Temperature Source Oral Pulse Rate 50 L Pulse Rate [Left Radial] 46 L Respiratory Rate 18 Blood Pressure Blood Pressure [Right Arm] 121/64 Blood Pressure Mean [Right Arm] 83 Blood Pressure Source Blood Pressure Source [Right Arm] Automatic Cuff Blood Pressure Position 02 Sat by Pulse Oximetry 100 Oxygen Delivery Method Nasal Cannula Oxygen Flow Rate (LPM) 3 Lab Data Lab Results 11/28/24 14:30: Urine Color Yellow, Urine Appearance Clear, Urine pH 6.0, Ur Specific Bliss 1.010, Urine Protein Negative, Urine Glucose (UA) Negative, Urine Ketones Trace, Urine Blood Negative, Urine Nitrate Negative, Urine Bilirubin Negative, Urine Urobilinogen 0.2, Ur Leukocyte Esterase Negative, Urine RBC 5-10, Urine WBC 3-5, Ur Squamous Epith Cells 5-10, Urine Bacteria 2+, Hyaline Casts 3-5, Urine Mucus 2+ 11/28/24 15:50: WBC 16.1 H, RBC 5.20, Hgb 14.4, Hct 43.2, MCV 83.1, MCH 27.7, MCHC 33.3, RDW 15.5, Plt Count 290, MPV 11.3 H, Neut % (Auto) 74.3, Lymph % (Auto) 14.8, [place] % (Auto) 9.2, Eos % (Auto) 0.9, Baso % (Auto) 0.3, Neut # (Auto) 11.9 H, Lymph # (Auto) 2.4, [place] # (Auto) 1.5 H, Eos # (Auto) 0.2, Baso # (Auto) 0.1, Sodium 128 L, Potassium 4.1, Chloride 91 L, Carbon Dioxide 24, Anion Gap 17.1 H, BUN 34 H, Creatinine 1.50 H, Estimated GFR 33 L, Est GFR ( Amer) 40 L, Glucose 174 H, Uric Acid 8.0 H, Calcium 9.4, Magnesium 2.1, Total Bilirubin 1.3, AST 47 H, ALT 23, Alkaline Phosphatase 93, Total Creatine Kinase 115, Troponin I 0.04 H, NT-Pro-B Natriuret Pep 2190 H, Total Protein 7.5, Albumin 4.3, Globulin 3.2, Albumin/Globulin Ratio 1.3, Lipase 98, Digoxin 2.20 H* 11/28/24 16:33: VBG pH 7.45 H, VBG pCO2 38.6, VBG pO2 86.0 H, VBG HCO3 26.4, VBG Total CO2 27.6 H, VBG O2 Saturation 96.8 H, VBG Base Excess 2.5 H, VBG Lactic Acid 1.6 11/28/24 19:52: Troponin I 0.04 H Orders (Tests/Meds): ED MEDICATIONS Generic Name Dose Route Start Last Admin Trade Name Freq PRN Reason Stop Dose Admin Acetaminophen 650 mg 11/28/24 19:23 Acetaminophen 325mg Tab PO 12/28/24 19:22 Q4HP PRN Fever or Mild Pain (1-3) Al Hydrox/Mg Hydrox/Simethicone 30 ml 11/28/24 19:23 Aluminum/Magnesium/Simethicone 30ml Udc PO 12/28/24 19:22 QIDP PRN Dyspepsia Dextrose 50 ml 11/29/24 06:30 Dextrose 50% 50ml Syringe (Crash Cart) IVP 12/29/24 06:29 NEEDED PRN Blood Sugar <60 MCG/DL Lactated Ringer's 1,000 mls @ 100 mls/hr 11/28/24 19:30 11/29/24 09:16 Lactated Ringer's 1000 Ml Bag IV 12/28/24 19:29 100 mls/hr .Q10H JENNIFER Administration Insulin Human Lispro 0 unit 11/28/24 21:00 11/29/24 11:35 Humalog 100 Units/Ml 10ml Vial (Ssi) SUBCUT 12/28/24 20:59 2 unit ACHS JENNIFER Administration Protocol Pt Own Med * 1 each 11/29/24 10:45 11/29/24 11:35 Cyanocobalamin 1,000 PO 12/29/24 10:44 1 each Mcg Cap* DAILY JENNIFER Administration Pt Own Med * 1 each 11/29/24 10:45 11/29/24 11:35 Cholecalciferol 125 PO 12/29/24 10:44 1 each Mcg Cap* DAILY JENNIFER Administration Pt Own Med * 1 each 11/29/24 10:45 11/29/24 11:35 Pyridoxine 100 Mg PO 12/29/24 10:44 1 each Tab* DAILY JENNIFER Administration Pt Own Med *Aspirin 1 each 11/29/24 11:00 11/29/24 11:35 81 Mg Ec Tab* PO 12/29/24 10:59 1 each DAILY JENNIFER Administration Pt Own Med * 1 each 11/29/24 11:00 11/29/24 11:35 Citalopram 20 Mg Tab PO 12/29/24 10:59 1 each * DAILY JENNIFER Administration Pt Own Med * 1 each 11/29/24 11:00 11/29/24 11:33 Jardiance 10 Mg Tab* PO 12/29/24 10:59 1 each DAILY JENNIFER Administration Pt Own Med *Folic 1 each 11/29/24 11:00 11/29/24 11:33 Acid 400 Mcg Tab* PO 12/29/24 10:59 1 each DAILY JENNIFER Administration Pt Own Med * 1 each 11/29/24 21:00 Atorvastatin 40 Mg PO 12/29/24 20:59 Tab* HS JENNIFER Pt Own Med *Xarelto 1 each 11/29/24 17:30 15 Mg Tab* PO 12/29/24 17:29 QPMWITHMEAL JENNIFER Pt Own Med * 1 each 11/29/24 11:00 11/29/24 11:34 Memantine Er 28 Mg PO 12/29/24 10:59 1 each Cap* DAILY JENNIFER Administration Ondansetron HCl 4 mg 11/28/24 19:23 Ondansetron 4mg/2ml Vial IV 12/28/24 19:22 Q8HP PRN Nausea Pantoprazole Sodium 40 mg 11/29/24 21:00 Pantoprazole 40mg Tablet PO 12/29/24 20:59 HS JENNIFER Discontinued Medications Generic Name Dose Route Start Last Admin Trade Name Freq PRN Reason Stop Dose Admin Aspirin 81 mg 11/29/24 09:00 11/29/24 13:17 Aspirin Ec 81mg Tablet PO 12/29/24 08:59 Not Given DAILY JENNIFER Atorvastatin Calcium 40 mg 11/29/24 21:00 Atorvastatin 40mg Tablet PO 12/29/24 20:59 HS JENNIFER Citalopram Hydrobromide 20 mg 11/29/24 09:00 11/29/24 13:17 Citalopram 20mg Tablet PO 12/29/24 08:59 Not Given DAILY JENNIFER Dextrose 50 ml 11/29/24 06:15 11/29/24 06:21 Dextrose 50% 50ml Syringe (Crash Cart) IVP 11/29/24 06:16 50 ml ONCE ONE Administration Empagliflozin 10 mg 11/29/24 09:00 11/29/24 13:17 Empagliflozin 10mg Tablet PO 12/29/24 08:59 Not Given DAILY JENNIFER Folic Acid 0.5 mg 11/29/24 09:00 11/29/24 13:18 Folic Acid 1mg Tablet PO 12/29/24 08:59 Not Given DAILY JENNIFER Memantine 10 mg 11/29/24 09:00 11/29/24 13:18 Memantine 10mg Tablet PO 12/29/24 08:59 Not Given BID JENNIFER Pyridoxine HCl 100 mg 11/29/24 09:00 11/29/24 13:18 Pyridoxine (Vitamin B6) 50mg Tablet PO 12/29/24 08:59 Not Given DAILY JENNIFER Rivaroxaban 15 mg 11/29/24 17:30 Rivaroxaban 15mg Tablet PO 12/29/24 17:29 QPMWITHMEAL JENNIFER Vitamin D 25 mcg 11/29/24 09:00 11/29/24 13:17 Cholecalciferol 1,000 Units (25mcg) Tablet PO 12/29/24 08:59 Not Given DAILY JENNIFER ORDERS Category Date Time Status CT abdomen pelvis wo con Stat Cat Scan 11/28/24 16:[address] head/brain wo con Stat Cat Scan 11/28/24 16:30 Completed Pelvis XR 1-2 views [XR pelvis 1-2V] Stat Exams 11/28/24 16:30 Completed XR chest portable Stat Exams 11/28/24 16:27 Completed Basic Metabolic Panel AMLAB Lab 11/29/24 05:55 Completed CK [Creatine Kinase] Stat Lab 11/28/24 15:50 Completed Complete Blood Count Auto Diff AMLAB Lab 11/29/24 05:55 Completed Complete Blood Count Auto Diff Stat Lab 11/28/24 15:50 Completed Comprehensive Metabolic Panel Stat Lab 11/28/24 15:50 Completed Digoxin Stat Lab 11/28/24 15:50 Completed Lipase Stat Lab 11/28/24 15:50 Completed Magnesium Stat Lab 11/28/24 15:50 Completed NT Pro Brain Natriuretic Pep. Stat Lab 11/28/24 15:50 Completed Troponin I Q3H Lab 11/28/24 19:52 Completed Troponin I Q3H Lab 11/28/24 22:35 Completed Troponin I Stat Lab 11/28/24 15:50 Completed Uric Acid Stat Lab 11/28/24 15:50 Completed Urinalysis and Microscopic Stat Lab 11/28/24 14:30 Completed Urine Culture Stat Micro 11/28/24 14:30 Received VBG [Venous Blood Gas] Stat RT 11/28/24 16:33 Completed ECG Data Tracing #1: I reviewed this ECG and interpreted as documented below: (Atrial fibrillation with controlled response of 58 bpm. No discernible P waves in general. T wave inversions in 3 and aVF with no reciprocal elevations. Incomplete right bundle branch block morphology QRS 97, QTc 417 with normal axis) Medical Decision Narrative: 84-year-old female presents the emergency department with failure to thrive, generalized weakness and altered mental status, differential diagnose include but not limited to, rhabdomyolysis, cardiac arrhythmia, acute hypovolemia, electrolyte disturbance, sepsis, pneumonia, acute UTI, acute pyelonephritis, metabolic encephalopathy, uremic encephalopathy, encephalopathy among others. I discussed patient case with attending physician Dr. Barragan Will obtain basic laboratory studies, CT head without contrast, CXR, pelvic x- ray, CK level, lactic acid level lipase level magnesium level proBNP troponin uric acid, UA, CT abdomen pelvis with contrast, CBC notable for mild leukocytosis 16.1 UA is negative CMP is notable for mild hyponatremia at 128, anion gap of 17.1, BUN is elevated 34, creatinine is up at 1.5, GFR 33, gas level is 8, total CK level is within normal limits, AST is minimally elevated at 47, proBNP is elevated at 2190, I had a long discussion with the patient's son (Constantino) at the bedside, he is not the power of olericulturist, and they are still in the process of establishing power of olericulturist, patient lives with her son as stated previously as well as her who was not present at the bedside, patient's son tells me that failure to thrive and generalized weakness have been ongoing for the last several weeks, refusal to eat for the last 3 to 4 days, patient has been essentially chair bound , for the last week. Will change CT abdomen pelvis with contrast to CT abdomen pelvis noncontrast due to the patient's GFR and acute kidney injury. Troponin is mildly elevated at 0.04. VBG is notable for pH of 7.45, PO2 is minimally elevated at 86, otherwise unremarkable VBG I reviewed the patient's chest x-ray, and pelvic x-ray along with corresponding radiologic reports, there are no acute findings except for degenerative changes on the patient's bilateral hips. No acute findings in the chest x-ray. I reviewed the patient's CT and pelvis without contrast, the corresponding radiologic report, fluid-filled small bowel loops with mucosal prominence correlate for viral enteritis symptoms, cholelithiasis. I reviewed the patient's CT head without contrast on the corresponding radiologic report, no acute intracranial abnormality. I called the hospitalist physician at 7:15 PM, they will call me back as they are currently undergoing handoff at this time. Discussed this patient's case with the hospitalist provider Gena Simeon APRN at approximately 7:23 PM, she is agree with current admission plan/treatment plan. Discussed need for admission with the patient at the bedside patient family agreed with current treatment plan/admission plan. Patient had an episode of bradycardia in the emergency department, obtain repeat EKG, patient has sinus bradycardia with a first-degree AV block with occasional PVCs at 47 bpm, HI interval is mildly increased at 317, QT interval is 448/412, I along with the attending physician for this patient's EKG at 1930, patient is otherwise hemodynamically stable, currently on 2 L nasal cannula for comfort, will obtain digoxin level. Discussed this with hospitalist provider Gena Simeon APRN hospitalist provider at approximately 7:45 PM to close the loop. She voiced understanding and was made aware of bradycardic episode. I was consulted by the DANILO, and we discussed the complexity of the problems being addressed. I approved the treatment and management plan for this patient's care in the Emergency Department, thus performing a substantive portion of the medical decision making. César Barragan MD Critical Care <TYLER Rowland - Last Filed: 11/28/24 20:51> Critical Care Time Critical Care Time: No
--- NOTE | 2024-11-28 16:32 | PC.NURSE ---
pt has been cleaned and placed in gown. purewick has also been placed.
--- NOTE | 2024-11-28 16:33 | CT_ITS ---
PROCEDURE INFORMATION: Exam: CT Abdomen And Pelvis Without Contrast Exam date and time: 11/28/2024 5:32 PM Age: 84 years old Clinical indication: Abdominal pain; Additional info: Abd pain/diarrhea TECHNIQUE: Imaging protocol: Computed tomography of the abdomen and pelvis without contrast. Radiation optimization: All CT scans at this facility use at least one of these dose optimization techniques: automated exposure control; mA and/or kV adjustment per patient size (includes targeted exams where dose is matched to clinical indication); or iterative reconstruction. COMPARISON: CR XR PELVIS 1-2V 11/28/2024 4:36 PM FINDINGS: Liver: Normal. No mass. Gallbladder and biliary ducts: Normal. No calcified stones. No ductal dilation. Pancreas: Normal. No ductal dilation. Spleen: Normal. No splenomegaly. Adrenal glands: Normal. No mass. Kidneys and ureters: No nephroureterolithiasis or hydroureter. Stomach and bowel: Nonobstructive fluid-filled loops of small bowel with mucosal prominence. Appendix: Not visualized. No pericecal fat stranding. Intraperitoneal space: Unremarkable. No free air. No significant fluid collection. Vasculature: Atherosclerotic calcification of aortoiliac arteries without aneurysm. Lymph nodes: Unremarkable. No enlarged lymph nodes. Urinary bladder: Unremarkable as visualized. Reproductive: Calcified uterine fibroid. Bones/joints: Unremarkable. No acute fracture. Soft tissues: Unremarkable. Other findings: Tiny calculi and debris without wall thickening. IMPRESSION: 1. Fluid-filled small bowel loops with mucosal prominence. Correlate for viral enteritis symptoms. 2. Cholelithiasis.
--- NOTE | 2024-11-28 16:33 | PC.NURSE ---
[facility] is at bedside for xrays at this time
[2024-11-28 16:40] LABS: Microscopic, Urine URINE MICROSCOPIC (MICROSCOPIC)
[2024-11-28 16:41] LABS: Hematocrit 43.2 % (37.0-47.0); Hemoglobin 14.4 g/dL (12.2-16.2); Immature Granulocytes % 0.5 %; Mean Corpuscular HGB Conc 33.3 g/dL (31.8-35.4); Mean Corpuscular Hemoglobin 27.7 pg (27.0-31.2); Mean Corpuscular Volume 83.1 fl (81-99); Nucleated Red Blood Cells % 0 %; Platelet Count 290 K/mm3 (142-424); Red Blood Count 5.20 M/mm3 (4.20-5.40); Red Cell Distribution Width-SD 46.3 fL; White Blood Count 16.1 K/mm3 (4.8-10.8)
[2024-11-28 16:44] LABS: Bilirubin,Urine Negative (Negative); Color,Urine YELLOW (Yellow); Glucose,Urine (UA) Negative (Negative); Ketones,Urine TRACE (Negative); Leukocyte Esterase,Urine Negative (Negative); PH,Urine 6.0 (5.0-8.5); Protein,Urine Negative (Negative); Specific Gravity, Urine 1.010 (1.005-1.030); Urobilinogen,Urine 0.2 EU/dl (0.2)
[2024-11-28 16:49] LABS: Uric Acid 8.0 mg/dl (2.5-6.2)
[2024-11-28 16:50] LABS: Alanine Aminotransferase 23 U/L (12-78); Albumin Level 4.3 g/dl (3.5-5.0); Albumin/Globulin Ratio 1.3 (1.1-1.8); Alkaline Phosphatase 93 U/L (38-126); Anion Gap 17.1 mEq/L (5-15); Aspartate Amino Transferase 47 U/L (14-36); Bilirubin,Total 1.3 mg/dl (0.2-1.3); Blood Urea Nitrogen 34 mg/dl (7-17); Calcium 9.4 mg/dl (8.4-10.2); Carbon Dioxide 24 mmol/L (22.0-30.0); Chloride 91 mmol/L (98-107); Creatine Kinase 115 U/L (30-135); Creatinine,Serum 1.50 mg/dl (0.52-1.04); Estimated Glomerular Filt Rate 33 ml/min (>60); GFR (African American) 40 ML/MIN (>60); Globulin 3.2 g/dL (1.3-3.2); Glucose 174 mg/dl (74-100); Lipase 98 U/L (23-300); Magnesium 2.1 mg/dl (1.6-2.3); Potassium 4.1 mmoL/L (3.5-5.1); Sodium 128 mmol/L (136-145); Total Protein,Serum 7.5 g/dl (6.3-8.2)
[2024-11-28 16:58] LABS: Bacteria,Urine 2+ /lpf
[2024-11-28 16:59] LABS: NT Pro Brain Natriuretic Pep. 2190 pg/mL (0-450)
[2024-11-28 16:59] LABS: Mucus,Urine 2+ /lpf
[2024-11-28 17:02] LABS: Troponin I 0.04 ng/ml (0.00-0.034)
[2024-11-28 17:20] LABS: Lactate Venous 1.6 mmol/L (0.4-2.0); VBG HCO3 26.4 mmol/L (23-30); VBG PCO2 38.6 mmol/L (35-51); VBG PH 7.45 mmol/L (7.31-7.41); VBG PO2 86.0 mmol/L (28-40)
--- NOTE | 2024-11-28 17:30 | ECG_ITS ---
APPROVED REPORT Exam: Resting ECG HR:47 bpm ECG Measurements Heart Rate 47 AXES AK 317 P 12 QRSd 98 QRS 104 QT 448 T 0 QTc 412 Conclusion SINUS BRADYCARDIA WITH FIRST DEGREE AV BLOCK WITH OCCASIONAL SUPRAVENTRICULAR PREMATURE COMPLEXES RIGHT AXIS DEVIATION [QRS AXIS > 100] LOW QRS VOLTAGE IN PRECORDIAL LEADS [QRS DEFLECTION < 1.0 mV IN CHEST LEADS] INCOMPLETE RIGHT BUNDLE BRANCH BLOCK [90+ ms QRS DURATION, TERMINAL R IN V1/V2, 40+ ms S IN I/aVL/V4/V5/V6] MINIMAL ST DEPRESSION [0.025+ mV ST DEPRESSION] No STEMI Electronically signed by : RONAK LYMAN, 11/29/2024 06:04:32
--- NOTE | 2024-11-28 19:56 | PC.NURSE ---
Report called to Razia on M/S
--- NOTE | 2024-11-28 20:26 | PC.NURSE ---
PT ARRIVED TO FLOOR AT THIS TIME
[2024-11-28 20:30] LABS: Troponin I 0.04 ng/ml (0.00-0.034)
[2024-11-28 20:35] LABS: Digoxin 2.20 ng/ml (0.2-2.00)
[2024-11-28] MEDS: LACTATED RINGERS 1000ML 1,000 ML 100 ML IV (20:49)
--- NOTE | 2024-11-28 20:54 | P.HP_ITS ---
<Statement entered by Juan Francisco Varma MD - 11/29/24 18:06> Rounded on patient after nurse practitioner. Personally examined and interviewed patient. Agree with exam findings and care plan as documented. History of Present Illness *Admission Date: 11/28/24 *Reason for visit:: Failure to thrive *History of present illness: Ms. Stanley is a 84-year-old female presents the ER for evaluation of heat exhaustion. Patient has past medical history of dementia, diabetes mellitus, TIA, DVT, hyperlipidemia, A-fib, and GERD. Patient's son is at the bedside and is primary historian. He states that patient mostly sits in a sofa like chair all day. He states for the last 3 to 4 days patient has not been eating and drinking. He states it has been a fight to get her to eat even a little bit. He states it takes a lot of prompting for her to continue to eat. He states for past week he has had to get her up out of bed at 11 30-12 o'clock. States she was ambulating in the house with walker prior to this. He states they do not have any air conditioning at their house and was going to bring her to his aunts house a mile away. He states they got there and he was trying to get her to go up the stairs and patient would not climb stairs. He states she kept saying that she was going to fall. He states she ended up falling back onto him and that is when he called EMS to transport to ER. He states last Saturday patient was able to ambulate with walker and go out to eat in [place] and patient has consistently declined after that. He states she also was able to go to physical therapy 3 weeks ago but has not been wanting to get up and out of the house. Patient denies fever/chills, cough, congestion, runny nose, dyspnea, chest pain, nausea, vomiting, diarrhea, constipation, headache, lightheadedness, dizziness, or syncope. [facility] Disclaimer: The information contained in this section may have been updated after the patient was seen, as this information can be updated by other users. Medical History Dementia Diabetes History of transient ischemic attack (TIA) Deep vein thrombosis (DVT) HLD (hyperlipidemia) Depression Arrhythmia GERD (gastroesophageal reflux disease) Diabetes mellitus, type 2 Atrial fibrillation Surgical History Hx of tonsillectomy S/P ankle ligament repair Family History Other Family history of diabetes mellitus type II Family history of myocardial infarction Social History (Updated 11/28/24 @ 21:03 by Mary Cavazos RN) Smoking Status: Never smoker alcohol intake: never substance use type: denies use current occupational status: retired Travel in the last 8 weeks?: None household members: spouse and children housing: house caffeine: Yes Have you lived/traveled outside US in past 30 days?: No Contact w/someone who lives/traveled outside US past 30 days?: No Exposure to someone with infectious disease in past 14 days?: No Do you have a fever (greater than 100.4 F or 38 C)?: No Have you tested positive for COVID-19?: No Exposed to someone with COVID-19 in past 14 days?: No Do you have a sore throat?: No Do you have a cough?: No Do you have any weakness?: No Are you experiencing any nausea/vomitting?: No Do you have any diarrhea?: No Are you experiencing any unusual bleeding?: No Do you have any muscle aches/pain?: No Do you have any abdominal pain?: No Are you experiencing loss of taste or smell?: No Other Medical History Have you received the Flu Vaccine for this season: No Have you received the Pneumonia Vaccine: No Review of Systems Constitutional Constitutional: Denies chills, Denies fever(s) and Denies headache(s) ENT Ears, Nose, Mouth, and Throat: Denies dizziness and Denies headache(s) *Cardiovascular Cardiovascular: Denies chest pain and Denies dyspnea *Respiratory Respiratory: Denies cough and Denies dyspnea *Gastrointestinal Gastrointestinal: Denies abdominal pain, Denies constipation and Denies vomiting *Genitourinary Genitourinary: Reports system reviewed and no additional complaints, except as documented *Musculoskeletal Musculoskeletal: Reports system reviewed and no additional complaints, except as documented *Neurologic Neurologic: Denies dizziness and Denies headache(s) Allergic/Immunologic Allergic/Immunologic: Denies seasonal rhinorrhea Meds Home Medications and Allergies Home Medications ?Medication ?Instructions ?Recorded ?Confirmed ?Type aspirin 81 mg tablet,delayed 81 mg PO DAILY 08/14/17 0 11/28/24 History release atorvastatin 40 mg tablet 40 mg PO HS Cholesterol 08/0111/28/24 History citalopram 20 mg tablet 20 mg PO DAILY 08/14/1711/02 History cyanocobalamin (vitamin B-12) 1,000 mcg PO DAILY Suppl ement 08/14/17 11/28/24 History 1,000 mcg capsule folic acid 400 mcg tablet 0.4 mg PO DAILY SUPLEMENT 11/28/24 History memantine 28 mg capsule 28 mg PO DAILY 08/14/1711/02 History sprinkle,extended release 24hr pyridoxine (vitamin B6) 100 mg 100 mg PO DAILY Supplem ent 08/14/17 11/28/24 History tablet cholecalciferol (vitamin D3) 25 25 mcg PO DAILY SUPPLI MENT 08/23/20 11/28/24 History mcg (1,000 unit) capsule omeprazole 40 mg capsule,delayed 20 mg PO DAILY GERD 0 10/03/21 11/28/24 History release rivaroxaban 15 mg tablet (Xarelto) 15 mg PO QPMWITHMEA L 02/13/23 11/28/24 History digoxin 125 mcg (0.125 mg) tablet 125 mcg PO DAILY 11/28/24 History empagliflozin 10 mg tablet 10 mg PO DAILY #30 tabs 11/28/24 Rx (Jardiance) furosemide 40 mg tablet (Lasix) 40 mg PO DAILY #30 tab s 08/14/24 11/28/24 Rx spironolactone 25 mg tablet 25 mg PO DAILY #30 tabs 11/28/24 Rx glipizide 5 mg tablet, extended 5 mg PO ONCE 09/23/24 11/28/24 History release 24 hr New Prescriptions to Start Prescriptions: Allergies Allergy/AdvReac Type Severity Reaction Status Date / Time Penicillins Allergy Unknown Unknown Verified 11/28/24 17:06 allergy reaction Exam Data for Last 24 hours Vital signs and Labs for Last 24 Hours: Temp Pulse Resp BP Pulse Ox O2 Del Method O2 Flow Rate 97.6 F 46 L 18 121/64 100 Nasal Cannula 3 11/28/24 20:00 11/28/24 20:00 11/28/24 20:00 11/28/24 20:00 11/28/24 20:00 11/28/24 20:00 11/28/24 20:00 Laboratory Results - last 24 hr 11/28/24 14:30: Urine Color Yellow, Urine Appearance Clear, Urine pH 6.0, Ur Specific [place] 1.010, Urine Protein Negative, Urine Glucose (UA) Negative, Urine Ketones Trace, Urine Blood Negative, Urine Nitrate Negative, Urine Bilirubin Negative, Urine Urobilinogen 0.2, Ur Leukocyte Esterase Negative, Urine RBC 5-10, Urine WBC 3-5, Ur Squamous Epith Cells 5-10, Urine Bacteria 2+, Hyaline Casts 3-5, Urine Mucus 2+ 11/28/24 15:50: WBC 16.1 H, RBC 5.20, Hgb 14.4, Hct 43.2, MCV 83.1, MCH 27.7, MCHC 33.3, RDW 15.5, Plt Count 290, MPV 11.3 H, Neut % (Auto) 74.3, Lymph % (Auto) 14.8, [place] % (Auto) 9.2, Eos % (Auto) 0.9, Baso % (Auto) 0.3, Neut # (Auto) 11.9 H, Lymph # (Auto) 2.4, [place] # (Auto) 1.5 H, Eos # (Auto) 0.2, Baso # (Auto) 0.1, Sodium 128 L, Potassium 4.1, Chloride 91 L, Carbon Dioxide 24, Anion Gap 17.1 H, BUN 34 H, Creatinine 1.50 H, Estimated GFR 33 L, Est GFR ( Amer) 40 L, Glucose 174 H, Uric Acid 8.0 H, Calcium 9.4, Magnesium 2.1, Total Bilirubin 1.3, AST 47 H, ALT 23, Alkaline Phosphatase 93, Total Creatine Kinase 115, Troponin I 0.04 H, NT-Pro-B Natriuret Pep 2190 H, Total Protein 7.5, [place] min 4.3, Globulin 3.2, Albumin/Globulin Ratio 1.3, Lipase 98, Digoxin 2.20 H* 11/28/24 16:33: VBG pH 7.45 H, VBG pCO2 38.6, VBG pO2 86.0 H, VBG HCO3 26.4, VBG Total CO2 27.6 H, VBG O2 Saturation 96.8 H, VBG Base Excess 2.5 H, VBG Lactic Ac id 1.6 11/28/24 19:52: Troponin I 0.04 H I & O for Last 24 hours: Intake & Output 11/25/24 11/26/24 11/27/24 11/28/24 23:59 23:59 23:59 23:59 Output Total 475 / 475 Balance -475 / -475 Weight 90.718 kg *Routine HEENT Exam Head: Present normocephalic and atraumatic Eye: Present EOMI and PERRL ENT: Present mucous membranes moist and oropharynx clear *Routine Neck Exam Neck: Present supple and full ROM *Routine Respiratory Exam Respiratory: Present CTA bilaterally, normal respiratory effort, able to speak in complete sentences and symmetric chest movement; Absent accessory muscle use or respiratory distress *Routine Cardiovascular Exam Cardiovascular: Present RRR, Normal S1, Normal S2 and bradycardia *Routine Abdominal Exam Abdominal: Present soft and obese; Absent normoactive bowel sounds (decreased bowel sounds) or tenderness *Routine Rectal Exam Rectal:: deferred *Routine Genitalia Exam Genitalia:: deferred *Routine Extremities Exam Extremities: Present edema, full ROM, pulses intact and normal capillary refill *Routine Skin Exam Skin: Present dry and warm; Absent intact (some scabs noted to left lower extremity) *Routine Neurological Exam Neurological: Present alert, oriented X3 (not orientated to situation) and CN II-XII intact Assessment and Plan *Assessment and plan (1) Generalized weakness: Status: Acute Category: Medical Code(s): R53.1 - Weakness Plan: Patient not eating or drinking x 3 to 4 days Heat exhaustion could be a contributing factor to generalized weakness Per my review of CT abdomen pelvis there is concern for viral enteritis Consult placed with PT and OT Rehydrate with IV fluids (2) Failure to thrive: Status: Acute Category: Medical Plan: Patient not eating or drinking x 3 to 4 days Encourage p.o. intake (3) Acute kidney injury: Status: Acute Category: Medical Code(s): N17.9 - Acute kidney failure, unspecified Plan: LR at 100 mL/HR, monitor for fluid overload Repeat BMP in the a.m. Avoid nephrotoxic agents when possible Creatinine on admission 1.50 Baseline creatinin 0.80-1.00 (4) Atrial fibrillation: Status: Chronic Qualifiers: Atrial fibrillation type: unspecified Qualified Code(s): I48.91 - Unspecified atrial fibrillation Category: Medical Code(s): I48.91 - Unspecified atrial fibrillation Plan: Continue patient's home dose of Xarelto 15 mg in the evening with meals Patient is on digoxin 125 mcg daily, hold at this time (5) Bradycardia: Status: Acute Category: Medical Code(s): R00.1 - Bradycardia, unspecified Plan: Patient is on digoxin 125 mcg daily, hold at this time Heart rate 41-56 (6) Leukocytosis: Status: Acute Category: Medical Code(s): D72.829 - Elevated white blood cell count, unspecified Plan: Patient is afebrile, not hypotensive, urinalysis does not appear infectious Monitor CBC, chest x-ray negative for infiltrates Will hold off on antibiotic therapy WBC 16.1 (7) Elevated troponin: Status: Acute Category: Medical Code(s): R79.89 - Other specified abnormal findings of blood chemistry Plan: Troponin 0.04 Denies chest pain Per my interpretation of EKG today: minimal ST depression otherwise unchanged from EKG on 08/12/2024 (8) Digoxin toxicity: Status: Acute Category: Medical Code(s): T46.0X1A - Poisoning by cardiac-stimulant glycosides and drugs of similar action, accidental (unintentional), initial encounter Plan: Digoxin level 2.20 Hold home digoxin for now Heart rate 41-56 (9) Hyponatremia: Status: Resolved Category: Medical Code(s): E87.1 - Hypo-osmolality and hyponatremia Plan: Continue IV fluids Monitor BMP in the a.m. Plan Spoke with Hernan in the ER as well as patient's son Constantino at the bedside. Patient has elevated white count, hyponatremia, MARIOLA, elevated BNP and elevated troponin and for these reasons I have decided to admit this patient for further evaluation and treatment.
[2024-11-28 23:08] LABS: Troponin I 0.04 ng/ml (0.00-0.034)
[2024-11-29] VITALS (7 sets, daily range): BP systolic 96–122; BP diastolic 44–56; PULSE 40–79; RESP 15–18; TEMP 36.3–36.6; O2SAT 94–100; BMI 26.6; BMI 26.9
--- NOTE | 2024-11-29 05:37 | PC.NURSE ---
Pt. is alert to self. Offered food, denied being hungry. Titrated 0xygen level to RA 02 sats 98%. Call light in reach, bed alarm on for safety.
[2024-11-29 06:00] LABS: POC Glucose,Bedside 61 (70-110)
--- NOTE | 2024-11-29 06:03 | PC.NURSE ---
Addendum entered by Sissy Powers RN 11/29/24 06:46: Rechecked FSBS 270. Original Note: FSBS 61, patient refused orange juice but agreed to drink pepsi and eat peanut butter crackers, [employer] notified and orders given to administer amp of D50
[2024-11-29] MEDS: DEXTROSE 50% 50ML SYRINGE (CRASH CART) 50 ML IVP (06:21)
[2024-11-29 06:28] LABS: Hematocrit 39.4 % (37.0-47.0); Immature Granulocytes % 0.6 %; Mean Corpuscular HGB Conc 31.5 g/dL (31.8-35.4); Mean Corpuscular Hemoglobin 26.7 pg (27.0-31.2); Mean Corpuscular Volume 84.7 fl (81-99); Nucleated Red Blood Cells % 0 %; Platelet Count 261 K/mm3 (142-424); Red Blood Count 4.65 M/mm3 (4.20-5.40); Red Cell Distribution Width-SD 47.6 fL; White Blood Count 12.1 K/mm3 (4.8-10.8)
[2024-11-29 06:50] LABS: Chloride 97 mmol/L (98-107); Hemoglobin 12.4 g/dL (12.2-16.2); Potassium 3.6 mmoL/L (3.5-5.1); Sodium 135 mmol/L (136-145)
[2024-11-29 06:51] LABS: POC Glucose,Bedside 270 (70-110)
[2024-11-29 06:53] LABS: Anion Gap 11.6 mEq/L (5-15); Blood Urea Nitrogen 29 mg/dl (7-17); Calcium 8.3 mg/dl (8.4-10.2); Carbon Dioxide 30 mmol/L (22.0-30.0); Creatinine Clearance Estimated 34 mL/min (50-200); Creatinine,Serum 1.30 mg/dl (0.52-1.04); Estimated Glomerular Filt Rate 39 ml/min (>60); GFR (African American) 47 ML/MIN (>60); Glucose 62 mg/dl (74-100)
[2024-11-29] MEDS: LACTATED RINGERS 1000ML 1,000 ML 100 ML IV (09:16)
--- NOTE | 2024-11-29 10:39 | HMH.PHAINT1 ---
Pharmacy Intervention Comments: MEDICATION RECONCILIATION COMPLETE USING RX BOTTLES.
[2024-11-29] MEDS: PT OWN MED *JARDIANCE 10 MG TAB 1 EACH PO (11:33)
[2024-11-29] MEDS: FOLIC ACID 400 MCG 1 EACH PO (11:33)
[2024-11-29] MEDS: MEMANTINE 28 MG 1 EACH PO (11:34)
[2024-11-29] MEDS: CHOLECALCIFEROL 125 MCG 1 EACH PO (11:35)
[2024-11-29] MEDS: humaLOG 100 UNITS/ML 10ML VIAL (SSI) SUBCUT ×3 (11:35→20:38)
[2024-11-29] MEDS: PT OWN MED *ASPIRIN 81 MG EC TAB 1 EACH PO (11:35)
[2024-11-29] MEDS: PT OWN MED *CITALOPRAM 20 MG TAB 1 EACH PO (11:35)
[2024-11-29] MEDS: PYRIDOXINE 100 MG 1 EACH PO (11:35)
[2024-11-29] MEDS: CYANOCOBALAMIN 1000 MCG 1 EACH PO (11:35)
[2024-11-29 12:06] LABS: POC Glucose,Bedside 181 (70-110)
--- NOTE | 2024-11-29 14:08 | P.PN_ITS ---
Subjective *Date: 11/29/24 *Time: 17:56 Interval history: Patient is alert and interactive on exam. Answers questions appropriately but does not recall previous discussion after period of time. Son at bedside helps supplement history. Stable on room air. Denies chest pain or shortness of breath. Does complain of early satiety with eating. Son states this has been going on for quite some time. Patient also complains of just feeling tired. Denies any weird visions or seeing odd colors. No nausea or vomiting. No palpitations. Medical Exam Vital signs and Labs for Last 24 Hours: Vital Signs Temp Pulse Pulse Resp BP BP Pulse Ox 11/29/24 13:00 11/29/24 11:52 97.4 F L 48 L 16 110/49 L 96 11/29/24 11:15 11/29/24 09:20 11/29/24 08:00 97.7 F 47 L 15 96/50 L 98 11/29/24 07:50 11/29/24 06:31 11/29/24 05:00 11/29/24 04:00 97.6 F 45 L 18 122/55 L 97 11/29/24 04:00 50 L 11/29/24 03:00 11/29/24 01:00 11/29/24 00:00 97.6 F 79 18 119/55 L 100 11/28/24 23:00 11/28/24 21:00 11/28/24 20:00 50 L 11/28/24 20:00 97.6 F 46 L 18 121/64 100 11/28/24 19:59 11/28/24 19:57 98.3 F 42 L 16 121/59 L 11/28/24 19:30 44 L 12 121/59 L 100 11/28/24 19:00 41 L 18 121/57 L 100 11/28/24 18:45 48 L 15 100 11/28/24 18:32 41 L 17 121/50 L 99 11/28/24 18:30 47 L 17 122/56 L 100 11/28/24 18:00 49 L 15 115/61 96 11/28/24 17:53 50 L 17 123/55 L 97 11/28/24 17:00 56 L 18 124/64 96 11/28/24 16:34 98.2 F 71 20 133/52 L 99 11/28/24 16:32 61 133/52 L 96 O2 Del Method O2 Flow Rate 11/29/24 13:00 Room Air 11/29/24 11:52 Room Air 11/29/24 11:15 Room Air 11/29/24 09:20 Room Air 11/29/24 08:00 Room Air 11/29/24 07:50 Room Air 11/29/24 06:31 Room Air 11/29/24 05:00 Room Air 11/29/24 04:00 Nasal Cannula 3 11/29/24 04:00 11/29/24 03:00 Room Air 11/29/24 01:00 Room Air 11/29/24 00:00 Nasal Cannula 3 11/28/24 23:00 Nasal Cannula 3 11/28/24 21:00 Nasal Cannula 3 11/28/24 20:00 11/28/24 20:00 Nasal Cannula 3 11/28/24 19:59 Nasal Cannula 3 11/28/24 19:57 Nasal Cannula 2 11/28/24 19:30 11/28/24 19:00 11/28/24 18:45 11/28/24 18:32 11/28/24 18:30 11/28/24 18:00 11/28/24 17:53 11/28/24 17:00 Room Air 11/28/24 16:34 Room Air 11/28/24 16:32 Room Air Intake and Output 11/28/24 11/29/24 11/29/24 23:59 07:59 15:59 Intake Total 1883 / 1883 Output Total 475 / 475 0 / 0 0 / 0 Balance -475 / -475 0 / 3 1882 / 188 Intake: Intake, Oral Amount 480 / 480 Intake, Total IV Amount 1403 / 1403 Lactated Ringers 1000ML 1,000 1403 / 1403 ml @ 100 mls/hr IV .Q10H [facility] Rx #:[id number] Output: Output, Urine Amount 475 / 475 0 / 0 0 / 0 Other: Number of Unmeasured Voids 0 1 0 Weight 68.492 kg 72.376 kg 73.142 kg Patient Weight 11/29/24 23:59 Weight 73.142 kg Laboratory Results - last 24 hr 11/28/24 14:30: Urine Color Yellow, Urine Appearance Clear, Urine pH 6.0, Ur Specific Bourbon 1.010, Urine Protein Negative, Urine Glucose (UA) Negative, Urine Ketones Trace, Urine Blood Negative, Urine Nitrate Negative, Urine Bilirubin Negative, Urine Urobilinogen 0.2, Ur Leukocyte Esterase Negative, Urine RBC 5-10, Urine WBC 3-5, Ur Squamous Epith Cells 5-10, Urine Bacteria 2+, Hyaline Casts 3-5, Urine Mucus 2+ 11/28/24 15:50: WBC 16.1 H, RBC 5.20, Hgb 14.4, Hct 43.2, MCV 83.1, MCH 27.7, MCHC 33.3, RDW 15.5, Plt Count 290, MPV 11.3 H, Neut % (Auto) 74.3, Lymph % (Auto) 14.8, Cannon % (Auto) 9.2, Eos % (Auto) 0.9, Baso % (Auto) 0.3, Neut # (Auto) 11.9 H, Lymph # (Auto) 2.4, Cannon # (Auto) 1.5 H, Eos # (Auto) 0.2, Baso # (Auto) 0.1, Sodium 128 L, Potassium 4.1, Chloride 91 L, Carbon Dioxide 24, Anion Gap 17.1 H, BUN 34 H, Creatinine 1.50 H, Estimated GFR 33 L, Est GFR ( Amer) 40 L, Glucose 174 H, Uric Acid 8.0 H, Calcium 9.4, Magnesium 2.1, Total Bilirubin 1.3, AST 47 H, ALT 23, Alkaline Phosphatase 93, Total Creatine Kinase 115, Troponin I 0.04 H, NT-Pro-B Natriuret Pep 2190 H, Total Protein 7.5, Albumin 4.3, Globulin 3.2, Albumin/Globulin Ratio 1.3, Lipase 98, Digoxin 2.20 H* 11/28/24 16:33: VBG pH 7.45 H, VBG pCO2 38.6, VBG pO2 86.0 H, VBG HCO3 26.4, VBG Total CO2 27.6 H, VBG O2 Saturation 96.8 H, VBG Base Excess 2.5 H, VBG Lactic Acid 1.6 11/28/24 19:52: Troponin I 0.04 H 11/28/24 22:35: Troponin I 0.04 H 11/29/24 05:52: POC Glucose 61 L 11/29/24 05:55: WBC 12.1 H, RBC 4.65, Hgb 12.4 D, Hct 39.4, MCV 84.7, MCH 26.7 L, MCHC 31.5 L, RDW 15.5, Plt Count 261, MPV 10.8 H, Neut % (Auto) 66.7, Lymph % (Auto) 20.6, Cannon % (Auto) 10.0 H, Eos % (Auto) 1.6, Baso % (Auto) 0.5, Neut # (Auto) 8.1 H, Lymph # (Auto) 2.5, Cannon # (Auto) 1.2 H, Eos # (Auto) 0.2, Baso # (Auto) 0.1, Sodium 135 L, Potassium 3.6, Chloride 97 L, Carbon Dioxide 30, Anion Gap 11.6, BUN 29 H, Creatinine 1.30 H, Estimated Creat Clear 34, Estimated GFR 39 L, Est GFR ( Amer) 47 L, Glucose 62 L D, Calcium 8.3 L 11/29/24 06:44: POC Glucose 270 H 11/29/24 11:27: POC Glucose 181 H I & O for Labs for Last 24 Hours: Intake & Output 11/26/24 11/27/24 11/28/24 11/29/24 23:59 23:59 23:59 23:59 Intake Total 1882 / 1883 Output Total 475 / 475 0 / 0 Balance -475 / -475 1882 Weight 68.492 kg 73.142 kg Constitutional: Present no acute distress, average body habitus, chronically ill appearing and cooperative Head: Present atraumatic and normocephalic ENT: Present normal exam Comment:: Slight droop to right eye Respiratory: Present normal respiratory effort; Absent rhonchi, wheezes or crackles Cardiac: Present Bradycardia GI: Present soft and normal bowel sounds; Absent distention or tenderness Extremities: Present normal inspection and full ROM Skin: Present intact; Absent erythema Neuro: Present Grossly Intact, alert, awake and moves all extremities Comment:: Oriented to self and place. Poor short-term recall Assessment and Plan *Assessment and plan (1) Bradycardia: Status: Acute Category: Medical Code(s): R00.1 - Bradycardia, unspecified Plan: Patient is on digoxin 125 mcg daily, hold at this time. Digoxin level elevated at 2.3. Heart rate 40s to 60s. Concern for component of some digoxin toxicity. Will consider atropine if becomes more symptomatic with her bradycardia. Cardiology consulted to assist with the patient in the morning (2) Digoxin toxicity: Status: Acute Category: Medical Code(s): T46.0X1A - Poisoning by cardiac-stimulant glycosides and drugs of similar action, accidental (unintentional), initial encounter (3) Generalized weakness: Status: Acute Category: Medical Code(s): R53.1 - Weakness Plan: Patient not eating or drinking well for the past 3 to 4 days. Complains early satiety. Will obtain upper GI series in the morning. Consider GI consult if has concern for achalasia or dysphagia. Has concern for enteritis on CT of abdomen pelvis obtained at admission. PT and OT to evaluate. Tolerating p.o. liquids, will discontinue IV fluid (4) Failure to thrive: Status: Acute Category: Medical (5) Acute kidney injury: Status: Acute Category: Medical Code(s): N17.9 - Acute kidney failure, unspecified Plan: Creatinine 1.5 on admission, improved to 1.3 this morning. Baseline approximately 0.8. Repeat CBC, CMP, magnesium ordered for the morning. BUN 29. Potassium 3.6. (6) Atrial fibrillation: Status: Chronic Qualifiers: Atrial fibrillation type: unspecified Qualified Code(s): I48.91 - Unspecified atrial fibrillation Category: Medical Code(s): I48.91 - Unspecified atrial fibrillation Plan: Continue Xarelto 15 mg daily. Holding digoxin due to bradycardia. Will have to consider alternate agent. Cardiology consulted to evaluate. (7) Leukocytosis: Status: Acute Category: Medical Code(s): D72.829 - Elevated white blood cell count, unspecified Plan: On reevaluation of urinalysis, Urine has 2+ bacteria, 3-5 white count, patient's white count elevated at 12. Will give empiric dose of ceftriaxone, cover for 48 hours pending urine culture (8) Elevated troponin: Status: Acute Category: Medical Code(s): R79.89 - Other specified abnormal findings of blood chemistry Plan: Troponin 0.04, stable on serial labs. EKG with minimal ST depression otherwise unchanged from EKG on 08/12/2024. Denying chest pain. Cardiology to evaluate in the morning. (9) Hyponatremia: Status: Resolved Category: Medical Code(s): E87.1 - Hypo-osmolality and hyponatremia Plan: Resolved Plan 84-year-old female on digoxin for A-fib who presents with worsening fatigue and weakness for several days. Also complaining of early satiety when she eats and sensation of food getting stuck. Has unexplained leukocytosis. Admitted for further management. Cardiology to assist with management in the morning. Empiric ceftriaxone. Monitoring on telemetry. Holding digoxin. Continues to require inpatient management. Repeat CBC, CMP, magnesium ordered for the morning. High risk for decompensation. May necessitate atropine if bradycardia becomes worse Full code Regular diet, n.p.o. at midnight Karl
[2024-11-29 15:17] LABS: Digoxin 2.30 ng/ml (0.2-2.00)
--- NOTE | 2024-11-29 16:18 | PC.NURSE ---
pt is alert to self, birthday, place, and situation. she loses track of time with month or year. pts heart rate has stayed in the 40s for most of the day. she got into the chair for lunch assist x2 and sat up for a few hours. she states that she feels safe here at the hospital where there are other people around. pt has had no other complaints today. she has her call pond within reach.
[2024-11-29] MEDS: XARELTO 15 MG 1 EACH PO (16:41)
[2024-11-29 17:26] LABS: POC Glucose,Bedside 222 (70-110)
[2024-11-29] MEDS: PANTOPRAZOLE 40MG TABLET 40 MG PO (20:39)
[2024-11-29] MEDS: PT OWN MED *ATORVASTATIN 40 MG TAB 1 EACH PO (20:39)
[2024-11-29] MEDS: NYSTATIN TOPICAL POWDER 30GM TP (20:39)
[2024-11-29 20:50] LABS: POC Glucose,Bedside 292 (70-110)
[2024-11-30] VITALS: BP 112/45; PULSE 40; PULSE 41; RESP 17; TEMP 36.4; O2SAT 94
[2024-11-30] MEDS: LACTATED RINGERS 1000ML 1,000 ML 100 ML IV (01:21)
[2024-11-30 04:00] VITALS: BP 120/50; PULSE 40; PULSE 51; RESP 13; TEMP 36.9; O2SAT 94; BMI 27.8
--- NOTE | 2024-11-30 05:32 | PC.NURSE ---
Pt. is alert to self and place. Pt. still remains agustina HR in 40's with no issues. Pt. remains on RA and is tolerating well. Pt. has slept most of the night. Purewick is in place. Bed is low, locked and armed. Call light is in reach.
[2024-11-30 05:46] LABS: POC Glucose,Bedside 77 (70-110)
--- NOTE | 2024-11-30 05:54 | PC.NURSE ---
Passed water, wiped and cleared bedside table off.
--- NOTE | 2024-11-30 06:39 | HMH.ITSTN ---
QUINTON Randle aware that there isnt a [place] Radiologist here today, so FL UGI can not be done until tomorrow.
[2024-11-30 06:46] LABS: Hematocrit 39.6 % (37.0-47.0); Hemoglobin 12.3 g/dL (12.2-16.2); Immature Granulocytes % 0.5 %; Mean Corpuscular HGB Conc 31.1 g/dL (31.8-35.4); Mean Corpuscular Hemoglobin 26.6 pg (27.0-31.2); Mean Corpuscular Volume 85.7 fl (81-99); Nucleated Red Blood Cells % 0 %; Platelet Count 256 K/mm3 (142-424); Red Blood Count 4.62 M/mm3 (4.20-5.40); Red Cell Distribution Width-SD 48.6 fL; White Blood Count 11.2 K/mm3 (4.8-10.8)
[2024-11-30 06:51] LABS: Albumin Level 3.4 g/dl (3.5-5.0); Chloride 98 mmol/L (98-107); Potassium 3.5 mmoL/L (3.5-5.1); Sodium 136 mmol/L (136-145)
[2024-11-30 06:54] LABS: Alanine Aminotransferase 16 U/L (12-78); Albumin/Globulin Ratio 1.4 (1.1-1.8); Alkaline Phosphatase 84 U/L (38-126); Anion Gap 10.5 mEq/L (5-15); Aspartate Amino Transferase 30 U/L (14-36); Bilirubin,Total 0.8 mg/dl (0.2-1.3); Blood Urea Nitrogen 30 mg/dl (7-17); Calcium 8.3 mg/dl (8.4-10.2); Carbon Dioxide 31 mmol/L (22.0-30.0); Creatinine Clearance Estimated 41 mL/min (50-200); Creatinine,Serum 1.20 mg/dl (0.52-1.04); Estimated Glomerular Filt Rate 43 ml/min (>60); GFR (African American) 52 ML/MIN (>60); Globulin 2.4 g/dL (1.3-3.2); Glucose 78 mg/dl (74-100); Magnesium 2.2 mg/dl (1.6-2.3); Total Protein,Serum 5.8 g/dl (6.3-8.2)
[2024-11-30 07:00] LABS: Hemoglobin A1C 10.3 % (4.0-6.0)
[2024-11-30 08:00] VITALS: BP 127/64; PULSE 45; PULSE 48; RESP 16; TEMP 36.4; O2SAT 98
[2024-11-30 08:08] LABS: POC Glucose,Bedside 83 (70-110)
[2024-11-30] MEDS: PT OWN MED *CITALOPRAM 20 MG TAB 1 EACH PO (09:00)
[2024-11-30] MEDS: PT OWN MED *ASPIRIN 81 MG EC TAB 1 EACH PO (09:01)
[2024-11-30] MEDS: CYANOCOBALAMIN 1000 MCG 1 EACH PO (09:02)
[2024-11-30] MEDS: NYSTATIN TOPICAL POWDER 30GM TP ×4 (09:02→20:25)
[2024-11-30] MEDS: CHOLECALCIFEROL 125 MCG 1 EACH PO (09:03)
[2024-11-30] MEDS: PT OWN MED *JARDIANCE 10 MG TAB 1 EACH PO (09:04)
[2024-11-30] MEDS: FOLIC ACID 400 MCG 1 EACH PO (09:05)
[2024-11-30] MEDS: MEMANTINE 28 MG 1 EACH PO (09:05)
[2024-11-30] MEDS: PYRIDOXINE 100 MG 1 EACH PO (09:06)
--- NOTE | 2024-11-30 09:24 | CA_ITS ---
APPROVED REPORT EXAM: Limited 2D Echocardiogram Lab Rn: Ramona Dahl CRT Ht: 5 ft 4 in Wt: 167lbs BSA: 1.81 BP: 127/78 mmHg Indications: bradycardia M-Mode Dimensions RVDd 3.31 cm (0.9-2.6) LA Diam 5.06 cm (1.9-4.0) LVDd 3.54 cm (3.5-5.7) LVDs 2.00 cm (3.5-5.7) IVSd 1.22 cm (0.6-1.1) PWd 0.84 cm (0.6-1.1) EF (Teich) 75.70% FS 43.50% EDV (Teich) 52.30 mL ESV (Teich) 12.70 mL Other Information Study Quality: Fair Conclusion This is a limited TTE to evaluate for biventricular systolic function. Limited Limited windows are obtained. The left ventricle is normal in size. There is increased LV wall thickness. There is normal global LV systolic function. No regional wall motion abnormalities are present. LVEF is 55%. The right ventricle is mildly dilated. There is normal RV systolic function. Electronically signed by : Margareth Roa MD 11/30/2024 12:48:17
[2024-11-30 09:44] LABS: Digoxin 1.80 ng/ml (0.2-2.00)
--- NOTE | 2024-11-30 09:59 | HMH.OTEV ---
OT Inpatient Evaluation Rehab OT IP Evaluation Start: 11/28/24 21:03 Freq: ONCE Status: Active Protocol: Document 11/30/24 09:52 ANDREEA (Rec: 11/30/24 09:58 ANDREEA [id number]) Rehab OT IP Assessment Subjective History PER HPI narrative: 84-year-old female presents to the emergency department via EMS for concerns of heat exhaustion , patient is GCS of 14 pleasantly confused, unsure of baseline is there is no family present at the bedside, per EMS report/history, patient had been living at home alone, without air conditioning , for the last 5 days , and high temperature conditions, family today went to perform a well check on the patient, found that she was quite confused and had generalized weakness and difficulty ambulating, unknown time of symptomatology, as the patient was ambulating out of the house with family, she was unable to ambulate any further, thus EMS was called for transport/lift assist. Per my assessment at the bedside, patient is pleasantly confused, covered in feces and urine, denies any acute symptomatology to include fever chills chest pain shortness of breath pain, denies fall, denies abdominal pain nausea vomiting constipation diarrhea no urinary type symptomatology. Initial triage vitals are unremarkable, unknown history of substance use/abuse, however upon chart review past medical history consistent with degenerative disc disease, hyperlipidemia, hypertension, atrial fibrillation, on anticoagulant therapy with Xarelto, dementia, T2DM. Of note, patient did receive IV fluid bolus of normal saline and route via EMS. Onset (ago): day(s) Subjective Look at the view. Pt was supine in bed when therapy entered. Pt's son present for session. Pt orient x3. Pt reported they live with and son. Son helped report hx and background of pt. Son reported pt has age related dementia effecting ST memory. Pt agreed to sit on EOB. Pt went from supine to EOB with Mod A. Pt then held static sitting balance well with SBA. Pt then completed STS transfer with walker with Min A. Pt then held static standing balance with Min A for aprox 1 minute. Pt then sat back on EOB. Pt then moved to supine with Mod A. Pt left supine in bed with call light and all other needs within reach and son present. Pt reported they do not drive. pt reported they live in home with 1 step up. Pt reported they use cane/ walker for FM. pt reported they are fairly ind in ADLs and IADLs- Son reported bathes are sponge baths and he assists more in IADLs. Son reported pt fell 2x on Saturday. Objective Patient Orientation Person,Place,Birthday Right Upper Mod Limitation 50% Extremity Gross ROM Left Upper Extremity Mod Limitation 50% Gross ROM Shoulder ROM Muscle Weakness Limitations Elbow ROM Muscle Weakness Limitations Bed Mobility bed mobility-scooting,bed mobility - supine/sit Assist Level Moderate x 1 (50% assist) Transfer Training Sit/Stand Transfer Assist Level Minimal x 1 (25% assist) Chair Transfer Rolling Walker Assistive Devices Decrease in Yes Endurance Rehab OT IP prob,goals,plan Problems Date of Evaluation: 11/30/24 OT IP Problems Bed Mobility,Transfers,Balance,Self care,Safety Rehab Potential Rehab Potential Good Equipment Needs Assistive Devices Standard Walker,Rolling / Wheeled Walker Plan OT intervention Plan Bed Mobility,Transfers,Balance,Self care,Safety, Therapeutic Exercise OT Plan Frequency Daily Duration LOS Discharge Goals Bed Mobility Ability Standby Assistance Sit to Stand Chair Contact Guard/Hand Hold Transfer Ability Chair Transfer Contact Guard/Hand Hold Ability Chair Transfer Sit to/from Ambulatory Technique Chair Transfer Rolling Walker Assistive Devices Feeding Ability Assist with Tray Set Up Commode/Toilet Raised Toilet Seat,Grab Bars Transfer Assistive Devices Decrease in No Endurance Discharge Plan OT Discharge Plan At this time, pt would benefit from skilled acute OT services and interventions to address functional limitations in occupational performance while at [facility]. Pt would further benefit from rehab placement for OT services to address functional limitations in occupational performance once DC from [facility]. Eval Complexity Eval Charge Codes 11757 - Moderate Complexity PHYSICIAN CERTIFICATION: I certify the specified therapy services for Luisa Stanley are required, authorized, and reviewed every 30 days.
--- NOTE | 2024-11-30 10:20 | HMH.PTEV ---
Physical Therapy Evaluation Rehab PT IP Evaluation Start: 11/28/24 21:03 Freq: ONCE Status: Active Protocol: Document 11/30/24 10:12 MAYO (Rec: 11/30/24 10:20 MAYO [id number]) Subjective/History History History Per H&P: 84-year-old female presents to the emergency department via EMS for concerns of heat exhaustion , patient is GCS of 14 pleasantly confused, unsure of baseline is there is no family present at the bedside, per EMS report/history, patient had been living at home alone, without air conditioning , for the last 5 days , and high temperature conditions, family today went to perform a well check on the patient, found that she was quite confused and had generalized weakness and difficulty ambulating, unknown time of symptomatology, as the patient was ambulating out of the house with family, she was unable to ambulate any further, thus EMS was called for transport/lift assist. Per my assessment at the bedside, patient is pleasantly confused, covered in feces and urine, denies any acute symptomatology to include fever chills chest pain shortness of breath pain, denies fall, denies abdominal pain nausea vomiting constipation diarrhea no urinary type symptomatology. Initial triage vitals are unremarkable, unknown history of substance use/abuse, however upon chart review past medical history consistent with degenerative disc disease, hyperlipidemia, hypertension, atrial fibrillation, on anticoagulant therapy with Xarelto, dementia, T2DM. Of note, patient did receive IV fluid bolus of normal saline and route via EMS. Onset (ago): day(s) Subjective Subjective Pt's son present during eval to clarify/confirm pt history. PLOF: Ambulatory short distances with RW and IND with mobility. 2 falls on Saturday. HOME: Lives in a single story home with her and son (works). [address] [facility] home. Available assistance: available to assist but pt son reports his assistance is limited. New diagnosis of No cancer in past 12 months? [facility] How much help from another person do you currently need... Turning from your A little back to your side while in a flat bed without using bedrails? Moving from lying on A little back to sitting on the side of a flat bed without using bedrails? Moving to and from a A little bed to a chair ( including a wheelchair)? Standing up from a A little chair using your arms? (e.g., wheelchair, bedside chair) Walking in hospital A lot room? Climbing 3-5 steps A lot with a railing? Mobility Score 16 Mobility Level [facility] Mobility 5 Stand (1 or more minutes) Mobility Calculator Rehab PT IP Eval Objective Appearance Patient Behavior Appropriate,Cooperative Patient Orientation Person,Place Difficulty following none instructions Speech Pattern Clear Ambulation Patient Able to No Ambulate Balance Ability to Arise Able, uses arms to help Sitting Balance Steady, safe Standing Balance Unsteady Dynamic Sitting Good Balance Ability Transfers Bed Transfer Ability Moderate x 1 (50% assist) Sit to Stand Bed Minimal x 2 (25% assist) Transfer Ability Rehab PT IP prob,goals,plan Problems Date of Evaluation: 11/30/24 PT IP Problems Bed Mobility,Transfers,Gait,Balance,Self care,Safety Rehab Potential Rehab Potential Good Plan PT Intervention Plan Bed Mobility,Transfers,Gait,Balance,Self care,Safety, Therapeutic Exercise Other Intervention 1-2 times Plan PT Plan Frequency Daily Duration LOS Discharge Goals Bed Transfer Ability Minimal x 1 (25% assist) Sit to Stand Chair Contact Guard/Hand Hold Transfer Ability Ambulation Assistive Rolling Walker Device Ambulation Distance 10 (feet) Discharge Plan PT Discharge Plan Pt is most appropriate for inpatient rehabilitation upon d/c from [facility]. Pt was not able to ambulate d/t BLE weakness and unsteadiness at this time. Pt able to stand with RW with Min A. Pt would benefit from skilled acute care PT while at [facility] to prevent further functional decline. Eval Complexity Eval Charge Codes 26639 - Moderate Complexity PHYSICIAN CERTIFICATION: I certify the specified therapy services for Luisa Stanley are required, authorized, and reviewed every 30 days.
--- NOTE | 2024-11-30 11:16 | EXP.CARD.CON ---
History of Present Illness History of Present Illness Consult date: 11/30/24 Requesting physician: Juan Francisco Varma Chief complaint: fatigue, generalized weakness History of present illness: Ms. Stanley is an 84-year-old white female with a past medical history of hypertension, chronic A-fib on digoxin and Xarelto, HFpEF with an ejection fraction of 55%, normal Myoview 2019, hyperlipidemia and diabetes mellitus who presented to emergency department with son with complaints of generalized fatigue and weakness. Of note patient resides in a house that does not have air conditioning and son reports that for the past 3 to 4 days patient has been not wanting to get up out of bed and having difficulty ambulating with her walker due to generalized weakness. He also reports that patient has not been eating or drinking well. Upon presentation to ER on November 28 initial EKG showed A-fib at a rate of 58, right axis deviation and incomplete right bundle branch block. EKG was negative for STEMI. Significant labs were as follow: WBC 16.1, sodium 128, potassium 4.1, creatinine 1.5, serial troponin 0.04, proBNP 2190, and initial digoxin level of 2.2. Chest x-ray was negative for acute cardiopulmonary findings. Patient was ultimately admitted for an elevated white blood cell count, hyponatremia, MARIOLA, concern for dig toxicity and elevated BNP and troponin. Digoxin has been held and patient denies chest pain or shortness of breath at this time. Patient remain bradycardic with heart rates anywhere from the 40s to 50s. [facility] Disclaimer: The information contained in this section may have been updated after the patient was seen, as this information can be updated by other users. Medical History Dementia Diabetes History of transient ischemic attack (TIA) Deep vein thrombosis (DVT) HLD (hyperlipidemia) Depression Arrhythmia GERD (gastroesophageal reflux disease) Diabetes mellitus, type 2 Atrial fibrillation Surgical History Hx of tonsillectomy S/P ankle ligament repair Family History Other Family history of diabetes mellitus type II Family history of myocardial infarction Social History (Updated 11/28/24 @ 21:03 by Mary Cavazos RN) Smoking Status: Never smoker alcohol intake: never substance use type: denies use current occupational status: retired Travel in the last 8 weeks?: None household members: spouse and children housing: house caffeine: Yes Have you lived/traveled outside US in past 30 days?: No Contact w/someone who lives/traveled outside US past 30 days?: No Exposure to someone with infectious disease in past 14 days?: No Do you have a fever (greater than 100.4 F or 38 C)?: No Have you tested positive for COVID-19?: No Exposed to someone with COVID-19 in past 14 days?: No Do you have a sore throat?: No Do you have a cough?: No Do you have any weakness?: No Are you experiencing any nausea/vomitting?: No Do you have any diarrhea?: No Are you experiencing any unusual bleeding?: No Do you have any muscle aches/pain?: No Do you have any abdominal pain?: No Are you experiencing loss of taste or smell?: No Review of Systems Review of Systems Review of systems:: pertinent systems reviewed and negative unless documented below Constitutional Constitutional: Denies headache(s) and Reports weakness ENT Ears, Nose, Mouth, and Throat: Denies dizziness and Denies headache(s) *Neurologic Neurologic: Denies dizziness, Denies headache(s) and Reports weakness Exam Data for Last 24 hours Vital signs and Labs for Last 24 Hours: Temp Pulse Resp BP Pulse Ox O2 Del Method O2 Flow Rate 97.5 F L 48 L 16 127/64 98 Room Air 3 11/30/24 08:00 11/30/24 08:00 11/30/24 08:00 11/30/24 08:00 11/30/24 08:00 11/30/24 11:00 11/29/24 04:00 Laboratory Results - last 24 hr 11/28/24 20:51: POC Glucose 83 11/29/24 05:55: Digoxin 2.30 H* 11/29/24 11:27: POC Glucose 181 H 11/29/24 16:34: POC Glucose 222 H 11/29/24 20:31: POC Glucose 292 H 11/30/24 05:39: POC Glucose 77 11/30/24 05:40: WBC 11.2 H, RBC 4.62, Hgb 12.3, Hct 39.6, MCV 85.7, MCH 26.6 L, MCHC 31.1 L, RDW 15.7, Plt Count 256, MPV 11.4 H, Neut % (Auto) 72.0, Lymph % (Auto) 18.1, [place] % (Auto) 7.8, Eos % (Auto) 1.2, Baso % (Auto) 0.4, Neut # (Auto) 8.1 H, Lymph # (Auto) 2.0, [place] # (Auto) 0.9, Eos # (Auto) 0.1, Baso # (Auto) 0.0, Sodium 136, Potassium 3.5, Chloride 98, Carbon Dioxide 31 H, Anion Gap 10.5, BUN 30 H, Creatinine 1.20 H, Estimated Creat Clear 41, Estimated GFR 43 L, Est GFR ( Amer) 52 L, Glucose 78 D, Hemoglobin A1c 10.3 H, Calcium 8.3 L, Magnesium 2.2, Total Bilirubin 0.8, AST 30 D, ALT 16 D, Alkaline Phosphatase 84, Total Protein 5.8 L, Albumin 3.4 L, Globulin 2.4, Albumin/Globulin Ratio 1.4, Digoxin 1.80 I & O for Last 24 hours: Intake & Output 11/27/24 11/28/24 11/29/24 11/30/24 23:59 23:59 23:59 23:59 Intake Total 2293 / 2929 636 / 636 Output Total 475 / 475 225 / 225 600 / 600 Balance -475 / -475 2068 / 2704 36 / 36 Weight 151 lb 161 lb 4 oz 167 lb 6.246 oz Microbiology Reports for the Last 24 Hours: Microbiology 11/28/24 14:30 Urine,Clean Catch Urine Culture - Final NO GROWTH AFTER 48 HOURS Constitutional Constitutional: no acute distress *Routine Respiratory Exam Respiratory: Present CTA bilaterally and symmetric chest movement *Routine Cardiovascular Exam Cardiovascular: Present RRR, Normal S1 and Normal S2 *Routine Abdominal Exam Abdominal: Present soft and normoactive bowel sounds; Absent tenderness *Routine Extremities Exam Extremities: Present full ROM and normal capillary refill; Absent edema *Routine Skin Exam Skin: Present intact, dry and warm Detailed Neck Exam: Thyroids Thyroid: Absent bruit Meds Home Medications and Allergies Home Medications ?Medication ?Instructions ?Recorded ?Confirmed ?Type aspirin 81 mg tablet,delayed 81 mg PO DAILY 08/14/17 11/29/24 History release atorvastatin 40 mg tablet 40 mg PO HS Cholesterol 08/14/17 11/29/24 History citalopram 20 mg tablet 20 mg PO DAILY 08/14/17 11/29/24 History folic acid 400 mcg tablet 0.4 mg PO DAILY 08/14/17 11/29/24 History memantine 28 mg capsule 28 mg PO DAILY 08/14/17 11/29/24 History sprinkle,extended release 24hr pyridoxine (vitamin B6) 100 mg 100 mg PO DAILY Supplement 08/14/17 11/29/24 History tablet rivaroxaban 15 mg tablet (Xarelto) 15 mg PO QPMWITHMEAL 02/13/23 11/29/24 History digoxin 125 mcg (0.125 mg) tablet 125 mcg PO DAILY 08/13/24 11/29/24 History empagliflozin 10 mg tablet 10 mg PO DAILY #30 tabs 08/14/24 11/29/24 Rx (Jardiance) spironolactone 25 mg tablet 25 mg PO DAILY #30 tabs 08/14/24 11/29/24 Rx glipizide 5 mg tablet, extended 5 mg PO DAILY 09/23/24 11/29/24 History release 24 hr cholecalciferol (vitamin D3) 125 125 mcg PO DAILY 11/29/24 11/29/24 History mcg (5,000 unit) capsule cyanocobalamin (vitamin B-12) 1,000 mcg PO DAILY 11/29/24 11/29/24 History 1,000 mcg tablet,extended release furosemide 40 mg tablet (Lasix) 40 mg PO DAILYP PRN Edema 11/29/24 11/29/24 History omeprazole 20 mg tablet,delayed 20 mg PO DAILY 11/29/24 11/29/24 History release New Prescriptions to Start Prescriptions: Allergies Allergy/AdvReac Type Severity Reaction Status Date / Time Penicillins Allergy Unknown Unknown Verified 11/28/24 17:06 allergy reaction Assessment and Plan *Assessment and plan (1) Digoxin toxicity: Status: Acute Category: Medical Code(s): T46.0X1A - Poisoning by cardiac-stimulant glycosides and drugs of similar action, accidental (unintentional), initial encounter (2) Elevated troponin: Status: Acute Category: Medical Code(s): R79.89 - Other specified abnormal findings of blood chemistry (3) Bradycardia: Status: Acute Category: Medical Code(s): R00.1 - Bradycardia, unspecified (4) Generalized weakness: Status: Acute Category: Medical Code(s): R53.1 - Weakness (5) Acute kidney injury: Status: Acute Category: Medical Code(s): N17.9 - Acute kidney failure, unspecified (6) Atrial fibrillation: Status: Chronic Qualifiers: Atrial fibrillation type: unspecified Qualified Code(s): I48.91 - Unspecified atrial fibrillation Category: Medical Code(s): I48.91 - Unspecified atrial fibrillation Plan Generalized weakness Fatigue Bradycardia Elevated digoxin level Digoxin level 2.2 on admission trending down to 1.8, continue to trend until below 1.2 Patient remains bradycardic with heart rate in the 40s to 50s Limited echo shows an EF of 55% with a mildly dilated right ventricle with normal RV function. Elevated troponin Elevated proBNP Patient denies chest pain or shortness of breath Chest x-ray negative for acute findings Serial troponin 0.04 x 3 BNP on admission 2190 Digoxin on hold, initial level 2.2 trending down to 1.8 Chronic A-fib Continue Xarelto 15 mg p.o. daily. Digoxin on hold currently. MARIOLA Creatinine on admission 1.5 trending down to 1.2 In the setting of decreased p.o. intake Hyponatremia-resolved Sodium 128 on admission up to 136 today CV summary 11/30/2024: EF normal at 55%. Continue to trend digoxin level until below 1.2. TSH is pending.
[2024-11-30 11:17] LABS: POC Glucose,Bedside 86 (70-110)
--- NOTE | 2024-11-30 11:47 | SW/DCPLANNER ---
Addendum entered by Natalia Hernandez 12/02/24 11:47: Patient will discharge to [facility] level of care today. Addendum entered by Natalia [place] 12/01/24 08:47: [facility] now has a bed available for this patient. Patient/son prefer to change from [facility] to [facility]. I have updated Jessica villanueva/ [facility], [facility]/ [facility] MD and patient/family. Patient will discharge to [facility] level of care once medically stable for discharge. Addendum entered by Natalia [place] 11/30/24 13:07: Patient's son is agreeable w/ this plan. Addendum entered by Natalia [place] 11/30/24 13:06: Per Jessica villanueva/ [facility] she can accept this patient. Patient is not medically stable for discharge today but I will continue to follow up. Original Note: I spoke w/ patient and her son regarding plans once medically stable for discharge. Per PT patient will require SNF level of care at time of discharge. Patient/family are agreeable to placement and prefer [facility], [facility] or [place] (in that order). Patient information will be faxed to facilities today. Discharge date is unknown at this time. I will continue to follow up.
[2024-11-30 12:00] VITALS: BP 129/53; PULSE 47; PULSE 82; RESP 16; TEMP 36.6; O2SAT 97
[2024-11-30 13:50] LABS: Thyroid Stimulating Hormone 1.99 uIU/mL (0.465-4.68)
[2024-11-30 14:54] LABS: Digoxin 1.60 ng/ml (0.2-2.00)
[2024-11-30 15:57] VITALS: BMI 27.8
[2024-11-30 16:00] VITALS: BP 116/71; PULSE 57; PULSE 60; RESP 18; TEMP 36.6; O2SAT 94
[2024-11-30] MEDS: humaLOG 100 UNITS/ML 10ML VIAL (SSI) SUBCUT ×2 (16:28→20:26)
[2024-11-30] MEDS: XARELTO 15 MG 1 EACH PO (16:32)
[2024-11-30 16:35] LABS: POC Glucose,Bedside 251 (70-110)
--- NOTE | 2024-11-30 17:00 | EXP.ACUTE.PN ---
Subjective *Date: 11/30/24 *Time: 17:00 Interval history: Continues to feel weak this morning. Remains bradycardic. Heart rate fluctuating 40s to 60s. Will very briefly drop to the 30s but not maintained for more than 5 seconds. Stable on room air. Denies chest pain. White count improved. No nausea or vomiting. Poor p.o. intake. Medical Exam Vital signs and Labs for Last 24 Hours: Vital Signs Temp Pulse Pulse Resp BP Pulse Ox O2 Del Method 11/30/24 16:54 Room Air 11/30/24 16:00 97.8 F 57 L 18 116/71 94 L Room Air 11/30/24 15:00 Room Air 11/30/24 12:30 Room Air 11/30/24 12:00 47 L 11/30/24 12:00 97.8 F 82 16 129/53 L 97 Room Air 11/30/24 11:00 Room Air 11/30/24 08:00 45 L 11/30/24 08:00 Room Air 11/30/24 08:00 97.5 F L 48 L 16 127/64 98 Room Air 11/30/24 07:39 Room Air 11/30/24 06:43 Room Air 11/30/24 05:00 Room Air 11/30/24 04:00 40 L 11/30/24 04:00 98.4 F 51 L 13 120/50 L 94 L Room Air 11/30/24 03:00 Room Air 11/30/24 01:00 Room Air 11/30/24 00:00 40 L 11/30/24 00:00 97.5 F L 41 L 17 112/45 L 94 L Room Air 11/29/24 23:00 Room Air 11/29/24 21:00 Room Air 11/29/24 20:00 40 L 11/29/24 20:00 Room Air 11/29/24 20:00 97.9 F 41 L 18 107/44 L 94 L Room Air 11/29/24 18:54 Room Air 11/29/24 17:20 Room Air Intake and Output 11/30/24 11/30/24 11/30/24 07:59 15:59 23:59 Intake Total 636 / 1146 460 / 1146 50 / 1146 Output Total 400 / 600 200 / 600 Balance 236 / 546 260 / 546 50 / 546 Intake: Intake, Oral Amount 240 / 700 460 / 700 Intake, Total IV Amount 396 / 446 50 / 446 Ceftriaxone Sodium 1 gm In 0.9 50 / 50 % Sodium Chloride 50 ml @ 100 mls/hr IV Q24H [facility] Rx#:[id number] Lactated Ringers 1000ML 1,000 396 / 396 ml @ 100 mls/hr IV .Q10H [facility] Rx #:[id number] Output: Output, Urine Amount 400 / 600 200 / 600 Other: Number of Unmeasured Voids 0 0 Weight 75.927 kg 75.93 kg Patient Weight 11/30/24 23:59 Weight 75.93 kg Laboratory Results - last 24 hr 11/28/24 20:51: POC Glucose 83 11/29/24 16:34: POC Glucose 222 H 11/29/24 20:31: POC Glucose 292 H 11/30/24 05:39: POC Glucose 77 11/30/24 05:40: WBC 11.2 H, RBC 4.62, Hgb 12.3, Hct 39.6, MCV 85.7, MCH 26.6 L, MCHC 31.1 L, RDW 15.7, Plt Count 256, MPV 11.4 H, Neut % (Auto) 72.0, Lymph % (Auto) 18.1, [place] % (Auto) 7.8, Eos % (Auto) 1.2, Baso % (Auto) 0.4, Neut # (Auto) 8.1 H, Lymph # (Auto) 2.0, [place] # (Auto) 0.9, Eos # (Auto) 0.1, Baso # (Auto) 0.0, Sodium 136, Potassium 3.5, Chloride 98, Carbon Dioxide 31 H, Anion Gap 10.5, BUN 30 H, Creatinine 1.20 H, Estimated Creat Clear 41, Estimated GFR 43 L, Est GFR ( Amer) 52 L, Glucose 78 D, Hemoglobin A1c 10.3 H, Calcium 8.3 L, Magnesium 2.2, Total Bilirubin 0.8, AST 30 D, ALT 16 D, Alkaline Phosphatase 84, Total Protein 5.8 L, Albumin 3.4 L, Globulin 2.4, Albumin/Globulin Ratio 1.4, Digoxin 1.80 11/30/24 10:31: POC Glucose 86 11/30/24 13:01: TSH 1.99, Digoxin 1.60 11/30/24 16:28: POC Glucose 251 H I & O for Labs for Last 24 Hours: Intake & Output 11/27/24 11/28/24 11/29/24 11/30/24 23:59 23:59 23:59 23:59 Intake Total 2293 / 2929 1146 / 1146 Output Total 475 / 475 225 / 225 600 / 600 Balance -475 / -475 2068 / 2704 546 / 546 Weight 68.492 kg 73.142 kg 75.93 kg Microbiology Reports for the Last 24 Hours: Microbiology 11/28/24 14:30 Urine,Clean Catch Urine Culture - Final NO GROWTH AFTER 48 HOURS Constitutional: Present no acute distress, average body habitus, chronically ill appearing and cooperative Head: Present atraumatic and normocephalic ENT: Present normal exam Comment:: Slight droop to right eye Respiratory: Present normal respiratory effort; Absent rhonchi, wheezes or crackles Cardiac: Present Bradycardia GI: Present soft and normal bowel sounds; Absent distention or tenderness Extremities: Present normal inspection and full ROM Skin: Present intact; Absent erythema Neuro: Present Grossly Intact, alert, awake and moves all extremities Comment:: Oriented to self and place. Poor short-term recall Assessment and Plan *Assessment and plan (1) Bradycardia: Status: Acute Category: Medical Code(s): R00.1 - Bradycardia, unspecified Plan: Patient is on digoxin 125 mcg daily, hold at this time. Digoxin level elevated at 2.3 on admission. Improved to 1.8 this morning. Repeat level ordered for the morning. Heart rate 40s to 60s. Concern for component of some digoxin toxicity. Will consider atropine if becomes more symptomatic with her bradycardia. - Discussed case with cardiology, will monitor for digoxin level to improve to less than 1.2. If remains bradycardic, may necessitate pacemaker placement. (2) Digoxin toxicity: Status: Acute Category: Medical Code(s): T46.0X1A - Poisoning by cardiac-stimulant glycosides and drugs of similar action, accidental (unintentional), initial encounter (3) Generalized weakness: Status: Acute Category: Medical Code(s): R53.1 - Weakness Plan: Patient not eating or drinking well for the past 3 to 4 days. Complains early satiety. Upper GI ordered and pending - Has concern for enteritis on CT of abdomen pelvis obtained at admission. PT and OT evaluated, recommend placement (4) Failure to thrive: Status: Acute Category: Medical (5) Acute kidney injury: Status: Acute Category: Medical Code(s): N17.9 - Acute kidney failure, unspecified Plan: Creatinine 1.5 on admission, improved to 1.2 this morning. Baseline approximately 0.8. Repeat CBC, CMP, magnesium ordered for the morning. BUN 30. Potassium 3.5. (6) Atrial fibrillation: Status: Chronic Qualifiers: Atrial fibrillation type: unspecified Qualified Code(s): I48.91 - Unspecified atrial fibrillation Category: Medical Code(s): I48.91 - Unspecified atrial fibrillation Plan: Continue Xarelto 15 mg daily. Holding digoxin due to bradycardia. Will have to consider alternate agent. Cardiology consulted to evaluate. (7) Leukocytosis: Status: Acute Category: Medical Code(s): D72.829 - Elevated white blood cell count, unspecified Plan: On reevaluation of urinalysis, Urine has 2+ bacteria, 3-5 white count, patient's white count elevated at 12. continue empiric dose of ceftriaxone, cover for 48 hours pending urine culture (8) Elevated troponin: Status: Acute Category: Medical Code(s): R79.89 - Other specified abnormal findings of blood chemistry Plan: Troponin 0.04, stable on serial labs. EKG with minimal ST depression otherwise unchanged from EKG on 08/12/2024. Denying chest pain. Cardiology to evaluate in the morning. (9) Hyponatremia: Status: Resolved Category: Medical Code(s): E87.1 - Hypo-osmolality and hyponatremia Plan: Resolved Plan 84-year-old female on digoxin for A-fib who presents with worsening fatigue and weakness for several days. Also complaining of early satiety when she eats and sensation of food getting stuck. Has unexplained leukocytosis. Admitted for further management. Cardiology assisting with management. Empiric ceftriaxone. Monitoring on telemetry. Holding digoxin. Continues to require inpatient management. Repeat CBC, CMP, magnesium ordered for the morning. High risk for decompensation. May necessitate atropine if bradycardia becomes worse Echo obtained today showing normal EF of 55% and normal RV systolic function Full code Regular diet, n.p.o. at midnight Xarelto held tonight pending potential pacemaker placement.
--- NOTE | 2024-11-30 17:32 | PC.NURSE ---
PT IS SITTING UP IN THE CHAIR VISITING WITH FAMILY. PLEASANTLY CONFUSED HOWEVER PT IS EASILY DIRECTED. LUNG SOUNDS CLEAR. ABDOMEN SOFT/NON TENDER WITH ACTIVE BOWEL SOUNDS. PURWICK IN PLACE. EATING AND DRINKING WELL. HR HAS MAINTAINED 40-50'S T/O THE SHIFT ON TELEMETRY. 1 ASSIST TO TRANSFER. WILL CONTINUE TO MONITOR.
[2024-11-30 20:00] VITALS: BP 113/56; PULSE 60; PULSE 62; RESP 21; TEMP 36.6; O2SAT 98
[2024-11-30] MEDS: PANTOPRAZOLE 40MG TABLET 40 MG PO (20:23)
[2024-11-30] MEDS: PT OWN MED *ATORVASTATIN 40 MG TAB 1 EACH PO (20:26)
[2024-11-30 21:06] LABS: POC Glucose,Bedside 192 (70-110)
[2024-12-01] VITALS: BP 99/40; PULSE 50; PULSE 63; RESP 15; TEMP 36.5; O2SAT 99
[2024-12-01 04:00] VITALS: BP 103/49; PULSE 50; PULSE 52; RESP 14; TEMP 36.4; O2SAT 98; BMI 27.4
[2024-12-01 05:12] LABS: POC Glucose,Bedside 127 (70-110)
--- NOTE | 2024-12-01 05:31 | PC.NURSE ---
Pt alert and oriented x2. Pt is on RA. Pt has been Afib on telemetry, with bradycardia. Pt set bed alarm off x2, staff on room before pt was able to get up. Pt ambulated to bathroom x2, and had a continent void. Pt received insulin at 2100, medicated per MAR. No significant changes. No further concerns expressed. Pt resting, call pond is within reach. Plan of care ongoing.
[2024-12-01 06:12] LABS: Hematocrit 39.6 % (37.0-47.0); Hemoglobin 12.1 g/dL (12.2-16.2); Immature Granulocytes % 0.5 %; Mean Corpuscular HGB Conc 30.6 g/dL (31.8-35.4); Mean Corpuscular Hemoglobin 26.4 pg (27.0-31.2); Mean Corpuscular Volume 86.5 fl (81-99); Nucleated Red Blood Cells % 0 %; Platelet Count 251 K/mm3 (142-424); Red Blood Count 4.58 M/mm3 (4.20-5.40); Red Cell Distribution Width-SD 48.7 fL; White Blood Count 9.6 K/mm3 (4.8-10.8)
[2024-12-01 06:26] LABS: Alanine Aminotransferase 16 U/L (12-78); Albumin Level 3.4 g/dl (3.5-5.0); Albumin/Globulin Ratio 1.4 (1.1-1.8); Alkaline Phosphatase 83 U/L (38-126); Anion Gap 10.7 mEq/L (5-15); Aspartate Amino Transferase 24 U/L (14-36); Bilirubin,Total 0.8 mg/dl (0.2-1.3); Blood Urea Nitrogen 28 mg/dl (7-17); Calcium 8.9 mg/dl (8.4-10.2); Carbon Dioxide 31 mmol/L (22.0-30.0); Chloride 97 mmol/L (98-107); Creatinine Clearance Estimated 40 mL/min (50-200); Creatinine,Serum 1.20 mg/dl (0.52-1.04); Estimated Glomerular Filt Rate 43 ml/min (>60); GFR (African American) 52 ML/MIN (>60); Globulin 2.5 g/dL (1.3-3.2); Glucose 121 mg/dl (74-100); Potassium 3.7 mmoL/L (3.5-5.1); Sodium 135 mmol/L (136-145); Total Protein,Serum 5.9 g/dl (6.3-8.2)
[2024-12-01 06:35] LABS: Digoxin 1.70 ng/ml (0.2-2.00)
--- NOTE | 2024-12-01 07:00 | FL_ITS ---
FINAL REPORT CLINICAL HISTORY: early satiety, globus sensation FT 2:40 1103.95 DAP FINDINGS: UPPER GI HISTORY: Globus sensation. Early satiety. Fluoroscopy Time: 2 minutes 40 seconds Dose Area Product (DAP): 1103.95 mGy/m2. PROCEDURE: The patient ingested barium. Effervescent crystals were also administered. Spot and overhead films were obtained. FINDINGS: There was penetration of contrast into the airway without [place] aspiration. Note is made of a nonobstructing prominent cricopharyngeal muscle. No esophageal stricture is identified. A 13 mm barium tablet passes through the esophagus and into the stomach without delay. There is a small sliding-type hiatal hernia. There is no gastroesophageal reflux. Peristalsis is normal. The rugal fold pattern of the stomach is normal. The stomach empties appropriately. The duodenal bulb is normal. IMPRESSION: Penetration without [place] aspiration. Consider speech pathology consult. Nonobstructing prominent cricopharyngeal muscle. Small sliding-type hiatal hernia. Reviewed, Interpreted and Dictated by Sj Arellano MD Transcribed by TYLER Nascimento Authenticated and [facility]
[2024-12-01 08:00] VITALS: BP 112/39; PULSE 50; PULSE 56; RESP 16; TEMP 36.6; O2SAT 98
[2024-12-01] MEDS: FOLIC ACID 400 MCG 1 EACH PO (09:21)
[2024-12-01] MEDS: PT OWN MED *ASPIRIN 81 MG EC TAB 1 EACH PO (09:22)
[2024-12-01] MEDS: PT OWN MED *CITALOPRAM 20 MG TAB 1 EACH PO (09:23)
[2024-12-01] MEDS: PT OWN MED *JARDIANCE 10 MG TAB 1 EACH PO (09:24)
[2024-12-01] MEDS: MEMANTINE 28 MG 1 EACH PO (09:25)
[2024-12-01] MEDS: CYANOCOBALAMIN 1000 MCG 1 EACH PO (09:26)
[2024-12-01] MEDS: CHOLECALCIFEROL 125 MCG 1 EACH PO (09:27)
[2024-12-01] MEDS: NYSTATIN TOPICAL POWDER 30GM TP ×4 (09:28→20:40)
[2024-12-01] MEDS: PYRIDOXINE 100 MG 1 EACH PO (09:28)
[2024-12-01] MEDS: BARIUM SULFATE (E-Z-HD 340GM);135ML BOTTLE 135 ML PO (10:32)
[2024-12-01] MEDS: BARIUM SULFATE(LIQUID E-Z-PAQUE);355ML BOTTLE 355 ML PO (10:32)
[2024-12-01] MEDS: E-Z-GASII EFFERVESCENT GRANULES;1PK 1 EACH PO (10:32)
--- NOTE | 2024-12-01 11:06 | EXP.CARD.PN ---
Subjective Subjective Date: 12/01/24 Time: 08:00 Principal diagnosis: Generalized weakness and fatigue Interval history: Patient reports she is feeling better this morning. Heart rate remains in the 50s. Morning labs reviewed. Exam Data for Last 24 hours Vital signs and Labs for Last 24 Hours: Temp Pulse Resp BP Pulse Ox O2 Del Method O2 Flow Rate 97.9 F 56 L 16 112/39 L 98 Room Air 3 12/01/24 08:00 12/01/24 08:00 12/01/24 08:00 12/01/24 08:00 12/01/24 08:00 12/01/24 10:58 11/29/24 04:00 Laboratory Results - last 24 hr 11/30/24 10:31: POC Glucose 86 11/30/24 13:01: TSH 1.99, Digoxin 1.60 11/30/24 16:28: POC Glucose 251 H 11/30/24 20:22: POC Glucose 192 H 12/01/24 05:04: POC Glucose 127 H 12/01/24 05:54: WBC 9.6, RBC 4.58, Hgb 12.1 L, Hct 39.6, MCV 86.5, MCH 26.4 L, MCHC 30.6 L, RDW 15.7, Plt Count 251, MPV 11.0 H, Neut % (Auto) 68.0, Lymph % (Auto) 20.4, [place] % (Auto) 8.6, Eos % (Auto) 2.0, Baso % (Auto) 0.5, Neut # (Auto) 6.6, Lymph # (Auto) 2.0, [place] # (Auto) 0.8, Eos # (Auto) 0.2, Baso # (Auto) 0.1, Sodium 135 L, Potassium 3.7, Chloride 97 L, Carbon Dioxide 31 H, Anion Gap 10.7, BUN 28 H, Creatinine 1.20 H, Estimated Creat Clear 40, Estimated GFR 43 L, Est GFR ( Amer) 52 L, Glucose 121 H, Calcium 8.9, Total Bilirubin 0.8, AST 24, ALT 16, Alkaline Phosphatase 83, Total Protein 5.9 L, Albumin 3.4 L, Globulin 2.5, Albumin/Globulin Ratio 1.4, Digoxin 1.70 I & O for Last 24 hours: Intake & Output 06/11/29/24 11/30/24 12/01/24 23:59 23:59 23:59 23:59 Intake Total 2293 / 2929 1626 / 1626 Output Total 475 / 475 225 / 225 850 / 850 150 / 150 Balance -475 / -475 2068 / 2704 776 / 776 -150 / -150 Weight 151 lb 161 lb 4 oz 167 lb 6.352 oz 164 lb 14.4 oz Constitutional Constitutional: no acute distress *Routine Respiratory Exam Respiratory: Present CTA bilaterally and symmetric chest movement *Routine Cardiovascular Exam Cardiovascular: Present RRR, Normal S1 and Normal S2 *Routine Abdominal Exam Abdominal: Present soft and normoactive bowel sounds; Absent tenderness *Routine Extremities Exam Extremities: Present full ROM and normal capillary refill; Absent edema *Routine Skin Exam Skin: Present intact, dry and warm Detailed Neck Exam: Thyroids Thyroid: Absent bruit Progress Note: A&P Assessment and plan (1) Bradycardia: Status: Acute (2) Digoxin toxicity: Status: Acute (3) Generalized weakness: Status: Acute (4) Failure to thrive: Status: Acute (5) Acute kidney injury: Status: Acute (6) Atrial fibrillation: Status: Chronic (7) Leukocytosis: Status: Acute (8) Elevated troponin: Status: Acute (9) Hyponatremia: Status: Resolved Assessment and Plan Assessment and Plan for All Diagnoses:: Generalized weakness Fatigue Bradycardia Elevated digoxin level Digoxin level 2.2 on admission trending down to 1.7, continue to trend until below 1.2 Patient remains bradycardic with heart rate in the 40s to 50s Limited echo shows an EF of 55% with a mildly dilated right ventricle with normal RV function. TSH normal Elevated troponin Elevated proBNP Patient denies chest pain or shortness of breath Chest x-ray negative for acute findings Serial troponin 0.04 x 3 BNP on admission 2190 Digoxin on hold, initial level 2.2 trending down to 1.7 Chronic A-fib Continue Xarelto 15 mg p.o. daily. Digoxin on hold currently. MARIOLA Creatinine on admission 1.5 trending down to 1.2 In the setting of decreased p.o. intake Hyponatremia-resolved Sodium 128 on admission, 135 today CV summary 12/01/2024: EF normal at 55%. Continue to trend digoxin level until below 1.2.
[2024-12-01 11:55] LABS: POC Glucose,Bedside 112 (70-110)
[2024-12-01 12:00] VITALS: BP 102/50; PULSE 55; PULSE 60; RESP 16; TEMP 36.4; O2SAT 97
[2024-12-01 16:00] VITALS: BP 107/37; PULSE 66; PULSE 80; RESP 16; TEMP 36.4; O2SAT 97
[2024-12-01] MEDS: humaLOG 100 UNITS/ML 10ML VIAL (SSI) SUBCUT ×2 (16:18→20:39)
[2024-12-01 16:44] LABS: POC Glucose,Bedside 224 (70-110)
--- NOTE | 2024-12-01 16:56 | PC.NURSE ---
PT IS SITTING UP IN THE CHAIR. ALERT TO SELF/PLACE. PT CONTINUES TO HAVE OFF AND ON CONFUSION AND IS VERY REPETITIVE WITH QUESTIONS. EASILY REDIRECTED. PT HAS AMBULATED TO THE BATHROOM AND IN THE ROOM WITH 1 ASSIST. HAS STATED MULTIPLE TIMES T/O THE DAY HOW MUCH BETTER SHE FEELS. LUNG SOUNDS CLEAR. ABDOMEN SOFT/NON TENDER WITH ACTIVE BOWEL SOUNDS. EATING AND DRINKING WELL. AFIB ON TELEMETRY WITH HR 50-60. WILL CONTINUE TO MONITOR.
[2024-12-01] MEDS: XARELTO 15 MG 1 EACH PO (17:39)
--- NOTE | 2024-12-01 17:54 | HMH.SLDYSPHA ---
Speech & Language Evaluation Speech/Language Dysphagia Evaluation Start: 12/01/24 17:33 Freq: ONCE Status: Active Protocol: Document 12/01/24 17:34 TIMOTHY (Rec: 12/01/24 17:54 [email or web address] [id number]) Dysphagia Assess/Goals/Plan Assessment Date of Evaluation: 12/01/24 Evaluation Type Initial Certification Assessment/Problems globus sensation and observed penetration during upper GI series per MD order Does Patient Qualify Yes for Service Qualify/Failure Based on clinical observations made throughout clinical Comment bedside swallow evaluation and pt interview, pt would benefit from further skilled speech therapy services for diet tolerance. Recommendations PHYSICIAN CERTIFICATION: The specified therapy services are required, authorized, and reviewed every 30 days. Pt will be seen # 2 times/week for # weeks 4 Diet Recommendations Normal Liquid Type Normal/Thin Recommendations SL Swallow Standard Aspiration Prec.,Eat at slow rate,Reflux Guidelines precautions Dysphagia Swallow Sitting Upright (90 deg),Small Bites and Sips,Alternate Precautions/ Liquids/Solids Strategies Plan Anticipate reaching 2 STG in # weeks Anticipate reaching 4 LTG in # weeks Pt/Guardian verbally Yes ack understanding of dx/prognosis/ goals G -code Required No STG-Other Comment/Non-Specific 1. Pt will tolerate regular/thin liquid diet w/ no overt s/sx of aspiration during 80% of meal over 3 consecutive observations. Half-Way Goals Diet Regular with Liquids Thin Liquids Education Instructions [employer] discussed clinical observations made throughout provided bedside CSE, aspiration precautions/compensatory strategies, and diet recommendations with pt and nursing, all of which expressed understanding. Pt/Caregiver able to Able to recall/restate recall information Reinforcement needed No Speech & Language HPI History Present Illness Description of [employer] pulled the following from pt's H&P, chest xray, and Patient Problem upper GI series: H&P: Ms. Stanley is a 84-year-old female presents the ER for evaluation of heat exhaustion. Patient has past medical history of dementia, diabetes mellitus, TIA, DVT, hyperlipidemia, A-fib, and GERD. Patient's son is at the bedside and is primary historian. He states that patient mostly sits in a sofa like chair all day. He states for the last 3 to 4 days patient has not been eating and drinking. He states it has been a fight to get her to eat even a little bit. He states it takes a lot of prompting for her to continue to eat. He states for past week he has had to get her up out of bed at 11 30-12 o'clock. States she was ambulating in the house with walker prior to this. He states they do not have any air conditioning at their house and was going to bring her to his aunts house a mile away. He states they got there and he was trying to get her to go up the stairs and patient would not climb stairs. He states she kept saying that she was going to fall. He states she ended up falling back onto him and that is when he called EMS to transport to ER. He states last Saturday patient was able to ambulate with walker and go out to eat in [place] and patient has consistently declined after that. He states she also was able to go to physical therapy 3 weeks ago but has not been wanting to get up and out of the house. Patient denies fever/chills, cough, congestion, runny nose, dyspnea, chest pain, nausea, vomiting, diarrhea, constipation, headache, lightheadedness, dizziness, or syncope. Chest xray: FINDINGS: Lungs: Unremarkable. No consolidation. Pleural spaces: Unremarkable. No pleural effusion. No pneumothorax. Heart/Mediastinum: Unremarkable. No cardiomegaly. Bones/joints: Unremarkable. Upper GI series: IMPRESSION: Penetration without elgin aspiration. Consider speech pathology consult. Nonobstructing prominent cricopharyngeal muscle. Small sliding-type hiatal hernia. Rehab Services Speech therapy Assessed Is this evaluation r No /t stroke? General Information General Current Food Regular,Thin Liquids Consistancy Oxygen Status Room Air Patient Orientation Person,Place,Time,Situation Ability to Follow Excellent Directions Communication No Impairment Ability Dysphagia:Food Presentation Evaluation Food Type Pureed,Mechanical Soft,Regular,Liquid Dysphagia Evaluation A clinical bedside swallow evaluation was administered Summary this evening with pt sitting upright in chair. Pt able to follow commands and communicate adequately. [employer] observed pt with dinner tray including the following bolus consistencies: puree (sherbet), mechanical soft chopped (green beans), regular (grilled cheese sandwich ), and thin liquid via straw (Pepsi). Pt demonstrated no overt s/sx of aspiration on any consistency given. Pt had adequate labial seal, as well as WFL mastication and manipulation of bolus on all consistencies trialed . No oral residue observed on any consistency. [employer] recommends regular/thin liquid diet w/ aspiration precautions including sitting upright 30-60 mins during /after meal, small bites/sips, alt bites/sips, and eating at a slow rate. [employer] will f/u for diet tolerance. Stroke Dysphagia Assessment PHYSICIAN CERTIFICATION: I certify the specified therapy services for Luisa Stanley are required, authorized, and reviewed every 30 days.
--- NOTE | 2024-12-01 19:08 | EXP.ACUTE.PN ---
Subjective *Date: 12/01/24 *Time: 21:28 Interval history: States she is feeling somewhat better today. Increased energy. Afebrile. Heart rate improving in the 50s and 60s. Stable on room air. Swallow study performed today Medical Exam Vital signs and Labs for Last 24 Hours: Vital Signs Temp Pulse Pulse Resp BP Pulse Ox O2 Del Method 12/01/24 18:25 Room Air 12/01/24 17:34 Room Air 12/01/24 16:44 Room Air 12/01/24 16:00 80 12/01/24 16:00 97.5 F L 66 16 107/37 L 97 Room Air 12/01/24 14:45 Room Air 12/01/24 12:57 Room Air 12/01/24 12:00 60 12/01/24 12:00 97.5 F L 55 L 16 102/50 L 97 Room Air 12/01/24 10:58 Room Air 12/01/24 08:00 50 L 12/01/24 08:00 Room Air 12/01/24 08:00 97.9 F 56 L 16 112/39 L 98 Room Air 12/01/24 07:56 Room Air 12/01/24 06:45 Room Air 12/01/24 05:00 Room Air 12/01/24 04:00 50 L 12/01/24 04:00 97.5 F L 52 L 14 103/49 L 98 Room Air 12/01/24 03:00 Room Air 12/01/24 01:00 Room Air 12/01/24 00:00 50 L 12/01/24 00:00 97.7 F 63 15 99/40 L 99 Room Air 11/30/24 23:00 Room Air 11/30/24 21:00 Room Air 11/30/24 20:00 60 11/30/24 20:00 97.9 F 62 21 113/56 L 98 Room Air 11/30/24 20:00 Room Air Intake and Output 12/01/24 12/01/24 12/01/24 07:59 15:59 23:59 Intake Total 320 / 320 Output Total 150 / 150 Balance -150 / 170 320 / 170 Intake: Intake, Oral Amount 270 / 270 Intake, Total IV Amount 50 / 50 Ceftriaxone Sodium 1 gm In 0.9 50 / 50 % Sodium Chloride 50 ml @ 100 mls/hr IV Q24H [facility] Rx#:[id number] Output: Output, Urine Amount 150 / 150 Other: Number of Unmeasured Voids 0 Weight 74.797 kg Patient Weight 12/01/24 23:59 Weight 74.797 kg Laboratory Results - last 24 hr 11/30/24 20:22: POC Glucose 192 H 12/01/24 05:04: POC Glucose 127 H 12/01/24 05:54: WBC 9.6, RBC 4.58, Hgb 12.1 L, Hct 39.6, MCV 86.5, MCH 26.4 L, MCHC 30.6 L, RDW 15.7, Plt Count 251, MPV 11.0 H, Neut % (Auto) 68.0, Lymph % (Auto) 20.4, [place] % (Auto) 8.6, Eos % (Auto) 2.0, Baso % (Auto) 0.5, Neut # (Auto) 6.6, Lymph # (Auto) 2.0, [place] # (Auto) 0.8, Eos # (Auto) 0.2, Baso # (Auto) 0.1, Sodium 135 L, Potassium 3.7, Chloride 97 L, Carbon Dioxide 31 H, Anion Gap 10.7, BUN 28 H, Creatinine 1.20 H, Estimated Creat Clear 40, Estimated GFR 43 L, Est GFR ( Amer) 52 L, Glucose 121 H, Calcium 8.9, Total Bilirubin 0.8, AST 24, ALT 16, Alkaline Phosphatase 83, Total Protein 5.9 L, Albumin 3.4 L, Globulin 2.5, Albumin/Globulin Ratio 1.4, Digoxin 1.70 12/01/24 11:41: POC Glucose 112 H 12/01/24 16:17: POC Glucose 224 H I & O for Labs for Last 24 Hours: Intake & Output 11/28/24 11/29/24 11/30/24 12/01/24 23:59 23:59 23:59 23:59 Intake Total 2293 / 2929 1626 / 1626 320 / 320 Output Total 475 / 475 225 / 225 850 / 850 150 / 150 Balance -475 / -475 2068 / 2704 776 / 776 170 / 170 Weight 68.492 kg 73.142 kg 75.93 kg 74.797 kg Constitutional: Present no acute distress, average body habitus, chronically ill appearing and cooperative Head: Present atraumatic and normocephalic ENT: Present normal exam Comment:: Slight droop to right eye Respiratory: Present normal respiratory effort; Absent rhonchi, wheezes or crackles Cardiac: Present Regular Rate Comment:: Irregularly irregular GI: Present soft and normal bowel sounds; Absent distention or tenderness Extremities: Present normal inspection and full ROM Skin: Present intact; Absent erythema Neuro: Present Grossly Intact, alert, awake and moves all extremities Comment:: Oriented to self and place. Poor short-term recall Assessment and Plan *Assessment and plan (1) Bradycardia: Status: Acute Category: Medical Code(s): R00.1 - Bradycardia, unspecified Plan: Patient is on digoxin 125 mcg daily, hold at this time. Digoxin level elevated at 2.3 on admission. Improved to 1.7 this morning. Heart rate improved into the 50s and 60s. - Discussed case with cardiology, will monitor for digoxin level to improve to less than 1.2. If remains bradycardic, may necessitate pacemaker placement. (2) Digoxin toxicity: Status: Acute Category: Medical Code(s): T46.0X1A - Poisoning by cardiac-stimulant glycosides and drugs of similar action, accidental (unintentional), initial encounter (3) Generalized weakness: Status: Acute Category: Medical Code(s): R53.1 - Weakness Plan: .Improved p.o. intake. In therapy evaluated, recommend placement. Excepted for [facility], anticipate discharge tomorrow (4) Failure to thrive: Status: Acute Category: Medical (5) Acute kidney injury: Status: Acute Category: Medical Code(s): N17.9 - Acute kidney failure, unspecified Plan: Creatinine 1.5 on admission, improved to 1.2. Stable, suspect this is her new baseline (6) Atrial fibrillation: Status: Chronic Qualifiers: Atrial fibrillation type: unspecified Qualified Code(s): I48.91 - Unspecified atrial fibrillation Category: Medical Code(s): I48.91 - Unspecified atrial fibrillation Plan: Continue Xarelto 15 mg daily. Holding digoxin due to bradycardia. Will have to consider alternate agent. Cardiology consulted to evaluate. (7) Leukocytosis: Status: Acute Category: Medical Code(s): D72.829 - Elevated white blood cell count, unspecified Plan: Urine culture negative, discontinue of ceftriaxone after 48 hours. White count normal at 9.6. Kidney function stable, BUN 28, creatinine 1.2. At patient's baseline (8) Elevated troponin: Status: Acute Category: Medical Code(s): R79.89 - Other specified abnormal findings of blood chemistry Plan: Troponin 0.04, stable on serial labs. EKG with minimal ST depression otherwise unchanged from EKG on 08/12/2024. Denying chest pain. Cardiology to evaluate in the morning. (9) Hyponatremia: Status: Resolved Category: Medical Code(s): E87.1 - Hypo-osmolality and hyponatremia Plan: Resolved Plan 84-year-old female on digoxin for A-fib who presents with worsening fatigue and weakness for several days. Also complaining of early satiety when she eats and sensation of food getting stuck. Has unexplained leukocytosis. Admitted for further management. Cardiology assisting with management. Empiric ceftriaxone. Monitoring on telemetry. Digoxin level improving. Heart rate improving. Evaluated by therapy, recommend placement. Anticipate discharge tomorrow to [facility] if heart rate continues to improve and does not need placement of pacemaker. Continues to require inpatient management. Repeat CBC, CMP, magnesium, and digoxin level ordered for the morning. Upper GI with small bowel follow-through performed. No [place] obstruction or achalasia. Speech evaluated, recommends regular diet. Full code Regular diet Resume Karl
[2024-12-01 20:00] VITALS: BP 119/37; PULSE 50; PULSE 57; PULSE 60; RESP 18; TEMP 36.5; O2SAT 98
[2024-12-01] MEDS: PT OWN MED *ATORVASTATIN 40 MG TAB 1 EACH PO (20:39)
[2024-12-01] MEDS: PANTOPRAZOLE 40MG TABLET 40 MG PO (20:39)
[2024-12-02] VITALS: BP 127/51; PULSE 40; PULSE 50; RESP 16; TEMP 36.3; O2SAT 96
[2024-12-02 04:00] VITALS: BP 136/41; PULSE 40; PULSE 87; RESP 12; TEMP 36.3; O2SAT 99; BMI 27.0
[2024-12-02 05:00] LABS: Hematocrit 37.4 % (37.0-47.0); Hemoglobin 11.5 g/dL (12.2-16.2); Immature Granulocytes % 0.4 %; Mean Corpuscular HGB Conc 30.7 g/dL (31.8-35.4); Mean Corpuscular Hemoglobin 26.7 pg (27.0-31.2); Mean Corpuscular Volume 86.8 fl (81-99); Nucleated Red Blood Cells % 0 %; Platelet Count 255 K/mm3 (142-424); Red Blood Count 4.31 M/mm3 (4.20-5.40); Red Cell Distribution Width-SD 49.7 fL; White Blood Count 8.2 K/mm3 (4.8-10.8)
[2024-12-02 05:06] LABS: Albumin Level 3.3 g/dl (3.5-5.0); Chloride 98 mmol/L (98-107); Sodium 136 mmol/L (136-145)
[2024-12-02 05:07] LABS: Potassium 3.8 mmoL/L (3.5-5.1)
[2024-12-02 05:09] LABS: Alanine Aminotransferase 17 U/L (12-78); Alkaline Phosphatase 88 U/L (38-126); Aspartate Amino Transferase 24 U/L (14-36); Bilirubin,Total 0.3 mg/dl (0.2-1.3); Blood Urea Nitrogen 22 mg/dl (7-17); Creatinine Clearance Estimated 43 mL/min (50-200); Creatinine,Serum 1.10 mg/dl (0.52-1.04); Estimated Glomerular Filt Rate 47 ml/min (>60); GFR (African American) 57 ML/MIN (>60); Glucose 145 mg/dl (74-100); Total Protein,Serum 5.8 g/dl (6.3-8.2)
[2024-12-02 05:10] LABS: Calcium 8.0 mg/dl (8.4-10.2)
[2024-12-02 05:14] LABS: Albumin/Globulin Ratio 1.3 (1.1-1.8); Globulin 2.5 g/dL (1.3-3.2)
[2024-12-02 05:39] LABS: Magnesium 2.4 mg/dl (1.6-2.3)
[2024-12-02 05:44] LABS: Anion Gap 7.8 mEq/L (5-15)
[2024-12-02 05:45] LABS: Carbon Dioxide 34 mmol/L (22.0-30.0)
[2024-12-02 05:48] LABS: POC Glucose,Bedside 133 (70-110)
[2024-12-02 08:00] VITALS: BP 137/67; PULSE 47; PULSE 52; PULSE 60; RESP 14; TEMP 36.6; O2SAT 100
[2024-12-02 08:54] LABS: POC Glucose,Bedside 233 (70-110)
[2024-12-02] MEDS: CYANOCOBALAMIN 1000 MCG 1 EACH PO (09:12)
[2024-12-02] MEDS: PT OWN MED *CITALOPRAM 20 MG TAB 1 EACH PO (09:13)
[2024-12-02] MEDS: FOLIC ACID 400 MCG 1 EACH PO (09:14)
[2024-12-02] MEDS: PYRIDOXINE 100 MG 1 EACH PO (09:15)
[2024-12-02] MEDS: MEMANTINE 28 MG 1 EACH PO (09:15)
[2024-12-02] MEDS: NYSTATIN TOPICAL POWDER 30GM TP ×2 (09:16→13:22)
[2024-12-02] MEDS: CHOLECALCIFEROL 125 MCG 1 EACH PO (09:19)
[2024-12-02] MEDS: PT OWN MED *ASPIRIN 81 MG EC TAB 1 EACH PO (09:19)
[2024-12-02] MEDS: PT OWN MED *JARDIANCE 10 MG TAB 1 EACH PO (09:19)
[2024-12-02 09:41] LABS: Digoxin 1.10 ng/ml (0.2-2.00)
--- NOTE | 2024-12-02 10:11 | EXP.CARD.PN ---
Subjective Subjective Date: 12/02/24 Time: 08:00 Principal diagnosis: Generalized weakness and fatigue Interval history: Patient reports she is feeling better. Heart rate is 60 this morning with a blood pressure of 137/67. Morning labs reviewed. Exam Data for Last 24 hours Vital signs and Labs for Last 24 Hours: Temp Pulse Resp BP Pulse Ox O2 Del Method O2 Flow Rate 97.8 F 52 L 14 137/67 100 Room Air 3 12/02/24 08:00 12/02/24 08:00 12/02/24 08:00 12/02/24 08:00 12/02/24 08:00 12/02/24 09:00 11/29/24 04:00 Laboratory Results - last 24 hr 12/01/24 11:41: POC Glucose 112 H 12/01/24 16:17: POC Glucose 224 H 12/01/24 20:00: POC Glucose 233 H 12/02/24 04:38: WBC 8.2, RBC 4.31, Hgb 11.5 L, Hct 37.4, MCV 86.8, MCH 26.7 L, MCHC 30.7 L, RDW 15.9, Plt Count 255, MPV 11.0 H, Neut % (Auto) 63.0, Lymph % (Auto) 25.3, [place] % (Auto) 8.6, Eos % (Auto) 2.0, Baso % (Auto) 0.7, Neut # (Auto) 5.2, Lymph # (Auto) 2.1, [place] # (Auto) 0.7, Eos # (Auto) 0.2, Baso # (Auto) 0.1, Sodium 136, Potassium 3.8, Chloride 98, Carbon Dioxide 34 H, Anion Gap 7.8, BUN 22 H, Creatinine 1.10 H, Estimated Creat Clear 43, Estimated GFR 47 L, Est GFR ( Amer) 57 L, Glucose 145 H, Calcium 8.0 L, Magnesium 2.4 H, Total Bilirubin 0.3, AST 24, ALT 17, Alkaline Phosphatase 88, Total Protein 5.8 L, Albumin 3.3 L, Globulin 2.5, Albumin/Globulin Ratio 1.3 12/02/24 05:40: POC Glucose 133 H 12/02/24 08:50: Digoxin 1.10 I & O for Last 24 hours: Intake & Output 06/11/30/24 12/01/24 12/02/24 23:59 23:59 23:59 23:59 Intake Total 2293 / 2929 1626 / 1626 320 / 560 600 / 600 Output Total 225 / 225 850 / 850 350 / 350 Balance 2068 / 2704 776 / 776 -30 / 210 600 / 600 Weight 161 lb 4 oz 167 lb 6.352 oz 164 lb 14.4 oz 162 lb 2 oz Constitutional Constitutional: no acute distress *Routine Respiratory Exam Respiratory: Present CTA bilaterally and symmetric chest movement *Routine Cardiovascular Exam Cardiovascular: Present RRR, Normal S1 and Normal S2 *Routine Abdominal Exam Abdominal: Present soft and normoactive bowel sounds; Absent tenderness *Routine Extremities Exam Extremities: Present full ROM and normal capillary refill; Absent edema *Routine Skin Exam Skin: Present intact, dry and warm Detailed Neck Exam: Thyroids Thyroid: Absent bruit Progress Note: A&P Assessment and plan (1) Bradycardia: Status: Acute (2) Digoxin toxicity: Status: Acute (3) Generalized weakness: Status: Acute (4) Failure to thrive: Status: Acute (5) Acute kidney injury: Status: Acute (6) Atrial fibrillation: Status: Chronic (7) Leukocytosis: Status: Acute (8) Elevated troponin: Status: Acute (9) Hyponatremia: Status: Resolved Assessment and Plan Assessment and Plan for All Diagnoses:: Generalized weakness Fatigue Bradycardia Elevated digoxin level Digoxin level 2.2 on admission trending down to 1.7, continue to trend until below 1.1 Heart rate 60 this morning Limited echo shows an EF of 55% with a mildly dilated right ventricle with normal RV function. TSH normal Elevated troponin Elevated proBNP Patient denies chest pain or shortness of breath Chest x-ray negative for acute findings Serial troponin 0.04 x 3 BNP on admission 2190 Chronic A-fib Continue Xarelto 15 mg p.o. daily. MARIOLA Creatinine on admission 1.5 trending down to 1.1 In the setting of decreased p.o. intake Hyponatremia-resolved Sodium 128 on admission, 136today CV summary 12/02/2024: Patient is CV stable for discharge home. Please send patient home in a 2-week event monitor for further evaluation of bradycardia. Patient needs follow-up in cardiology clinic in 1 week for reevaluation.
[2024-12-02] MEDS: humaLOG 100 UNITS/ML 10ML VIAL (SSI) SUBCUT (11:20)
[2024-12-02] MEDS: POLYETHYLENE GLYCOL 3350 17 GM PACKET PO (11:21)
--- NOTE | 2024-12-02 11:23 | DIET.NUTRFU ---
meal intake improving at 100% with supplements in place. No BM noted, provider aware. Plans to discharge to placement
--- NOTE | 2024-12-02 11:23 | EXP.DC.SUM ---
General Admission date:: 11/28/24 Discharge date: 12/02/24 HPI HPI HPI: Ms. Stanley is a 84-year-old female presents the ER for evaluation of heat exhaustion. Patient has past medical history of dementia, diabetes mellitus, TIA, DVT, hyperlipidemia, A-fib, and GERD. Patient's son is at the bedside and is primary historian. He states that patient mostly sits in a sofa like chair all day. He states for the last 3 to 4 days patient has not been eating and drinking. He states it has been a fight to get her to eat even a little bit. He states it takes a lot of prompting for her to continue to eat. He states for past week he has had to get her up out of bed at 11 30-12 o'clock. States she was ambulating in the house with walker prior to this. He states they do not have any air conditioning at their house and was going to bring her to his aunts house a mile away. He states they got there and he was trying to get her to go up the stairs and patient would not climb stairs. He states she kept saying that she was going to fall. He states she ended up falling back onto him and that is when he called EMS to transport to ER. He states last Saturday patient was able to ambulate with walker and go out to eat in [place] and patient has consistently declined after that. He states she also was able to go to physical therapy 3 weeks ago but has not been wanting to get up and out of the house. Patient denies fever/chills, cough, congestion, runny nose, dyspnea, chest pain, nausea, vomiting, diarrhea, constipation, headache, lightheadedness, dizziness, or syncope. Hospital Course Hospital Course Hospital Course: Lizeth is an 84-year-old female who presented with weakness and bradycardia. Found to have elevated digoxin level of 203 on admission. Digoxin was held, cardiology evaluated. Heart rate gradually improved as her digoxin level normalized. Presentation consistent with failure to thrive and digoxin toxicity. Has shown improvement but needing skilled rehab to improve functionality for safe/successful transition to home. Stable to discharge to [facility] for further management. Problems addressed as follows: Digoxin toxicity Symptomatic bradycardia A-fib, rate controlled -Patient on digoxin 125 mcg daily. Level 2.3 on admission. Improved to 1.1 by day of discharge. Heart rate improved from 30s to 40s up to 60s and 70s. Bradycardia improving as level drops. Will discharge home on 2-week event monitor. Cardiology evaluated for possible pacemaker. At this time we will defer to the outpatient setting and monitoring with event monitor. Close follow-up with cardiology as scheduled. Continue aspirin 81 mg daily, Lipitor 40 mg nightly, and spironolactone 25 mg daily. Continue Xarelto 15 mg nightly with meals for her A-fib Diabetes: - History of diabetes, A1c 10.5 on admission. Glucoses well-controlled however with morning glucose 145 on day of discharge. Would recommend fingersticks ACHS. At this time continuing Jardiance 10 mg daily. Has been receiving 48 units of insulin daily with sliding scale. Recommend considering increasing Jardiance to 25 if glucoses remain elevated after transitioning to facility. Was previously on glipizide, due to risk of hypoglycemia would recommend holding at this time. May necessitate adjustments to regimen such as addition of metformin or addition of low-dose long-acting insulin once daily in the mornings. Defer to provider at facility or PCP MARIOLA: Hyponatremia - creatinine 1.5 on admission. Improved to 1.1 by day of discharge. BUN 22. Suspect this is patient's baseline. Kidney function stable. Magnesium 2.4 and potassium 3.8. Sodium also improved to 136 by day of discharge, Suspect low sodium was due to poor p.o. intake and dehydration on presentation. - Needs repeat labs with BMP in 1 week - Echo obtained today showing normal EF of 55% and normal RV systolic function Leukocytosis: Urine was abnormal and white count was elevated on presentation however culture was negative. Treated with empiric antibiotics with 3 days of ceftriaxone. No indication for antibiotics at discharge. White count normal at 8.2 on day of discharge. Total time spent on discharge 35 minutes in counseling, documentation, chart review, and direct care with patient. Exam Data for Last 24 hours Vital signs and Labs for Last 24 Hours: Temp Pulse Resp BP Pulse Ox O2 Del Method O2 Flow Rate 97.8 F 52 L 14 137/67 100 Room Air 3 12/02/24 08:00 12/02/24 08:00 12/02/24 08:00 12/02/24 08:00 12/02/24 08:00 12/02/24 09:00 11/29/24 04:00 Laboratory Results - last 24 hr 12/01/24 11:41: POC Glucose 112 H 12/01/24 16:17: POC Glucose 224 H 12/01/24 20:00: POC Glucose 233 H 12/02/24 04:38: WBC 8.2, RBC 4.31, Hgb 11.5 L, Hct 37.4, MCV 86.8, MCH 26.7 L, MCHC 30.7 L, RDW 15.9, Plt Count 255, MPV 11.0 H, Neut % (Auto) 63.0, Lymph % (Auto) 25.3, [place] % (Auto) 8.6, Eos % (Auto) 2.0, Baso % (Auto) 0.7, Neut # (Auto) 5.2, Lymph # (Auto) 2.1, [place] # (Auto) 0.7, Eos # (Auto) 0.2, Baso # (Auto) 0.1, Sodium 136, Potassium 3.8, Chloride 98, Carbon Dioxide 34 H, Anion Gap 7.8, BUN 22 H, Creatinine 1.10 H, Estimated Creat Clear 43, Estimated GFR 47 L, Est GFR ( Amer) 57 L, Glucose 145 H, Calcium 8.0 L, Magnesium 2.4 H, Total Bilirubin 0.3, AST 24, ALT 17, Alkaline Phosphatase 88, Total Protein 5.8 L, Albumin 3.3 L, Globulin 2.5, Albumin/Globulin Ratio 1.3 12/02/24 05:40: POC Glucose 133 H 12/02/24 08:50: Digoxin 1.10 I & O for Last 24 hours: Intake & Output 11/29/24 11/30/24 12/01/24 12/02/24 23:59 23:59 23:59 23:59 Intake Total 2293 / 2929 1626 / 1626 320 / 560 600 / 600 Output Total 225 / 225 850 / 850 350 / 350 Balance 2068 / 2704 776 / 776 -30 / 210 600 / 600 Weight 73.142 kg 75.93 kg 74.797 kg 73.539 kg Constitutional Constitutional: no acute distress, average body habitus, chronically ill appearing and cooperative *Routine HEENT Exam Head: Present normocephalic and atraumatic Eye: Present EOMI and PERRL ENT: Present mucous membranes moist *Routine Neck Exam Neck: Present supple *Routine Respiratory Exam Respiratory: Present CTA bilaterally and symmetric chest movement; Absent respiratory distress, rhonchi, stridor or wheezes *Routine Cardiovascular Exam Cardiovascular: Present irregularly irregular Comments: Rate 60s to 70s *Routine Abdominal Exam Abdominal: Present soft and normoactive bowel sounds; Absent tenderness *Routine Rectal Exam Patient deferred: visual exam *Routine Exam Patient deferred: external exam *Routine Extremities Exam Extremities: Present full ROM and normal capillary refill; Absent edema *Routine Skin Exam Skin: Present intact, dry and warm Detailed Neck Exam: Thyroids Thyroid: Absent bruit Results Data Completed and Pending Labs on day of discharge: Labs from last 24 hours 12/02/24 12/02/24 12/02/24 08:50 05:40 04:38 WBC 8.2 RBC 4.31 Hgb 11.5 L Hct 37.4 MCV 86.8 MCH 26.7 L MCHC 30.7 L RDW 15.9 Plt Count 255 MPV 11.0 H Neut % (Auto) 63.0 Lymph % (Auto) 25.3 [place] % (Auto) 8.6 Eos % (Auto) 2.0 Baso % (Auto) 0.7 Neut # (Auto) 5.2 Lymph # (Auto) 2.1 [place] # (Auto) 0.7 Eos # (Auto) 0.2 Baso # (Auto) 0.1 Sodium 136 Potassium 3.8 Chloride 98 Carbon Dioxide 34 H Anion Gap 7.8 BUN 22 H Creatinine 1.10 H Estimated Creat Clear 43 Estimated GFR 47 L Est GFR ( Amer) 57 L Glucose 145 H POC Glucose 133 H Calcium 8.0 L Magnesium 2.4 H Total Bilirubin 0.3 AST 24 ALT 17 Alkaline Phosphatase 88 Total Protein 5.8 L Albumin 3.3 L Globulin 2.5 Albumin/Globulin Ratio 1.3 Digoxin 1.10 12/01/24 12/01/24 12/01/24 20:00 16:17 11:41 WBC RBC Hgb Hct MCV MCH MCHC RDW Plt Count MPV Neut % (Auto) Lymph % (Auto) [place] % (Auto) Eos % (Auto) Baso % (Auto) Neut # (Auto) Lymph # (Auto) [place] # (Auto) Eos # (Auto) Baso # (Auto) Sodium Potassium Chloride Carbon Dioxide Anion Gap BUN Creatinine Estimated Creat Clear Estimated GFR Est GFR ( Amer) Glucose POC Glucose 233 H 224 H 112 H Calcium Magnesium Total Bilirubin AST ALT Alkaline Phosphatase Total Protein Albumin Globulin Albumin/Globulin Ratio Digoxin DS: Diagnosis Discharge Diagnosis (1) Bradycardia: Status: Acute Code(s): R00.1 - Bradycardia, unspecified (2) Digoxin toxicity: Status: Acute Code(s): T46.0X1A - Poisoning by cardiac-stimulant glycosides and drugs of similar action, accidental (unintentional), initial encounter (3) Generalized weakness: Status: Acute Code(s): R53.1 - Weakness (4) Failure to thrive: Status: Acute (5) Acute kidney injury: Status: Acute Code(s): N17.9 - Acute kidney failure, unspecified (6) Atrial fibrillation: Status: Chronic Code(s): I48.91 - Unspecified atrial fibrillation Qualifiers: Atrial fibrillation type: unspecified Qualified Code(s): I48.91 - Unspecified atrial fibrillation (7) Leukocytosis: Status: Acute Code(s): D72.829 - Elevated white blood cell count, unspecified (8) Elevated troponin: Status: Acute Code(s): R79.89 - Other specified abnormal findings of blood chemistry (9) Hyponatremia: Status: Resolved Code(s): E87.1 - Hypo-osmolality and hyponatremia Meds Home Medications and Allergies Home Medications ?Medication ?Instructions ?Recorded ?Confirmed ?Type aspirin 81 mg tablet,delayed 81 mg PO DAILY 08/14/17 11/29/24 History release atorvastatin 40 mg tablet 40 mg PO HS Cholesterol 08/14/17 11/29/24 History citalopram 20 mg tablet 20 mg PO DAILY 08/14/17 11/29/24 History folic acid 400 mcg tablet 0.4 mg PO DAILY 08/14/17 11/29/24 History memantine 28 mg capsule 28 mg PO DAILY 08/14/17 11/29/24 History sprinkle,extended release 24hr pyridoxine (vitamin B6) 100 mg 100 mg PO DAILY Supplement 08/14/17 11/29/24 History tablet rivaroxaban 15 mg tablet (Xarelto) 15 mg PO QPMWITHMEAL 02/13/23 11/29/24 History empagliflozin 10 mg tablet 10 mg PO DAILY #30 tabs 08/14/24 11/29/24 Rx (Jardiance) spironolactone 25 mg tablet 25 mg PO DAILY #30 tabs 08/14/24 11/29/24 Rx cholecalciferol (vitamin D3) 125 125 mcg PO DAILY 11/29/24 11/29/24 History mcg (5,000 unit) capsule cyanocobalamin (vitamin B-12) 1,000 mcg PO DAILY 11/29/24 11/29/24 History 1,000 mcg tablet,extended release omeprazole 20 mg tablet,delayed 20 mg PO DAILY 11/29/24 11/29/24 History release nystatin 100,000 unit/gram topical 1 applic topical QID rash under 12/02/24 Rx powder breasts #30 grams New Prescriptions to Start Prescriptions: Juan Francisco Chadwick Allergies Allergy/AdvReac Type Severity Reaction Status Date / Time Penicillins Allergy Unknown Unknown Verified 11/28/24 17:06 allergy reaction Discharge Plan Disposition Patient Disposition: [facility] Condition: Fair Discharge Order Discharge Orders: Discharge Order (Routine); Ordered 12/02/24 Ordered By: Juan Francisco Varma Follow up Plan Follow up with: Sandra Sexton APRN [Nurse Practitioner, Cardiology] - Enter time for follow up Prescriptions/Medication Reconciliation: New nystatin 100,000 unit/gram Powder 1 applic topical QID Qty: 30 0RF Continued atorvastatin 40 MG tablet 40 mg PO HS folic acid 0.4 MG tablet 0.4 mg PO DAILY aspirin 81 MG tablet,delayed release (DR/EC) 81 mg PO DAILY citalopram 20 MG tablet 20 mg PO DAILY Patient Comments: pyridoxine (vitamin B6) 100 MG tablet 100 mg PO DAILY memantine 28 MG capsule,sprinkle,ER 24hr 28 mg PO DAILY Patient Comments: spironolactone 25 mg tablet 25 mg PO DAILY Qty: 30 0RF Jardiance 10 mg tablet 10 mg PO DAILY Qty: 30 0RF cyanocobalamin (vitamin B-12) 1,000 mcg Tablet Extended Release 1,000 mcg PO DAILY cholecalciferol (vitamin D3) 125 mcg (5,000 unit) Capsule 125 mcg PO DAILY omeprazole 20 mg Tablet,Delayed Release (Dr/Ec) 20 mg PO DAILY Xarelto 15 mg tablet 15 mg PO QPMWITHMEAL Rx Instructions: must administer with evening meal Discontinued glipizide 5 mg tablet extended release 24hr 5 mg PO DAILY Patient Comments: TAKE 1 TABLET BY MOUTH DAILY digoxin 125 mcg (0.125 mg) tablet 125 mcg PO DAILY furosemide [Lasix] 40 mg tablet 40 mg PO DAILYP PRN (Reason: Edema) Problem Reconciliation Problems Reviewed?: Yes Patient Discharge Instructions ACTIVITY: Continue current activity DIET: continue same diet Patient Instructions: DI for Fatigue, DI for Bradycardia Print Language: Syriac Providers Primary Care Provider: Provider,Referral Admit Provider: Juan Francisco Varma Attending Provider: Juan Francisco Varma
--- NOTE | 2024-12-02 13:37 | PC.NURSE ---
report called to Tiffany at [facility]
[2024-12-07 12:38] LABS: POC Glucose,Bedside 171 (70-110)
== END 2024-12-02 14:29 | DRG 918 ==
LOC: ER 19:25 → 2ND 19:57
PROVIDERS: Nurse Practitioner; Nurse Practitioner Family; Physician Assistant; Admitting Provider Internal Medicine Adolescent Medicine; Emergency Provider Emergency Medicine; Visit Provider Internal Medicine Adolescent Medicine
DX: T46.0X1A Poisoning by cardiac-stimulant glycosides and drugs of similar action, accidental (unintentional), initial encounter (principal); E87.1 Hypo-osmolality and hyponatremia; N17.9 Acute kidney failure, unspecified; I48.20 Chronic atrial fibrillation, unspecified; R00.1 Bradycardia, unspecified; D72.829 Elevated white blood cell count, unspecified; R79.89 Other specified abnormal findings of blood chemistry; R62.7 Adult failure to thrive; F03.90 Unspecified dementia, unspecified severity, without behavioral disturbance, psychotic disturbance, mood disturbance, and anxiety; E78.5 Hyperlipidemia, unspecified; I10 Essential (primary) hypertension; K21.9 Gastro-esophageal reflux disease without esophagitis; E11.9 Type 2 diabetes mellitus without complications; E86.0 Dehydration; Z88.8 Allergy status to other drugs, medicaments and biological substances; Z79.899 Other long term (current) drug therapy; Z79.82 Long term (current) use of aspirin; Z79.84 Long term (current) use of oral hypoglycemic drugs; Z79.01 Long term (current) use of anticoagulants; Z86.73 Personal history of transient ischemic attack (TIA), and cerebral infarction without residual deficits; Z68.27 Body mass index [BMI] 27.0-27.9, adult
CPT/HCPCS: 36415; 70450; 71045; 72170; 74176; 74246; 80048; 80053; 80162; 81001; 82550; 82803; 82962; 83036; 83690; 83735; 83880; 84443; 84484; 84550; 85025; 87086; 92610; 93005; 93270; 93308; 97116; 97162; 97166; 97530; J0696; J7120

== ENCOUNTER 2024-12-16 11:17 | Outpatient (CLI) | payer MEDICARE, BC, SELFPAY ==
--- OUTSIDE RECORDS SUMMARY | 2024-12-16 11:19 | XMS_ITS ---
Author Name Auto Generated, Auto Generated Organization [facility] Address [address] [place] [id number] Phone [phone] Care Team Providers Care Plastics Design Engineer Name Role Phone Jose Francisco Gaona Unavailable [phone] Functional Status No Results Mental Status No Results Allergies and Intolerances Name Onset Date Reaction Severity penicillin (Allergy) SatDec 03 08:12:00 EDT 202 5 Encounters Program Name Primary Diagnosis Admission Date/Time Dis charge Date/Time null SatDec 01 20:00:00 EDT 2024 Problems No Known Problems Social History Social History Observation Description Date Smoking Status Unknown if ever smoked Sat 00:00:00 EDT 2024 Sex Female SatAug 25 00:00 :00 EST 1940 Reason for Referral
--- OUTSIDE RECORDS SUMMARY | 2024-12-16 11:19 | XMS_ITS ---
Author Name Auto Generated, Auto Generated Organization [facility] Address [address] [place] [id number] Phone [phone] Care Team Providers Care Finishing Wire Sawyer Name Role Phone Jose Francisco Gaona Unavailable [phone] Functional Status No Results Mental Status No [...]
[2024-12-16 12:38] LABS: Chloride 99 mmol/L (98-107); Sodium 136 mmol/L (136-145)
[2024-12-16 12:39] LABS: Potassium 4.8 mmoL/L (3.5-5.1)
[2024-12-16 12:41] LABS: Blood Urea Nitrogen 19 mg/dl (7-17); Creatinine,Serum 1.20 mg/dl (0.52-1.04); Estimated Glomerular Filt Rate 43 ml/min (>60); GFR (African American) 52 ML/MIN (>60)
[2024-12-16 12:42] LABS: Anion Gap 17.8 mEq/L (5-15); Calcium 9.1 mg/dl (8.4-10.2); Carbon Dioxide 24 mmol/L (22.0-30.0); Glucose 162 mg/dl (74-100)
== END 2024-12-16 23:59 | disposition home or self-care (01) ==
LOC: LAB 11:18
PROVIDERS: PCP Family Medicine; Visit Provider Nurse Practitioner
DX: R60.0 Localized edema (principal); I11.9 Hypertensive heart disease without heart failure
CPT/HCPCS: 36415; 80048

== ENCOUNTER 2025-04-27 12:05 | Outpatient (CLI) | payer MEDICARE, BC, SELFPAY ==
--- OUTSIDE RECORDS SUMMARY | 2025-04-09 11:45 | XMS_ITS | Encounter Summary ---
Author Organization [facility] Address [address] [place] [address] Care Team Providers Care Assistant Professor Of Surgery Name Role Phone Rell Clark MD Primary Care Provider + Reason for Visit * Reason Comments Follow-up Diabetes Encounter Details Date Type Department Care Team (Late st Contact Info) Description 04/09/2025 11:45 AM EST Office Visit [facility] [address] [place] [address] Rell Clark MD [address] [place] [address] Type 2 diabetes mellitus with hyperglycemia, without long-term current use of insulin (Primary Dx); Type 2 diabetes mellitus with hyperglycemia, without long-term current use of insulin; Late onset Alzheimer's dementia without behavioral disturbance; Late onset Alzheimer's dementia without behavioral disturbance; Left ventricular diastolic dysfunction; Paroxysmal atrial fibrillation Social History Tobacco Use Types Packs/Day Years Used Date Smoking Tobacco: Never Smokeless Tobacco: Never PHQ-2 Answer Date Recorded Retired PHQ-9: Brief Depression Severity Measure Score 1 06/19/2022 PHQ-2 Answer Date Recorded Patient Health Questionnaire-9 Score 9 07/13/2024 Comments Unknown Sex and Gender Information Value Date Recorded Sex Assigned at Not on file Legal Sex Female 12:22 PM EDT Gender Identity Not on file Sexual Orientation Not on file documented as of this encounter Last Filed Vital Signs Vital Sign Reading Time Taken Comments Blood Pressure 118/70 04/09/2025 11:19 AM EST Pulse 80 04/09/2025 11:19 AM EST Temperature 36.3 C (97.3 F) 04/09/2025 11:19 AM EST Respiratory Rate 20 04/09/2025 11:19 AM EST Oxygen Saturation 98% 04/09/2025 11:19 AM EST Inhaled Oxygen Concentration - - Weight 69.9 kg (154 lb 3.2 oz) 04/09/2025 11:19 AM EST Height 152.4 cm (5') 04/09/2025 11:19 AM EST Body Mass Index 30.12 04/09/2025 11:19 AM EST documented in this encounter Progress Notes * Rell Clark MD - 04/09/2025 11:45 AM EST Images from the original note were not included. Chief Complaint Patient presents with Follow-up Diabetes Subjective Luisa Stanley is a 84 y.o. who presents for chronic care. She has completed outpatient physical therapy after her last hospitalization in January. She has improved mobility according to her son who accompanies her and provides most of the significant history due to her dementia. Regarding diabetes blood sugars are not checked but she is taking her Jardiance and metformin as prescribed. Son has not seen any perceived change in dietary pattern. She has follow-up with cardiology next week for her atrial fibrillation The following portions of the patient's history were reviewed and updated as appropriate: allergies, current medications, past family history, past medical history, past social history, past surgicalhistory, and problem list. Review of Systems Objective Vital Signs: BP 118/70 Pulse 80 Temp 97.3 ??F (36.3 ??C) Resp 20 Ht 152.4 cm (60 ) Wt 69.9 kg (154 lb 3.2 oz) SpO2 98% BMI 30.12 kg/m?? Physical Exam Constitutional: Appearance: Normal appearance. HENT: Head: Normocephalic and atraumatic. Right Ear: Tympanic membrane and ear canal normal. Left Ear: Tympanic membrane and ear canal normal. Nose: Nose normal. Mouth/Throat: Mouth: Mucous membranes are moist. Pharynx: Oropharynx is clear. Eyes: Conjunctiva/sclera: Conjunctivae normal. Cardiovascular: Rate and Rhythm: Normal rate. Rhythm irregular. Heart sounds: Normal heart sounds. No murmur heard. Pulmonary: Effort: Pulmonary effort is normal. No respiratory distress. Breath sounds: Normal breath sounds. Musculoskeletal: Cervical back: Normal range of motion and neck supple. No tenderness. Lymphadenopathy: Cervical: No cervical adenopathy. Skin: General: Skin is warm and dry. Neurological: Mental Status: She is alert. Psychiatric: Mood and Affect: Mood normal. Result Review The following data was reviewed by: Rell Clark MD on 04/09/2025: A1C Last 3 Results 09/15/2024 12:17 01/05/2025 11:56 04/09/2025 11:28 HGBA1C Last 3 Results Hemoglobin A1C 8.6 8.0 6.5 Assessment and Plan Diagnoses and all orders for this visit: 1. Type 2 diabetes mellitus with hyperglycemia, without long-term current use of insulin (Primary) Comments: Diabetes control has improved. Continue Jardiance and metformin at current dosing. Reduce metforminat follow-up if condition remains well-controlled Orders: - POC Glycosylated Hemoglobin (Hb A1C) - Jardiance 10 MG tablet tablet; Take 1 tablet by mouth Daily. Dispense: 90 tablet; Refill: 3 - atorvastatin (LIPITOR) 40 MG tablet; Take 1 tablet by mouth Daily. Dispense: 90 tablet; Refill: 3 - metFORMIN (GLUCOPHAGE) 500 MG tablet; Take 1 tablet by mouth 2 (Two) Times a Day With Meals. Dispense: 180 tablet; Refill: 3 2. Type 2 diabetes mellitus with hyperglycemia, without long-term current use of insulin Comments: . Orders: - POC Glycosylated Hemoglobin (Hb A1C) - Jardiance 10 MG tablet tablet; Take 1 tablet by mouth Daily. Dispense: 90 tablet; Refill: 3 - atorvastatin (LIPITOR) 40 MG tablet; Take 1 tablet by mouth Daily. Dispense: 90 tablet; Refill: 3 - metFORMIN (GLUCOPHAGE) 500 MG tablet; Take 1 tablet by mouth 2 (Two) Times a Day With Meals. Dispense: 180 tablet; Refill: 3 3. Late onset Alzheimer's dementia without behavioral disturbance Comments: Stable. Contineu Namenda XR. Reassess every 6 to 12 months Orders: - memantine (NAMENDA XR) 28 MG capsule sustained-release 24 hr extended release capsule; Take 1 capsule by mouth Daily. Dispense: 90 capsule; Refill: 3 4. Late onset Alzheimer's dementia without behavioral disturbance - memantine (NAMENDA XR) 28 MG capsule sustained-release 24 hr extended release capsule; Take 1 capsule by mouth Daily. Dispense: 90 capsule; Refill: 3 5. Left ventricular diastolic dysfunction - Jardiance 10 MG tablet tablet; Take 1 tablet by mouth Daily. Dispense: 90 tablet; Refill: 3 - spironolactone (ALDACTONE) 25 MG tablet; Take 1 tablet by mouth Daily. Dispense: 90 tablet; Refill: 3 6. Paroxysmal atrial fibrillation Comments: Stable. Follow-up with cardiology Orders: - rivaroxaban (Xarelto) 15 MG tablet; Take 1 tablet by mouth Daily With Dinner. Dispense: 90 tablet; Refill: 3 Other orders - citalopram (CeleXA) 20 MG tablet; Take 1 tablet by mouth Daily. Dispense: 90 tablet; Refill: 3 Follow Up No follow-ups on file. Patient was given instructions and counseling regarding her condition or for health maintenance advice. Please see specific information pulled into the AVS if appropriate. documented in this encounter Plan of Treatment Upcoming Encounters Date Type Department Care Team (Late st Contact Info) Description 07/16/2025 2:15 PM EST Office Visit [facility] [address] [place] [phone] Rell Clark MD [address] [place] [address] [address] [place], [place] [id number] documented as of this encounter Procedures Procedure Name Priority Date/Time Associated Diagnosis Comments POCT GLYCOSYLATED HEMOGLOBIN (HGB A1C) Routine 04/09/2025 11:28 AM EST Type 2 diabetes mellitus with hyperglycemia, without long-term current use of insulin documented in this encounter Results * (ABNORMAL) POC Glycosylated Hemoglobin (Hb A1C) (04/09/2025 11:28 AM EST) Hemoglobin A1C 6.5(A) 4.5 - 5.7 % [facility] Lot Number [id number] [facility] Expiration Date 10/02/2026 [facility] Blood 04/09/2025 11:2 8 AM EST Rell Clark MD POINT OF CARE TEST ORDER JORGE Final Result [facility]
[address] [place] [address], documented in this encounter Visit Diagnoses Diagnosis Type 2 diabetes mellitus with hyperglycemia, without long-term current use of insulin- Primary Late onset Alzheimer's dementia without behavioral disturbance Left ventricular diastolic dysfunction Unspecified heart disease Paroxysmal atrial fibrillation Atrial fibrillation documented in this encounter Additional Health Concerns Assessment Noted Time PHQ-2 Depression Total Score: 4 07/09/19 24 2:11 PM EST documented as of this encounter Care Teams Assistant Professor Of Surgery Relationship Specialty Start Date End Date Rell Clark MD [address] [place] [phone] PCP - General Family Medicine 12/14/21 documented as of this encounter
--- OUTSIDE RECORDS SUMMARY | 2025-04-27 12:08 | XMS_ITS | Encounter Summary ---
Author Organization [facility] Address [address] [place] [address] Care Team Providers Care Awning Craftsperson Name Role Phone Rell Clark MD Primary Care Provider + Encounter Details Date Type Department Care Team (Late st Contact Info) Description 09/16/2024 Results Follow-Up [facility] [address] [place] [address] Rell Clark MD [address] [place] [address] Social History Tobacco Use Types Packs/Day Years [...] on file documented as of this encounter Plan of Treatment Upcoming Encounters Date Type Department Care Team (Late st Contact Info) Description 07/16/2025 2:15 PM EST Office Visit [facility] [address] [place] [address] Rell Clark MD [address] [place] [address] documented as of this encounter Visit Diagnoses Diagnosis Type 2 diabetes mellitus with hyperglycemia, without long-term current use of insulin documented in this encounter Additional Health Concerns Assessment Noted Time PHQ-2 Depression Total Score: 4 07/09/19 24 2:11 PM EST documented as of this encounter Care Teams Awning Craftsperson Relationship Specialty Start Date End Date Rell Clark MD [address] [place] [address] PCP - General Family Medicine 12/14/21 documented as of this encounter
--- OUTSIDE RECORDS SUMMARY | 2025-04-27 12:08 | XMS_ITS | Encounter Summary ---
Author Organization [facility] Address [address] [place] [address] Care Team Providers Care Marine Extension Agent Name Role Phone Rell Clark MD Primary Care Provider + Encounter Details Date Type Department Care Team (Latest Contact Info) Description 04/09/2025 Travel Social History Tobacco Use Types Packs/Day Years [...] Description 07/16/2025 2:15 PM EST Office Visit [facility] [address] [facility] [place] [address] Rell Clark MD [address] [facility] [place] [address] documented as of this encounter Visit Diagnoses Not on filedocumented in this encounter Additional Health Concerns Assessment Noted Time PHQ-2 Depression Total Score: 4 07/09/19 24 2:11 PM EST documented as of this encounter Care Teams Marine Extension Agent Relationship Specialty Start Date End Date Rell Clark MD [address] [place] [place] [address] PCP - General Family Medicine 12/14/21 documented as of this encounter
--- OUTSIDE RECORDS SUMMARY | 2025-04-27 12:08 | XMS_ITS | Encounter Summary ---
Author Organization [facility] Address [address] [place] [address] Care Team Providers Care Security Assessor Name Role Phone Rell Clark MD Primary Care Provider + Encounter Details Date Type Department Care Team (Late Contact Info) Description 01/06/2025 Results Follow-Up [facility] MED[facility] [address] [place] [address] Rell Clark MD [address] [place] [address] Social History Tobacco Use Types [...] Description 07/16/2025 2:15 PM EST Office Visit [facility] MED[facility] [address] [place] [address] Rell Clark MD [address] [place] [address] documented as of this encounter Visit Diagnoses Not on filedocumented in this encounter Additional Health Concerns Assessment Noted Time PHQ-2 Depression Total Score: 4 07/09/19 24 2:11 PM EST documented as of this encounter Care Teams Security Assessor Relationship Specialty Start Date End Date Rell Clark MD [address] [place] [address] PCP - General Family Medicine 12/14/21 documented as of this encounter
--- OUTSIDE RECORDS SUMMARY | 2025-04-27 12:08 | XMS_ITS | Clinical Summary ---
Author Organization [facility] Address [address] [place] [address] Care Team Providers Care Lithographic Camera Operator Name Role Phone Rell Clark MD Primary Care Provider + Allergies Active Allergy Reactions Criticality Noted Date Comments Pioglitazone Swelling High 07/13/2024 Medications vitamin B-6 (PYRIDOXINE) 50 MG tablet Take 2 tablets by mouth Daily. Active folic acid (FOLVITE) 400 MCG tablet Take 1 tablet by mouth Daily. Active vitamin B-12 (CYANOCOBALAMIN) 1000 MCG tablet Take 1 tablet by mouth Daily. Active Cholecalciferol (Vitamin D-3) 125 MCG (5000 UT) tablet Take by mouth. Active omeprazole (priLOSEC) 20 MG capsule Take 1 capsule by mouth Daily. 30 capsule 3 09/25/19 23 Active aspirin 81 MG EC tablet Take 1 tablet by mouth Daily. Active metoprolol succinate XL (TOPROL-XL) 12.5 MG tablet Take 2 half tablet by mouth Daily. Active Jardiance 10 MG tablet tabletIndication s:Type 2 diabetes mellitus with hyperglycemia, without long-term current use of insulin,Left ventricular diastolic dysfunction Take 1 tablet by mouth Daily. 90 tablet 3 04/09/20 25 Active atorvastatin (LIPITOR) 40 MG tabletIndication s:Type 2 diabetes mellitus with hyperglycemia, without long-term current use of insulin Take 1 tablet by mouth Daily. 90 tablet 3 04/09/20 25 Active citalopram (CeleXA) 20 MG tablet Take 1 tablet by mouth Daily. 90 tablet 3 04/09/20 25 Active memantine (NAMENDA XR) 28 MG capsule sustained-releas e 24 hr extended release capsuleIndicatio ns:Late onset Alzheimer's dementia without behavioral disturbance Take 1 capsule by mouth Daily. 90 capsule 3 04/09/20 25 Active metFORMIN (GLUCOPHAGE) 500 MG tabletIndication s:Type 2 diabetes mellitus with hyperglycemia, without long-term current use of insulin Take 1 tablet by mouth 2 (Two) Times a Day With Meals. 180 tablet 3 04/09/20 25 Active rivaroxaban (Xarelto) 15 MG tabletIndication s:Paroxysmal atrial fibrillation Take 1 tablet by mouth Daily With Dinner. 90 tablet 3 04/09/20 25 Active spironolactone (ALDACTONE) 25 MG tabletIndication s:Left ventricular diastolic dysfunction Take 1 tablet by mouth Daily. 90 tablet 3 04/09/20 25 Active citalopram (CeleXA) 20 MG tablet Take 1 tablet by mouth Daily. 90 tablet 3 07/13/19 25 025 Discontinued(Re order) atorvastatin (LIPITOR) 40 MG tabletIndication s:Type 2 diabetes mellitus with hyperglycemia, without long-term current use of insulin Take 1 tablet by mouth Daily. 90 tablet 3 07/13/19 25 025 Discontinued(Re order) digoxin (LANOXIN) 125 MCG tabletIndication s:Paroxysmal atrial fibrillation TAKE 1 TABLET BY MOUTH DAILY 30 tablet 3 08/08/19 25 025 Discontinued furosemide (LASIX) 40 MG tablet Take 1 tablet by mouth Daily. swelling 08/12/19 25 025 Discontinued potassium chloride ER (K-TAB) 20 MEQ tablet controlled-relea se ER tablet Take 1 tablet by mouth Daily. 08/12/19 25 025 Discontinued(*T herapy completed) metFORMIN (GLUCOPHAGE) 500 MG tabletIndication s:Type 2 diabetes mellitus with hyperglycemia, without long-term current use of insulin Take 1 tablet by mouth 2 (Two) Times a Day With Meals. 180 tablet 02/09/20 25 025 Discontinued(Re order) Jardiance 10 MG tablet tabletIndication s:Type 2 diabetes mellitus with hyperglycemia, without long-term current use of insulin,Acute on chronic diastolic (congestive) heart failure Take 1 tablet by mouth Daily. 90 tablet 02/09/20 25 025 Discontinued(Re order) memantine (NAMENDA XR) 28 MG capsule sustained-releas e 24 hr extended release capsuleIndicatio ns:Late onset Alzheimer's dementia without behavioral disturbance Take 1 capsule by mouth Daily. 90 capsule 02/09/20 25 025 Discontinued(Re order) spironolactone (ALDACTONE) 25 MG tabletIndication s:Acute on chronic diastolic (congestive) heart failure Take 1 tablet by mouth Daily. 90 tablet 02/09/20 25 025 Discontinued(Re order) rivaroxaban (Xarelto) 15 MG tabletIndication s:Paroxysmal atrial fibrillation Take 1 tablet by mouth Daily With Dinner. 90 tablet 02/09/20 25 025 Discontinued(Re order) Active Problems Problem Noted Date Diagnosed Date Left ventricular diastolic dysfunction 5 (HFpEF) heart failure with preserved ejection fr action 08/18/2024 Type 2 diabetes mellitus wit h hyperglycemia, without long-term current use of insulin 12/14/2021 Assessment & Plan (07/13/2024 2:54 PM EST): Orders: Hemoglobin A1c; Future atorvastatin (LIPITOR) 40 MG tablet; Take 1 tablet by mouth Daily. Assessment & Plan (07/13/2024 2:54 PM EST): Orders: Hemoglobin A1c; Future atorvastatin (LIPITOR) 40 MG tablet; Take 1 tablet by mouth Daily. Assessment & Plan (07/09/2023 2:44 PM EST): Diabetes is improving with treatment. Continue current treatment regimen. Diabetes will be reassessed in 3 months. Assessment & Plan (03/28/2023 1:13 PM EDT): Diabetes is worsening. Medication changes per orders. Diabetes will be reassessed in 3 months. A1c has risen since discontinuation of Januvia. 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 2 Permanent atrial fibrillation 12/14/2021 Encounters Date Type Department Care Team Description 04/09/2025 11:45 AM EST Office Visit [facility] [address] [facility] [place] [address] Rell Clark MD Type 2 diabetes mellitus with hyperglycemia, without long-term current use of insulin (Primary Dx); Type 2 diabetes mellitus with hyperglycemia, without long-term current use of insulin; Late onset Alzheimer's dementia without behavioral disturbance; Late onset Alzheimer's dementia without behavioral disturbance; Left ventricular diastolic dysfunction; Paroxysmal atrial fibrillation 04/09/2025 Travel 02/10/2025 Telephone [facility] [address] [place] [address] Rell Clark MD Med Management 01/25/2025 Refill [facility] [address] [place] [address] Rell Clark MD Type 2 diabetes mellitus with hyperglycemia, without long-term current use of insulin from Last 3 Months Immunizations Immunization Administration Dates Next Due COVID-19 (MODERNA) 1st,2nd,3rd Dose Monovalent 0 08/10/2020,07/13/2020 COVID-19 (MODERNA) BIVALENT 12+YRS 04/04/2022 COVID-19 (MODERNA) Monovalent Original Booster 1 06/19/2020 COVID-19 (UNSPECIFIED) 02/15/2025 Fluzone High-Dose 65+YRS 02/18/2024 Fluzone High-Dose 65+yrs 03/20/2023,03/19/2022 Influenza, Unspecified 02/15/2025 Social History Tobacco Use Types Packs/Day Years Used Date Smoking Tobacco: Never Smokeless Tobacco: Never Tobacco Cessation:Counseling Given: Not Answered PHQ-2 Answer Date Recorded Retired PHQ-9: Brief Depression Severity Measure Score 1 06/19/2022 PHQ-2 Answer Date Recorded Patient Health Questionnaire-9 Score 9 07/13/2024 Comments Unknown Sex and Gender Information Value Date Recorded Sex Assigned at Not on file Legal Sex Female 12:22 PM EDT Gender Identity Not on file Sexual Orientation Not on file Last Filed Vital Signs Vital Sign Reading [...] Mass Index 30.12 04/09/2025 11:19 AM EST Plan of Treatment Upcoming Encounters Date Type Department Care Team (Late st Contact Info) Description 07/16/2025 2:15 PM EST Office Visit [facility] [address] [facility] [place] [address] Rell Clark MD [address] [place] [address] Health Maintenance Due Date Last Done Comments DXA SCAN 1940 DIABETIC EYE EXAM 08/25/1950 URINE MICROALBUMIN-CREATININ E RATIO (uACR) 08/25/1949 Pneumococcal Vaccine 50+ (1 of 2 - PCV) 08/25/1958 TDAP/TD VACCINES (1 - Tdap) 08/25/1958 ZOSTER VACCINE (1 of 2) 08/25/1989 RSV Vaccine - Adults (1 - 1- dose 75+ series) 08/25/2014 COVID-19 Vaccine (7 - 2024-2 6 season) 2025 02/15/2025, 02/18/2024, 03/20/2023, Additional history exists DIABETIC FOOT EXAM 05/14/2025 05/14/2024, 0 01/20/2024, 08/28/2023, Additional history exists ANNUAL WELLNESS VISIT 07/13/2025 07/13/2024 , 07/13/2024, 07/09/2023, Additional history exists HEMOGLOBIN A1C 10/07/2025 04/09/2025, 08/0 10/2024, 09/15/2024, Additional history exists INFLUENZA VACCINE Completed 02/15/2025, , 02/18/2024, Additional history exists Procedures Procedure Name Priority Date/Time Associated Diagnosis Comments POCT GLYCOSYLATED HEMOGLOBIN (HGB A1C) Routine 04/09/2025 11:28 AM EST Type 2 diabetes mellitus with hyperglycemia, without long-term current use of insulin SCANNED - INFLUENZA 02/15/2025 SCANNED - FOOT EXAM 05/14/2024 from Last 3 Months or Most Recently Relevant to Health Maintenance Results * (ABNORMAL) POC Glycosylated Hemoglobin (Hb A1C) (04/09/2025 11:28 AM EST) Hemoglobin A1C 6.5(A) 4.5 - 5.7 % [facility] Lot Number [id number] [facility] Expiration Date 10/02/2026 [facility] Blood 04/09/2025 11:2 8 AM EST Rell Clark MD POINT OF CARE TEST ORDER JORGE Final Result [facility]
[address] [place] [address], * IMAGING SCANNED (02/15/2025) [facility] CHART REVIEW TABS Final Re sult * FOOT EXAM SCANNED (05/14/2024) Rell Clark MD CHART REVIEW TABS Fin al Result from Last 3 Months or Most Recently Relevant to Health Maintenance Insurance MEDICARE A & B [facility] PPO Care Teams Lithographic Camera Operator Relationship Specialty Start Date End Date Rell Clark MD [address] [facility] [address] [address] PCP - General Family Medicine 12/14/21
[2025-04-27 12:41] LABS: Hematocrit 39.9 % (37.0-47.0); Hemoglobin 12.6 g/dL (12.2-16.2); Immature Granulocytes % 0.3 %; Mean Corpuscular HGB Conc 31.6 g/dL (31.8-35.4); Mean Corpuscular Hemoglobin 26.4 pg (27.0-31.2); Mean Corpuscular Volume 83.6 fl (81-99); Nucleated Red Blood Cells % 0 %; Platelet Count 335 K/mm3 (142-424); Red Blood Count 4.77 M/mm3 (4.20-5.40); Red Cell Distribution Width-SD 54.3 fL; White Blood Count 8.7 K/mm3 (4.8-10.8)
[2025-04-27 13:32] LABS: Alanine Aminotransferase 26 U/L (12-78); Albumin Level 4.4 g/dl (3.5-5.0); Alkaline Phosphatase 66 U/L (38-126); Aspartate Amino Transferase 44 U/L (14-36); Bilirubin,Direct 0.3 mg/dl (0.0-0.4); Bilirubin,Indirect 0.9 mg/dL (0.0-0.9); Bilirubin,Total 1.2 mg/dl (0.2-1.3); Bilirubin,Unconjugated 0.9 mg/dL (0.0-1.1); Blood Urea Nitrogen 21 mg/dl (7-17); Calcium 9.5 mg/dl (8.4-10.2); Carbon Dioxide 23 mmol/L (22.0-30.0); Cholesterol 93 mg/dl (140-200); Creatinine,Serum 0.80 mg/dl (0.52-1.04); Estimated Glomerular Filt Rate 68 ml/min (>60); GFR (African American) 82 ML/MIN (>60); Glucose 104 mg/dl (74-100); HDL Cholesterol 55 mg/dl (40-60); Magnesium 1.5 mg/dl (1.6-2.3); Total Protein,Serum 6.9 g/dl (6.3-8.2); Triglycerides 91 mg/dl (30-150)
[2025-04-27 13:50] LABS: Free T4 (Free Thyroxine) 1.13 ng/dl (0.78-2.19)
[2025-04-27 14:22] LABS: Anion Gap 12.6 mEq/L (5-15); Chloride 101 mmol/L (98-107); Potassium 5.6 mmoL/L (3.5-5.1); Sodium 131 mmol/L (136-145)
[2025-04-27 14:58] LABS: Thyroid Stimulating Hormone 1.43 uIU/mL (0.465-4.68)
== END 2025-04-27 23:59 | disposition home or self-care (01) ==
LOC: LAB 12:06
PROVIDERS: PCP Family Medicine; Visit Provider Nurse Practitioner
DX: E78.2 Mixed hyperlipidemia (principal); I11.9 Hypertensive heart disease without heart failure
CPT/HCPCS: 36415; 80048; 80061; 80076; 83735; 84439; 84443; 85025